=== PATIENT | male | born 1955 | race Caucasian/White ===

== ENCOUNTER 2023-02-09 09:54 | Emergency (ER) | payer MEDICARE, OTHER, SELFPAY ==
--- NOTE | ~2023-02-09 | US_ITS ---
EXAMINATION: US SCROTUM CLINICAL INFORMATION: Right testicular pain. COMPARISON: None available. TECHNIQUE: A sonogram of the scrotum was performed assessing dumont-scale appearance and color Doppler flow. Spectral Doppler analysis of the arterial and venous flow were performed in the testes bilaterally. FINDINGS: RIGHT: Right testicle measures 3.6 x 3.0 x 3.8 cm, volume 21.5 mL. No focal testicular parenchymal lesions are visualized. Spectral Doppler analysis of the arterial and venous flow is normal in the right testis. Right epididymis is enlarged and demonstrates increased vascularity suggesting epididymitis. No right varicocele is seen. Complex right-sided large hydrocele. Right appendix testes. LEFT: Left testicle measures 3.9 x 2.0 x 2.4 cm, volume 9.8 mL. No focal testicular parenchymal lesions are visualized. Spectral Doppler analysis of the arterial and venous flow is normal in the left testis. Scrotal shu measuring 3 mm. Left epididymal head is normal in size. No left varicocele is seen. Left epididymal Doppler flow is normal. Moderate left-sided hydrocele. Left appendix testes. Bilateral scrotal wall thickening. US/US scrotum doppler IMPRESSION: 1. Bilateral testicular vascular flow identified. 2. Right epididymis is enlarged and demonstrates increased vascularity suggesting epididymitis. 3. Complex right-sided large hydrocele. 4. Moderate left-sided hydrocele. 5. Bilateral scrotal wall thickening. 6. Left-sided scrotal shu measuring 3 mm.
[2023-02-09 09:57] VITALS: BP 155/82; PULSE 71; RESP 19; TEMP 36.1; O2SAT 97; BMI 28.6
--- OUTSIDE RECORDS SUMMARY | 2023-02-09 11:50 | XMS_ITS | Continuity of Care Document ---
Author Name Unknown Organization [facility] Address [address] [place] [address], [address] [place] [address]- Care Team Providers Care Pharmaceutical Worker Name Role Phone Nusrat RODRIGUEZ, Alvarez Hendrix Primary Care Physician Encounter [facility] [place] Date(s): 09/27/21 - 12/23/21 [facility] [address] [place] [address] Drive, [address] [place], [place] [address] Attending Physician: Armin Moe MD Referring Physician: Jann Verduzco Allergies, Adverse Reactions, Alerts No Known Allergies Medications Atenolol Tablet 75 mg, By Mouth, Daily, Maintenance, 02/10/15 12:57:00 Start Date: 02/10/15 Status: Ordered atorvastatin 80 mg oral tablet = 80 mg, By Mouth, Daily at bedtime, # 60 tablet, 0 Refills, Maintenance, 02/12/15 11:40:04, Tablet, 80 mg By Mouth Daily at bedtime,x60 days Start Date: 02/12/15 Stop Date: 04/13/15 Status: Ordered biotin 5000 mcg oral tablet, disintegrating 0 Refills, Maintenance, 02/20/15 15:37:55 Start Date: 02/20/15 Status: Ordered Coenzyme Q10 = 200 mg, By Mouth, Daily, 0 Refills, Maintenance, 02/20/15 15:37:15 Start Date: 02/20/15 Status: Ordered Gabapentin = 600 mg, By Mouth, 3 times a day, 0 Refills, Maintenance, 02/20/15 15:36:16 Start Date: 02/20/15 Status: Ordered Melatonin 10mgs, Daily at bedtime, 0 Refills, Maintenance, 03/28/16 9:27:40 Start Date: 03/28/16 Status: Ordered Multivitamin Daily, 0 Refills, Maintenance, 03/28/16 9:24:25 Start Date: 03/28/16 Status: Ordered Patient's Own Meds ts fish oil w krill 1500 2 tabs, By Mouth, Daily, Maintenance, 03/28/16 9:25:24 Start Date: 03/28/16 Status: Ordered Percocet-10/325 1 tablet, By Mouth, Every 6 hours, 0 Refills, Maintenance, 05/10/16 13:36:15 Start Date: 05/10/16 Status: Ordered Social History Social History Type Response Smoking Status Never smoker entered on: 02/20/15 Sex
--- OUTSIDE RECORDS SUMMARY | 2023-02-09 11:50 | XMS_ITS | Continuity of Care Document ---
Author Name Unknown Organization [facility] Address [address] [place] [address] [address]ize, [address] [place] [address]- Care Team Providers Care Crisis Therapist Name Role Phone Nusrat RODRIGUEZ, Alvarez Hendrix Primary Care Physician Encounter [facility] [place] Date(s): 11/23/21 - 12/23/21 [facility] [address] [place] [address] Drive, [address] [place], [place] [address] Attending Physician: Kody Kenyon Admitting Physician: Kody Kenyon Referring Physician: AdmKody barrera Allergies, Adverse Reactions, Alerts No Known Allergies [...] 05/10/16 13:36:15 Start Date: 05/10/16 Status: Ordered Vital Signs Most recent to oldest [Reference Range]: 1 Height 180.3 cm (02/20/15 3:11 PM) Weight 90.0 kg (02/20/15 3:11 PM) Pulse Rate [55-90 bpm] 61 bpm (02/20/15 3:11 PM) Body Mass Index [18.50-24.99] 27.69 *H* (02/20/15 3:11 PM) Blood Pressure [90-138/55-84 mm Hg] 118/ 72mm Hg (02/20/15 3:11 PM) Respiratory Rate [16-30 br/min] 16 br/mi n (02/20/15 3:11 PM) Blood pressure sites Arm, right (02/20/15 3:11 PM) Weight Obtained Via Patient/family state d (02/20/15 3:11 PM) Social History Social History Type Response Smoking Status Never smoker entered on: 02/20/15 Sex
--- OUTSIDE RECORDS SUMMARY | 2023-02-09 11:50 | XMS_ITS | Continuity of Care Document ---
Author Name Unknown Organization [facility] Address [address] [place] [id number]- Care Team Providers Care Head Greenskeeper Name Role Phone Jann Verduzco Primary Care Physician Encounter [facility] [place] Date(s): 02/18/22 - 03/20/[address] [address]- Attending Physician: Kody Kenyon Admitting Physician: Kody Kenyon Referring Physician: Admtr ArIndia Allergies, Adverse Reactions, Alerts No Known Allergies [...] Status Never smoker entered on: 02/20/15 Sex Patient Care team information Personnel Name: Jann Verduzco Address: Address: [address] [place] [id number]
--- OUTSIDE RECORDS SUMMARY | 2023-02-09 11:50 | XMS_ITS | Continuity of Care Document ---
Author Name Unknown Organization [facility] Address [address] [place] [address] [address], [address] [place] [address]- Care Team Providers Care Mixing Machine Attendant Name Role Phone Nusrat RODRIGUEZ, Alvarez Hendrix Primary Care Physician [place] [facility] [place] 09/27/21 - 10/27/21 [facility] [address] [place] [address] Drive, [address] [place], [place] [address] Allergies, Adverse Reactions, Alerts No Known Allergies [...]
[2023-02-09 12:17] VITALS: BP 159/86; PULSE 60; RESP 14; O2SAT 95
--- NOTE | 2023-02-09 12:50 | ED.MALEGU ---
HPI - Male Genitourinary General Chief complaint: Urogenital-Male Stated complaint: swollen testicle Time Seen by Provider: 02/09/23 11:27 Source: patient Mode of arrival: ambulatory Limitations: no limitations History of Present Illness HPI Narrative: 67 y o male presents for evaluation of R scrotal pain x1 week. States he was vacationing in [place] with his and he went swimming, following exiting the pool he noticed immediately pain to his right scrotum and testicle. He expressed a concern for a possible sting or bite by an insect, but cannot recall seeing a bug. He reports that within hours of the pain onset, his right scrotum became swollen and has been swollen since. He has tried Iburpofen and Tylenol with no relief. He states that walking around with increased pressure and gravity to his groin increases his pain, but states that using supportive underwear or manually supporting the scrotum alleviates his pain. He is not currently sexually active. He denies dysuria, urinary urgency, frequency, or hematuria. Denies penile discharge, fevers, chills, abdominal pain, chest pain and shortness of breath. No history of hernias or cryptochordism. Related Data Sexually active: No Previous Rx's Medication Instructions Recorded levofloxacin 500 mg tablet 500 mg PO DAILY 10 days #10 tabs 02/09/23 Allergies Allergy/AdvReac Type Severity Reaction Status Date / Time No Known Allergies Allergy Verified 02/09/23 09:57 Review of Systems Review of Systems: Constitutional : No Weight loss, No Fever, No Chills, No Fatigue, No Malaise ENT/Mouth : No sore throat, No Rhinorrhea Eyes: No Eye Pain, No Swelling, No Redness Cardiovascular : No Chest Pain, No SOB, No Dyspnea on Exertion, No Orthopnea, No Edema, No Palpitations Respiratory : No Cough, No Sputum, No Wheezing Gastrointestinal : No Nausea, No Vomiting, No Diarrhea, No Constipation, No abdominal Pain, No Hematochezia, No Melena Genitourinary : No Dysuria, No Urinary Frequency, No Hematuria, +scrotal pain, no penile discharge Musculoskeletal : No joint pain, No Myalgias, No Joint Swelling Skin : No Skin Lesions, No rash Neuro : No Weakness, No Numbness, No Dizziness, No Headache Psych : No Anxiety/Panic, No Depression Heme/Lymph: No Bruising, No Bleeding,No Lymphadenopathy Endocrine : No Polyuria, No Polydipsia All other systems reviewed and are negative [facility] Past Medical History Attestation statement: The following information was validated with the patient. Source: old records reviewed and nursing notes reviewed Social History Social History Smoked in Last 30 Days: No Use of substances other than those prescribed or required for medical reasons: No Advance Directives: Yes Advance Directives Information Provided: No Advance Directives on File: No Physical Exam Vital Signs: Vital Signs: Last Vital Signs Temp 97 F 02/09/23 09:57 Pulse 65 02/09/23 14:03 Resp 14 02/09/23 14:03 BP 170/81 H 02/09/23 14:03 Pulse Ox 95 02/09/23 14:03 O2 Del Method Room Air 02/09/23 14:03 BMI result Body Mass Index 28.6 vss Appearance: Alert.? Oriented X3.? No acute distress.? Head: Normocephalic, atraumatic, no step-offs or deformities Eyes: Pupils equal, round and reactive to light.? CVS: Normal heart rate and rhythm.? Pulses normal.? Respiratory: No respiratory distress.? Breath sounds normal.? Abdomen: Soft and nontender.? Skin: Skin warm and dry.? Normal skin color.? Normal skin turgor.? Extremities: No lower extremity edema.? No calf ttp. 5/5 strength to bilateral upper and lower extremities Back: No midline tenderness, no C-spine tenderness, full range of motion, no CVA tenderness bilaterally Neuro: Oriented X 3.? No motor deficit.? No sensory deficit. CN 2-12 intact Sensative: nurse Ayleen as dredging inspector Errythema to right scrotal sac no obvious lesions. R testicle enlarge when compared to L testicle ? Hydrocele. + tenderness to right epididymis . Normal left testicle. No signs of gangrene Course Reevaluation(s) Reevaluation #1: Patient's ultrasound showing bilateral testicular vascular flow identified, no signs of torsion, right epididymis is enlarged and demonstrates increased vascularity suggesting epididymitis. Complex right-sided large hydrocele. Moderate left-sided hydrocele. Bilateral scrotal wall thickening. I do not suspect scrotal cellulitis. Unlikely gangrene. Urine with positive bacteria as well as leukocyte esterases will treat with Levaquin. Labs pending Time: 13:38 Reevaluation #2: CBC with no leukocytosis in normocytic anemia is noted likely patient's baseline. I did have my attending evaluate this patient who reports right-sided swelling likely secondary to hydrocele, no hard masses noted, will discharge him with Levaquin, urology follow-up. Educated patient on diagnosis and treatment plan, answered all question, patient verbalizes understanding. At this time patient will be discharged home, advised to return with new or worsening symptoms. Educated on worrisome signs and symptoms and when to return. At this time I feel comfortable discharge home. Time: 14:20 Reevaluation #3: Chemistry unremarkable slightly elevated BUN likely secondary to poor p.o. intake/dehydration encourage p.o. fluids. Medical Decision Making Medical Decision Making [facility] Narrative: 1337 67 year old male presents w/ r scrotal pain and swelling X 1 week. PE w/ Sensative: nurse Ayleen as dredging inspector Errythema to right scrotal sac no obvious lesions. R testicle enlarge when compared to L testicle. + tenderness to right epididymis . Normal left testicle. No signs of gangrene Likely UTI vs cystisi vs epididymitis versus orchitis. Unlikely torsion, acute abdomen, electrolyte abnormalities. No evidence of trauma. No signs of Hank gangrene Plan at this time labs, imaging, urine. Differential Diagnosis Differential Diagnoses: The differential diagnosis associated with the presentation includes Likely UTI vs cystisi vs epididymitis versus orchitis. Unlikely torsion, acute abdomen, electrolyte abnormalities. No evidence of trauma. Admission/Observation Consideration of admission/observation: Escalation of care including admission/observation considered Unlikely Consult Healthcare Provider Management of the patient was discussed with: Spray Painter (My attending Dr. Landis) Lab Data [facility] Lab Attestation statement: I reviewed the patient's lab results. 02/09/23 14:09 02/09/23 14:09 Labs: Lab Results 02/09/23 02/09/23 Range/Units 12:55 14:09 WBC 7.9 (4.8-10.8) X10*3/uL RBC 4.03 L (4.60-5.80) X10*6/uL Hgb 12.8 L (14.0-18.0) g/dl Hct 37.8 L (42.0-52.0) % MCV 93.8 (80.0-98.0) fL MCH 31.8 (27.0-33.0) pg MCHC 33.9 (31.0-36.0) g/dl RDW 12.2 (11.0-16.0) % Plt Count 196 (160-400) X10*3/uL MPV 10.2 (9.4-12.4) fL Immature Gran % (Auto) 0.3 (0.0-0.4) % Neut % (Auto) 65.2 (45-73) % Lymph % (Auto) 16.4 L (20-40) % [place] % (Auto) 9.8 (2-11) % Eos % (Auto) 7.7 H (0-4) % Baso % (Auto) 0.6 (0-2) % Lymph # (Auto) 1.3 (1.2-4.9) X10*3/uL [place] # (Auto) 0.8 (0.1-1.2) X10*3/uL Eos # (Auto) 0.6 H (0.0-0.4) X10*3/uL Baso # (Auto) 0.1 (0.0-0.2) X10*3/uL Abs Immat Gran (auto) 0.02 (0.00-0.03) X10*3/uL Absolute Neuts (auto) 5.2 (2.0-8.3) x10*3/uL Absolute Nucleated RBC 0.000 (0.0-0.012) X10*3/uL Nucleated RBC % (auto) 0.0 (0.0-0.2) /100WBC Sodium 142 (135-145) mmol/L Potassium 4.3 (3.3-5.1) mmol/L Chloride 111 H (96-108) mmol/L Carbon Dioxide 26 (22-29) mmol/L Anion Gap 9 L (12-20) BUN 17 H (9-16) mg/dL Creatinine 0.88 (0.5-1.4) mg/dL Estim Creat Clear Calc 92.3 Estimated GFR > 60 Random Glucose 81 (60-115) mg/dL Calcium 9.3 (8.4-10.2) mg/dL Magnesium 2.2 (1.6-2.6) mg/dL Total Bilirubin 0.4 (0.0-1.0) mg/dL AST 29 (5-37) U/L ALT 37 (0-40) U/L Alkaline Phosphatase 106 (39-117) U/L Total Protein 6.7 (6.5-8.0) g/dL Albumin 3.7 (3.5-5.0) g/dL Lipase 19 (8-78) U/L Urine Color Yellow Urine Appearance Cloudy Urine pH 6.5 (5.0-9.0) Ur Specific [place] 1.025 (1.005-1.025) Urine Protein Trace (Neg-Trace) mg/dL Urine Glucose (UA) Negative (Negative) mg/dL Urine Ketones Negative (Negative) mg/dL Urine Blood Trace H (Negative) Urine Nitrite Negative (Negative) Ur Leukocyte Esterase Large (3+) H (Negative) Urine RBC 0-2 (0-2) /HPF Urine WBC >50 H (0-5) /HPF Ur Squamous Epith Cells 0-2 (0-2) /HPF Urine Bacteria 4+ (None Seen) Hyaline Casts 0-2 (0-2) /LPF Independent Interpretation I performed an independent interpretation of an: Ultrasound ( US/US scrotum doppler IMPRESSION: 1. Bilateral testicular vascular flow identified. 2. Right epididymis is enlarged and demonstrates increased vascularity suggesting epididymitis. 3. Complex right-sided large hydrocele. 4. Moderate left-sided hydrocele. 5. Bilateral scrotal wall thickening. 6.) Radiology Impression Discussion of test interpretation with radiology: I have reviewed the radiologist's reading. Prescription Management I considered prescription management with: Antibiotic Critical Care Time Critical Care Time Critical Care Time: Yes Total Critical Care Time: 35 Attestation: I attest to this time spent taking care of the patient, obtaining history, physical, reviewing labs, imaging, speaking to my attending Discharge Plan Discharge Clinical Impression: Epididymitis, Urinary tract infection, Hydrocele Patient Disposition: Home, Self-Care Instructions: Epididymitis (ED), Urinary Tract Infection in Men (DC) Additional Instructions: Take your medications as prescribed. If you were prescribed antibiotics today, it is important that you take your medication to their entirety, do not skip any doses, do not finish them early. Follow-up with your primary care provider this week. Return to the emergency department with new or worsening symptoms. Such as fevers, chills, chest pain, shortness of breath, nausea, vomiting, dizziness, headache, vision changes, lethargy In case of emergency call 911 I sent Devika to the pharmacy for urinary tract infection it has a black box warning of tendon rupture, if you experience any pain to her tendons please discontinue medication, please do not participate in strenuous activity while taking this. Please take with food. Please follow-up with urology. US/US scrotum doppler IMPRESSION: 1. Bilateral testicular vascular flow identified. 2. Right epididymis is enlarged and demonstrates increased vascularity suggesting epididymitis. 3. Complex right-sided large hydrocele. 4. Moderate left-sided hydrocele. 5. Bilateral scrotal wall thickening. 6. Left-sided scrotal shu measuring 3 mm. Prescriptions: New levofloxacin 500 mg tablet 500 mg PO DAILY 10 Days Qty: 10 0RF Referrals: [facility] [Provider Group] - 2 days Jann Adams PA [Primary Care Provider] - 2 days Stand Alone Forms: Work/School Release
[2023-02-09 13:04] LABS: Appearance Urine Cloudy; Color Urine Yellow; Glucose Urine UA Negative (Negative); Leukocyte Esterase Urine Large (3+) (Negative); Nitrite Urine Negative (Negative); PH 6.5 (5.0-9.0); Specific Gravity - Urine 1.025 (1.005-1.025); UMIC TRIGGER UACC YES; Urine Blood Trace (Negative); Urine Ketones Negative (Negative); Urine Protein Trace mg/dL (Neg-Trace)
[2023-02-09 13:06] LABS: Bacteria Urine 4+ (None Seen); Hyaline Casts Urine 0-2 /LPF (0-2); RBC Urine 0-2 /HPF (0-2); Squamous Epithelial Cell Urine 0-2 /HPF (0-2); UACC Culture Trigger YES; WBC Urine >50 /HPF (0-5)
[2023-02-09 14:03] VITALS: BP 170/81; PULSE 65; RESP 14; O2SAT 95
[2023-02-09 14:13] LABS: MANUAL DIFF FLAG NO
[2023-02-09 14:14] LABS: Basophils Absolute Auto 0.1 X10*3/uL (0.0-0.2); Basophils Percent Auto 0.6 % (0-2); Eosinophils Absolute Auto 0.6 X10*3/uL (0.0-0.4); Eosinophils Percent Auto 7.7 % (0-4); Hematocrit 37.8 % (42.0-52.0); Hemoglobin 12.8 g/dl (14.0-18.0); Imm Gran Abs Auto 0.02 X10*3/uL (0.00-0.03); Imm Gran Pct Auto 0.3 % (0.0-0.4); Lymphocytes Absolute Auto 1.3 X10*3/uL (1.2-4.9); Lymphocytes Percent Auto 16.4 % (20-40); Mean Corpuscular HGB Conc 33.9 g/dl (31.0-36.0); Mean Corpuscular Hemoglobin 31.8 pg (27.0-33.0); Mean Corpuscular Volume 93.8 fL (80.0-98.0); Mean Platelet Volume 10.2 fL (9.4-12.4); Monocytes Absolute Auto 0.8 X10*3/uL (0.1-1.2); Monocytes Percent Auto 9.8 % (2-11); Neutrophils Absolute Auto 5.2 x10*3/uL (2.0-8.3); Neutrophils Percent Auto 65.2 % (45-73); Platelet Count 196 X10*3/uL (160-400); Red Blood Count 4.03 X10*6/uL (4.60-5.80); Red Cell Distribution Width 12.2 % (11.0-16.0); White Blood Count 7.9 X10*3/uL (4.8-10.8)
[2023-02-09 14:29] LABS: Alanine Aminotransferase 37 U/L (0-40); Albumin Level 3.7 g/dL (3.5-5.0); Alkaline Phosphatase 106 U/L (39-117); Anion Gap 9 (12-20); Aspartate Amino Transferase 29 U/L (5-37); Bilirubin Total 0.4 mg/dL (0.0-1.0); Blood Urea Nitrogen 17 mg/dL (9-16); Calcium 9.3 mg/dL (8.4-10.2); Carbon Dioxide 26 mmol/L (22-29); Chloride 111 mmol/L (96-108); Creatinine Clr Calc Pharmacy 92.3; Estimated Glomerular Filt Rate > 60; Glucose Random 81 mg/dL (60-115); Lipase 19 U/L (8-78); Magnesium 2.2 mg/dL (1.6-2.6); Potassium 4.3 mmol/L (3.3-5.1); Sodium 142 mmol/L (135-145); Total Protein 6.7 g/dL (6.5-8.0)
[2023-02-09 15:13] LABS: CT PCR NOT DETECTED (Not Detect.); NG PCR NOT DETECTED (Not Detect.)
== END 2023-02-09 14:32 | disposition home or self-care (01) ==
PROVIDERS: Physician Assistant; Emergency Provider Emergency Medicine; PCP Physician Assistant Medical
DX: N45.1 Epididymitis (principal); N39.0 Urinary tract infection, site not specified; B96.89 Other specified bacterial agents as the cause of diseases classified elsewhere; N43.2 Other hydrocele; N50.82 Scrotal pain; Z20.2 Contact with and (suspected) exposure to infections with a predominantly sexual mode of transmission
CPT/HCPCS: 0353U; 36415; 80053; 81001; 82550; 83690; 83735; 85025; 87086; 87088; 87186; 93975; 99284

== ENCOUNTER 2023-02-15 14:27 | Outpatient (AMB) | payer MEDICARE, OTHER, SELFPAY ==
--- NOTE | 2023-02-15 14:31 | A.OFFVIS_ITS ---
Intake Intake Visit Reasons: ER F/U- epididymitis, bi hydroceles Intake Note: NEW Patient presents today to established treatment for Epididymitis, bi hydroceles : Meds- Levofloxacin Allergies to Antibiotic- No Known Allergies Blood Thinner- Aspirin Personal Attendant Required: No Accompanied by: Self / Same As Patient Allergies No Known Allergies Allergy (Verified 02/15/23 14:37) HPI HPI Comments History of Present Illness Details Thierry is a 67-year-old male who presents today to the office to establish as a new patient for an evaluation of?scrotal swelling. 02/15/2023? He presents today for an evaluation of?epididymitis, and bilateral hydroceles. He was seen in ED on 02/09/2023 for right scrotal pain. States he was vacationing in [place] with his and he went swimming, following exiting the pool he noticed immediately pain to his right scrotum and testicle. He expressed a concern for a possible sting or bite by an insect. He reports that within hours of the pain onset, his right scrotum became swollen and has been swollen since. He has tried Iburpofen and Tylenol with no relief. He denies dysuria, urinary urgency, frequency, or hematuria. Denies penile discharge, fevers. Examination: swelling and mild tenderness of the scrotum. Evaluation today?UA? bladder scan PVR: 417 mL. Plan: Continue Levaquin 21 day course. Ordered repeat scrotum and kidney, bladder US. Prescribed levofloxacin 500 mg daily 14 tabs for 10 days. [facility] Medical History (Updated 02/15/23 @ 15:07 by Ayleen Christina MD) Back pain with history of spinal surgery Surgical History (Updated 02/15/23 @ 14:38 by DELVIS Loco) Hx of heart artery stent Hx of total knee replacement Family History (Updated 02/15/23 @ 14:39 by DELVIS Loco) Father Bladder cancer Mother Urologic disorders Brother Kidney stone Social History (Updated 02/15/23 @ 14:40 by DELVIS Loco) Alcohol intake: current Alcohol intake frequency: a few times a week Patient Tobacco Use Status: Never used Tobacco Review of Systems Const All systems reviewed & are unremarkable except as noted in HPI and below Reports no additional complaints Eyes Reports no additional complaints ENT Reports no additional complaints Card Denies dyspnea Resp Denies cough and Denies dyspnea GI Reports no additional complaints Musc Reports no additional complaints Skin/Breast Denies rash and Denies unusual bruising Neuro Reports no additional complaints Psych Reports no additional complaints Endo Reports no additional complaints Wolf/Lymph Reports no additional complaints Aller/Immun Reports no additional complaints Physical Exam Const General: healthy appearing, no acute distress and well developed Orientation/consciousness: patient oriented x3 HEENT Head: Yes normocephalic and Yes atraumatic Eyes Conjunctivae: conjunctivae normal Neck Neck: Yes normal visual inspection Chest Chest palpation & inspection: normal inspection of the chest Resp Effort & Inspection: normal respiratory effort Cardio Rate: regular rate GI Inspection: Yes normal to inspection Palpation (GI): Soft to palpation Other: swelling and mild tenderness of the scrotum. Penis: normal penis Scrotum: scrotum abnormal Skin General skin exam: no rashes or lesions noted Neuro General: patient oriented x3 Extrem General: No pedal edema Psych Appearance: grossly normal Affect: normal affect Results AMB Urinalysis, Automated UA Leukoctes 0 Sri/uL Last Edit by DELVIS Loco on 02/15/23 14:45 UA Nitrite Negative Last Edit by DELVIS Loco on 02/15/23 14:45 UA Urobilinogen 0.2 mg/dL Last Edit by DELVIS Loco on 02/15/23 14:4 5 UA Protein 0 mg/dL Last Edit by DELVIS Loco on 02/15/23 14:45 UA pH 6.0 Last Edit by DELVIS Loco on 02/15/23 14:45 UA Blood 0 Aston/uL Last Edit by DELVIS Loco on 02/15/23 14:45 UA Specific [place] 1.025 Last Edit by DELVIS Loco on 02/15/23 14: 45 UA Ketone Negative Last Edit by DELVIS Loco on 02/15/23 14:45 UA Bilirubin 0 mg/dL Last Edit by DELVIS Loco on 02/15/23 14:45 UA Glucose 0 mg/dL Last Edit by DELVIS Loco on 02/15/23 14:45 Results Reviewed Results Reviewed: Laboratory Last Values Urine pH (Auto) 6.0 02/15/23 14:43 Specific [place] (Auto) 1.025 02/15/23 14:43 Urine Protein (Auto) 0 mg/dL 02/15/23 14:43 Glucose (UA)(Auto) 0 mg/dL 02/15/23 14:43 Urine Ketones (Auto) Negative 02/15/23 14:43 Urine Blood (Auto) 0 Aston/uL 02/15/23 14:43 Urine Nitrite (Auto) Negative 02/15/23 14:43 Urine Bilirubin (Auto) 0 mg/dL 02/15/23 14:43 Urine Urobilinogen (Auto) 0.2 mg/dL 02/15/23 14:43 Leukocyte Esterase (Auto) 0 Sri/uL 02/15/23 14:43 Assessment & Plan Assessment & Plan (1) Incomplete bladder emptying: Code(s): R33.9 - Retention of urine, unspecified (2) Orchitis: Code(s): N45.2 - Orchitis Plan Continue Levaquin 21 day course. Ordered repeat scrotum and kidney, bladder US. Prescribed levofloxacin 500 mg daily 14 tabs for 10 days. Orders: Orders US retroperitoneal comp 02/22/23 R33.9 - Retention of urine, unspecified, N45.2 - Orchitis US scrotum 02/22/23 N45.2 - Orchitis AMB Urinalysis Automated 02/15/23 Z13.9 - Encounter for screening, unspecified Medications: Refilled levofloxacin 500 mg PO DAILY 14 tabs 0RF 10 days Patient Instructions: The patient had an opportunity to ask questions regarding treatment plan. All questions were answered. Imaging, Laboratory studies and physical exam results were discussed and reviewed in detail. No major barriers to understanding were identified. The patient expressed understanding and agreement with the above treatment plan.? ? ? The patient is aware they should contact our office by phone for worsening of their current condition or the appearance of new symptoms. Compliance is encouraged with any medications and followup testing that is ordered.? ? ? It is a privilege to be allowed the opportunity to participate in the urologic care of your patient. If you have any questions or concerns regarding treatment for the above conditions please do not hesitate to contact me. The office telephone contact is [phone].? ? ? This note is constructed in part using voice recognition software. While every effort has been made to ensure accuracy director of search engine optimization errors may have been included.? ? ? Yours sincerely,? ? ? Ayleen Christina MD? ? Coding Level of Care Code New Pt Level 4 (90105) Diagnoses Incomplete bladder emptying R33.9 Orchitis N45.2
== END 2023-02-15 15:05 | disposition home or self-care (01) ==
PROVIDERS: PCP Physician Assistant Medical; Visit Provider Urology
DX: R33.9 Retention of urine, unspecified (principal); N45.2 Orchitis
CPT/HCPCS: 99204

== ENCOUNTER → 2023-02-15 14:27 | Outpatient (BNVA) | payer MEDICARE, OTHER, SELFPAY | PROVIDERS: PCP Physician Assistant Medical; Visit Provider Urology | DX: N45.2 Orchitis (principal); R33.9 Retention of urine, unspecified | CPT/HCPCS: 81003 ==

== ENCOUNTER 2023-02-22 13:48 | Outpatient (REF) | payer MEDICARE, OTHER, SELFPAY ==
--- NOTE | ~2023-02-22 | US_ITS ---
EXAMINATION: US RETROPERITONEAL COMPLETE (RENAL) CLINICAL INFORMATION: Retention of urine, incomplete emptying of bladder. COMPARISON: None available. TECHNIQUE: Real-time imaging of the kidneys and bladder. FINDINGS: RIGHT KIDNEY: 10.5 x 4.4 x 7.0 cm (SAG x AP x TRV). The kidney is normal in size, contour, and echogenicity. Renal cortical thickness is normal. No renal calculi or hydronephrosis. 0.8 cm benign cyst in the mid kidney. No follow-up imaging is recommended. LEFT KIDNEY: 11.7 x 4.9 x 6.4 cm (SAG x AP x TRV). The kidney is normal in size, contour, and echogenicity. Renal cortical thickness is normal. No hydronephrosis. Multiple benign cysts measuring up to 1.9 cm. No follow-up imaging is recommended. Three nonobstructing calculi in the left mid to lower kidney measuring 2-6 mm in size. BLADDER: Distended urinary bladder measuring 676 mL prevoid and postvoid 570 mL. Bilateral ureteral jets are seen. ADDITIONAL FINDINGS: The prostate is enlarged measuring 48 mL. US/US retroperitoneal comp IMPRESSION: Nonobstructing left renal calculi. Enlarged prostate with distended urinary bladder and large post void residual. No hydronephrosis.
--- NOTE | ~2023-02-22 | US_ITS ---
EXAMINATION: US SCROTUM CLINICAL INFORMATION: Orchitis. COMPARISON: Ultrasound scrotum 02/09/2023. TECHNIQUE: A sonogram of the scrotum was performed assessing dumont-scale appearance and color Doppler flow. Spectral Doppler analysis of the arterial and venous flow were performed in the testes bilaterally. FINDINGS: RIGHT: Right testicle measures 4.22 x 2.83 x 2.39 cm, volume 15.0 mL. No focal testicular parenchymal lesions are visualized. Spectral Doppler analysis of the arterial and venous flow is increased in the right testis. Right epididymal head is enlarged and edematous compared to the left side. No right varicocele is seen. There is moderate complex loculated hydrocele. Right epididymal Doppler flow is increased. LEFT: Left testicle measures 4.38 x 1.76 x 3.88 cm, volume 15.6 mL. There are scrotal pearls. Spectral Doppler analysis of the arterial and venous flow is normal in the left testis. Left epididymal head is normal in size. No left varicocele is seen. There is a mild simple hydrocele. Left epididymal Doppler flow is normal. US/US scrotum IMPRESSION: Persistent hyperemia of the right testicle and epididymis as well as edema of the right epididymis consistent with epididymoorchitis. Complex loculated right hydrocele. No imaging improvement compared to the prior examination.
== END 2023-02-22 13:49 | disposition home or self-care (01) ==
LOC: HO.HMGCX 13:48
PROVIDERS: PCP Physician Assistant Medical; Visit Provider Urology
DX: R33.9 Retention of urine, unspecified (principal); N45.2 Orchitis
CPT/HCPCS: 76770; 76870

== ENCOUNTER 2023-03-24 09:33 | Outpatient (AMB) | payer MEDICARE, OTHER, SELFPAY ==
--- NOTE | 2023-03-24 09:35 | A.OFFVIS_ITS ---
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: No Accompanied by: Self / Same As Patient Allergies No Known Allergies Allergy (Verified 02/15/23 14:37) Medication List - Last Reconciled 03/24/23 by Ayleen Christina MD amoxicillin-pot clavulanate 875-125 mg 1 tab PO BID 10 days ascorbic acid (vitamin C) mg PO aspirin 81 mg PO DAILY atenolol mg PO atorvastatin mg PO carbidopa-levodopa 25-100 mg tabs PO ferrous sulfate 325 mg PO DAILY gabapentin mg PO hydrocodone-acetaminophen 5-325 mg 1 tab PO BID PRN levofloxacin 500 mg PO DAILY 10 days losartan 25 mg PO DAILY omeprazole 20 mg PO BID tamsulosin (Flomax) 0.4 mg PO BID HPI HPI Comments History of Present Illness Details Thierry is a 67-year-old male who presents today to the office for a follow-up. 03/24/2023? He is followed today for US results. He was last seen by me on 02/15/2023 for right orchitis and incomplete bladder emptying. The patient was advised to continue Levaquin 21 day course. He states that the right testicle is reduced in sized and less tender, but not back to normal. I reviewed the retroperitoneum US results from 02/22/2023: No hydronephrosis. Three nonobstructing calculi in the left mid to lower kidney measuring 2-6 mm in size. Distended urinary bladder measuring 676 mL prevoid and postvoid 570 mL. Bilateral ureteral jets are seen. Estimated prostate size 48 mL. I reviewed scrotal US results from 02/22/2023: revealed persistent hyperemia of the right testicle and epididymis as well as edema of the right epididymis consistent with epididymoorchitis. Complex loculated right hydrocele. 03/24/2023:Evaluation today-- Bladder sc an PVR: 409 mL. Exam- Scrotal swelling resolved, mild tenderness of the right testicle 03/24/2023: Plan: Ordered tamsulosin 0.4 mg one tablet for 7 days, and then increase to twice a day if there is no dizziness. Augmentin 875 mg twice a day for 10 days. Follow-up in 3 months, monitor post void residual. [facility] Medical History Back pain with history of spinal surgery Surgical History Hx of heart artery stent Hx of total knee replacement Family History Father Bladder cancer Mother Urologic disorders Brother Kidney stone Social History Alcohol intake: current Alcohol intake frequency: a few times a week Patient Tobacco Use Status: Never used Tobacco Review of Systems Const All systems reviewed & are unremarkable except as noted in HPI and below Reports no additional complaints Eyes Reports no additional complaints ENT Reports no additional complaints Card Denies dyspnea Resp Denies cough and Denies dyspnea GI Reports no additional complaints Musc Reports no additional complaints Skin/Breast Denies rash and Denies unusual bruising Neuro Reports no additional complaints Psych Reports no additional complaints Endo Reports no additional complaints Wolf/Lymph Reports no additional complaints Aller/Immun Reports no additional complaints Physical Exam Const General: healthy appearing, no acute distress and well developed Orientation/consciousness: patient oriented x3 HEENT Head: Yes normocephalic and Yes atraumatic Eyes Conjunctivae: conjunctivae normal Neck Neck: Yes normal visual inspection Chest Chest palpation & inspection: normal inspection of the chest Resp Effort & Inspection: normal respiratory effort Cardio Rate: regular rate GI Inspection: Yes normal to inspection Palpation (GI): Soft to palpation Other: swelling resolved, mild tenderness of the testicle Penis: normal penis Scrotum: scrotum normal Skin General skin exam: no rashes or lesions noted Neuro General: patient oriented x3 Extrem General: No pedal edema Psych Appearance: grossly normal Affect: normal affect Results Reviewed Results Reviewed: Date of Service: 02/22/23 EXAMINATION: US SCROTUM CLINICAL INFORMATION:? Orchitis. COMPARISON:? Ultrasound scrotum 02/09/2023. FINDINGS: RIGHT: Right testicle measures 4.22 x 2.83 x 2.39 cm, volume 15.0 mL. No focal testicular parenchymal lesions are visualized. Spectral Doppler analysis of the arterial and venous flow is increased in the right testis.? Right epididymal head is enlarged and edematous compared to the left side. No right varicocele is seen. There is moderate complex loculated hydrocele. Right epididymal Doppler flow is increased.? LEFT: Left testicle measures 4.38 x 1.76 x 3.88 cm, volume 15.6 mL. There are scrotal pearls. Spectral Doppler analysis of the arterial and venous flow is normal in the left testis.? Left epididymal head is normal in size. No left varicocele is seen. There is a mild simple hydrocele. Left epididymal Doppler flow is normal. IMPRESSION: Persistent hyperemia of the right testicle and epididymis as well as edema of the right epididymis consistent with epididymoorchitis. Complex loculated right hydrocele. No imaging improvement compared to the prior examination. Date of Service: 02/22/23 EXAMINATION:? US RETROPERITONEAL COMPLETE (RENAL) CLINICAL INFORMATION: Retention of urine, incomplete emptying of bladder. COMPARISON:? None available. FINDINGS: RIGHT KIDNEY: 10.5 x 4.4 x 7.0 cm (SAG x AP x TRV). The kidney is normal in size, contour, and echogenicity. Renal cortical thickness is normal. No renal calculi or hydronephrosis. 0.8 cm benign cyst in the mid kidney. No follow-up imaging is recommended.? LEFT KIDNEY: 11.7 x 4.9 x 6.4 cm (SAG x AP x TRV). The kidney is normal in size, contour, and echogenicity. Renal cortical thickness is normal. No hydronephrosis. Multiple benign cysts measuring up to 1.9 cm. No follow-up imaging is recommended. Three nonobstructing calculi in the left mid to lower kidney measuring 2-6 mm in size. BLADDER: Distended urinary bladder measuring 676 mL prevoid and postvoid 570 mL. Bilateral ureteral jets are seen. ADDITIONAL FINDINGS: The prostate is enlarged measuring 48 mL. IMPRESSION:? Nonobstructing left renal calculi. Enlarged prostate with distended urinary bladder and large post void residual. No hydronephrosis. Assessment & Plan Assessment & Plan (1) Incomplete bladder emptying: Code(s): R33.9 - Retention of urine, unspecified (2) Orchitis: Code(s): N45.2 - Orchitis (3) BPH with obstruction/lower urinary tract symptoms: Code(s): N40.1 - Benign prostatic hyperplasia with lower urinary tract symptoms; N13.8 - Other obstructive and reflux uropathy Plan Ordered tamsulosin 0.4 mg one tablet for 7 days, and then increase to twice a day if there is no dizziness. Augmentin 875 mg twice a day for 10 days. Follow-up in 3 months, monitor post void residual. Medications: New amoxicillin-pot clavulanate 875-125 mg 1 tab PO BID 14 tabs 0RF amoxicillin-pot clavulanate 875-125 mg 1 tab PO BID 10 days 20 tabs 0RF tamsulosin (Flomax) Start flomax daily for 7 days than increase to bid if no dizziness 0.4 mg PO BID 60 caps 3RF Patient Instructions: The patient had an opportunity to ask questions regarding treatment plan. All questions were answered. Imaging, Laboratory studies and physical exam results were discussed and reviewed in detail. No major barriers to understanding were identified. The patient expressed understanding and agreement with the above treatment plan. The patient is aware they should contact our office by phone for worsening of their current condition or the appearance of new symptoms. Compliance is encouraged with any medications and followup testing that is ordered. It is a privilege to be allowed the opportunity to participate in the urologic care of your patient. If you have any questions or concerns regarding treatment for the above conditions please do not hesitate to contact me. The office telephone contact is [phone]. This note is constructed in part using voice recognition software. While every effort has been made to ensure accuracy medical transcriptionist errors may have been included. Yours sincerely, Ayleen Christina MD Coding Level of Care Code Est Pt Level 4 (55955) Diagnoses Incomplete bladder emptying R33.9 Orchitis N45.2 BPH with obstruction/lower urinary tract symptoms N40.1; N13.8
== END 2023-03-24 10:14 | disposition home or self-care (01) ==
PROVIDERS: PCP Physician Assistant Medical; Visit Provider Urology
DX: R33.9 Retention of urine, unspecified (principal); N45.2 Orchitis; N40.1 Benign prostatic hyperplasia with lower urinary tract symptoms; N13.8 Other obstructive and reflux uropathy
CPT/HCPCS: 99214

== ENCOUNTER → 2023-03-24 09:33 | Outpatient (BNVA) | payer MEDICARE, OTHER, SELFPAY | PROVIDERS: PCP Physician Assistant Medical; Visit Provider Urology | DX: N40.1 Benign prostatic hyperplasia with lower urinary tract symptoms (principal); N13.8 Other obstructive and reflux uropathy; R33.9 Retention of urine, unspecified; N45.2 Orchitis | CPT/HCPCS: 99212 ==

== ENCOUNTER 2023-06-22 08:34 | Outpatient (AMB) | payer MEDICARE, OTHER, SELFPAY ==
--- NOTE | 2023-06-22 09:02 | A.OFFVIS_ITS ---
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 06/22/23-- Post Void Residual: 393 mL Pt denies dysuria, denies bladder pressure - on review of renal US no hydronephrosis- will cont to monitor pt state scrotal swelling is resolved Review of chart: He was last seen by me on 02/15/2023 for right orchitis and incomplete bladder emptying. The patient was advised to continue Levaquin 21 day course. Retroperitoneum US results from 02/22/2023: No hydronephrosis. Three nonobstructing calculi in the left mid to lower kidney measuring 2-6 mm in size. Distended urinary bladder measuring 676 mL prevoid and postvoid 570 mL. Bilateral ureteral jets are seen. Estimated prostate size 48 mL. Scrotal US results from 02/22/2023: revealed persistent hyperemia of the right testicle and epididymis as well as edema of the right epididymis consistent with epididymoorchitis. Complex loculated right hydrocele. 06/22/23- Orchitis and scrotal swelling r esolved Incomplete Bladder emptying- Chronic. Cont tamsulosin. Plan monitor post void residual. [facility] Medical History Back pain with history of spinal surgery Surgical History Hx of heart artery stent Hx of total knee replacement Family History Father Bladder cancer Mother Urologic disorders Brother Kidney stone Social History Alcohol intake: current Alcohol intake frequency: a few times a week Patient Tobacco Use Status: Never used Tobacco Review of Systems Const All systems reviewed & are unremarkable except as noted in HPI and below Reports no additional complaints Eyes Reports no additional complaints ENT Reports no additional complaints Card Denies dyspnea Resp Denies cough and Denies dyspnea GI Reports no additional complaints Musc Reports no additional complaints Skin/Breast Denies rash and Denies unusual bruising Neuro Reports no additional complaints Psych Reports no additional complaints Endo Reports no additional complaints Wolf/Lymph Reports no additional complaints Aller/Immun Reports no additional complaints Office Procedures Post Void Residual Post Residual Void Post Void Residual (PVR): [id number] Void Residual by ultrasound Results AMB Urinalysis, Automated UA Leukoctes 0 Sri/uL Last Edit by DELVIS Loco on 06/22/23 09:22 UA Nitrite Negative Last Edit by DELVIS Loco on 06/22/23 09:22 UA Urobilinogen 0.2 mg/dL Last Edit by DELVIS Loco on 06/22/23 09:2 2 UA Protein 6.0 mg/dL Last Edit by DELVIS Loco on 06/22/23 09:22 UA pH 0 Last Edit by DELVIS Loco on 06/22/23 09:22 UA Blood 0 Aston/uL Last Edit by DELVIS Loco on 06/22/23 09:22 UA Specific [place] 1.015 Last Edit by DELVIS Loco on 06/22/23 09: 22 UA Ketone Negative Last Edit by DELVIS Loco on 06/22/23 09:22 UA Bilirubin 0 mg/dL Last Edit by DELVIS Loco on 06/22/23 09:22 UA Glucose 0 mg/dL Last Edit by DELVIS Loco on 06/22/23 09:22 Results Reviewed Results Reviewed: Laboratory Last Values Urine pH (Auto) 0 06/22/23 09:20 Specific [place] (Auto) 1.015 06/22/23 09:20 Urine Protein (Auto) 6.0 mg/dL 06/22/23 09:20 Glucose (UA)(Auto) 0 mg/dL 06/22/23 09:20 Urine Ketones (Auto) Negative 06/22/23 09:20 Urine Blood (Auto) 0 Aston/uL 06/22/23 09:20 Urine Nitrite (Auto) Negative 06/22/23 09:20 Urine Bilirubin (Auto) 0 mg/dL 06/22/23 09:20 Urine Urobilinogen (Auto) 0.2 mg/dL 06/22/23 09:20 Leukocyte Esterase (Auto) 0 Sri/uL 06/22/23 09:20 Assessment & Plan Assessment & Plan (1) Incomplete bladder emptying: Code(s): R33.9 - Retention of urine, unspecified (2) Orchitis: Code(s): N45.2 - Orchitis (3) BPH with obstruction/lower urinary tract symptoms: Code(s): N40.1 - Benign prostatic hyperplasia with lower urinary tract symptoms; N13.8 - Other obstructive and reflux uropathy Plan Orchitis and scrotal swelling resolved Incomplete Bladder emptying- Chronic. Cont tamsulosin. Plan monitor post void residual. Orders: Orders AMB Urinalysis Automated 06/22/23 Z13.9 - Encounter for screening, unspecified AMB Post Void Residual by ultrasound 06/22/23 N39.8 - Other specified disorders of urinary system Coding Level of Care Code Est Pt Level 4 (04935) Diagnoses Incomplete bladder emptying R33.9 Orchitis N45.2 BPH with obstruction/lower urinary tract symptoms N40.1; N13.8 CPT Codes Post Residual Void - PVR CPT Code: 61210-Tlkr Void Residual by ultrasound ([id number])
== END 2023-06-22 09:36 | disposition home or self-care (01) ==
PROVIDERS: PCP Physician Assistant Medical; Visit Provider Urology
DX: R33.9 Retention of urine, unspecified (principal); N45.2 Orchitis; N40.1 Benign prostatic hyperplasia with lower urinary tract symptoms; N13.8 Other obstructive and reflux uropathy
CPT/HCPCS: 99214

== ENCOUNTER → 2023-06-22 08:34 | Outpatient (BNVA) | payer MEDICARE, OTHER, SELFPAY | PROVIDERS: PCP Physician Assistant Medical; Visit Provider Urology | DX: N40.1 Benign prostatic hyperplasia with lower urinary tract symptoms (principal); N13.8 Other obstructive and reflux uropathy; R33.9 Retention of urine, unspecified; N45.2 Orchitis | CPT/HCPCS: 51798; 81003; 99212 ==

== ENCOUNTER 2024-01-25 13:51 | Outpatient (REF) | payer MEDICARE, OTHER, SELFPAY ==
--- NOTE | ~2024-01-25 | US_ITS ---
EXAMINATION: US RETROPERITONEAL COMPLETE (RENAL) CLINICAL INFORMATION: Benign prostatic hyperplasia with lower urinary tract symptoms. COMPARISON: Ultrasound kidneys and bladder 02/22/2023. TECHNIQUE: Real-time imaging of the kidneys and bladder. FINDINGS: RIGHT KIDNEY: 11.7 x 6.1 x 6.6 cm (SAG x AP x TRV). The kidney is normal in size, contour, and echogenicity. Renal cortical thickness is normal. No renal calculi or hydronephrosis. At the upper pole, 1.0 cm and 0.9 cm benign, simple cysts are seen. These require no imaging follow-up. LEFT KIDNEY: 11.9 x 5.5 x 6.0 cm (SAG x AP x TRV). The kidney is normal in size, contour, and echogenicity. Renal cortical thickness is normal. At the interpolar aspect, a 4 mm nonobstructing calculus is seen. At the lower pole, a 5 mm nonobstructing calculus is seen. There is no hydronephrosis. There are benign, simple cysts, the largest at the lower pole measuring 2.1 cm. These require no imaging follow-up. BLADDER: Well distended. Bilateral ureteral jets are demonstrated. Prevoid bladder volume is 576 mL. Postvoid bladder volume is 420 mL. OTHER: Prostate dimensions are 2.8 x 3.0 x 3.4 cm, volume 15.2 mL. US/US retroperitoneal comp IMPRESSION: 1. There are nonobstructing left renal calculi. No radiopaque calculus is seen. No hydronephrosis is noted bilaterally. 2. There is a markedly increased post void residual volume. Electronically signed by: Gabe Varela MD 01/30/2024 08:45 PM EDT
== END 2024-01-25 13:52 | disposition home or self-care (01) ==
LOC: HO.HMGCX 13:51
PROVIDERS: PCP Physician Assistant Medical; Visit Provider Urology
DX: N40.1 Benign prostatic hyperplasia with lower urinary tract symptoms (principal); N13.8 Other obstructive and reflux uropathy; R33.9 Retention of urine, unspecified; Z12.5 Encounter for screening for malignant neoplasm of prostate
CPT/HCPCS: 36415; 76770; 84153

== ENCOUNTER 2024-02-12 08:24 | Outpatient (AMB) | payer MEDICARE, OTHER, SELFPAY ==
--- NOTE | 2024-02-12 08:29 | A.OFFVIS_ITS ---
Intake Visit Reasons: 8m/US/PSA Intake Note: Patient presents today for a 8m follow-up/us/psa Meds- Tamsulosin Allergies to Antibiotic- No Known Allergies Blood Thinner- Aspirin Pasting Machine Offbearer Required: No Accompanied by: Self / Same As Patient Allergies No Known Allergies Allergy (Verified 02/12/24 08:31) Medication List - Last Reconciled 02/12/24 by Ayleen Christina MD ascorbic acid (vitamin C) 500 mg PO ONCE aspirin 81 mg PO DAILY atenolol 50 mg PO DAILY atorvastatin 80 mg PO BEDTIME carbidopa-levodopa 25-100 mg tabs PO ferrous sulfate 325 mg PO DAILY gabapentin 600 mg PO BEDTIME hydrocodone-acetaminophen 5-325 mg 1 tab PO BID PRN losartan 25 mg PO DAILY omeprazole 20 mg PO BID tamsulosin (Flomax) 0.4 mg PO BID 90 days HPI Comments Details: 02/12/24--Thierry is a 68-year-old male who presents today to the office for a follow-up. He is followed for BPH and incomplete bladder emptying. I discussed with him PSA results--01/25/2024-0.10 ng/mL. Reviewed renal ultrasound-01/25/2024 stable left kidney too small stones nonobstructive no hydronephrosis. Will continue tamsulosin b.i.d.. Continue to monitor kidneys follow-up in 1 year. Review of chart: 06/22/23-- Thierry is a 67-year-old male who presents today to the office for a follow-up. Post Void Residual: 393 mL Pt denies dysuria, denies bladder pressure - on review of renal US no hydronephrosis- will cont to monitor pt states scrotal swelling is resolved. Orchitis and scrotal swelling resolved. Incomplete Bladder emptying- Chronic. Cont tamsulosin. Plan monitor post void residual. He was last seen by me on 02/15/2023 for right orchitis and incomplete bladder emptying. The patient was advised to continue Levaquin 21 day course. Retroperitoneum US results from 02/22/2023: No hydronephrosis. Three nonobstructing calculi in the left mid to lower kidney measuring 2-6 mm in size. Distended urinary bladder measuring 676 mL prevoid and postvoid 570 mL. Bilateral ureteral jets are seen. Estimated prostate size 48 mL. Scrotal US results from 02/22/2023: revealed persistent hyperemia of the right testicle and epididymis as well as edema of the right epididymis consistent with epididymoorchitis. Complex loculated right hydrocele. [facility] Medical History Back pain with history of spinal surgery Surgical History Hx of heart artery stent Hx of total knee replacement Family History Father Bladder cancer Mother Urologic disorders Brother Kidney stone Social History Alcohol intake: current Alcohol intake frequency: a few times a week Patient Tobacco Use Status: Never used Tobacco Review of Systems Const All systems reviewed & are unremarkable except as noted in HPI and below Reports no additional complaints Eyes Reports no additional complaints ENT Reports no additional complaints Card Reports no additional complaints Resp Reports no additional complaints GI Reports no additional complaints Reports as per HPI Musc Reports no additional complaints Skin/Breast Reports system reviewed and no additional complaints, except as documented Neuro Reports no additional complaints Psych Reports no additional complaints Endo Reports no additional complaints Wolf/Lymph Reports no additional complaints Aller/Immun Reports no additional complaints Results AMB Urinalysis, Automated UA Leukoctes 0 Sri/uL Last Edit by GIOVANA Ojeda on 02/12/24 08:45 UA Nitrite Negative Last Edit by GIOVANA Ojeda on 02/12/24 08:45 UA Urobilinogen 0.2 mg/dL Last Edit by GIOVANA Ojeda on 02/12/24 08:4 5 UA Protein 0 mg/dL Last Edit by GIOVANA Ojeda on 09/16/24 08:45 UA pH 6.0 Last Edit by GIOVANA Ojeda on 02/12/24 08:45 UA Blood 0 Aston/uL Last Edit by GIOVANA Ojeda on 02/12/24 08:45 UA Specific [place] 1.025 Last Edit by GIOVANA Ojeda on 02/12/24 08: 45 UA Ketone Negative Last Edit by GIOVANA Ojeda on 02/12/24 08:45 UA Bilirubin 0 mg/dL Last Edit by GIOVANA Ojeda on 02/12/24 08:45 UA Glucose 0 mg/dL Last Edit by GIOVANA Ojeda on 02/12/24 08:45 Results Reviewed Results Reviewed: Date of Service: 01/25/24 US RETROPERITONEAL COMPLETE (RENAL) CLINICAL INFORMATION: Benign prostatic hyperplasia with lower urinary tract symptoms. COMPARISON: Ultrasound kidneys and bladder 02/22/2023. TECHNIQUE: Real-time imaging of the kidneys and bladder. FINDINGS: RIGHT KIDNEY: 11.7 x 6.1 x 6.6 cm (SAG x AP x TRV). The kidney is normal in size, contour, and echogenicity. Renal cortical thickness is normal. No renal calculi or hydronephrosis. At the upper pole, 1.0 cm and 0.9 cm benign, simple cysts are seen. These require no imaging follow-up. LEFT KIDNEY: 11.9 x 5.5 x 6.0 cm (SAG x AP x TRV). The kidney is normal in size, contour, and echogenicity. Renal cortical thickness is normal. At the interpolar aspect, a 4 mm nonobstructing calculus is seen. At the lower pole, a 5 mm nonobstructing calculus is seen. There is no hydronephrosis. There are benign, simple cysts, the largest at the lower pole measuring 2.1 cm. These require no imaging follow-up. BLADDER: Well distended. Bilateral ureteral jets are demonstrated. Prevoid bladder volume is 576 mL. Postvoid bladder volume is 420 mL. OTHER: Prostate dimensions are 2.8 x 3.0 x 3.4 cm, volume 15.2 mL. IMPRESSION: 1. There are nonobstructing left renal calculi. No radiopaque calculus is seen. No hydronephrosis is noted bilaterally. 2. There is a markedly increased post void residual volume. Date of Service: 02/22/23 EXAMINATION: US SCROTUM CLINICAL INFORMATION:? Orchitis. COMPARISON:? Ultrasound scrotum 02/09/2023. FINDINGS: RIGHT: Right testicle measures 4.22 x 2.83 x 2.39 cm, volume 15.0 mL. No focal testicular parenchymal lesions are visualized. Spectral Doppler analysis of the arterial and venous flow is increased in the right testis.? Right epididymal head is enlarged and edematous compared to the left side. No right varicocele is seen. There is moderate complex loculated hydrocele. Right epididymal Doppler flow is increased.? LEFT: Left testicle measures 4.38 x 1.76 x 3.88 cm, volume 15.6 mL. There are scrotal pearls. Spectral Doppler analysis of the arterial and venous flow is normal in the left testis.? Left epididymal head is normal in size. No left varicocele is seen. There is a mild simple hydrocele. Left epididymal Doppler flow is normal. IMPRESSION: Persistent hyperemia of the right testicle and epididymis as well as edema of the right epididymis consistent with epididymoorchitis. Complex loculated right hydrocele. No imaging improvement compared to the prior examination. Date of Service: 02/22/23 EXAMINATION:? US RETROPERITONEAL COMPLETE (RENAL) CLINICAL INFORMATION: Retention of urine, incomplete emptying of bladder. COMPARISON:? None available. FINDINGS: RIGHT KIDNEY: 10.5 x 4.4 x 7.0 cm (SAG x AP x TRV). The kidney is normal in size, contour, and echogenicity. Renal cortical thickness is normal. No renal calculi or hydronephrosis. 0.8 cm benign cyst in the mid kidney. No follow-up imaging is recommended.? LEFT KIDNEY: 11.7 x 4.9 x 6.4 cm (SAG x AP x TRV). The kidney is normal in size, contour, and echogenicity. Renal cortical thickness is normal. No hydronephrosis. Multiple benign cysts measuring up to 1.9 cm. No follow-up imaging is recommended. Three nonobstructing calculi in the left mid to lower kidney measuring 2-6 mm in size. BLADDER: Distended urinary bladder measuring 676 mL prevoid and postvoid 570 mL. Bilateral ureteral jets are seen. ADDITIONAL FINDINGS: The prostate is enlarged measuring 48 mL. IMPRESSION:? Nonobstructing left renal calculi. Enlarged prostate with distended urinary bladder and large post void residual. No hydronephrosis. Assessment & Plan Assessment & Plan (1) Incomplete bladder emptying: Code(s): R33.9 - Retention of urine, unspecified Category: Medical (2) BPH with obstruction/lower urinary tract symptoms: Code(s): N40.1 - Benign prostatic hyperplasia with lower urinary tract symptoms; N13.8 - Other obstructive and reflux uropathy Category: Medical (3) Kidney stone on left side: Code(s): N20.0 - Calculus of kidney Category: Medical (4) Hx of orchitis: Code(s): Z87.438 - Personal history of other diseases of male genital organs Category: Medical (5) Screening PSA (prostate specific antigen): Code(s): Z12.5 - Encounter for screening for malignant neoplasm of prostate Category: Medical Plan Continue to monitor PVR. Continue tamsulosin b.i.d.. Follow-up in 1 year, renal ultrasound and PSA prior Orders: Orders AMB Urinalysis Automated Today Z13.9 - Encounter for screening, unspecified US renal BI 11 Months N20.0 - Calculus of kidney PSA,Total (Free>4and<10) 11 Months N13.8 - Other obstructive and reflux uropathy, N40.1 - Benign prostatic hyperplasia with lower urinary tract symptoms, Z12.5 - Encounter for screening for malignant neoplasm of prostate Patient Instructions: The patient had an opportunity to ask questions regarding treatment plan. The patient expressed understanding and agreement with the above treatment plan. The patient is aware they should contact our office by phone for worsening of their current condition or the appearance of new symptoms. Compliance is encouraged with any medications and followup testing that is ordered. It is a privilege to be allowed the opportunity to participate in the urologic care of your patient. If you have any questions or concerns regarding treatment for the above conditions please do not hesitate to contact me. The office telephone contact is [phone]. This note is constructed in part using voice recognition software. While every effort has been made to ensure accuracy political geographer errors may have been included. Yours sincerely, Ayleen Christina MD Coding Level of Care Code Est Pt Level 4 (63088) Diagnoses Incomplete bladder emptying R33.9 BPH with obstruction/lower urinary tract symptoms N40.1; N13.8 Kidney stone on left side N20.0 Hx of orchitis Z87.438 Screening PSA (prostate specific antigen) Z12.5
== END 2024-02-12 08:59 | disposition home or self-care (01) ==
PROVIDERS: PCP Physician Assistant Medical; Visit Provider Urology
DX: R33.9 Retention of urine, unspecified (principal); N40.1 Benign prostatic hyperplasia with lower urinary tract symptoms; N13.8 Other obstructive and reflux uropathy; N20.0 Calculus of kidney; Z87.438 Personal history of other diseases of male genital organs; Z12.5 Encounter for screening for malignant neoplasm of prostate; Z13.9 Encounter for screening, unspecified
CPT/HCPCS: 99214

== ENCOUNTER → 2024-02-12 08:24 | Outpatient (BNVA) | payer MEDICARE, OTHER, SELFPAY | PROVIDERS: PCP Physician Assistant Medical; Visit Provider Urology | DX: N40.1 Benign prostatic hyperplasia with lower urinary tract symptoms (principal); R33.8 Other retention of urine; N13.8 Other obstructive and reflux uropathy; N20.0 Calculus of kidney; Z12.5 Encounter for screening for malignant neoplasm of prostate; Z87.438 Personal history of other diseases of male genital organs | CPT/HCPCS: 81003; 99212 ==

== ENCOUNTER 2024-06-26 13:40 | Outpatient (REF) | payer MEDICARE, OTHER, SELFPAY ==
--- NOTE | ~2024-06-26 | XR_ITS ---
CLINICAL HISTORY: M41.56 - Other secondary scoliosis, lumbar region 4 views lumbar spine Comparison: None Findings: No acute fracture. Severe S shaped scoliosis with multilevel degenerative changes. Degenerative osteophytes and narrowing of the intervertebral disc space at multiple levels are noted. There is grade 1 anterolisthesis of L4 on L5. No evidence of instability on the flexion and extension images. IMPRESSION: No acute findings. Scoliosis and multilevel severe degenerative changes. This document has been electronically signed by: Soniya Gilmore MD on 06/27/2024 18:56:00
--- OUTSIDE RECORDS SUMMARY | 2024-06-26 16:46 | XMS_ITS | Encounter Summary ---
Author Organization [facility] Address [address] [place] [address] Care Team Providers Care Stick Feeder Name Role Phone Alvarez Silverio MD Primary Care Provider + [phone] Jann Adams PA-C Primary Care Provider +[phone] Hira Maria MD, PHD Unavailable Unava ilable Radha Rios MD Unavailable [phone] Carolyn Spencer PA-C Unavailable [phone] Encounter Details Date Type Department Care Team Description 03/22/2012 Release of Information Medical Records [address] [place] [address] Abstract, Provider Social History Tobacco Use Types [...] on filedocumented in this encounter Care Teams Stick Feeder Relationship Specialty Start Date End Date Alvarez Silverio MD [address] [place] [address] [phone] PCP - General 03/28/1999 05/18/20 Jann Adams PA-C [address] [place] [address] [phone] PCP - General Internal Medicine 05/19/20 Hira Maria MD, PHD [address] [place] [address] Surgeon Neurosurgery 10/26/21 Radha Rios MD [address] [place] [address] Specialist Cardiology 02/09/22 Carolyn Spencer PA-C [address] [place] [address] Neurosurgery 03/14/22 documented as of this encounter
--- OUTSIDE RECORDS SUMMARY | 2024-06-26 16:46 | XMS_ITS | Encounter Summary ---
Author Organization [facility] Address [address] [place] [address] Care Team Providers Care Edge Polisher Name Role Phone Alvarez Silverio MD Primary Care Provider + [phone] Jann Adams PA-C Primary Care Provider +[phone] Hira Maria MD, PHD Unavailable Unava ilable Radha Rios MD Unavailable [phone] Carolyn Spencer PA-C Unavailable [phone] Encounter Details Date Type Department Care Team Description 02/23/2010 Hospital Medical Records [address] [place] [id number] Delonte Ervin MD Social History Tobacco Use Types Packs/Day [...] on filedocumented in this encounter Care Teams Edge Polisher Relationship Specialty Start Date End Date Alvarez Silverio MD [address] [place] [address] [phone] PCP - General 03/28/1999 05/18/20 Jann Adams PA-C [address] [place] [address] [phone] PCP - General Internal Medicine 05/19/20 Hira Maria MD, PHD [address] [place] [address] Surgeon Neurosurgery 10/26/21 Radha Rios MD [address] [place] [address] Specialist Cardiology 02/09/22 Carolyn Spencer PA-C [address] [place] [address] Neurosurgery 03/14/22 documented as of this encounter
--- OUTSIDE RECORDS SUMMARY | 2024-06-26 16:46 | XMS_ITS | Encounter Summary ---
Author Organization [facility] Address [address] [place] [address] Care Team Providers Care Obstetrics Tech Name Role Phone Alvarez Silverio MD Primary Care Provider + [phone] Jann Adams PA-C Primary Care Provider +[phone] Hira Maria MD, PHD Unavailable Unava ilable Radha Rios MD Unavailable [phone] Carolyn Spencer PA-C Unavailable [phone] Encounter Details Date Type Department Care Team Description 12/16/2016 Seafood Fisherman Report Medical Records [address] [place] [address] Abstract, Provider Social History Tobacco Use Types [...] on filedocumented in this encounter Care Teams Obstetrics Tech Relationship Specialty Start Date End Date Alvarez Silverio MD [address] [place] [address] [phone] PCP - General 03/28/1999 05/18/20 Jann Adams PA-C [address] [place] [address] [id number] PCP - General Internal Medicine 05/19/20 Hira Maria MD, PHD [address] [place] [address] Surgeon Neurosurgery 10/26/21 Radha Rios MD [address] [place] [address] Specialist Cardiology 02/09/22 Carolyn Spencer PA-C [address] [place] [address] Neurosurgery 03/14/22 documented as of this encounter
--- OUTSIDE RECORDS SUMMARY | 2024-06-26 16:46 | XMS_ITS | Encounter Summary ---
Author Organization [facility] Address [address] [place] [address] Care Team Providers Care Shotgun Shell Assembly Machine Adjuster Name Role Phone Alvarez Silverio MD Primary Care Provider + [phone] Jann Adams PA-C Primary Care Provider +[phone] Hira Maria MD, PHD Unavailable Unava ilable Radha Rios MD Unavailable [phone] Carolyn Spencer PA-C Unavailable [phone] Encounter Details Date Type Department Care Team Description 10/16/2018 [facility] Medical Records [address] [place] [address] Abstract, Provider Social History Tobacco Use Types [...] on filedocumented in this encounter Care Teams Shotgun Shell Assembly Machine Adjuster Relationship Specialty Start Date End Date lAvarez Silverio MD [address] [place] [address] [phone] PCP - General 03/28/1999 05/18/20 Jann Adams PA-C [address] [place] [address] [phone] PCP - General Internal Medicine 05/19/20 Hira Maria MD, PHD [address] [place] [address] Surgeon Neurosurgery 10/26/21 Radha Rios MD [address] [place] [address] Specialist Cardiology 02/09/22 Carolyn Spencer PA-C [address] [place] [address] Neurosurgery 03/14/22 documented as of this encounter
--- OUTSIDE RECORDS SUMMARY | 2024-06-26 16:46 | XMS_ITS | Encounter Summary ---
Author Organization [facility] Address [address] [place] [address] Care Team Providers Care Firmware Test Engineer Name Role Phone Alvarez Silverio MD Primary Care Provider + [phone] Jann Adams PA-C Primary Care Provider +[phone] Hira Maria MD, PHD Unavailable Unava ilable Radha Rios MD Unavailable [phone] Carolyn Spencer PA-C Unavailable [phone] Encounter Details Date Type Department Care Team Description 03/31/2015 Assistant Bookkeeper Report Medical Records [address] [place], [place] [phone] Armin Moe MD Social History Tobacco Use Types Packs/Day [...] on filedocumented in this encounter Care Teams Firmware Test Engineer Relationship Specialty Start Date End Date Alvarez Silverio MD [address] [place] [address] [phone] PCP - General 03/28/1999 05/18/20 Jann Adams PA-C [address] [place] [address] [id number] PCP - General Internal Medicine 05/19/20 Hira Maria MD, PHD [address] [place] [address] Surgeon Neurosurgery 10/26/21 Radha Rios MD [address] [place] [address] Specialist Cardiology 02/09/22 Carolyn Spencer PA-C [address] [place] [address] Neurosurgery 03/14/22 documented as of this encounter
--- OUTSIDE RECORDS SUMMARY | 2024-06-26 16:46 | XMS_ITS | Encounter Summary ---
Author Organization [facility] Address [address] [facility] [place] [address] Care Team Providers Care Dental Director Name Role Phone Alvarez Silverio MD Primary Care Provider + [phone] Jann dAams PA-C Primary Care Provider +[phone] Hira Maria MD, PHD Unavailable Unava ilable Radha Rios MD Unavailable [phone] Carolyn Spencer PA-C Unavailable [phone] Reason for Visit * Reason Onset Date Comments refill request 04/24/2017 Encounter Details Date Type Department Care Team Description 04/24/2017 Refill Adult Medicine [address] [id number] Alvarez Silverio MD [address] [place] [address] [phone] refill request Social History Tobacco Use Types [...] NO Patients current insurance carrier is: Payor: [facility]/[employer] FFS / Plan: Surprise RideO $25 Echelon [id number] / ProductType: [employer]ens Cth-lvl-Iqafsim documented in this encounter Plan of Treatment Not on file documented as of this encounter Visit Diagnoses Not on filedocumented in this encounter Care Teams Dental Director Relationship Specialty Start Date End Date Alvarez Silverio MD [address] [place] [address] PCP - General 03/28/1999 05/18/20 Jann Adams PA-C [address] [place] [address] PCP - General Internal Medicine 05/19/20 Hira Maria MD, PHD [address] [place] [address] Surgeon Neurosurgery 10/26/21 Radha Rios MD [address] [place] [address] Specialist Cardiology 02/09/22 Carolyn Spencer PA-C [address] [place] [address] Neurosurgery 03/14/22 documented as of this encounter
--- OUTSIDE RECORDS SUMMARY | 2024-06-26 16:46 | XMS_ITS | Encounter Summary ---
Author Organization [facility] Address [address] [place] [address] Care Team Providers Care Public Service Director Name Role Phone Alvarez Silverio MD Primary Care Provider + [phone] Jann Adams PA-C Primary Care Provider +[phone] Hira Maria MD, PHD Unavailable Unava ilable Radha Rios MD Unavailable [phone] Carolyn Spencer PA-C Unavailable [phone] Encounter Details Date Type Department Care Team Description 04/09/2018 [facility] Medical Records [address] [place] [address] Abstract, Provider Social History Tobacco Use Types [...] on filedocumented in this encounter Care Teams Public Service Director Relationship Specialty Start Date End Date Alvarez Silverio MD [address] [place] [address] [phone] PCP - General 03/28/1999 05/18/20 Jann Adams PA-C [address] [place] [address] [phone] PCP - General Internal Medicine 05/19/20 Hira Maria MD, PHD [address] [place] [address] Surgeon Neurosurgery 10/26/21 Radha Rios MD [address] [place] [address] Specialist Cardiology 02/09/22 Carolyn Spencer PA-C [address] [place] [address] Neurosurgery 03/14/22 documented as of this encounter
--- OUTSIDE RECORDS SUMMARY | 2024-06-26 16:46 | XMS_ITS | Encounter Summary ---
Author Organization [facility] Address [address] [facility] [place] [address] Care Team Providers Care Research Soil Scientist Name Role Phone Alvarez Silverio MD Primary Care Provider [phone] Jann Adams PA-C Primary Care Provider +[phone] Hira Maria MD, PHD Unavailable Unava ilable Radha Rios MD Unavailable [phone] Carolyn Spencer PA-C Unavailable [phone] Encounter Details Date Type Department Care Team Description 03/29/2004 Orders Only Medical [address] [place], [place] [phone] Vega Ballesteros [address] [place], [place] [phone] Social History Tobacco Use Types Packs/Day Years Used Date Smoking Tobacco: Never Assessed Sex Assigned at Date Recorded Not on file Job Start Date Occupation Industry Not on file Not on file Not on file documented as of this encounter Plan of Treatment Not on file documented as of this encounter Visit Diagnoses Not on filedocumented in this encounter Care Teams Research Soil Scientist Relationship Specialty Start Date End Date Alvarez Silverio MD [address] [place] [address] [phone] PCP - General 03/28/1999 05/18/20 Jann Adams PA-C [address] [place] [address] [phone] PCP - General Internal Medicine 05/19/20 Hira Maria MD, PHD [address] [place] [address] Surgeon Neurosurgery 10/26/21 Radha Rios MD [address] [place] [address] Specialist Cardiology 02/09/22 Carolyn Spencer PA-C [address] [place] [address] Neurosurgery 03/14/22 documented as of this encounter
--- OUTSIDE RECORDS SUMMARY | 2024-06-26 16:46 | XMS_ITS | Encounter Summary ---
Author Organization [facility] Address [address] [place] [address] Care Team Providers Care Scagliola Mechanic Name Role Phone Alvarez Silverio MD Primary Care Provider + [phone] Jann Adams PA-C Primary Care Provider +[phone] Hira Maria MD, PHD Unavailable Unava ilable Radha Rios MD Unavailable [phone] Carolyn Spencer PA-C Unavailable [phone] Encounter Details Date Type Department Care Team Description 11/09/2018 [facility] Medical Records [address] [place] [address] Abstract, Provider Social History Tobacco Use Types [...] on filedocumented in this encounter Care Teams Scagliola Mechanic Relationship Specialty Start Date End Date Alvarez Silverio MD [address] [place] [address] [phone] PCP - General 03/28/1999 05/18/20 Jann Adams PA-C [address] [place] [address] [id number] PCP - General Internal Medicine 05/19/20 Hira Maria MD, PHD [address] [place] [address] Surgeon Neurosurgery 10/26/21 Radha Rios MD [address] [place] [address] Specialist Cardiology 02/09/22 Carolyn Spencer PA-C [address] [place] [address] Neurosurgery 03/14/22 documented as of this encounter
--- OUTSIDE RECORDS SUMMARY | 2024-06-26 16:46 | XMS_ITS | Encounter Summary ---
Author Organization [facility] Address [address] [place] [address] Care Team Providers Care Generation Engineering Technologist Name Role Phone Alvarez Silverio MD Primary Care Provider + [phone] Jann Adams PA-C Primary Care Provider +[phone] Hira Maria MD, PHD Unavailable Unava ilable Radha Rios MD Unavailable [phone] Carolyn Spencer PA-C Unavailable [phone] Encounter Details Date Type Department Care Team Description 02/10/2015 Hospital Medical Records [address] [place] [address] Pema Domínguez Social History Tobacco Use Types Packs/Day Years [...] on filedocumented in this encounter Care Teams Generation Engineering Technologist Relationship Specialty Start Date End Date Alvarez Silverio MD [address] [place] [address] [phone] PCP - General 03/28/1999 05/18/20 Jann Adams PA-C [address] [place] [address] [phone] PCP - General Internal Medicine 05/19/20 Hira Maria MD, PHD [address] [place] [address] Surgeon Neurosurgery 10/26/21 Radha Rios MD [address] [place] [address] Specialist Cardiology 02/09/22 Carolyn Spencer PA-C [address] [place] [address] Neurosurgery 03/14/22 documented as of this encounter
--- OUTSIDE RECORDS SUMMARY | 2024-06-26 16:46 | XMS_ITS | Encounter Summary ---
Author Organization [facility] Address [address] [place] [address] Care Team Providers Care Integrated Logistics Support Manager Name Role Phone Alvarez Silverio MD Primary Care Provider + [phone] Jann Adams PA-C Primary Care Provider +[phone] Hira Maria MD, PHD Unavailable Unava ilable Radha Rios MD Unavailable [phone] Carolyn Spencer PA-C Unavailable [phone] Encounter Details Date Type Department Care Team Description 08/03/2017 [facility] Medical Records [address] [place] [address] Abstract, Provider Social History Tobacco Use Types [...] on filedocumented in this encounter Care Teams Integrated Logistics Support Manager Relationship Specialty Start Date End Date Alvarez Silverio MD [address] [place] [address] [phone] PCP - General 03/28/1999 05/18/20 Jann Adams PA-C [address] [place] [address] [phone] PCP - General Internal Medicine 05/19/20 Hira Maria MD, PHD [address] [place] [address] Surgeon Neurosurgery 10/26/21 Radha Rios MD [address] [place] [address] Specialist Cardiology 02/09/22 Carolyn Spencer PA-C [address] [place] [address] Neurosurgery 03/14/22 documented as of this encounter
--- OUTSIDE RECORDS SUMMARY | 2024-06-26 16:46 | XMS_ITS | Encounter Summary ---
Author Organization [facility] Address [address] [place] [address] Care Team Providers Care Sales Agent Financial Report Service Name Role Phone Alvarez Silverio MD Primary Care Provider + [phone] Jann Adams PA-C Primary Care Provider +[phone] Hira Maria MD, PHD Unavailable Unava ilable Radha Rios MD Unavailable [phone] Carolyn Spencer PA-C Unavailable [phone] Encounter Details Date Type Department Care Team Description 09/12/2016 Brand Engineer Report Medical Records [address] [place] [address] Jann Rojas MD Social History Tobacco Use [...] on filedocumented in this encounter Care Teams Sales Agent Financial Report Service Relationship Specialty Start Date End Date Alvarez Silverio MD [address] [place] [address] [phone] PCP - General 03/28/1999 05/18/20 Jann Adams PA-C [address] [place] [address] [phone] PCP - General Internal Medicine 05/19/20 Hira Maria MD, PHD [address] [place] [address] Surgeon Neurosurgery 10/26/21 Radha Rios MD [address] [place] [address] Specialist Cardiology 02/09/22 Carolyn Spencer PA-C [address] [place] [address] Neurosurgery 03/14/22 documented as of this encounter
--- OUTSIDE RECORDS SUMMARY | 2024-06-26 16:46 | XMS_ITS | Encounter Summary ---
Author Organization [facility] Address [address] [facility] [place] [address] Care Team Providers Care Travel Agent Name Role Phone Alvarez Silverio MD Primary Care Provider + [phone] Jann Adams PA-C Primary Care Provider +[phone] Hira Maria MD, PHD Unavailable Unava ilable Radha Rios MD Unavailable [phone] Carolyn Spencer PA-C Unavailable [phone] Reason for Visit * Reason Comments E-prescribe Rx Request Encounter Details Date Type Department Care Team Description 06/18/2017 Refill Adult Medicine [address] [phone] Alvarez Silverio MD [address] [place] [address] [phone] E-prescribe Rx Request Social History Tobacco Use [...] NO Patients current insurance carrier is: Payor: [employer] FFS / Plan: CardozO $25 [id number] / ProductType: [employer] Ybz-qwh-Lubeelo documented in this encounter Plan of Treatment Not on file documented as of this encounter Visit Diagnoses Not on filedocumented in this encounter Care Teams Travel Agent Relationship Specialty Start Date End Date Alvarez Silverio MD [address] [place] [address] PCP - General 03/28/1999 05/18/20 Jann Adams PA-C [address] [place] [address] PCP - General Internal Medicine 05/19/20 Hira Maria MD, PHD [address] [place] [address] Surgeon Neurosurgery 10/26/21 Radha Rios MD [address] [place] [address] Specialist Cardiology 02/09/22 Carolyn Spencer PA-C [address] [place] [address] Neurosurgery 03/14/22 documented as of this encounter
--- OUTSIDE RECORDS SUMMARY | 2024-06-26 16:46 | XMS_ITS | Encounter Summary ---
Author Organization [facility] Address [address] [place] [address] Care Team Providers Care Executive Administrative Asst Name Role Phone Alvarez Silverio MD Primary Care Provider + [phone] Jann Adams PA-C Primary Care Provider +[phone] Hira Maria MD, PHD Unavailable Unava ilable Radha Rios MD Unavailable [phone] Carolyn Spencer PA-C Unavailable [phone] Encounter Details Date Type Department Care Team Description 02/10/2015 Hospital Medical Records [address] [place] [address] Tello Arevalo MD Social History Tobacco Use Types Packs/Day [...] on filedocumented in this encounter Care Teams Executive Administrative Asst Relationship Specialty Start Date End Date Alvarez Silverio MD [address] [place] [address] [phone] PCP - General 03/28/1999 05/18/20 Jann Adams PA-C [address] [place] [address] [phone] PCP - General Internal Medicine 05/19/20 Hira Maria MD, PHD [address] [place] [address] Surgeon Neurosurgery 10/26/21 Radha Rios MD [address] [place] [address] Specialist Cardiology 02/09/22 Carolyn Spencer PA-C [address] [place] [address] Neurosurgery 03/14/22 documented as of this encounter
--- OUTSIDE RECORDS SUMMARY | 2024-06-26 16:47 | XMS_ITS | Clinical Summary ---
Author Organization [address] [place] [address] [place] [phone] Phone Care Team Providers Care Linux Administrator Name Role Phone Jann Adams Primary Care Provider +[phone] Allergies No known active allergies Medications Medication [...] could not get a follow-up appointment with [facility] urology until this which is almost 2 [...] or questions. Coronary artery disease invo lving peoria coronary artery of peoria heart without angina pectoris 06/15/2016 Overview (05/10/2024): - Status post non-ST elevation [place] in January 2015 with cardiac cath at [...] (NITROSTAT) SL tablet 0.4 mg Non-ST elevation [place] (NSTEMI) 02/26/2015 Hx of non-ST elevation myocardial [...] PM EST Hospital Encounter Radiology Department - [address] [phone] Spinal stenosis of lumbar region with neurogenic claudication; Lumbar radiculitis; Aortic dilatation (CMS/HCC); Chronic gastric ulcer without hemorrhage and without perforation; Coronary artery disease involving peoria coronary artery of peoria heart without angina pectoris; Other depression; Essential hypertension, benign; Gastroesophageal reflux disease without esophagitis; Hx of non-ST elevation myocardial infarction (NSTEMI); Iron deficiency anemia due to chronic blood loss; Mixed hyperlipidemia; Parkinsonian tremor (CMS/HCC); Sleep apnea, unspecified type Discharge Disposition: Home or Self Care 05/24/2024 8:30 AM EST Office Visit Adult Medicine [address] [phone] Jann Adams, PA Spinal stenosis of lumbar region with neurogenic claudication (Primary Dx); Lumbar radiculitis; Aortic dilatation (CMS/HCC); Chronic gastric ulcer without hemorrhage and without perforation; Coronary artery disease involving peoria coronary artery of peoria heart without angina pectoris; Other depression; Essential hypertension, benign; Gastroesophageal reflux disease without esophagitis; Hx of non-ST elevation myocardial infarction (NSTEMI); Iron deficiency anemia due to chronic blood loss; Mixed hyperlipidemia; Parkinsonian tremor (CMS/HCC); Sleep apnea, unspecified type 05/10/2024 8:50 AM EST Office Visit [facility] - [address] [place] [address] Radha Allen MD Coronary artery disease involving peoria coronary artery of peoria heart without angina pectoris (Primary Dx); Essential [...] knee arthroscopic surgery 2006 ESOPHAGOGASTRODUODENOSCOPY 10/13/2008 PROCEDURE: LA ESOPHAGOGASTRODUODENOSCOPY TRANSORAL DIAGNOSTIC; COMMENT: mild gastritis, H. [...] 1:15 PM EDT Office Visit Adult Medicine [address] [phone] Carmela Maguire PA [address] [place] [address] 11/25/2024 8:00 AM EDT Office Visit Adult Medicine [address] [phone] Jann Adams PA [address] [place] [address] 03/31/2025 9:00 AM EST Ancillary Procedure [facility] - [facility] [address] [place] [address] Health Maintenance Due Date Last [...] and without perforation Coronary artery disease involving peoria coronary artery of peoria heart without angina pectoris Other depression Essential hypertension, benign Gastroesophageal reflux disease without esophagitis Hx of non-ST elevation myocardial infarction (NSTEMI) Iron deficiency anemia due to chronic blood loss Mixed hyperlipidemia Parkinsonian tremor (CMS/HCC) Sleep apnea, unspecified type ECG 12-LEAD Routine 05/10/2024 8:54 AM EST Coronary artery disease involving peoria coronary artery of peoria heart without angina pectoris FALLS RISK ASSESSMENT [...] multilevel possible nerve root compression. POS - [id number] -------- FINAL REPORT -------- Dictated By: Mana Ortez Dictated Date: 05/31/2024 08:57 ET Assigned Physician: Mana Ortez Reviewed and Electronically Signed By: Mana Ortez Signed Date: 06/01/2024 10:50 ET Workstation ID: [id number] Transcribed By: Self Edit Transcribed Date: 05/31/2024 [...] and multilevel possiblenerve root compression. POS - [id number] -------- FINAL REPORT -------- Dictated By: Mana Ortez Dictated Date: 05/31/2024 08:57 ET Assigned Physician: Mana Ortez Reviewed and Electronically Signed By: Mana Ortez Signed Date: 06/01/2024 10:50 ET Workstation ID: [id number] Transcribed By: Self Edit Transcribed Date: 05/31/2024 11:17 ET Jann LUX IMG MRI PROCEDURE S * ECG 12 lead (05/10/2024 8:54 AM EST) Ventricular Rate ECG 50 BPM GEMUSE Atrial Rate 50 BPM GEMUSE P-R Interval 176 ms GEMUSE QRS Duration 112 ms GEMUSE Q-T Interval 468 ms GEMUSE QTc 426 ms GEMUSE P Wave [place] 33 degrees GEMUSE R [place] 6 degrees GEMUSE T [place] 10 degrees GEMUSE ECG Interpretation Baseline wander Sinus bradycardia Inferior infarct , age undetermined Abnormal ECG When compared with ECG of 04-MAR-2022 09:26, Inferior infarct pattern is seen Confirmed by RADHA ALLEN ([id number]) on 05/10/2024 2:41:30 PM GEMUSE 05/10/2024 8:54 AM EST 05/10/2024 2:41 PM EST Radha Allen MD ECG ORDERABLES [facility] * Falls Risk Assessment (02/20/2024) [facility] Falls Risk Assessment Abstracted Historical Provider [facility] Annual BMP Blood Test (02/15/2024) [facility] Annual BMP Blood Test Abstracted [facility] Provider [facility] * Depression Screening (11/20/2023) [facility] Depression Screening Abstracted [facility] Provider [facility] * (ABNORMAL) Lipid panel (07/31/2023) [facility] LDL/HDL Ratio 3 0 - 4 Triglycerides 140 0 - 150 mg/dL Cholesterol 110 0 - 200 mg/dL HDL 32(A) 40 mg/dL LDL Cholesterol 50 0 - 100 mg/dL Blood Venous blood specimen / Unknown Historical Provider LAB BLOOD ORDERAB LES * Colonoscopy (07/28/2022) [facility] Colonoscopy No interpreta tion,abstr acted Anatomical Region Laterality Modality Other [facility] Provider [facility] * Hepatitis C Screening (04/28/2017) [facility] Hepatitis C Screening Abstracted [facility] Provider [facility] from Last 3 Months or Most Recently Relevant to Health Maintenance Care Teams Linux Administrator Relationship Specialty Start Date End Date Jann Adams PA [address] [facility] [place] [address] PCP - General Internal Medicine 05/19/20
--- OUTSIDE RECORDS SUMMARY | 2024-06-26 16:47 | XMS_ITS | Encounter Summary ---
Author Organization [facility] Address [address] [place] [address] Care Team Providers Care Stripper Printed Circuit Boards Name Role Phone Jann Adams PA-C Primary Care Provider [phone] Hira Maria MD, PHD Unavailable Unava ilable Radha Rios MD Unavailable [phone] Carolyn Spencer PA-C Unavailable [phone] Encounter Details Date Type Department Care Team Description 09/22/2022 Hospital Medical Records [address] [place] [address] Guicho Wright MD [address] [place] [address] [address] [place] [address] Social History Tobacco Use Types Packs/Day Years [...] on filedocumented in this encounter Care Teams Stripper Printed Circuit Boards Relationship Specialty Start Date End Date Jann Adams PA-C [address] [place], [place] [phone] PCP - General Internal Medicine 05/19/20 Hira Maria MD, PHD [address] [place] [address] Surgeon Neurosurgery 10/26/21 Radha Rios MD [address] [place] [address] Specialist Cardiology 02/09/22 Carolyn Spencer PA-C [address] [place] [address] Neurosurgery 03/14/22 documented as of this encounter
--- OUTSIDE RECORDS SUMMARY | 2024-06-26 16:47 | XMS_ITS | Encounter Summary ---
Author Organization [facility] Address [address] [place] [address] Care Team Providers Care Spray Painting Machine Operator Name Role Phone Jann Adams PA-C Primary Care Provider [phone] Hira Maria MD, PHD Unavailable Unava ilable Radha Rios MD Unavailable [phone] Carolyn Spencer PA-C Unavailable [phone] Reason for Visit * Reason Comments E-prescribe Rx Request Encounter Details Date Type Department Care Team Description 03/29/2022 Refill Adult Medicine [address] [phone] Annika Burks PA-C [address] [place] [address] [phone] E-prescribe Rx Request Social History Tobacco Use [...] encounter Miscellaneous Notes * Telephone Encounter - Marylu Stratton - 03/29/2022 8:47 AM EDT Faxed to pharmacy * Telephone Encounter - Mer Ventura M.A. - 03/29/2022 8:37 AM EDT Last office visit 12/14/21 Next office visit 04/15/22 * Telephone Encounter - Fiona Shook - 03/29/2022 8:01 AM EDT Patient would like script to be: E-PRESCRIBED/FAXED TO PHARMACY ?? WHEN WAS THE PATIENT'S LAST APPOINTMENT IN ADULT MEDICINE? 12/14/21 ?? WHEN WAS THE LAST TIME THE PATIENT SAW THEIR PCP? Same as above ?? Does patient have an upcoming appointment? Yes 04/15/22 ?? (THE MEDICATION REQUESTED IS ON THE MED LIST ABOVE) All of the medications requested were on the CURRENT MEDS list ?? Did you check the Pharmacy information above?: YES ?? Patient wants: 90 -day supply ?? Is this a mail order prescription request ? NO ?? If the refill is from a FAXED refill request what is the RX # listed on the fax? N/A ?? Patients current insurance carrier is: [place] / [place] / Product Type: MEDICARE [id number] ? documented in this encounter Plan of Treatment Not on file documented as of this encounter Visit Diagnoses Not on filedocumented in this encounter Care Teams Spray Painting Machine Operator Relationship Specialty Start Date End Date Jann Adams PA-C [address] [place] [address] PCP - General Internal Medicine 05/19/20 Hira Maria MD, PHD [address] [place] [address] Surgeon Neurosurgery 10/26/21 Radha Rios MD [address] [place] [address] Specialist Cardiology 02/09/22 Carolyn Spencer PA-C [address] [place] [address] Neurosurgery 03/14/22 documented as of this encounter
--- OUTSIDE RECORDS SUMMARY | 2024-06-26 16:47 | XMS_ITS | Encounter Summary ---
Author Organization [facility] Address [address] [place] [address] Care Team Providers Care Basting Cleaner Name Role Phone Alvarez Silverio MD Primary Care Provider + [phone] Jann Adams PA-C Primary Care Provider [phone] Hira Maria MD, PHD Unavailable Unava ilable Radha Rios MD Unavailable [phone] Carolyn Spencer PA-C Unavailable [phone] Encounter Details Date Type Department Care Team Description 04/18/2019 [facility] Medical Records [address] [place] [address] Abstract, Provider Social History Tobacco Use Types [...] on filedocumented in this encounter Care Teams Basting Cleaner Relationship Specialty Start Date End Date Alvarez Silverio MD [address] [place] [address] [phone] PCP - General 03/28/1999 05/18/20 Jann Adams PA-C [address] [place] [address] [phone] PCP - General Internal Medicine 05/19/20 Hira Maria MD, PHD [address] [place] [address] Surgeon Neurosurgery 10/26/21 Radha Rios MD [address] [place] [address] Specialist Cardiology 02/09/22 Carolyn Spencer PA-C [address] [place] [address] Neurosurgery 03/14/22 documented as of this encounter
--- OUTSIDE RECORDS SUMMARY | 2024-06-26 16:47 | XMS_ITS | Encounter Summary ---
Author Organization [facility] Address [address] [place] [address] Care Team Providers Care Collar Runner Name Role Phone Jann Adams PA-C Primary Care Provider [phone] Hira Maria MD, PHD Unavailable Unava ilRadha Rao MD Unavailable [phone] Carolyn Spencer PA-C Unavailable [phone] Encounter Details Date Type Department Care Team Description 02/15/2023 Rubber Splicer Report Medical Records [address] [place] [address] Abstract, Provider Social History Tobacco Use Types [...] on filedocumented in this encounter Care Teams Collar Runner Relationship Specialty Start Date End Date Jann Adams PA-C [address] [place], [place] [phone] PCP - General Internal Medicine 05/19/20 Hira Maria MD, PHD [address] [place] [address] Surgeon Neurosurgery 10/26/21 Radha Rios MD [address] [place] [address] Specialist Cardiology 02/09/22 Carolyn Spencer PA-C [address] [place] [address] Neurosurgery 03/14/22 documented as of this encounter
--- OUTSIDE RECORDS SUMMARY | 2024-06-26 16:47 | XMS_ITS | Encounter Summary ---
Author Organization [facility] Address [address] [place] [address] Care Team Providers Care Teller Coordinator Name Role Phone Jann Adams PA-C Primary Care Provider [phone] Hira Maria MD, PHD Unavailable Unava Radha Mejias MD Unavailable [phone] Carolyn Spencer PA-C Unavailable [phone] Encounter Details Date Type Department Care Team Description 12/17/2021 Controlled Substance Plan Medical Records [address] [place] [address] Abstract, Provider Social History Tobacco Use Types [...] suspected to have Coronavirus/COVID-19? No / Unsure 12/14/2021 3:35 PM EDT documented as of this encounter Plan of Treatment Not on file documented as of this encounter Visit Diagnoses Not on filedocumented in this encounter Care Teams Teller Coordinator Relationship Specialty Start Date End Date Jann Adams PA-C [address] [place], [place] [phone] PCP - General Internal Medicine 05/19/20 Hira Maria MD, PHD [address] [place] [address] Surgeon Neurosurgery 10/26/21 Radha Rios MD [address] [place] [address] Specialist Cardiology 02/09/22 Carolyn Spencer PA-C [address] [place] [address] Neurosurgery 03/14/22 documented as of this encounter
--- OUTSIDE RECORDS SUMMARY | 2024-06-26 16:47 | XMS_ITS | Encounter Summary ---
Author Organization [facility] Address [address] [place] [address] Care Team Providers Care Claim Clinician Name Role Phone Jann Adams PA-C Primary Care Provider [phone] Hira Maria MD, PHD Unavailable Unava ilable Radha Rios MD Unavailable [phone] Carolyn Spencer PA-C Unavailable [phone] Encounter Details Date Type Department Care Team Description 07/12/2022 Pt. Non Urgent Medical Question Adult Medicine [address] [address] Jann Adams PA-C [address] [place] [address] [phone] Social History Tobacco Use Types Packs/Day Years [...] on filedocumented in this encounter Care Teams Claim Clinician Relationship Specialty Start Date End Date Jann Adams PA-C [address] [place] [address] PCP - General Internal Medicine 05/19/20 Hira Maria MD, PHD [address] [place] [address] Surgeon Neurosurgery 10/26/21 Radha Rios MD [address] [place] [address] Specialist Cardiology 02/09/22 Carolyn Spencer PA-C [address] [place] [address] Neurosurgery 03/14/22 documented as of this encounter
--- OUTSIDE RECORDS SUMMARY | 2024-06-26 16:47 | XMS_ITS | Encounter Summary ---
Author Organization [facility] Address [address] [place] [address] Care Team Providers Care Animal Scientist Name Role Phone Alvarez Silverio MD Primary Care Provider [phone] Jann Adams PA-C Primary Care Provider [phone] Hira Maria MD, PHD Unavailable Unava ilable Radha Rios MD Unavailable [phone] Carolyn Spencer PA-C Unavailable [phone] Encounter Details Date Type Department Care Team Description 05/10/2016 Sales Store Checker Report Medical Records [address] [place], [place] [phone] Armin Moe MD Social History Tobacco Use [...] on filedocumented in this encounter Care Teams Animal Scientist Relationship Specialty Start Date End Date Alvarez Silverio MD [address] [place] [address] [phone] PCP - General 03/28/1999 05/18/20 Jann Adams PA-C [address] [place] [address] [phone] PCP - General Internal Medicine 05/19/20 Hira Maria MD, PHD [address] [place] [address] Surgeon Neurosurgery 10/26/21 Radha Rios MD [address] [place] [address] Specialist Cardiology 02/09/22 Carolyn Spencer PA-C [address] [place] [address] Neurosurgery 03/14/22 documented as of this encounter
--- OUTSIDE RECORDS SUMMARY | 2024-06-26 16:47 | XMS_ITS | Encounter Summary ---
Author Organization [facility] Address [address] [place] [address] Care Team Providers Care Crossing Watchman Name Role Phone Jann Adams PA-C Primary Care Provider [phone] Hira Maria MD, PHD Unavailable Unava ilable Radha Rios MD Unavailable [phone] Carolyn Spencer PA-C Unavailable [phone] Encounter Details Date Type Department Care Team Description 07/28/2022 Hospital Medical Records [address] [place] [address] Guicho Wright MD [address] [facility] [address] [place] [address] Social History Tobacco Use Types Packs/Day Years [...] on filedocumented in this encounter Care Teams Crossing Watchman Relationship Specialty Start Date End Date Jann Adams PA-C [address] [place], [place] [phone] PCP - General Internal Medicine 05/19/20 Hira Maria MD, PHD [address] [place] [address] Surgeon Neurosurgery 10/26/21 Radha Rios MD [address] [place] [address] Specialist Cardiology 02/09/22 Carolyn Spencer PA-C [address] [place] [address] Neurosurgery 03/14/22 documented as of this encounter
--- OUTSIDE RECORDS SUMMARY | 2024-06-26 16:47 | XMS_ITS | Encounter Summary ---
Author Organization [facility] Address [address] [place] [address] Care Team Providers Care Transplant Nurse Practitioner Name Role Phone Jann Adams PA-C Primary Care Provider [phone] Hira Maria MD, PHD Unavailable Unava ilable Radha Rios MD Unavailable [phone] Carolyn Spencer PA-C Unavailable [phone] Encounter Details Date Type Department Care Team Description 03/04/2022 Hospital Medical Records [address] [place] [address] Hira Maria MD, PHD Social History Tobacco [...] on filedocumented in this encounter Care Teams Transplant Nurse Practitioner Relationship Specialty Start Date End Date Jann Adams PA-C [address] [place], [place] [phone] PCP - General Internal Medicine 05/19/20 Hira Maria MD, PHD [address] [place] [address] Surgeon Neurosurgery 10/26/21 Radha Rios MD [address] [place] [address] Specialist Cardiology 02/09/22 Carolyn Spencer PA-C [address] [place] [address] Neurosurgery 03/14/22 documented as of this encounter
--- OUTSIDE RECORDS SUMMARY | 2024-06-26 16:47 | XMS_ITS | Encounter Summary ---
Author Organization [facility] Address [address] [place] [address] Care Team Providers Care Tufting Creeler Name Role Phone Jann Adams PA-C Primary Care Provider [phone] Hira Maria MD, PHD Unavailable Unava Radha Mejias MD Unavailable [phone] Carolyn Spencer PA-C Unavailable [phone] Encounter Details Date Type Department Care Team Description 11/16/2022 [facility] Medical Records [address] [place] [address] Abstract, Provider Social History Tobacco Use Types [...] suspected to have Coronavirus/COVID-19? No / Unsure 10/27/2022 8:11 AM EDT documented as of this encounter Plan of Treatment Not on file documented as of this encounter Visit Diagnoses Not on filedocumented in this encounter Care Teams Tufting Creeler Relationship Specialty Start Date End Date Jann Adams PA-C [address] [place], [place] [phone] PCP - General Internal Medicine 05/19/20 Hira Maria MD, PHD [address] [place] [address] Surgeon Neurosurgery 10/26/21 Radha Rios MD [address] [place] [address] Specialist Cardiology 02/09/22 Carolyn Spencer PA-C [address] [place] [address] Neurosurgery 03/14/22 documented as of this encounter
--- OUTSIDE RECORDS SUMMARY | 2024-06-26 16:47 | XMS_ITS | Encounter Summary ---
Author Organization [facility] Address [address] [facility] [place] [address] Care Team Providers Care Fur Liner Name Role Phone Jann Adams PA-C Primary Care Provider [phone] Hira Maria MD, PHD Unavailable Unava ilable Radha Rios MD Unavailable [phone] Carolyn Spencer PA-C Unavailable [phone] Encounter Details Date Type Department Care Team Description 03/24/2023 Racing Secretary Report Medical Records [address] [place] [address] Abstract, Provider Social History Tobacco Use Types [...] on filedocumented in this encounter Care Teams Fur Liner Relationship Specialty Start Date End Date Jann Adams PA-C [address] [place] [address] PCP - General Internal Medicine 05/19/20 Hira Maria MD, PHD [address] [place] [address] Surgeon Neurosurgery 10/26/21 Radha Rios MD [address] [place] [address] Specialist Cardiology 02/09/22 Carolyn Spencer PA-C [address] [place] [address] Neurosurgery 03/14/22 documented as of this encounter
--- OUTSIDE RECORDS SUMMARY | 2024-06-26 16:47 | XMS_ITS | Encounter Summary ---
Author Organization [facility] Address [address] [facility] [place] [facility] [place] [address] Care Team Providers Care Displayer Name Role Phone Jann Adams PA-C Primary Care Provider [phone] Hira Maria MD, PHD Unavailable Unava ilable Radha Rios MD Unavailable [phone] Carolyn Spencer PA-C Unavailable Encounter Details Date Type Department Care Team Description 11/05/2021 Release of Information Medical Records [address] [place] [address] Abstract, Provider Social History Tobacco Use Types [...] on filedocumented in this encounter Care Teams Displayer Relationship Specialty Start Date End Date Jann Adams PA-C [address] [place] [address] PCP - General Internal Medicine 05/19/20 Hira Maria MD, PHD [address] [place] [phone] Surgeon Neurosurgery 10/26/21 Radha Rios MD [address] [place] [address] Specialist Cardiology 02/09/22 Carolyn Spencer PA-C [address] [place] [address] Neurosurgery 03/14/22 documented as of this encounter
--- OUTSIDE RECORDS SUMMARY | 2024-06-26 16:47 | XMS_ITS | Encounter Summary ---
Author Organization [facility] Address [address] [place] [address] Care Team Providers Care Counter Top Maker Name Role Phone Jann Adams PA-C Primary Care Provider [phone] Hira Maria MD, PHD Unavailable Unava ilable Radha Rios MD Unavailable [phone] Carolyn Spencer PA-C Unavailable [phone] Encounter Details Date Type Department Care Team Description 09/13/2023 Pt. Non Urgent Medical Question Adult Medicine [address] [phone] Jann Adams PA-C [address] [place] [address] [phone] Social History Tobacco Use Types Packs/Day Years [...] on filedocumented in this encounter Care Teams Counter Top Maker Relationship Specialty Start Date End Date Jann Adams PA-C [address] [place] [address] PCP - General Internal Medicine 05/19/20 Hira Maria MD, PHD [address] [place] [address] Surgeon Neurosurgery 10/26/21 Radha Rios MD [address] [place] [address] Specialist Cardiology 02/09/22 Carolyn Spencer PA-C [address] [place] [address] Neurosurgery 03/14/22 documented as of this encounter
--- OUTSIDE RECORDS SUMMARY | 2024-06-26 16:47 | XMS_ITS | Encounter Summary ---
Author Organization [facility] Address [address] [place] [address] Care Team Providers Care Cinder Crew Worker Name Role Phone Jann Adams PA-C Primary Care Provider [phone] Hira Maria MD, PHD Unavailable Unava ilable Radha Rios MD Unavailable [phone] Carolyn Spencer PA-C Unavailable [phone] Encounter Details Date Type Department Care Team Description 03/01/2022 [facility] Neurosurgery [place] [address] [place] [address] Hira Maria MD, PHD Social [...] on filedocumented in this encounter Care Teams Cinder Crew Worker Relationship Specialty Start Date End Date Jann Adams PA-C [address] [place] [address] PCP - General Internal Medicine 05/19/20 Hira Maria MD, PHD [address] [place] [address] Surgeon Neurosurgery 10/26/21 Radha Rios MD [address] [place] [address] Specialist Cardiology 02/09/22 Carolyn Spencer PA-C [address] [place] [address] Neurosurgery 03/14/22 documented as of this encounter
--- OUTSIDE RECORDS SUMMARY | 2024-06-26 16:47 | XMS_ITS | Encounter Summary ---
Author Organization [facility] Address [address] [place] [address] Care Team Providers Care Baggage Porter Name Role Phone Alvarez Silverio MD Primary Care Provider + [phone] Jann Adams PA-C Primary Care Provider +[phone] Hira Maria MD, PHD Unavailable Unava ilable Radha Rios MD Unavailable [phone] Carolyn Spencer PA-C Unavailable [phone] Reason for Visit * Reason Comments E-prescribe Rx Request Encounter Details Date Type Department Care Team Description 08/12/2016 Refill Adult Medicine [address] [phone] Jann Adams PA-C [address] [place] [address] [phone] E-prescribe Rx Request Social History Tobacco Use [...] NO Patients current insurance carrier is: Payor: [facility]/[employer] FFS / Plan: [employer] $25 Fast Asset [id number] / ProductType: [employer] [id number] documented in this encounter Plan of Treatment Not on file documented as of this encounter Visit Diagnoses Not on filedocumented in this encounter Care Teams Baggage Porter Relationship Specialty Start Date End Date Alvarez Silverio MD [address] [place] [address] PCP - General 03/28/1999 05/18/20 Jann Adams PA-C [address] [place] [address] PCP - General Internal Medicine 05/19/20 Hira Maria MD, PHD [address] [place] [address] Surgeon Neurosurgery 10/26/21 Radha Rios MD [address] [place] [address] Specialist Cardiology 02/09/22 Carolyn Spencer PA-C [address] [place] [address] Neurosurgery 03/14/22 documented as of this encounter
--- OUTSIDE RECORDS SUMMARY | 2024-06-26 16:47 | XMS_ITS | Encounter Summary ---
Author Organization [facility] Address [address] [facility] [place] [address] Care Team Providers Care Child Day Care Teacher Name Role Phone Jann Adams PA-C Primary Care Provider [phone] Hira Maria MD, PHD Unavailable Unava ilable Radha Rios MD Unavailable [phone] Carolyn Spencer PA-C Unavailable [phone] Encounter Details Date Type Department Care Team Description 04/14/2022 SCAN Medical Records [address] [place] [id number] Abstract, Provider Social History Tobacco Use Types [...] suspected to have Coronavirus/COVID-19? No / Unsure 04/15/2022 9:47 AM EST documented as of this encounter Plan of Treatment Not on file documented as of this encounter Procedures Procedure Name Priority Date/Time Associated Diagnosis Comments OUTSIDE LAB Routine 04/14/2022 documented in this encounter Results * OUTSIDE LAB (04/14/2022) Provider Default LAB documented in this encounter Visit Diagnoses Not on filedocumented in this encounter Care Teams Child Day Care Teacher Relationship Specialty Start Date End Date Jann Adams PA-C [address] [place] [address] PCP - General Internal Medicine 05/19/20 Hira Maria MD, PHD [address] [place] [address] Surgeon Neurosurgery 10/26/21 Radha Rios MD [address] [place] [address] [phone] Specialist Cardiology 02/09/22 Carolyn Spencer PA-C [address] [place] [address] Neurosurgery 03/14/22 documented as of this encounter
--- OUTSIDE RECORDS SUMMARY | 2024-06-26 16:47 | XMS_ITS | Encounter Summary ---
Author Organization [facility] Address [address] [place] [address] Care Team Providers Care Snailer Name Role Phone Alvarez Silverio MD Primary Care Provider + [phone] Jann Adams PA-C Primary Care Provider +[phone] Hira Maria MD, PHD Unavailable Unava ilable Radha Rios MD Unavailable [phone] Carolyn Spencer PA-C Unavailable [phone] Encounter Details Date Type Department Care Team Description 10/22/2009 Ethnographer Report Medical Records [address] [place] [address] Delonte Ervin MD Social History Tobacco Use [...] on filedocumented in this encounter Care Teams Snailer Relationship Specialty Start Date End Date Alvarez Silverio MD [address] [place] [address] [phone] PCP - General 03/28/1999 05/18/20 Jann Adams PA-C [address] [place] [address] [id number] PCP - General Internal Medicine 05/19/20 Hira Maria MD, PHD [address] [place] [address] Surgeon Neurosurgery 10/26/21 Radha Rios MD [address] [place], [place] [phone] Specialist Cardiology 02/09/22 Carolyn Spencer PA-C [address] [place] [address] Neurosurgery 03/14/22 documented as of this encounter
--- OUTSIDE RECORDS SUMMARY | 2024-06-26 16:47 | XMS_ITS | Encounter Summary ---
Author Organization [facility] Address [address] [place] [address] Care Team Providers Care Principal Developer Name Role Phone Jann Adams PA-C Primary Care Provider [phone] Hira Maria MD, PHD Unavailable Unava ilable Radha Rios MD Unavailable [phone] Carolyn Spencer PA-C Unavailable [phone] Reason for Visit * Reason Comments E-prescribe Rx Request Encounter Details Date Type Department Care Team Description 09/30/2021 Refill Adult Medicine [address] [phone] Carmela Maguire PA-C [address] [place] [address] [phone] E-prescribe Rx Request Social History Tobacco Use [...] encounter Miscellaneous Notes * Telephone Encounter - Bekah Leon C.M.A. - 09/30/2021 11:06 AM EDT Lab Results Component Value Date CHOL 95 09/01/2021 LDL 30 09/01/2021 HDL 28 09/01/2021 TRIG 185 09/01/2021 SGOT 48 09/01/2021 SGPT 37 09/01/2021 * Telephone Encounter - Fiona Shook - 09/30/2021 8:20 AM EDT Patient would like script to be: E-PRESCRIBED/FAXED TO PHARMACY WHEN WAS THE PATIENT'S LAST APPOINTMENT IN ADULT MEDICINE? 09/22/21 WHEN WAS THE LAST TIME THE PATIENT SAW THEIR PCP? Same as above Does patient have an upcoming appointment? Yes 12/14/21 (THE MEDICATION REQUESTED IS ON THE MED [...] / Plan[place] / Product Type: MEDICARE [id number] documented in this encounter Plan of Treatment Not on file documented as of this encounter Visit Diagnoses Not on filedocumented in this encounter Care Teams Principal Developer Relationship Specialty Start Date End Date Jann Adams PA-C [address] [place] [address] PCP - General Internal Medicine 05/19/20 Hira Maria MD, PHD [address] [place] [address] Surgeon Neurosurgery 10/26/21 Radha Rios MD [address] [place] [address] Specialist Cardiology 02/09/22 Carolyn Spencer PA-C [address] [place] [address] Neurosurgery 03/14/22 documented as of this encounter
--- OUTSIDE RECORDS SUMMARY | 2024-06-26 16:47 | XMS_ITS | Encounter Summary ---
Author Organization [facility] Address [address] [place] [address] Care Team Providers Care Wall Insulation Sprayer Name Role Phone Jann Adams PA-C Primary Care Provider [phone] Hira Maria MD, PHD Unavailable Unava ilable Radha Rios MD Unavailable [phone] Carolyn Spencer PA-C Unavailable [phone] Reason for Visit * Reason Onset Date Comments Prior Authorization 05/15/2023 CT scan ches t Encounter Details Date Type Department Care Team Description 05/15/2023 Telephone Adult Medicine [address] [phone] Jann Adams PA-C [address] [place] [address] [phone] Prior Authorization (CT scan chest) Social History Tobacco Use Types Packs/Day Years [...] encounter Miscellaneous Notes * Telephone Encounter - Sury Rich - 05/15/2023 2:21 PM EST Medicare no auth required Order faxed to CCC dept at [facility]. They will contact patient and schedule appt. Notification lettersent documented in this encounter Plan of Treatment Not on file documented as of this encounter Visit Diagnoses Not on filedocumented in this encounter Care Teams Wall Insulation Sprayer Relationship Specialty Start Date End Date Jann Adams PA-C [address] [place] [address] PCP - General Internal Medicine 05/19/20 Hira Maria MD, PHD [address] [place] [address] Surgeon Neurosurgery 10/26/21 Radha Rios MD [address] [place] [address] Specialist Cardiology 02/09/22 Carolyn Spencer PA-C [address] [place] [address] Neurosurgery 03/14/22 documented as of this encounter
--- OUTSIDE RECORDS SUMMARY | 2024-06-26 16:47 | XMS_ITS | Encounter Summary ---
Author Organization [facility] Address [address] [place] [address] Care Team Providers Care Clinical Rehabilitation Specialist Name Role Phone Alvarez Silverio MD Primary Care Provider + [phone] Jann Adams PA-C Primary Care Provider [phone] Hira Maria MD, PHD Unavailable Unava ilable Radha Rios MD Unavailable [phone] Carolyn Spencer PA-C Unavailable [phone] Encounter Details Date Type Department Care Team Description 04/12/2019 Distance Education Director Report Medical Records [address] [place] [address] Radha Rios MD [address] [place] [address] [phone] Social History Tobacco Use Types Packs/Day Years [...] on filedocumented in this encounter Care Teams Clinical Rehabilitation Specialist Relationship Specialty Start Date End Date Alvarez Silverio MD [address] [place] [address] [phone] PCP - General 03/28/1999 05/18/20 Jann Adams PA-C [address] [place] [address] PCP - General Internal Medicine 05/19/20 Hira Maria MD, PHD [address] [place] [address] Surgeon Neurosurgery 10/26/21 Radha Rios MD [address] [place] [address] Specialist Cardiology 02/09/22 Carolyn Spencer PA-C [address] [place] [address] Neurosurgery 03/14/22 documented as of this encounter
--- OUTSIDE RECORDS SUMMARY | 2024-06-26 16:47 | XMS_ITS | Encounter Summary ---
Author Organization [facility] Address [address] [facility] [place] [address] Care Team Providers Care Tube Coater Name Role Phone Alvarez Silverio MD Primary Care Provider + [phone] Jann Adams PA-C Primary Care Provider [phone] Hira Maria MD, PHD Unavailable Unava ilable Radha Rios MD Unavailable [phone] Carolyn Spencer PA-C Unavailable [phone] Reason for Visit * Reason Onset Date Comments refill request 01/14/2019 Encounter Details Date Type Department Care Team Description 01/14/2019 Refill Adult Medicine [address] [phone] Alvarez Silverio MD [address] [place] [address] [phone] refill request Social History Tobacco Use Types [...] Telephone Encounter - Blanka David M.A. - 01/14/2019 3:39 PM EDT Masspat reviewed this day by , RX printed and placed in PPU. * Telephone Encounter - Blanka David M.A. - 01/14/2019 10:00 AM EDT Last refill 12-12-18 Controlled substance contract and last issue date of medication reviewed. Patient is due for medication. Masspat printed and placed in bin for your review. Lab Results Component Value Date URBENZO NEGATIVE 05/03/2018 UROPIATES POSITIVE 05/03/2018 URBARBITUATE NEGATIVE 05/03/2018 URAMPHETAMIN NEGATIVE 05/03/2018 URCOCAINE NEGATIVE 05/03/2018 URMARIJUANA NEGATIVE 05/03/2018 * Telephone Encounter - Geena Schwartz - 01/14/2019 9:17 AM EDT Patient would like script to be: PLACED IN PATIENT SEEING EYE DOG TEACHER TO BE PICKED UP BY WHEN WAS THE PATIENT'S LAST APPOINTMENT IN ADULT MEDICINE? 11/07/2018 WHEN WAS THE LAST TIME THE PATIENT SAW THEIR PCP? 10/27/2017 Does patient have an upcoming appointment? Yes 02/07/2019 (THE MEDICATION REQUESTED IS ON THE MED [...] / Plan[place] / Product Type: MEDICARE [id number] documented in this encounter Plan of Treatment Not on file documented as of this encounter Visit Diagnoses Diagnosis Spinal stenosis of lumbar region with neurogenic claudication Spinal stenosis, lumbar region, with neurogenic claudication Lumbar radiculitis Thoracic or lumbosacral neuritis or radiculitis, unspecified documented in this encounter Care Teams Tube Coater Relationship Specialty Start Date End Date Alvarez Silverio MD [address] [place] [address] PCP - General 03/28/1999 05/18/20 Jann Adams PA-C [address] [place] [address] PCP - General Internal Medicine 05/19/20 Hira Maria MD, PHD [address] [place] [address] Surgeon Neurosurgery 10/26/21 Radha Rios MD [address] [place] [address] Specialist Cardiology 02/09/22 Carolyn Spencer PA-C [address] [place] [address] Neurosurgery 03/14/22 documented as of this encounter
--- OUTSIDE RECORDS SUMMARY | 2024-06-26 16:47 | XMS_ITS | Encounter Summary ---
Author Organization [facility] Address [address] [facility] [place] [address] Care Team Providers Care Rn Military Name Role Phone Alvarez Silverio MD Primary Care Provider + [phone] Jann Adams PA-C Primary Care Provider [phone] Hira Maria MD, PHD Unavailable Unava ilable Radha Rios MD Unavailable [phone] Carolyn Spencer PA-C Unavailable [phone] Encounter Details Date Type Department Care Team Description 10/29/2015 Controlled Substance Contract with Plan Medical Records [address] [place], [place] [id number] Abstract, Provider Social History Tobacco Use Types [...] on filedocumented in this encounter Care Teams Rn Military Relationship Specialty Start Date End Date Alvarez Silverio MD [address] [place] [address] [phone] PCP - General 03/28/1999 05/18/20 Jann Adams PA-C [address] [place] [address] [phone] PCP - General Internal Medicine 05/19/20 Hira Maria MD, PHD [address] [place] [address] Surgeon Neurosurgery 10/26/21 Radha Rios MD [address] [place] [address] Specialist Cardiology 02/09/22 Carolyn Spencer PA-C [address] [place] [address] Neurosurgery 03/14/22 documented as of this encounter
--- OUTSIDE RECORDS SUMMARY | 2024-06-26 16:47 | XMS_ITS | Encounter Summary ---
Author Organization [facility] Address [address] [facility] [place] [address] Care Team Providers Care Child Adolescent Psychiatrist Name Role Phone Jann Adams PA-C Primary Care Provider [phone] Hira Maria MD, PHD Unavailable Unava ilable Radha Rios MD Unavailable [phone] Carolyn Spencer PA-C Unavailable [phone] Reason for Visit * Reason Comments E-prescribe Rx Request Encounter Details Date Type Department Care Team Description 01/11/2023 Refill Gastroenterology - [address] [place] [phone] Izaiah Steven PA-C E-prescribe Rx Request [...] encounter Miscellaneous Notes * Telephone Encounter - Fide Schumacher - 01/16/2023 2:00 PM EDT Left message for patient to return call, please schedule appointment * Telephone Encounter - Sophia Zamora M.A. - 01/11/2023 8:56 AM EDT Pt needs appt with new provider, zoe can you please refill? TY documented in this encounter Plan of Treatment Not on file documented as of this encounter Visit Diagnoses Not on filedocumented in this encounter Care Teams Child Adolescent Psychiatrist Relationship Specialty Start Date End Date Jann Adams PA-C [address] [place] [address] PCP - General Internal Medicine 05/19/20 Hira Maria MD, PHD [address] [place] [address] Surgeon Neurosurgery 10/26/21 Radha Rios MD [address] [place] [address] Specialist Cardiology 02/09/22 Carolyn Spencer PA-C [address] [place] [address] Neurosurgery 03/14/22 documented as of this encounter
--- OUTSIDE RECORDS SUMMARY | 2024-06-26 16:47 | XMS_ITS | Encounter Summary ---
Author Organization [facility] Address [address] [facility] [place] [address] Care Team Providers Care Pneumatic System Conveyor Operator Name Role Phone Jann Adams PA-C Primary Care Provider [phone] Hira Maria MD, PHD Unavailable Unava ilable Radha Rios MD Unavailable [phone] Carolyn Spencer PA-C Unavailable [phone] Reason for Visit * Reason Comments E-prescribe Rx Request Encounter Details Date Type Department Care Team Description 10/05/2022 Refill Gastroenterology - [address] [place] [phone] Izaiah Steven PA-C E-prescribe Rx Request [...] on filedocumented in this encounter Care Teams Pneumatic System Conveyor Operator Relationship Specialty Start Date End Date Jann Adams PA-C [address] [place] [address] PCP - General Internal Medicine 05/19/20 Hira Maria MD, PHD [address] [place] [address] Surgeon Neurosurgery 10/26/21 Radha Rios MD [address] [place] [address] Specialist Cardiology 02/09/22 Carolyn Spencer PA-C [address] [address] Neurosurgery 03/14/22 documented as of this encounter
--- OUTSIDE RECORDS SUMMARY | 2024-06-26 16:47 | XMS_ITS | Encounter Summary ---
Author Organization [facility] Address [address] [place] [address] Care Team Providers Care Sheltered Workshop Executive Director Name Role Phone Jann Adams PA-C Primary Care Provider [phone] Hira Maria MD, PHD Unavailable Unava ilable Radha Rios MD Unavailable [phone] Carolyn Spencer PA-C Unavailable [phone] Encounter Details Date Type Department Care Team Description 03/07/2022 [facility] Medical [facility] Neurosurgery [place] [address] [place] [address] Hira Maria MD, PHD Social [...] on filedocumented in this encounter Care Teams Sheltered Workshop Executive Director Relationship Specialty Start Date End Date Jann Adams PA-C [address] [place] [address] PCP - General Internal Medicine 05/19/20 Hira Maria MD, PHD [address] [place] [address] Surgeon Neurosurgery 10/26/21 Radha Rios MD [address] [place] [address] Specialist Cardiology 02/09/22 Carolyn Spencer PA-C [address] [place] [address] Neurosurgery 03/14/22 documented as of this encounter
--- OUTSIDE RECORDS SUMMARY | 2024-06-26 16:47 | XMS_ITS | Encounter Summary ---
Author Organization [facility] Address [address] [facility] [place] [id number] Care Team Providers Care Mechanical Cad Drafter Name Role Phone Jann Adams PA-C Primary Care Provider [phone] Hira Maria MD, PHD Unavailable Unava ilable Radha Rios MD Unavailable [phone] Carolyn Spencer PA-C Unavailable [phone] Encounter Details Date Type Department Care Team Description 01/15/2021 [place] Controlled Substance Contract Medical Records [address] [place] [address] Abstract, Provider Social History Tobacco Use Types [...] filedocumented in this encounter Care Teams Mechanical Cad Drafter Relationship Specialty Start Date End Date Jann Adams PA-C [address] [place] [phone] PCP - General Internal Medicine 05/19/20 Hira Maria MD, PHD [address] [place] [phone] Surgeon Neurosurgery 10/26/21 Radha Rios MD [address] [place] [phone] Specialist Cardiology 02/09/22 Carolyn Spencer PA-C [address] [place] [address] Neurosurgery 03/14/22 documented as of this encounter
--- OUTSIDE RECORDS SUMMARY | 2024-06-26 16:47 | XMS_ITS | Encounter Summary ---
Author Organization [facility] Address [address] [place] [address] Care Team Providers Care Garment Parts Cutter Hand Name Role Phone Jann Adams PA-C Primary Care Provider [phone] Hira Maria MD, PHD Unavailable Unava ilable Radha Rios MD Unavailable [phone] Carolyn Spencer PA-C Unavailable [phone] Encounter Details Date Type Department Care Team Description 02/08/2021 Telephone Adult Medicine [address] [phone] Jann Adams PA-C [address] [place] [address] [phone] Social History Tobacco Use Types Packs/Day Years [...] have Coronavirus / COVID-19? No / Unsure 02/08/2021 9:56 AM EDT documented as of this encounter Miscellaneous Notes * Telephone Encounter - Jann Adams PA-C - 02/08/2021 11:37 AM EDT Should be atenolo 50mg 1.5 tabs daily, resent RX. Please let pt know Jann Adams PA-C documented in this encounter Plan of Treatment Not on file documented as of this encounter Visit Diagnoses Not on filedocumented in this encounter Care Teams Garment Parts Cutter Hand Relationship Specialty Start Date End Date Jann Adams PA-C [address] [place] [address] PCP - General Internal Medicine 05/19/20 Hira Maria MD, PHD [address] [place] [address] Surgeon Neurosurgery 10/26/21 Radha Rios MD [address] [place] [address] Specialist Cardiology 02/09/22 Carolyn Spencer PA-C [address] [place] [address] Neurosurgery 03/14/22 documented as of this encounter
--- OUTSIDE RECORDS SUMMARY | 2024-06-26 16:47 | XMS_ITS | Encounter Summary ---
Author Organization [facility] Address [address] [place] [address] Care Team Providers Care Regional Telecommunications Specialist Name Role Phone Jann Adams Primary Care Provider [phone] Reason for Referral * Imaging (Routine) - Closed Specialty Diagnoses / Procedures Referred By Chloe sykes Referred To Contact Radiology Diagnoses Spinal stenosis of lumbar region with neurogenic claudication Lumbar radiculitis Aortic dilatation (CMS/HCC) Chronic gastric ulcer without hemorrhage and without perforation Coronary artery disease involving hopland coronary artery of hopland heart without angina pectoris Other depression Essential hypertension, benign Gastroesophageal reflux disease without esophagitis Hx of non-ST elevation myocardial infarction (NSTEMI) Iron deficiency anemia due to chronic blood loss Mixed hyperlipidemia Parkinsonian tremor (CMS/HCC) Sleep apnea, unspecified type Procedures MR Lumbar Spine wo and w Contrast Jann Adams PA [address] [place] [address] [facility] [address] [place] [address] Referral ID Status Reason Start Date Expiration Date Visits Re quested Visits Authorized [id number] Closed 05/24/2024 05/24/2025 1 1 Reason for Visit * Imaging (Routine) - Closed Specialty Diagnoses / Procedures Referred By Chloe skyes Referred To Contact Radiology Diagnoses Spinal stenosis of lumbar region with neurogenic claudication Lumbar radiculitis Aortic dilatation (CMS/HCC) Chronic gastric ulcer without hemorrhage and without perforation Coronary artery disease involving hopland coronary artery of hopland heart without angina pectoris Other depression Essential hypertension, benign Gastroesophageal reflux disease without esophagitis Hx of non-ST elevation myocardial infarction (NSTEMI) Iron deficiency anemia due to chronic blood loss Mixed hyperlipidemia Parkinsonian tremor (CMS/HCC) Sleep apnea, unspecified type Procedures MR Lumbar Spine wo and w Contrast Jann Adams PA [address] [place], [place] [facility] [address] [place], [place] Referral ID Status Reason Start Date Expiration Date Visits Re quested Visits Authorized [id number] Closed 05/24/2024 05/24/2025 1 1 Encounter Details Date Type Department Care Team (Latest Contact Info) Description 05/30/2024 12:01 PM EST - 05/30/2024 11:59 PM EST Hospital Encounter Radiology Department - [address] [phone] Spinal stenosis of lumbar region with neurogenic claudication; Lumbar radiculitis; Aortic dilatation (CMS/HCC); Chronic gastric ulcer without hemorrhage and without perforation; Coronary artery disease involving hopland coronary artery of hopland heart without angina pectoris; Other depression; Essential [...] 1:15 PM EDT Office Visit Adult Medicine [address] [phone] Carmela Maguire PA [address] [place], [place] 11/25/2024 8:00 AM EDT Office Visit [facility] [address] [phone] Jann Adams PA [address] [place], [place] 03/31/2025 9:00 AM EST Ancillary Procedure [facility] [address] [place] [address] documented as of this encounter Procedures Procedure Name Priority Date/Time Associated Diagnosis Comments MR LUMBAR SPINE WO AND W CONTRAST Routine 05/30/2024 12:52 PM EST Spinal stenosis of lumbar region with neurogenic claudication Lumbar radiculitis Aortic dilatation (CMS/HCC) Chronic gastric ulcer without hemorrhage and without perforation Coronary artery disease involving hopland coronary artery of hopland heart without angina pectoris Other depression Essential [...] multilevel possible nerve root compression. POS - [id number] -------- FINAL REPORT -------- Dictated By: Mana Ortez Dictated Date: 05/31/2024 08:57 ET Assigned Physician: Mana Ortez Reviewed and Electronically Signed By: Mana Ortez Signed Date: 06/01/2024 10:50 ET Workstation ID: [id number] Transcribed By: Self Edit Transcribed Date: 05/31/2024 [...] and multilevel possiblenerve root compression. POS - [id number] -------- FINAL REPORT -------- Dictated By: Mana Ortez Dictated Date: 05/31/2024 08:57 ET Assigned Physician: Mana Ortez Reviewed and Electronically Signed By: Mana Ortez Signed Date: 06/01/2024 10:50 ET Workstation ID: [id number] Transcribed By: Self Edit Transcribed Date: 05/31/2024 11:17 ET Jann LUX IMG MRI PROCEDURE S documented in this encounter Visit Diagnoses Diagnosis Spinal stenosis of lumbar region with neurogenic claudication Lumbar radiculitis Aortic dilatation (CMS/HCC) Chronic gastric ulcer without hemorrhage and without perforation Coronary artery disease involving hopland coronary artery of hopland heart without angina pectoris Other depression Essential [...] 05/30/2024 documented in this encounter Care Teams Regional Telecommunications Specialist Relationship Specialty Start Date End Date Jann Adams PA [address] [place] [address] PCP - General Internal Medicine 05/19/20 documented as of this encounter
--- OUTSIDE RECORDS SUMMARY | 2024-06-26 16:47 | XMS_ITS | Encounter Summary ---
Author Organization [facility] Address [address] [facility] [place] [address] Care Team Providers Care Dray Driver Name Role Phone Alvarez Silverio MD Primary Care Provider [phone] Jann Adams PA-C Primary Care Provider Hira Maria MD, PHD Unavailable Unava ilable Radha Rios MD Unavailable [phone] Carolyn Spencer PA-C Unavailable [phone] Encounter Details Date Type Department Care Team Description 07/05/2004 Orders Only Medical [address] [place], [place] [id number] Alvarez Silverio MD [address] [place], [place] [phone] PURE HYPERCHOLESTEROLEMIA (Primary Dx) Social History Tobacco [...] 200-239 High ? >240 TRIGLYCERIDES 287 mg/dL [facility] Comment: Triglycerides Ref. Ranges *Optimal* ?<150 Borderline High 150-199 High ? >200 HDL CHOLESTEROL 36 mg/dL [facility] Comment: HDL Ref. Range *Optimal* ?>40 LDL CALCULATED 138 mg/dL [facility] Comment: LDL Ref.Ranges *Optimal* ?<100 Near Optimal ?100-129 Borderline High 130-159 High ?160-189 Very High ? >190 TC-HDLC RATIO 6.4 mg/dL [facility] Comment: TC/HDL-C Ratio Ref.Range *Optimal* ? <4.5 07/05/2004 8:00 AM EST 07/05/2004 8:02 AM EST Alvarez Silverio MD [facility] documented in this encounter Visit Diagnoses Diagnosis Pure hypercholesterolemia- Primary documented in this encounter Care Teams Dray Driver Relationship Specialty Start Date End Date Alvarez Silverio MD [address] [place], [place] [phone] PCP - General 03/28/1999 05/18/20 Jann Adams PA-C [address] [place] [address] PCP - General Internal Medicine 05/19/20 Hira Maria MD, PHD [address] [place], [place] [phone] Surgeon Neurosurgery 10/26/21 Radha Rios MD [address] [place] [address] Specialist Cardiology 02/09/22 Carolyn Spencer PA-C 175 [facility] [address] [place] [address] Neurosurgery 03/14/22 documented as of this encounter
--- OUTSIDE RECORDS SUMMARY | 2024-06-26 16:47 | XMS_ITS | Encounter Summary ---
Author Organization [facility] Address [address] [facility] [place] [address] Care Team Providers Care Architecture Faculty Member Name Role Phone Jann Adams PA-C Primary Care Provider [phone] Hira Maria MD, PHD Unavailable Unava ilable Radha Rios MD Unavailable [phone] Carolyn Spencer PA-C Unavailable [phone] Encounter Details Date Type Department Care Team Description 01/15/2021 [facility] Medical Records [address] [place] [address] Abstract, Provider Social History Tobacco Use Types [...] on filedocumented in this encounter Care Teams Architecture Faculty Member Relationship Specialty Start Date End Date Jann Adams PA-C [address] [place] [address] PCP - General Internal Medicine 05/19/20 Hira Maria MD, PHD [address] [place] [address] Surgeon Neurosurgery 10/26/21 Radha Rios MD [address] [place] [phone] Specialist Cardiology 02/09/22 Carolyn Spencer PA-C [address] [place] [address] Neurosurgery 03/14/22 documented as of this encounter
--- OUTSIDE RECORDS SUMMARY | 2024-06-26 16:47 | XMS_ITS | Encounter Summary ---
Author Organization [facility] Address [address] [place] [address] Care Team Providers Care Asset Management Coordinator Name Role Phone Jann Adams PA-C Primary Care Provider [phone] Hira Maria MD, PHD Unavailable Unava ilable Radha Rios MD Unavailable [phone] Carolyn Spencer PA-C Unavailable Reason for Visit * Reason Comments E-prescribe Rx Request Encounter Details Date Type Department Care Team Description 05/26/2022 Refill Adult Medicine [address] [phone] Jann Adams PA-C [address] [place] [id number] E-prescribe Rx Request Social History Tobacco Use [...] / Plan: [place]ARE-[place] / Product Type: MEDICARE [id number] documented in this encounter Plan of Treatment Not on file documented as of this encounter Visit Diagnoses Not on filedocumented in this encounter Care Teams Asset Management Coordinator Relationship Specialty Start Date End Date Jann Adams PA-C [address] [place] [address] PCP - General Internal Medicine 05/19/20 Hira Maria MD, PHD [address] [place] [address] Surgeon Neurosurgery 10/26/21 Radha Rios MD [address] [place] [address] Specialist Cardiology 02/09/22 Carolyn Spencer PA-C [address] [place] [address] Neurosurgery 03/14/22 documented as of this encounter
--- OUTSIDE RECORDS SUMMARY | 2024-06-26 16:47 | XMS_ITS | Encounter Summary ---
Author Organization [facility] Address [address] [place] [address] Care Team Providers Care Automobile Repair Service Estimator Name Role Phone Alvarez Silverio MD Primary Care Provider [phone] Jann Adams PA-C Primary Care Provider [phone] Hira Maria MD, PHD Unavailable Unava ilable Radha Rios MD Unavailable [phone] Carolyn Spencer PA-C Unavailable [phone] Encounter Details Date Type Department Care Team Description 12/02/2019 [facility] Medical Records [address] [place], [place] [phone] Abstract, Provider Social History Tobacco Use Types [...] on filedocumented in this encounter Care Teams Automobile Repair Service Estimator Relationship Specialty Start Date End Date Alvarez Silverio MD [address] [place] [address] [phone] PCP - General 03/28/1999 05/18/20 Jann Adams PA-C [address] [place] [address] [phone] PCP - General Internal Medicine 05/19/20 Hira Maria MD, PHD [address] [place] [address] Surgeon Neurosurgery 10/26/21 Radha Rios MD [address] [place] [address] Specialist Cardiology 02/09/22 Carolyn Spencer PA-C [address] [place] [address] Neurosurgery 03/14/22 documented as of this encounter
--- OUTSIDE RECORDS SUMMARY | 2024-06-26 16:47 | XMS_ITS | Encounter Summary ---
Author Organization [facility] Address [address] [place] [address] Care Team Providers Care Forest Fire Warden Name Role Phone Alvarez Silverio MD Primary Care Provider + [phone] Jann Adams PA-C Primary Care Provider [phone] Hira Maria MD, PHD Unavailable Unava ilable Radha Rios MD Unavailable [phone] Carolyn Spencer PA-C Unavailable [phone] Encounter Details Date Type Department Care Team Description 06/20/2016 Controlled Substance Plan Medical Records [address] [place] [address] Abstract, Provider Social History Tobacco Use Types [...] on filedocumented in this encounter Care Teams Forest Fire Warden Relationship Specialty Start Date End Date Alvarez Silverio MD [address] [place] [address] [id number] PCP - General 03/28/1999 05/18/20 Jann Adams PA-C [address] [place] [phone] PCP - General Internal Medicine 05/19/20 Hira Maria MD, PHD [address] [place] [address] Surgeon Neurosurgery 10/26/21 Radha Rios MD [address] [place] [address] Specialist Cardiology 02/09/22 Carolyn Spencer PA-C [address] [place] [address] Neurosurgery 03/14/22 documented as of this encounter
== END 2024-06-26 13:41 | disposition home or self-care (01) ==
LOC: HO.HOSX 13:40
PROVIDERS: PCP Physician Assistant Medical; Referring Provider Physician Assistant Medical; Visit Provider Neurological Surgery
DX: M47.14 Other spondylosis with myelopathy, thoracic region (principal); M41.56 Other secondary scoliosis, lumbar region
CPT/HCPCS: 72110; 99202

== ENCOUNTER 2024-06-26 13:40 | Outpatient (AMB) | payer MEDICARE, OTHER, SELFPAY ==
--- NOTE | 2024-06-26 13:47 | A.SPINEOV_ITS ---
Vital Signs 06/26/24 14:05 Height 5 ft 11 in Weight 215 lb BMI 30.0 Intake Visit Reasons: LBP Intake Note: Mr. Edgar is here today c/o low back pain and numbness on both legs. Endless Track Vehicle Supervisor Required: No Allergies No Known Allergies Allergy (Verified 06/26/24 13:59) Physical Exam Vital Signs: BMI result Body Mass Index 30.0 Assessment & Plan Assessment & Plan (1) Scoliosis of lumbar region due to degenerative disease of spine in adult: Code(s): M41.56 - Other secondary scoliosis, lumbar region Category: Medical Plan: Dear colleague Thank you for referring Thierry Edgar to the office today with a chief complaint of intermittent bilateral leg numbness. HPI: This 68-year-old male had previous lumbar decompression L3-4 L4-[address] Moe and a redo L4-5 decompression by myself. He was doing well with minimal amount of hydrocodone daily. He was able to play golf 18 holes and go to the gym. He comes in complaining of complete numbness from the waist down that frequently and intermittently comes on without warning. Doing a few knee bends will resolve the symptoms. He denies urinary symptoms although he is seen by the urologist for difficulty urinating. He also always ends up with a Vee catheter after surgery. If he does not take his gabapentin he would develop severe burning of his feet. An EMG was negative for polyneuropathy. Besides the numbness he will have back pain radiating down both legs with the right side is more affected than the left side with walking and standing if he does not take his pain medication. He has chiropractic treatment that temporarily alleviates the symptoms. PMH: Hypertension, hypercholesterolemia, 2 cardiac stents, 2 knee replacements, cervical fusion Medications: Atorvastatin, atenolol, hydrocodone, gabapentin, omeprazole, carbidopa, tamsulosin Allergies: NKDA Social history: , nonsmoker Physical Exam: Pleasant male. There is a discrepancy in the reflex pattern where the lower extremities are more brisk than the upper extremities. Motor and sensory exam are intact in the office. Radiological Studies: MRI done at [facility] on 05/30/2024 shows multilevel degenerative disc disease from T12-S1. There is an auto fusion L3-4. More importantly, there is severe spinal cord compression at T10-11 but the axial cuts do not visualize this level and therefore an MRI of the thoracic spine is required. The seems to be myelomalacia in this area as well. In addition there is severe L4-5 spinal stenosis and foraminal stenosis due to arthritic changes and several synovial cysts. In addition there is hyperintensity of the L4-5 facet joints a sign of instability. 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 Most likely, he will need a decompression T10-11 and an L4-5 minimally invasive lumbar fusion and decompression to address the lumbar spinal stenosis. Thank you for allowing me to participate in your patients care. total time spent was 50 minutes in counseling ,coordination of plan, personal review of imaging, surgical decision making and subsequent plan Hira Maria MD, PhD Spine Fellowship Trained Neurosurgeon Director, [facility] (2) Thoracic spondylosis with myelopathy: Code(s): M47.14 - Other spondylosis with myelopathy, thoracic region Category: Medical Plan: a Orders: Orders XR lumbar spine 4V min Today M41.56 - Other secondary scoliosis, lumbar region MR thoracic spine wo con Today M47.14 - Other spondylosis with myelopathy, thoracic region Coding Level of Care Code New Pt Level 4 (18285) Diagnoses Scoliosis of lumbar region due to degenerative disease of spine in adult M41.56 Thoracic spondylosis with myelopathy M47.14
--- OUTSIDE RECORDS SUMMARY | 2024-06-26 15:53 | XMS_ITS | Encounter Summary ---
Author Organization [facility] Address [address] [facility] [place] [address] Care Team Providers Care Sound Effects Manager Name Role Phone Alvarez Silverio MD Primary Care Provider + [phone] Jann Adams PA-C Primary Care Provider [phone] Hira Maria MD, PHD Unavailable Unava ilable Radha Rios MD Unavailable [phone] Carolyn Spencer PA-C Unavailable [phone] Reason for Visit * Reason Comments E-prescribe Rx Request Encounter Details Date Type Department Care Team Description 06/18/2017 Refill Adult Medicine [address] [id number] Alvarez Silverio MD [address] [place] [address] [phone] E-prescribe Rx Request Social History Tobacco Use Types Packs/Day Years Used Date Smoking Tobacco: Never Smokeless Tobacco: Never Alcohol Use Standard Drinks/Week Comments Yes 0 (1 standard drink = 0.6 oz pur e alcohol) 2 per week Sex Assigned at Date Recorded Not on file Job Start Date Occupation Industry Not on file Not on file Not on file documented as of this encounter Miscellaneous Notes * Telephone Encounter - Leslie Pena - 06/19/2017 1:36 PM EST Patient would like script to be: E-PRESCRIBED/FAXED TO PHARMACY WHEN WAS THE PATIENT'S LAST APPOINTMENT IN ADULT MEDICINE? 04/28/17 WHEN WAS THE LAST TIME THE PATIENT SAW THEIR PCP? 06/15/16 Does patient have an upcoming appointment? Yes 07/27/17 (THE MEDICATION REQUESTED IS ON THE MED LIST ABOVE) All of the medications requested were on the CURRENT MEDS list Did you check the Pharmacy information above?: YES Patient wants: 30 -day supply Is this a mail order prescription request ? NO Patients current insurance carrier is: Payor: [facility]/[employer] FFS / Plan: Preventes.frO $25 [place] [id number] / ProductType: [employer] [id number] documented in this encounter Plan of Treatment Not on file documented as of this encounter Visit Diagnoses Not on filedocumented in this encounter Care Teams Sound Effects Manager Relationship Specialty Start Date End Date Alvarez Silverio MD [address] [place] [address] PCP - General 03/28/1999 05/18/20 Jann Adams PA-C [address] [place] [address] PCP - General Internal Medicine 05/19/20 Hira Maria MD, PHD [address] [place] [address] Surgeon Neurosurgery 10/26/21 Radha Rios MD [address] [place] [address] Specialist Cardiology 02/09/22 Carolyn Spencer PA-C [address] [place] [address] Neurosurgery 03/14/22 documented as of this encounter
--- OUTSIDE RECORDS SUMMARY | 2024-06-26 15:53 | XMS_ITS | Encounter Summary ---
Author Organization [facility] Address [address] [place] [address] Care Team Providers Care Aluminum Siding Installer Name Role Phone Alvarez Silverio MD Primary Care Provider + [phone] Jann Adams PA-C Primary Care Provider [phone] Hira Maria MD, PHD Unavailable Unava ilable Radha Rios MD Unavailable [phone] Carolyn Spencer PA-C Unavailable [phone] Encounter Details Date Type Department Care Team Description 08/25/2016 [facility] Medical Records [address] [place] [address] Abstract, Provider Social History Tobacco Use Types Packs/Day Years Used Date Smoking Tobacco: Never Smokeless Tobacco: Never Alcohol Use Standard Drinks/Week Comments Not Asked 0 (1 standard drink = 0.6 oz pur e alcohol) Sex Assigned at Date Recorded Not on file Job Start Date Occupation Industry Not on file Not on file Not on file documented as of this encounter Plan of Treatment Not on file documented as of this encounter Visit Diagnoses Not on filedocumented in this encounter Care Teams Aluminum Siding Installer Relationship Specialty Start Date End Date Alvarez Silverio MD [address] [place] [address] [phone] PCP - General 03/28/1999 05/18/20 Jann Adams PA-C [address] [place] [address] [phone] PCP - General Internal Medicine 05/19/20 Hira Maria MD, PHD [address] [place] [address] Surgeon Neurosurgery 10/26/21 Radha Rios MD [address] [place] [address] Specialist Cardiology 02/09/22 Carolyn Spencer PA-C [address] [place] [address] Neurosurgery 03/14/22 documented as of this encounter
--- OUTSIDE RECORDS SUMMARY | 2024-06-26 15:53 | XMS_ITS | Encounter Summary ---
Author Organization [facility] Address [address] [place] [address] Care Team Providers Care Supervisor Chemical Name Role Phone Alvarez Silverio MD Primary Care Provider + [phone] Jann Adams PA-C Primary Care Provider [phone] Hira Maria MD, PHD Unavailable Unava ilable Radha Rios MD Unavailable [phone] Carolyn Spencer PA-C Unavailable [phone] Encounter Details Date Type Department Care Team Description 03/03/2017 [facility] Medical Records [address] [place] [address] Abstract, Provider Social History Tobacco Use Types [...] on filedocumented in this encounter Care Teams Supervisor Chemical Relationship Specialty Start Date End Date Alvarez Silverio MD [address] [place] [address] [phone] PCP - General 03/28/1999 05/18/20 Jann Adams PA-C [address] [place] [address] [phone] PCP - General Internal Medicine 05/19/20 Hira Maria MD, PHD [address] [place] [address] Surgeon Neurosurgery 10/26/21 Radha Rios MD [address] [place] [address] Specialist Cardiology 02/09/22 Carolyn Spencer PA-C [address] [place] [address] Neurosurgery 03/14/22 documented as of this encounter
--- OUTSIDE RECORDS SUMMARY | 2024-06-26 15:53 | XMS_ITS | Encounter Summary ---
Author Organization [facility] Address [address] [place] [address] Care Team Providers Care Food Inspector Name Role Phone Alvarez Silverio MD Primary Care Provider + [phone] Jann Adams PA-C Primary Care Provider [phone] Hira Maria MD, PHD Unavailable Unava ilable Radha Rios MD Unavailable [phone] Carolyn Spencer PA-C Unavailable [phone] Encounter Details Date Type Department Care Team Description 12/16/2016 Estate Planning Attorney Report Medical Records [address] [place] [address] Abstract, Provider Social History Tobacco Use Types [...] on filedocumented in this encounter Care Teams Food Inspector Relationship Specialty Start Date End Date Alvarez Silverio MD [address] [place] [address] [phone] PCP - General 03/28/1999 05/18/20 Jann Adams PA-C [address] [place] [address] [phone] PCP - General Internal Medicine 05/19/20 Hira Maria MD, PHD [address] [place] [address] Surgeon Neurosurgery 10/26/21 Radha Rios MD [address] [place] [address] Specialist Cardiology 02/09/22 Carolyn Spencer PA-C [address] [place] [address] Neurosurgery 03/14/22 documented as of this encounter
--- OUTSIDE RECORDS SUMMARY | 2024-06-26 15:54 | XMS_ITS | Encounter Summary ---
Author Organization [facility] Address [address] [place] [address] Care Team Providers Care Data Specialist Name Role Phone Alvarez Silverio MD Primary Care Provider + [phone] Jann Adams PA-C Primary Care Provider [phone] Hira Maria MD, PHD Unavailable Unava ilable Radha Rios MD Unavailable [phone] Carolyn Spencer PA-C Unavailable [phone] Reason for Visit * Reason Comments E-prescribe Rx Request Encounter Details Date Type Department Care Team Description 10/27/2017 Refill Adult Medicine [address] [phone] Jann Adams PA-C [address] [place] [address] [phone] E-prescribe Rx Request Social History Tobacco Use [...] encounter Miscellaneous Notes * Telephone Encounter - Eveline Fraser M.A. - 10/27/2017 3:11 PM EDT Lab Results Component Value Date CHOL 92 10/15/2017 LDL 37 10/15/2017 HDL 31 10/15/2017 TRIG 120 10/15/2017 * Telephone Encounter - Lisa Pratt - 10/27/2017 10:06 AM EDT Patient would like script to be: E-PRESCRIBED/FAXED TO PHARMACY WHEN WAS THE PATIENT'S LAST APPOINTMENT IN ADULT MEDICINE? 07/27/17 WHEN WAS THE LAST TIME THE PATIENT SAW THEIR PCP? 06/15/16 Does patient have an upcoming appointment? Yes 10/27/17 (THE MEDICATION REQUESTED IS ON THE MED LIST ABOVE) All of the medications requested were on the CURRENT MEDS list Did you check the Pharmacy information above?: YES Patient wants: 30 -day supply Is this a mail order prescription request ? NO Patients current insurance carrier is: Payor: [facility] [place] / Plan: MotwinO $25 [place] [id number] / ProductType: HMO [id number] documented in this encounter Plan of Treatment Not on file documented as of this encounter Visit Diagnoses Not on filedocumented in this encounter Care Teams Data Specialist Relationship Specialty Start Date End Date Alvarez Silverio MD [address] [place] [id number] PCP - General 03/28/1999 05/18/20 Jann Adams PA-C [address] [place] [address] PCP - General Internal Medicine 05/19/20 Hira Maria MD, PHD [address] [place] [address] Surgeon Neurosurgery 10/26/21 Radha Rios MD [address] [place] [address] Specialist Cardiology 02/09/22 Carolyn Spencer PA-C [address] [place] [address] Neurosurgery 03/14/22 documented as of this encounter
--- OUTSIDE RECORDS SUMMARY | 2024-06-26 15:54 | XMS_ITS | Encounter Summary ---
Author Organization [facility] Address [address] [place] [address] Care Team Providers Care Compliance Advisor Name Role Phone Alvarez Sliverio MD Primary Care Provider + [phone] Jann Adams PA-C Primary Care Provider +[phone] Hira Maria MD, PHD Unavailable Unava ilable Radha Rios MD Unavailable [phone] Carolyn Spencer PA-C Unavailable [phone] Reason for Visit * Reason Comments E-prescribe Rx Request Encounter Details Date Type Department Care Team Description 07/05/2011 Refill Adult Medicine [address] [address] Stefany Srinivasan PA-C E-prescribe Rx Request Social History Tobacco Use Types Packs/Day Years Used Date Smoking Tobacco: Never Alcohol Use Standard Drinks/Week Comments Not Asked 0 (1 standard drink = 0.6 oz pur e alcohol) Sex Assigned at Date Recorded Not on file Job Start Date Occupation Industry Not on file Not on file Not on file documented as of this encounter Miscellaneous Notes * Telephone Encounter - Evelyne Vasquez L.P.N. - 07/06/2011 9:12 AM EST Component Value Date ALB 4.9 07/11/2010 SGOT 24 07/11/2010 SGPT 26 07/11/2010 TBILI 0.8 07/11/2010 DBILI 0.1 10/13/2008 IBILI 0.5 10/13/2008 ALKPHOS 69 07/11/2010 TP 7.1 07/11/2010 Component Value Date CHOL 173 07/11/2010 LDL 110 07/11/2010 HDL 40 07/11/2010 TRIG 118 07/11/2010 SGOT 24 07/11/2010 SGPT 26 07/11/2010 * Telephone Encounter - Keiko Blake - 07/06/2011 9:01 AM EST WHEN WAS THE PATIENT'S LAST APPOINTMENT IN ADULT MEDICINE? 07/23/10 WHEN WAS THE LAST TIME THE PATIENT SAW THEIR PCP? Same as above Does patient have an upcoming appointment? Yes 07/28/11 (THE MEDICATION REQUESTED IS ON THE MED LIST ABOVE) All of the medications requested were on the CURRENT MEDS list Did you check the Pharmacy information above?: YES Is this a mail order prescription request? NO Indicate how soon the patient needs the script: BY THE END OF THE DAY Patient would like script to be: FAXED TO PHARMACY Is the doctor here today?: YES Can the message wait until the doctor returns?: NO Patients current insurance carrier is: Payor: [facility] [[email or web address]] Plan: O $25 HARDY [id number] Product Type: HMO [id number] documented in this encounter Plan of Treatment Not on file documented as of this encounter Visit Diagnoses Not on filedocumented in this encounter Care Teams Compliance Advisor Relationship Specialty Start Date End Date Alvarez Silverio MD [address] [place] [address] PCP - General 03/28/1999 05/18/20 Jann Adams PA-C [address] [place] [address] PCP - General Internal Medicine 05/19/20 Hira Maria MD, PHD [address] [place] [address] Surgeon Neurosurgery 10/26/21 Radha Rios MD [address] [place] [address] Specialist Cardiology 02/09/22 Carolyn Spencer PA-C [address] [place] [address] Neurosurgery 03/14/22 documented as of this encounter
--- OUTSIDE RECORDS SUMMARY | 2024-06-26 15:54 | XMS_ITS | Encounter Summary ---
Author Organization [facility] Address [address] [place] [address] Care Team Providers Care Medical Data Analyst Name Role Phone Alvarez Silverio MD Primary Care Provider + [phone] Jann Adams PA-C Primary Care Provider +[phone] Hira Maria MD, PHD Unavailable Unava ilable Radha Rios MD Unavailable [phone] Carolyn Spencer PA-C Unavailable [phone] Encounter Details Date Type Department Care Team Description 04/13/2012 Residential Real Estate Appraiser Report Medical Records [address] [place] [address] Tello Silva Social History Tobacco Use Types Packs/Day Years [...] on filedocumented in this encounter Care Teams Medical Data Analyst Relationship Specialty Start Date End Date Alvarez Silverio MD [address] [place] [address] [phone] PCP - General 03/28/1999 05/18/20 Jann Adams PA-C [address] [place] [address] [phone] PCP - General Internal Medicine 05/19/20 Hira Maria MD, PHD [address] [place] [address] Surgeon Neurosurgery 10/26/21 Radha Rios MD [address] [place] [address] Specialist Cardiology 02/09/22 Carolyn Spencer PA-C [address] [place] [address] Neurosurgery 03/14/22 documented as of this encounter
--- OUTSIDE RECORDS SUMMARY | 2024-06-26 15:54 | XMS_ITS | Encounter Summary ---
Author Organization [facility] Address [address] [place] [address] Care Team Providers Care Voting Machine Repairer Name Role Phone Alvarez Silverio MD Primary Care Provider + [phone] Jann Adams PA-C Primary Care Provider +[phone] Hira Maria MD, PHD Unavailable Unava ilable Radha Rios MD Unavailable [phone] Carolyn Spencer PA-C Unavailable [phone] Encounter Details Date Type Department Care Team Description 02/12/2015 Hospital Medical Records [address] [place] [address] Social History Tobacco Use Types Packs/Day Years Used Date Smoking Tobacco: Never Smokeless Tobacco: Never Alcohol Use Standard Drinks/Week Comments Yes 0 (1 standard drink = 0.6 oz pur e alcohol) 1 beer per week Sex Assigned at Date Recorded Not on file Job Start Date Occupation Industry Not on file Not on file Not on file documented as of this encounter Plan of Treatment Not on file documented as of this encounter Visit Diagnoses Not on filedocumented in this encounter Care Teams Voting Machine Repairer Relationship Specialty Start Date End Date Alvarez Silverio MD [address] [place] [address] [phone] PCP - General 03/28/1999 05/18/20 Jann Adams PA-C [address] [place] [address] [phone] PCP - General Internal Medicine 05/19/20 Hira Maria MD, PHD [address] [place] [address] Surgeon Neurosurgery 10/26/21 Radha Rios MD [address] [place] [address] Specialist Cardiology 02/09/22 Carolyn Spencer PA-C [address] [place] [address] Neurosurgery 03/14/22 documented as of this encounter
--- OUTSIDE RECORDS SUMMARY | 2024-06-26 15:54 | XMS_ITS | Encounter Summary ---
Author Organization [facility] Address [address] [facility] [place] [facility] [place] [address] Care Team Providers Care Program/Music Director Name Role Phone Alvarez Silverio MD Primary Care Provider [phone] Jann Adams PA-C Primary Care Provider Hira Maria MD, PHD Unavailable Unava ilable Radha Rios MD Unavailable [phone] Carolyn Spencer PA-C Unavailable [phone] Encounter Details Date Type Department Care Team Description 07/05/2004 Orders Only Medical [address] [place], [place] [phone] Alvarez Silverio MD [address] [place], [place] [phone] PURE HYPERCHOLESTEROLEMIA (Primary Dx) Social History Tobacco Use Types Packs/Day Years Used Date Smoking Tobacco: Never Assessed Sex Assigned at Date Recorded Not on file Job Start Date Occupation Industry Not on file Not on file Not on file documented as of this encounter Plan of Treatment Scheduled Orders Name Type Priority Associated Diagnoses Orde r Schedule VENIPUNCTURE Lab Routine Pure Hypercholesterolemia Ordered: 07/05/2004 documented as of this encounter Procedures Procedure Name Priority Date/Time Associated Diagnosis Comments CHG LIPID PANEL Routine 07/05/2004 8:00 AM EST Pure Hypercholesterolemia documented in this encounter Results * LIPID PROFILE (07/05/2004 8:00 AM EST) Cholesterol 231 mg/dL [facility] Comment: Cholesterol Ref.Ranges *Optimal* ?<200 Borderline High 200-239 High ? >240 TRIGLYCERIDES 287 mg/dL [facility] Comment: Triglycerides Ref. Ranges *Optimal* ?<150 Borderline High 150-199 High ? >200 HDL CHOLESTEROL 36 mg/dL [facility] Comment: HDL Ref. Range *Optimal* ?>40 LDL CALCULATED 138 mg/dL [facility] Comment: LDL Ref.Ranges *Optimal* ?<100 Near Optimal ?100-129 Borderline High 130-159 High ?160-189 Very High ? >190 TC-HDLC RATIO 6.4 mg/dL [facility] Comment: TC/HDL-C Ratio Ref.Range *Optimal* ? <4.5 07/05/2004 8:00 AM EST 07/05/2004 8:02 AM EST Alvarez Silverio MD LAB [facility] documented in this encounter Visit Diagnoses Diagnosis Pure hypercholesterolemia- Primary documented in this encounter Care Teams Program/Music Director Relationship Specialty Start Date End Date Alvarez Silverio MD [address] [place], [place] [phone] PCP - General 03/28/1999 05/18/20 Jann Adams PA-C [address] [place] [address] PCP - General Internal Medicine 05/19/20 Hira Maria MD, PHD [address] [place], [place] [phone] Surgeon Neurosurgery 10/26/21 Radha Rois MD [address] [place] [address] Specialist Cardiology 02/09/22 Carolyn Spencer PA-C [address] [facility] [address] [place] [address] Neurosurgery 03/14/22 documented as of this encounter
--- OUTSIDE RECORDS SUMMARY | 2024-06-26 15:54 | XMS_ITS | Encounter Summary ---
Author Organization [facility] Address [address] [facility] [place] [address] Care Team Providers Care Flake Cutter Operator Name Role Phone Alvarez Silverio MD Primary Care Provider + [phone] Jann Adams PA-C Primary Care Provider +[phone] Hira Maria MD, PHD Unavailable Unava ilable Radha Rios MD Unavailable [phone] Carolyn Spencer PA-C Unavailable [phone] Encounter Details Date Type Department Care Team Description 10/29/2015 Controlled Substance Contract with Plan Medical Records [address] [place], [place] [phone] Abstract, Provider Social History Tobacco Use Types [...] on filedocumented in this encounter Care Teams Flake Cutter Operator Relationship Specialty Start Date End Date Alvarez Silverio MD [address] [place] [address] [phone] PCP - General 03/28/1999 05/18/20 Jann Adams PA-C [address] [place] [address] [phone] PCP - General Internal Medicine 05/19/20 Hira Maria MD, PHD [address] [place] [address] Surgeon Neurosurgery 10/26/21 Radha Rios MD [address] [place] [address] Specialist Cardiology 02/09/22 Carolyn Spencer PA-C [address] [place] [address] Neurosurgery 03/14/22 documented as of this encounter
--- OUTSIDE RECORDS SUMMARY | 2024-06-26 15:54 | XMS_ITS | Encounter Summary ---
Author Organization [facility] Address [address] [facility] [address] Care Team Providers Care Gaming Surveillance Observer Name Role Phone Alvarez Silverio MD Primary Care Provider [phone] Jann Adams PA-C Primary Care Provider +[phone] Hira Maria MD, PHD Unavailable Unava ilable Radha Rios MD Unavailable [phone] Carolyn Spencer PA-C Unavailable [phone] Reason for Visit * Reason Onset Date Comments refill request 05/19/2016 Encounter Details Date Type Department Care Team Description 05/19/2016 Refill Adult Medicine [address] [phone] Alvarez Silverio MD [address] [place] [address] [phone] refill request Social History Tobacco Use Types Packs/Day Years [...] Telephone Encounter - Evelyne Vasquez L.P.N. - 05/19/2016 4:29 PM EST Script written and is in patient pick-up. Waiting for Lizbeth Gonzalez MD To review masspat * Telephone Encounter - Irma Hawkins M.A. - 05/19/2016 2:26 PM EST Masspat scanned 03/21/2016 in bin Controlled substance contract and last issue date of medication reviewed. Patient is due for medication. Component Value Date URINEOXYCOD NEGATIVE 05/05/2016 URBENZO NEGATIVE 05/05/2016 URAMPHETAMIN NEGATIVE 05/05/2016 URMARIJUANA NEGATIVE 05/05/2016 UROPIATES POSITIVE 05/05/2016 URBARBITUATE NEGATIVE 05/05/2016 URCOCAINE NEGATIVE 05/05/2016 HYDROCODONE 455 05/05/2016 * Telephone Encounter - Evelyne Vasquez L.P.N. - 05/19/2016 2:[address] medication * Telephone Encounter - Roberta Dean - 05/19/2016 11:35 AM EST Patient would like script to be: PLACED IN PATIENT PAINTING DEPARTMENT SUPERVISOR WHEN WAS THE PATIENT'S LAST APPOINTMENT IN ADULT MEDICINE? 01/13/16 WHEN WAS THE LAST TIME THE PATIENT SAW THEIR PCP? Same as above Does patient have an upcoming appointment? Yes 06/15/15 (THE MEDICATION REQUESTED IS ON THE MED LIST ABOVE) All of the medications requested were on the CURRENT MEDS list Did you check the Pharmacy information above?: NO Patient wants: 30 -day supply Is this a mail order prescription request ? NO Patients current insurance carrier is: Payor: [facility] / Plan: HMO $25 TAPAN [id number] / Product Type: HMO [id number]-Wggetor documented in this encounter Plan of Treatment Not on file documented as of this encounter Visit Diagnoses Diagnosis Lumbar spinal stenosis Spinal stenosis, lumbar region, without neurogenic claudication Lumbar radiculitis Thoracic or lumbosacral neuritis or radiculitis, unspecified documented in this encounter Care Teams Gaming Surveillance Observer Relationship Specialty Start Date End Date Alvarez Silverio MD [address] [place] [address] PCP - General 03/28/1999 05/18/20 Jann Adams PA-C [address] [place] [address] PCP - General Internal Medicine 05/19/20 Hira Maria MD, PHD [address] [place] [address] Surgeon Neurosurgery 10/26/21 Radha Rios MD [address] [place] [address] Specialist Cardiology 02/09/22 Carolyn Spencer PA-C [address] [place] [address] Neurosurgery 03/14/22 documented as of this encounter
--- OUTSIDE RECORDS SUMMARY | 2024-06-26 15:54 | XMS_ITS | Encounter Summary ---
Author Organization [facility] Address [address] [facility] [place] [place] [address] Care Team Providers Care Patternmaker Name Role Phone Alvarez Silverio MD Primary Care Provider + [phone] Jann Adams PA-C Primary Care Provider +[phone] Hira Maria MD, PHD Unavailable Unava ilable Radha Rios MD Unavailable [phone] Carolyn Spencer PA-C Unavailable [phone] Reason for Visit * Reason Onset Date Comments refill request 04/24/2017 Encounter Details Date Type Department Care Team Description 04/24/2017 Refill Adult Medicine [address] [phone] Alvarez Silverio MD [address] [place] [address] [phone] refill request Social History Tobacco Use Types [...] encounter Miscellaneous Notes * Telephone Encounter - Carolyn Muro - 04/24/2017 8:48 AM EST Patient would like script to be: E-PRESCRIBED/FAXED TO PHARMACY WHEN WAS THE PATIENT'S LAST APPOINTMENT IN ADULT MEDICINE? 09/23/16 WHEN WAS THE LAST TIME THE PATIENT SAW THEIR PCP? 06/15/16 Does patient have an upcoming appointment? Yes 04/28/17 (THE MEDICATION REQUESTED IS ON THE MED LIST ABOVE) All of the medications requested were on the CURRENT MEDS list Did you check the Pharmacy information above?: YES Patient wants: 30 -day supply Is this a mail order prescription request ? NO Patients current insurance carrier is: Payor: [facility]/[employer] / Plan: [employer] $25 [employer] [id number] / ProductType: [employer] [id number] documented in this encounter Plan of Treatment Not on file documented as of this encounter Visit Diagnoses Not on filedocumented in this encounter Care Teams Patternmaker Relationship Specialty Start Date End Date Alvarez Silverio MD [address] [place] [address] PCP - General 03/28/1999 05/18/20 Jann Adams PA-C [address] [place] [address] PCP - General Internal Medicine 05/19/20 Hira Maria MD, PHD [address] [place] [address] Surgeon Neurosurgery 10/26/21 Radha Rios MD [address] [place] [address] Specialist Cardiology 02/09/22 Carolyn Spencer PA-C [address] [place] [address] Neurosurgery 03/14/22 documented as of this encounter
--- OUTSIDE RECORDS SUMMARY | 2024-06-26 15:54 | XMS_ITS | Encounter Summary ---
Author Organization [facility] Address [address] [place] [address] Care Team Providers Care Specialist Physician Name Role Phone Alvarez Silverio MD Primary Care Provider + [phone] Jann Adams PA-C Primary Care Provider +[phone] Hira Maria MD, PHD Unavailable Unava ilable Radha Rios MD Unavailable [phone] Carolyn Spencer PA-C Unavailable [phone] Encounter Details Date Type Department Care Team Description 04/29/2016 [place] Supervisor Report Medical Records [address] [place] [address] Marlys Ruelas Social History Tobacco Use Types Packs/Day Years [...] on filedocumented in this encounter Care Teams Specialist Physician Relationship Specialty Start Date End Date Alvarez Silverio MD [address] [place] [address] [phone] PCP - General 03/28/1999 05/18/20 Jann Adams PA-C [address] [place] [address] [phone] PCP - General Internal Medicine 05/19/20 Hira Maria MD, PHD [address] [place] [address] Surgeon Neurosurgery 10/26/21 Radha Rios MD [address] [place] [address] Specialist Cardiology 02/09/22 Carolyn Spencer PA-C [address] [place] [address] Neurosurgery 03/14/22 documented as of this encounter
--- OUTSIDE RECORDS SUMMARY | 2024-06-26 15:54 | XMS_ITS | Encounter Summary ---
Author Organization [facility] Address [address] [place] [address] Care Team Providers Care Toddler Nanny Name Role Phone Alvarez Silverio MD Primary Care Provider + [phone] Jann Adams PA-C Primary Care Provider +[phone] Hira Maria MD, PHD Unavailable Unava ilable Radha Rios MD Unavailable [phone] Carolyn Spencer PA-C Unavailable [phone] Encounter Details Date Type Department Care Team Description 03/22/2012 Release of Information Medical Records [address] [place] [address] Abstract, Provider Social History Tobacco Use Types [...] on filedocumented in this encounter Care Teams Toddler Nanny Relationship Specialty Start Date End Date Alvarez Silverio MD [address] [place] [address] [phone] PCP - General 03/28/1999 05/18/20 Jann Adams PA-C [address] [place] [address] [phone] PCP - General Internal Medicine 05/19/20 Hira Maria MD, PHD [address] [place] [address] Surgeon Neurosurgery 10/26/21 Radha Rios MD [address] [place] [address] Specialist Cardiology 02/09/22 Carolyn Spencer PA-C [address] [place] [address] Neurosurgery 03/14/22 documented as of this encounter
--- OUTSIDE RECORDS SUMMARY | 2024-06-26 15:54 | XMS_ITS | Encounter Summary ---
Author Organization [facility] Address [address] [place] [address] Care Team Providers Care Architectural Engineering Teacher Name Role Phone Alvarez Silverio MD Primary Care Provider + [phone] Jann Adams PA-C Primary Care Provider +[phone] Hira Maria MD, PHD Unavailable Unava ilable Radha Rios MD Unavailable [phone] Carolyn Spencer PA-C Unavailable [phone] Encounter Details Date Type Department Care Team Description 04/18/2019 [facility] Medical Records [address] [place] [address] Abstract, Provider Social History Tobacco Use Types [...] on filedocumented in this encounter Care Teams Architectural Engineering Teacher Relationship Specialty Start Date End Date Alvarez Silverio MD [address] [place] [address] [phone] PCP - General 03/28/1999 05/18/20 Jann Adams PA-C [address] [place] [address] [phone] PCP - General Internal Medicine 05/19/20 Hira Maria MD, PHD [address] [place] [address] Surgeon Neurosurgery 10/26/21 Radha Rios MD [address] [place] [address] Specialist Cardiology 02/09/22 Carolyn Spencer PA-C [address] [place] [address] Neurosurgery 03/14/22 documented as of this encounter
--- OUTSIDE RECORDS SUMMARY | 2024-06-26 15:54 | XMS_ITS | Encounter Summary ---
Author Organization [facility] Address [address] [facility] [place] [address] Care Team Providers Care Stock Selector Name Role Phone Alvarez Silverio MD Primary Care Provider [phone] Jann Adams PA-C Primary Care Provider +[phone] Hira Maria MD, PHD Unavailable Unava ilable Radha Rios MD Unavailable [phone] Carolyn Spencer PA-C Unavailable [phone] Encounter Details Date Type Department Care Team Description 03/29/2004 Orders Only Medical [address] [place], [place] [phone] Vega Ballesteros [address] [place], [place] [phone] Social History Tobacco Use Types Packs/Day Years Used Date Smoking Tobacco: Never Assessed Sex Assigned at Date Recorded Not on file Job Start Date Occupation Industry Not on file Not on file Not on file documented as of this encounter Plan of Treatment Not on file documented as of this encounter Visit Diagnoses Not on filedocumented in this encounter Care Teams Stock Selector Relationship Specialty Start Date End Date Alvarez Silverio MD [address] [place] [address] [phone] PCP - General 03/28/1999 05/18/20 Jann Adams PA-C [address] [place] [address] [phone] PCP - General Internal Medicine 05/19/20 Hira Maria MD, PHD [address] [place] [address] Surgeon Neurosurgery 10/26/21 Radha Rios MD [address] [place] [address] Specialist Cardiology 02/09/22 Carolyn Spencer PA-C [address] [place] [address] Neurosurgery 03/14/22 documented as of this encounter
--- OUTSIDE RECORDS SUMMARY | 2024-06-26 15:54 | XMS_ITS | Encounter Summary ---
Author Organization [facility] Address [address] [place] [address] Care Team Providers Care Aerial Lineman Name Role Phone Alvarez Silverio MD Primary Care Provider + [phone] Jann Adams PA-C Primary Care Provider +[phone] Hira Maria MD, PHD Unavailable Unava ilable Radha Rios MD Unavailable [phone] Carolyn Spencer PA-C Unavailable [phone] Encounter Details Date Type Department Care Team Description 02/10/2015 Hospital Medical Records [address] [place] [address] Torito Grant MD Social History Tobacco Use Types Packs/Day Years [...] on filedocumented in this encounter Care Teams Aerial Lineman Relationship Specialty Start Date End Date Alvarez Silverio MD [address] [place] [address] [phone] PCP - General 03/28/1999 05/18/20 Jann Adams PA-C [address] [place] [address] [phone] PCP - General Internal Medicine 05/19/20 Hira Maria MD, PHD [address] [place] [address] Surgeon Neurosurgery 10/26/21 Radha Rios MD [address] [place] [address] Specialist Cardiology 02/09/22 Carolyn Spencer PA-C [address] [place] [address] Neurosurgery 03/14/22 documented as of this encounter
--- OUTSIDE RECORDS SUMMARY | 2024-06-26 15:54 | XMS_ITS | Encounter Summary ---
Author Organization [facility] Address [address] [place] [address] Care Team Providers Care Unit Operator Name Role Phone Alvarez Silverio MD Primary Care Provider + [phone] Jann Adams PA-C Primary Care Provider +[phone] Hira Maria MD, PHD Unavailable Unava ilable Radha Rios MD Unavailable [phone] Carolyn Spencer PA-C Unavailable [phone] Encounter Details Date Type Department Care Team Description 03/21/2016 [facility] Medical Records [address] [place] [address] Abstract, Provider Social History Tobacco Use Types [...] on filedocumented in this encounter Care Teams Unit Operator Relationship Specialty Start Date End Date Alvarez Silverio MD [address] [place] [address] [phone] PCP - General 03/28/1999 05/18/20 Jann Adams PA-C [address] [place] [address] [phone] PCP - General Internal Medicine 05/19/20 Hira Maria MD, PHD [address] [place] [address] Surgeon Neurosurgery 10/26/21 Radha Rios MD [address] [place] [address] Specialist Cardiology 02/09/22 Carolyn Spencer PA-C [address] [place] [address] Neurosurgery 03/14/22 documented as of this encounter
--- OUTSIDE RECORDS SUMMARY | 2024-06-26 15:54 | XMS_ITS | Encounter Summary ---
Author Organization [facility] Address [address] [place] [address] Care Team Providers Care Striper Spray Gun Name Role Phone Alvarez Silverio MD Primary Care Provider + [phone] Jann Adams PA-C Primary Care Provider +[phone] Hira Maria MD, PHD Unavailable Unava ilable Radha Rios MD Unavailable [phone] Carolyn Spencer PA-C Unavailable [phone] Reason for Visit * Reason Onset Date Comments Provider Call Back 02/24/2015 injection 02/24/2015 Encounter Details Date Type Department Care Team Description 02/24/2015 Telephone Physiatry - [address] [id number] Vega Mckay DO Provider Call Back; injection Social History Tobacco Use Types Packs/Day Years [...] encounter Miscellaneous Notes * Telephone Encounter - Meghna Ford M.A. - 02/24/2015 12:42 PM EDT Patient aware * Telephone Encounter - Vega Mckay - 02/24/2015 12:09 PM EDT I am glad that his lower back is doing better, I am very sorry about the heart attack. Please keep us posted on the progress. * Telephone Encounter - Karma Cooley L.P.N. - 02/24/2015 10:24 AM EDT Spoke to patient states his back is doing better after the injection on 02/06/15,the back pain is Nowhere it was before the injection he does do stretching does help With the leg pain ,he usually takes 1 vicodin a day ,he is back to work States had a IN on 02/09/15 , stent placement on 02/10/[address] Moe on 03/31/[address] Mckay for FYI * Telephone Encounter - Heike Shelton - 02/24/2015 9:37 AM EDT Pt had an injection by on 02/06/15 for left L4. Pt states the injection went ok for him. He is able to walk again. He is currently taking the Hydrocodone as well. Pt states he had a heart a attack 3 days after the injection and wanted to inform about his health. Pt was very vaguere how he is doing at the moment and what he wanted to be done. Please advise thank you documented in this encounter Plan of Treatment Not on file documented as of this encounter Visit Diagnoses Not on filedocumented in this encounter Care Teams Striper Spray Gun Relationship Specialty Start Date End Date Alvarez Silverio MD [address] [place] [address] PCP - General 03/28/1999 05/18/20 Jann Adams PA-C [address] [place] [address] PCP - General Internal Medicine 05/19/20 Hira Maria MD, PHD [address] [place] [address] Surgeon Neurosurgery 10/26/21 Radha Rios MD [address] [place] [address] Specialist Cardiology 02/09/22 Carolyn Spencer PA-C [address] [place] [address] Neurosurgery 03/14/22 documented as of this encounter
--- OUTSIDE RECORDS SUMMARY | 2024-06-26 15:54 | XMS_ITS | Encounter Summary ---
Author Organization [facility] Address [address] [place] [address] Care Team Providers Care Property Assessment Monitor Name Role Phone Alvarez Silverio MD Primary Care Provider + [phone] Jann Adams PA-C Primary Care Provider +[phone] Hira Maria MD, PHD Unavailable Unava ilable Radha Rios MD Unavailable [phone] Carolyn Spencer PA-C Unavailable [phone] Encounter Details Date Type Department Care Team Description 02/16/2018 Release of Information Medical Records [address] [place] [address] Abstract, Provider Social History Tobacco Use Types [...] on filedocumented in this encounter Care Teams Property Assessment Monitor Relationship Specialty Start Date End Date Alvarez Silverio MD [address] [place] [address] [phone] PCP - General 03/28/1999 05/18/20 Jann Adams PA-C [address] [place] [address] [id number] PCP - General Internal Medicine 05/19/20 Hira Maria MD, PHD [address] [place] [address] Surgeon Neurosurgery 10/26/21 Radha Rios MD [address] [place] [address] Specialist Cardiology 02/09/22 Carolyn Spencer PA-C [address] [place] [address] Neurosurgery 03/14/22 documented as of this encounter
--- OUTSIDE RECORDS SUMMARY | 2024-06-26 15:54 | XMS_ITS | Encounter Summary ---
Author Organization [facility] Address [address] [place] [address] Care Team Providers Care Customer Care Representative Name Role Phone Alvarez Silverio MD Primary Care Provider + [phone] Jann Adams PA-C Primary Care Provider +[phone] Hira Maria MD, PHD Unavailable Unava ilable Radha Rios MD Unavailable [phone] Carolyn Spencer PA-C Unavailable [phone] Encounter Details Date Type Department Care Team Description 05/07/2015 MANAGER HOTEL/MassPat Report Medical Records [address] [place], [place] [id number] Abstract, Provider Social History Tobacco Use Types [...] on filedocumented in this encounter Care Teams Customer Care Representative Relationship Specialty Start Date End Date Alvarez Silverio MD [address] [place] [address] [phone] PCP - General 03/28/1999 05/18/20 Jann Adams PA-C [address] [place] [address] [phone] PCP - General Internal Medicine 05/19/20 Hira Maria MD, PHD [address] [place] [address] Surgeon Neurosurgery 10/26/21 Radha Rios MD [address] [place] [address] Specialist Cardiology 02/09/22 Carolyn Spencer PA-C [address] [place] [address] Neurosurgery 03/14/22 documented as of this encounter
--- OUTSIDE RECORDS SUMMARY | 2024-06-26 15:54 | XMS_ITS | Encounter Summary ---
Author Organization [facility] Address [address] [place] [address] Care Team Providers Care Hearing Therapy Director Name Role Phone Alvarez Silverio MD Primary Care Provider + [phone] Jann Adams PA-C Primary Care Provider +[phone] Hira Maria MD, PHD Unavailable Unava ilable Radha Rios MD Unavailable [phone] Carolyn Spencer PA-C Unavailable [phone] Encounter Details Date Type Department Care Team Description 04/18/2016 Firer Low Pressure Report Medical Records [address] [place] [address] Fide Childs PA-C Social History Tobacco Use Types Packs/Day Years [...] on filedocumented in this encounter Care Teams Hearing Therapy Director Relationship Specialty Start Date End Date Alvarez Silverio MD [address] [place] [address] [phone] PCP - General 03/28/1999 05/18/20 Jann Adams PA-C [address] [place] [address] [phone] PCP - General Internal Medicine 05/19/20 Hira Maria MD, PHD [address] [place] [address] Surgeon Neurosurgery 10/26/21 Radha Rios MD [address] [place] [address] Specialist Cardiology 02/09/22 Carolyn Spencer PA-C [address] [place] [address] Neurosurgery 03/14/22 documented as of this encounter
--- OUTSIDE RECORDS SUMMARY | 2024-06-26 15:55 | XMS_ITS | Encounter Summary ---
Author Organization [facility] Address [address] [place] [address] Care Team Providers Care Music Education Adjunct Professor Name Role Phone Alvarez Silverio MD Primary Care Provider + [phone] Jann Adams PA-C Primary Care Provider +[phone] Hira Maria MD, PHD Unavailable Unava ilable Radha Rios MD Unavailable [phone] Carolyn Spencer PA-C Unavailable [phone] Encounter Details Date Type Department Care Team Description 07/18/2013 Hydraulic Press Tender Report Medical Records [address] [place] [address] Alon Delarosa MD Social History Tobacco Use Types Packs/Day [...] on filedocumented in this encounter Care Teams Music Education Adjunct Professor Relationship Specialty Start Date End Date Alvarez Silverio MD [address] [place] [address] [phone] PCP - General 03/28/1999 05/18/20 Jann Adams PA-C [address] [place] [address] [phone] PCP - General Internal Medicine 05/19/20 Hira Maria MD, PHD [address] [place] [address] Surgeon Neurosurgery 10/26/21 Radha Rios MD [address] [place] [address] Specialist Cardiology 02/09/22 Carolyn Spencer PA-C [address] [place] [address] Neurosurgery 03/14/22 documented as of this encounter
--- OUTSIDE RECORDS SUMMARY | 2024-06-26 15:55 | XMS_ITS | Encounter Summary ---
Author Organization [facility] Address [address] [place] [address] Care Team Providers Care Feather Baler Name Role Phone Jann Adams PA-C Primary Care Provider + [phone] Hira Maria MD, PHD Unavailable Unava ilable Radha Rios MD Unavailable [phone] Carolyn Spencer PA-C Unavailable [phone] Encounter Details Date Type Department Care Team Description 03/14/2022 [facility] Neurosurgery [place] [address] [place] [address] Hira Maria MD, PHD Social History Tobacco Use Types Packs/Day Years [...] on filedocumented in this encounter Care Teams Feather Baler Relationship Specialty Start Date End Date Jann Adams PA-C [address] [place] [phone] PCP - General Internal Medicine 05/19/20 Hira Maria MD, PHD [address] [place] [phone] Surgeon Neurosurgery 10/26/21 Radha Rios MD [address] [place] [address] Specialist Cardiology 02/09/22 Carolyn Spencer PA-C [address] [address] Neurosurgery 03/14/22 documented as of this encounter
--- OUTSIDE RECORDS SUMMARY | 2024-06-26 15:55 | XMS_ITS | Encounter Summary ---
Author Organization [facility] Address [address] [place] [address] Care Team Providers Care Demand Generator Manager Name Role Phone Jann Adams PA-C Primary Care Provider [phone] Hira Maria MD, PHD Unavailable Unava ilable Radha Rios MD Unavailable [phone] Carolyn Spencer PA-C Unavailable [phone] Reason for Visit * Reason Comments E-prescribe Rx Request Encounter Details Date Type Department Care Team Description 09/07/2022 Refill Gastroenterology - [address] [place] [phone] Izaiah Steven PA-C E-prescribe Rx Request Social History Tobacco Use Types Packs/Day Years Used Date Smoking Tobacco: Never Smokeless Tobacco: Never Alcohol Use Standard Drinks/Week Comments Yes 0 (1 standard drink = 0.6 oz pur e alcohol) 1 beer per week Sex Assigned at Date Recorded Not on file Job Start Date Occupation Industry Not on file Not on file Not on file COVID-19 Exposure Response Date Recorded In the last 10 days, have yo u been in contact with someone who was confirmed or suspected to have Coronavirus/COVID-19? No / Unsure 09/06/2022 12:46 PM EDT documented as of this encounter Miscellaneous Notes * Telephone Encounter - Kassi Monahan - 09/07/2022 12:38 PM EDT Kris- 08/16/22 documented in this encounter Plan of Treatment Not on file documented as of this encounter Visit Diagnoses Not on filedocumented in this encounter Care Teams Demand Generator Manager Relationship Specialty Start Date End Date Jann Adams PA-C [address] [place] [address] PCP - General Internal Medicine 05/19/20 Hira Maria MD, PHD [address] [place] [address] Surgeon Neurosurgery 10/26/21 Radha Rios MD [address] [place] [address] Specialist Cardiology 02/09/22 Carolyn Spencer PA-C [address] [address] Neurosurgery 03/14/22 documented as of this encounter
--- OUTSIDE RECORDS SUMMARY | 2024-06-26 15:55 | XMS_ITS | Encounter Summary ---
Author Organization [facility] Address [address] [place] [address] Care Team Providers Care Transformer Inspector Name Role Phone Jann Adams PA-C Primary Care Provider [phone] Hira Marai MD, PHD Unavailable Unava ilable Radha Rios MD Unavailable [phone] Carolyn Spencer PA-C Unavailable [phone] Reason for Visit * Reason Comments E-prescribe Rx Request Encounter Details Date Type Department Care Team Description 09/21/2021 Refill Adult Medicine [address] [phone] Carmela Maguire PA-C [address] [place] [address] [phone] E-prescribe Rx Request Social History Tobacco Use [...] suspected to have Coronavirus/COVID-19? No / Unsure 09/22/2021 10:09 AM EDT documented as of this encounter Miscellaneous Notes * Telephone Encounter - Blanka David M.A. - 09/21/2021 2:27 PM EDT Lab Results Component Value Date NA 142 09/01/2021 K 4.5 09/01/2021 CO2 27 09/01/2021 CL 109 09/01/2021 BUN 17 09/01/2021 CREAT 1.09 09/01/2021 GLU 81 09/01/2021 CA 9.3 09/01/2021 GFR > 60 09/01/2021 WILL 09/01/21 NOV 09/22/21 * Telephone Encounter - Alon Morris - 09/21/2021 12:44 PM EDT Patient would like script to be: E-PRESCRIBED/FAXED TO PHARMACY WHEN WAS THE PATIENT'S LAST APPOINTMENT IN ADULT MEDICINE? 09/01/2021 WHEN WAS THE LAST TIME THE PATIENT SAW THEIR PCP? Same as above Does patient have an upcoming appointment? Yes 09/22/2021 (THE MEDICATION REQUESTED IS ON THE MED LIST ABOVE) All of the medications requested were on the CURRENT MEDS list Did you check the Pharmacy information above?: YES Patient wants: 90 -day supply Is this a mail order prescription request ? NO If the refill is from a FAXED refill request what is the RX # listed on the fax? N/A Patients current insurance carrier is: Payor: [employer] / Plan: GUCCI TAI SUP/F/1+/$0 / Product Type: PPO [id number] documented in this encounter Plan of Treatment Not on file documented as of this encounter Visit Diagnoses Not on filedocumented in this encounter Care Teams Transformer Inspector Relationship Specialty Start Date End Date Jann Adams PA-C [address] [place] [address] PCP - General Internal Medicine 05/19/20 Hira Maria MD, PHD [address] [place] [address] Surgeon Neurosurgery 10/26/21 Radha Rios MD [address] [place] [address] Specialist Cardiology 02/09/22 Carolyn Spencer PA-C [address] [place] [address] Neurosurgery 03/14/22 documented as of this encounter
--- OUTSIDE RECORDS SUMMARY | 2024-06-26 15:55 | XMS_ITS | Encounter Summary ---
Author Organization [facility] Address [address] [place] [address] Care Team Providers Care Senior Architectural Designer Name Role Phone Jann Adams PA-C Primary Care Provider [phone] Hira Maria MD, PHD Unavailable Unava ilable Radha Rios MD Unavailable [phone] Carolyn Spencer PA-C Unavailable [phone] Encounter Details Date Type Department Care Team Description 11/19/2020 Telephone Adult Medicine [address] [phone] Jann Adams PA-C [address] [place] [address] [phone] Social History Tobacco Use Types Packs/Day Years [...] Exposure Response Date Recorded In the last month, have you been in contact with someone who was confirmed or suspected to have Coronavirus / COVID-19? Unable to assess 11/18/2020 11:08 AM EDT documented as of this encounter Miscellaneous Notes * Telephone Encounter - Prabha Claros - 11/25/2020 11:15 AM EDT Ming appt on @8:45am * Telephone Encounter - Marylu Rodriguez - 11/19/2020 3:33 PM EDT Telephone Information: Left message for pt to return our call. Please book f/u with care team per Jann. * Telephone Encounter - Jann Adams PA-C - 11/19/2020 2:05 PM EDT Sure that seems reasonable * Telephone Encounter - Marylu Rodriguez - 11/19/2020 1:38 PM EDT Jann can the appt be with the care team? * Telephone Encounter - Jann Adams PA-C - 11/19/2020 11:51 AM EDT Please contact patient and arrange 3-month follow-up with myself. documented in this encounter Plan of Treatment Not on file documented as of this encounter Visit Diagnoses Not on filedocumented in this encounter Care Teams Senior Architectural Designer Relationship Specialty Start Date End Date Jann Adams PA-C [address] [place] [address] PCP - General Internal Medicine 05/19/20 Hira Maria MD, PHD [address] [place] [address] Surgeon Neurosurgery 10/26/21 Radha Rios MD [address] [place] [address] Specialist Cardiology 02/09/22 Carolyn Spencer PA-C [address] [place] [address] Neurosurgery 03/14/22 documented as of this encounter
--- OUTSIDE RECORDS SUMMARY | 2024-06-26 15:55 | XMS_ITS | Encounter Summary ---
Author Organization [facility] Address [address] [facility] [address] Care Team Providers Care Remote Sensing Advisor Name Role Phone Alvarez Silverio MD Primary Care Provider + [phone] Jann Adams PA-C Primary Care Provider [phone] Hira Maria MD, PHD Unavailable Unava ilable Radha Rios MD Unavailable [phone] Carolyn Spencer PA-C Unavailable [phone] Encounter Details Date Type Department Care Team Description 03/11/2020 Fish Salter Report Medical Records [address] [place] [address] Petros Cordero MD Social History Tobacco Use Types Packs/Day [...] or suspected to have Coronavirus / COVID-19? No / Unsure 02/18/2020 8:25 AM EDT documented as of this encounter Plan of Treatment Not on file documented as of this encounter Visit Diagnoses Not on filedocumented in this encounter Care Teams Remote Sensing Advisor Relationship Specialty Start Date End Date Alvarez Silverio MD [address] [place] [address] PCP - General 03/28/1999 05/18/20 Jann Adams PA-C [address] [place] [address] PCP - General Internal Medicine 05/19/20 Hira Maria MD, PHD [address] [place] [address] Surgeon Neurosurgery 10/26/21 Radha Rios MD [address] [place], [place] 7630020 Specialist Cardiology 02/09/22 Carolyn Spencer PA-C [address] [place] [address] Neurosurgery 03/14/22 documented as of this encounter
--- OUTSIDE RECORDS SUMMARY | 2024-06-26 15:55 | XMS_ITS | Encounter Summary ---
Author Organization [facility] Address [address] [place] [address] Care Team Providers Care Statement Services Representative Name Role Phone Jann Adams PA-C Primary Care Provider [phone] Hira Maria MD, PHD Unavailable Unava ilable Radha Rios MD Unavailable [phone] Carolyn Spencer PA-C Unavailable [phone] Encounter Details Date Type Department Care Team Description 07/12/2022 Pt. Non Urgent Medical Question Adult Medicine [address] [address] Jann Adams PA-C [address] [place] [address] [phone] Social History Tobacco Use Types Packs/Day Years [...] suspected to have Coronavirus/COVID-19? No / Unsure 07/04/2022 8:23 AM EST documented as of this encounter Plan of Treatment Not on file documented as of this encounter Visit Diagnoses Not on filedocumented in this encounter Care Teams Statement Services Representative Relationship Specialty Start Date End Date Jann Adams PA-C [address] [place] [address] PCP - General Internal Medicine 05/19/20 Hira Maria MD, PHD [address] [place] [address] Surgeon Neurosurgery 10/26/21 Radha Rios MD [address] [place] [address] Specialist Cardiology 02/09/22 Carolyn Spencer PA-C [address] [place] [address] Neurosurgery 03/14/22 documented as of this encounter
--- OUTSIDE RECORDS SUMMARY | 2024-06-26 15:55 | XMS_ITS | Encounter Summary ---
Author Organization [facility] Address [address] [place] [address] Care Team Providers Care Floor Tech Name Role Phone Alvarez Silverio MD Primary Care Provider + [phone] Jann Adams PA-C Primary Care Provider +[phone] Hira Maria MD, PHD Unavailable Unava ilable Radha Rios MD Unavailable [phone] Carolyn Spencer PA-C Unavailable [phone] Reason for Visit * Reason Comments E-prescribe Rx Request Encounter Details Date Type Department Care Team Description 08/12/2016 Refill Adult Medicine [address] [phone] Jann Adams PA-C [address] [place] [address] [phone] E-prescribe Rx Request Social History Tobacco Use [...] encounter Miscellaneous Notes * Telephone Encounter - Ann Hanley - 08/12/2016 8:49 AM EDT Patient would like script to be: E-PRESCRIBED/FAXED TO PHARMACY WHEN WAS THE PATIENT'S LAST APPOINTMENT IN ADULT MEDICINE? 06/15/16 WHEN WAS THE LAST TIME THE PATIENT SAW THEIR PCP? Same as above Does patient have an upcoming appointment? Yes 09/23/16 (THE MEDICATION REQUESTED IS ON THE MED LIST ABOVE) All of the medications requested were on the CURRENT MEDS list Did you check the Pharmacy information above?: YES Patient wants: 30 -day supply Is this a mail order prescription request ? NO Patients current insurance carrier is: Payor: [facility]/V Wave FFS / Plan: V Wave $25 [employer] [id number] / ProductType: V Wave [id number] documented in this encounter Plan of Treatment Not on file documented as of this encounter Visit Diagnoses Not on filedocumented in this encounter Care Teams Floor Tech Relationship Specialty Start Date End Date Alvarez Silverio MD [address] [place] [address] PCP - General 03/28/1999 05/18/20 Jann Adams PA-C [address] [place] [address] PCP - General Internal Medicine 05/19/20 Hira Maria MD, PHD [address] [place] [address] Surgeon Neurosurgery 10/26/21 Radha Rios MD [address] [place] [address] Specialist Cardiology 02/09/22 Carolyn Spencer PA-C [address] [place] [address] Neurosurgery 03/14/22 documented as of this encounter
--- OUTSIDE RECORDS SUMMARY | 2024-06-26 15:55 | XMS_ITS | Encounter Summary ---
Author Organization [facility] Address [address] [place] [address] Care Team Providers Care Mechanical Manufacturing Technician Name Role Phone Jann Adams PA-C Primary Care Provider +[phone] Hira Maria MD, PHD Unavailable Unava ilable Radha Rios MD Unavailable [phone] Carolyn Spencer PA-C Unavailable [phone] Reason for Visit * Reason Comments E-prescribe Rx Request Encounter Details Date Type Department Care Team Description 05/26/2022 Refill Adult Medicine [address] [phone] Jann Adams PA-C [address] [place] [address] [phone] E-prescribe Rx Request Social History Tobacco Use [...] Telephone Encounter - Blanka David M.A. - 05/28/2022 8:06 AM EST Lab Results Component Value Date NA 142 09/01/2021 K 4.5 09/01/2021 CO2 27 09/01/2021 CL 109 09/01/2021 BUN 17 09/01/2021 CREAT 1.09 09/01/2021 GLU 81 09/01/2021 CA 9.3 09/01/2021 GFR > 60 09/01/2021 WILL 04/15/22- Robby HARRIS 07/04/22 * Telephone Encounter - Beth Salguero - 05/26/2022 8:47 AM EST Patient would like script to be: E-PRESCRIBED/FAXED TO PHARMACY WHEN WAS THE PATIENT'S LAST APPOINTMENT IN ADULT MEDICINE? 04/15/22 WHEN WAS THE LAST TIME THE PATIENT SAW THEIR PCP? 12/14/21 Does patient have an upcoming appointment? Yes 07/04/22 (THE MEDICATION REQUESTED IS ON THE MED [...] N/A Patients current insurance carrier is: [place] / [place] / Product Type: MEDICARE [id number] documented in this encounter Plan of Treatment Not on file documented as of this encounter Visit Diagnoses Not on filedocumented in this encounter Care Teams Mechanical Manufacturing Technician Relationship Specialty Start Date End Date Jann Adams PA-C [address] [place] [address] PCP - General Internal Medicine 05/19/20 Hira Maria MD, PHD [address] [place] [address] Surgeon Neurosurgery 10/26/21 Radha Rios MD [address] [place] [address] Specialist Cardiology 02/09/22 Carolyn Spencer PA-C [address] [place] [address] Neurosurgery 03/14/22 documented as of this encounter
--- OUTSIDE RECORDS SUMMARY | 2024-06-26 15:55 | XMS_ITS | Encounter Summary ---
Author Organization [facility] Address [address] [place] [address] Care Team Providers Care Sleeping Car Service Attendant Name Role Phone Jann Admas PA-C Primary Care Provider [phone] Hira Maria MD, PHD Unavailable Unava ilable Radha Rios MD Unavailable [phone] Carolyn Spencer PA-C Unavailable Encounter Details Date Type Department Care Team Description 08/03/2022 Orders Only Medical Records [address] [place] [address] Guicho Wright MD [address] [place] [address] [place] [id number] Social History Tobacco Use Types Packs/Day Years [...] was confirmed or suspected to have Coronavirus/COVID-19? Unable to assess 07/25/2022 4:00 PM EST documented as of this encounter Progress Notes * Eveline Chan M.A. - 08/03/2022 2:01 PM EST Printed for Mag to review documented in this encounter Plan of Treatment Not on file documented as of this encounter Procedures Procedure Name Priority Date/Time Associated Diagnosis Comments OUTSIDE PATHOLOGY Routine 07/28/2022 documented in this encounter Results * OUTSIDE PATHOLOGY (07/28/2022) Guicho Wright MD OUTSIDE LAB documented in this encounter Visit Diagnoses Not on filedocumented in this encounter Care Teams Sleeping Car Service Attendant Relationship Specialty Start Date End Date Jann Adams PA-C [address] [place] [address] PCP - General Internal Medicine 05/19/20 Hira Maria MD, PHD [address] [place] [address] Surgeon Neurosurgery 10/26/21 Radha Rios MD [address] [place] [id number] Specialist Cardiology 02/09/22 Carolyn Spencer PA-C [address] [address] Neurosurgery 03/14/22 documented as of this encounter
--- OUTSIDE RECORDS SUMMARY | 2024-06-26 15:55 | XMS_ITS | Clinical Summary ---
Author Organization [address] [place] [address] [place] [id number] Phone Care Team Providers Care Sports Manager Name Role Phone Jann Adams Primary Care Provider [phone] Allergies No known active allergies Medications Medication Sig Dispensed Refills Start Date End Date Status ascorbic acid, vitamin C, 500 mg capsule Take 1 Cap by mouth daily. Active carbidopa-levod opa (SINEMET) 25-100 mg per tablet TAKE 1 TABLET BY MOUTH IN THE MORNING, AND 1 TABLET AT NOON 10/13/2022 Active cholecalciferol (VITAMIN D-3) 25 mcg (1,000 unit) tablet Take 1 Tab by mouth daily. Active coenzyme Q-10 100 mg capsule Take?by mouth daily. Active aspirin 81 mg EC tablet Take 81 mg by mouth daily. Active multivit-min/fo lic/vit K/lycop (MEN'S ONE DAILY ORAL) 1 tab qd Active omeprazole (PriLOSEC) [address] capsule TAKE 1 CAPSULE BY MOUTH 2 TIMES DAILY (BEFORE MEALS). 03/27/2024 Active ZINC ORAL Take?by mouth. Active calcium carbonate (CALCIUM ORAL) Take?by mouth. Active biotin 10 mg tablet Take?by mouth daily. Active losartan (COZAAR) 50 mg tablet Take 1 Tablet by mouth daily. - Oral Active tamsulosin (FLOMAX) 0.4 mg 24 hr capsule Take by mouth. START 1 CAPSULE DAILY FOR 7 DAYS THAN INCREASE TO TWICE DAILY IF NO DIZZINESS Active sulfamethoxazol e-trimethoprim (BACTRIM DS,SEPTRA DS) 800-160 mg per tablet Take 1 tablet before dentist and 1 tablet 6 hours after dentist 10 each 04/17/2024 Active atenoloL (TENORMIN) 50 mg tablet TAKE 1 AND 1/2 TABLETS BY MOUTH DAILY 135 tablet 1 05/01/2024 Active nitroglycerin (NITROSTAT) 0.[address] 1 tablet (0.4 mg total) under the tongue every 5 (five) minutes if needed for chest pain. May repeat dose every 5 minutes for up to 3 doses total. If chest pain is not relieved 5 minutes after the second dose, take the third dose and call 9-1-1. 25 tablet 1 05/16/2024 Active gabapentin (NEURONTIN) 600 mg tablet Take 1 tablet (600 mg total) by mouth 3 (three) times a day. TAKE 1 TABLET BY MOUTH THREE TIMES A DAY 270 tablet 3 05/24/2024 Active atorvastatin (LIPITOR) 80 mg tablet TAKE 1 TABLET BY MOUTH EVERY DAY 90 tablet 1 06/19/2024 Active HYDROcodone-reyna taminophen (NORCO) 5-325 mg per tablet Take 1 tablet by mouth every 12 (twelve) hours if needed for severe pain. Take 1 Tablet by mouth every 12 hours as needed for Pain. Max Daily Amount: 2 tablets 56 tablet 06/17/2024 Active atorvastatin (LIPITOR) 80 mg tablet TAKE 1 TABLET BY MOUTH EVERY DAY 12/20/2023 5 Discontinued HYDROcodone-reyna taminophen (NORCO) 5-325 mg per tablet Take 1 tablet by mouth every 12 (twelve) hours if needed for severe pain. Take 1 Tablet by mouth every 12 hours as needed for Pain. Max Daily Amount: 2 tablets 56 tablet 05/16/2024 5 Discontinued(Reo rder) Active Problems Problem Noted Date Diagnosed Date Lung nodule 07/31/2023 Parkinsonian tremor 09/06/2022 Chronic gastric ulcer withou t hemorrhage and without perforation 08/16/2022 Gastritis 08/16/2022 Iron deficiency anemia due to chronic blood loss 08/16/2022 Pancolonic diverticulosis 08/16/2022 Aortic dilatation 02/09/2022 Overview (05/10/2024): -CT of the chest January 31, 2023 at the level of the pulmonary trunk the ascending thoracic aorta measures 3.8 cm. There is also the suggestion of emphysematous changes. Given scattered pulmonary juxtapleural nodules the largest measuring 6 mm it is recommended that he undergo a repeat CT in 3 to 6 months to ensure stability Non smoker Assessment & Plan (05/10/2024 5:22 PM EST): Ultimately, his aorta is at the border of what we would consider dilated for his age and body surface area. However, I am a little less than comfortable with him doing such strenuous heavy lifting. I recommended he scale back his weight lifting limit and recommended he try to focus on lower weights with higher reps. Ideally I would like him to stay under 75 pounds or what ever weight causes him not to strain. Ultimately, there is no hard and fast rule here but he just has to understand the potential for risk. I highlighted that excessive strain in the setting of aneurysms can lead to dangerous consequences like dissection and rupture. I do not believe he is at high risk for any of these things given the very low degree of dilatation of his aorta (which may actually be upper normal for him) and low suspicion for aortopathy given no family history of the sort. He assures me he will keep all of this in mind going forward. Lumbar radiculitis 09/23/2016 Lumbar spinal stenosis 09/23/2016 Overview (04/15/2024): Last Assessment & Plan: Patient is 10 days s/p right L4-5 decompression, patient notes that he is walking better, his leg symptoms are improved postop. Overall he is doing well and happy with his postop results, minimal incisional pain, uses 1 oxycodone in the morning. He denies any fever, sweats chills, wound drainage, poor appetite. His main concern at this time is that he had to go home with a Vee for urinary retention, he could not get a follow-up appointment with [facility] until this which is almost 2 weeks postop. He states with every surgery he has had in the past, he gets urinary retention and requires discharge with a Vee. Mr. Edgar can follow-up with Dr. Maria in 6 weeks if he has any residual symptoms at that time. All postop questions answered. We will try to call [facility] to see if they can move up his appointment to today or tomorrow. He will call with any concerns or questions. Coronary artery disease invo lving quileute coronary artery of quileute heart without angina pectoris 06/15/2016 Overview (05/10/2024): - Status post non-ST elevation WI in January 2015 with cardiac cath at that time showing proximal, critical, calcified, and clot LAD 95% lesion in the proximal RCA with 70% lesion in the mid RCA that was not intervened upon, 65% proximal circumflex stenosis, 40% proximal and mid LAD lesion-status post 2 drug-eluting stents to the proximal RCA - Subsequent exercise nuclear stress test in August 2015 for shortness of breath-exercised for 8 minutes but only to 72% of max predicted heart rate but on beta-blockade with normal myocardial perfusion with symptom limited stress -Most recent echocardiogram August 2023 mild concentric LVH, EF 60 to 65%, with possible hypokinesis of the apical septal wall, trace to mild aortic insufficiency, normal pulmonary artery systolic pressure, mild left atrial enlargement, upper normal to mildly dilated ascending aorta at 3.9 cm Assessment & Plan (05/10/2024 5:22 PM EST): Patient essentially describes CCS class I and possibly even lower degrees of stable angina. As such, I do not think we need to escalate medical therapy. However, I have given him a prescription for sublingual nitro to be taken as needed. I instructed him on the proper use and distinguish between stable symptoms and unstable symptoms. I highlighted that unstable symptoms should prompt immediate emergency medical attention. He verbalized understanding of all this information. In the meantime, continue high-dose statin, aspirin, atenolol. Orders: ECG 12 lead nitroglycerin (NITROSTAT) SL tablet 0.4 mg Non-ST elevation WI (NSTEMI) 02/26/2015 Hx of non-ST elevation myocardial infarction (NS KEITH) 02/15/2015 Overview (04/15/2024): Jan 2015 pci MEMO To RCA Normal echo Renal cyst 05/10/2013 Depression 08/06/2012 GERD (gastroesophageal reflux disease) 2 Actinic keratosis 11/28/2010 Overview (04/15/2024): Actinic keratosis 11/06 left forearm (hypertrophic) Diverticulitis of colon without hemorrhage 06/07 Overview (04/15/2024): Incidental finding at colonoscopy 06/07/2006. Sleep apnea 04/24/2006 Overview (04/15/2024): IMO update Mixed hyperlipidemia 06/03/2005 Overview (04/15/2024): Last Assessment & Plan: He is on maximum statin therapy. No unusual myalgia. Most recent LDL was 38 recommend lifestyle modifications, healthful diet and exercise. Generalized osteoarthrosis, involving multiple s ites 05/28/2005 Overview (04/15/2024): Status post right and left total knee replacements Essential hypertension, benign 04/28/2005 Assessment & Plan (05/10/2024 5:22 PM EST): Reasonably well-controlled on current regimen of atenolol, losartan, continue Encounters Date Type Department Care Team Description 05/30/2024 12:01 PM EST - 05/30/2024 11:59 PM EST Hospital Encounter Radiology Department - [address] [phone] Spinal stenosis of lumbar region with neurogenic claudication; Lumbar radiculitis; Aortic dilatation (CMS/HCC); Chronic gastric ulcer without hemorrhage and without perforation; Coronary artery disease involving quileute coronary artery of quileute heart without angina pectoris; Other depression; Essential hypertension, benign; Gastroesophageal reflux disease without esophagitis; Hx of non-ST elevation myocardial infarction (NSTEMI); Iron deficiency anemia due to chronic blood loss; Mixed hyperlipidemia; Parkinsonian tremor (CMS/HCC); Sleep apnea, unspecified type Discharge Disposition: Home or Self Care 05/24/2024 8:30 AM EST Office Visit Adult Medicine [address] [phone] Jann Adams, PA Spinal stenosis of lumbar region with neurogenic claudication (Primary Dx); Lumbar radiculitis; Aortic dilatation (CMS/HCC); Chronic gastric ulcer without hemorrhage and without perforation; Coronary artery disease involving quileute coronary artery of quileute heart without angina pectoris; Other depression; Essential hypertension, benign; Gastroesophageal reflux disease without esophagitis; Hx of non-ST elevation myocardial infarction (NSTEMI); Iron deficiency anemia due to chronic blood loss; Mixed hyperlipidemia; Parkinsonian tremor (CMS/HCC); Sleep apnea, unspecified type 05/10/2024 8:50 AM EST Office Visit [facility] - [address] [place] [address] Radha Allen MD Coronary artery disease involving quileute coronary artery of quileute heart without angina pectoris (Primary Dx); Essential hypertension, benign; Aortic dilatation (CMS/HCC); Aneurysm of ascending aorta without rupture (CMS/HCC) from Last 3 Months Immunizations Name Administration Dates Next Due DTaP, Unspecified 12/08/2003 Influenza Quadravalent, 0.5m l (Fluzone High-dose) 65yo and older 03/13/2021 Influenza Quadravalent, MDCK , 0.5ml, preservative free (Flucelvax) 6mo and older 02/02/2018 Influenza Quadravalent, MDCK , 0.5ml, with preservative (Flucelvax) 6mo and older 04/28/2017 Influenza trivalent, 0.5mL ( Fluad) 65yo and older 02/20/2024,04/28/2023,04/15/2022,03/22,05/09/2019 Influenza, Unspecified 02/24/2021 Pneumococcal conjugate 13 va lent (Prevnar 13, PCV13) 2mo and older 02/18/2020 Pneumococcal polysaccharide 23 valent (Pneumovax 23) 2yo and older 11/07/2018 Td Tetanus diptheria (Tdvax) 7yo and older 02/20/2024 Td, Unspecified 12/08/2003 Tdap Tetanus diptheria acell ular pertussis (Boostrix; Adacel) 7yo and older 01/31/2014 Zoster Live 08/15/2014 Zoster recombinant (Shingrix ) 19yo and older 06/12/2021,03/13/2021 Surgical History Surgery Date Site/Laterality Comments TOTAL KNEE ARTHROPLASTY PROCEDURE: HISTORICAL TOTAL KNEE REPLACE; COMMENT: left and right OTHER SURGICAL HISTORY PROCEDURE: HISTORY OTHER; COMMENT: cervical spinal fusion dr dawson approx 1999 OTHER SURGICAL HISTORY PROCEDURE: HISTORY OTHER; COMMENT: right knee arthroscopic surgery 2006 ESOPHAGOGASTRODUODENOSCOPY 10/13/2008 PROCEDURE: [place] ESOPHAGOGASTRODUODENOSCOPY TRANSORAL DIAGNOSTIC; COMMENT: mild gastritis, H. pylori negative OTHER SURGICAL HISTORY 01/2015 PROCEDURE: HISTORY OTHER; COMMENT: RCA Drug eluting stent COLONOSCOPY 06/07/2006 PROCEDURE: HISTORICAL COLONOSCOPY; COMMENT: tics OTHER SURGICAL HISTORY 12/14/2016 PROCEDURE: COLON CA SCRN NOT HI RSK IND; COMMENT: tics; repeat in ten yrs BACK SURGERY 2015 PROCEDURE: HISTORICAL BACK SURGERY; COMMENT: dr. mercado lumbar surgery COLONOSCOPY 07/28/2022 PROCEDURE: HISTORICAL COLONOSCOPY; COMMENT: roman normal repeat 10 years OTHER SURGICAL HISTORY 07/28/2022 PROCEDURE: UPPER GI ENDOSCOPY, REMOVE LESION; COMMENT: roman non bleeding ulcer OTHER SURGICAL HISTORY 09/22/2022 PROCEDURE: UPPER GI ENDOSCOPY, REMOVE LESION; COMMENT: roman gastritis Medical History Medical History Date Comments Generalized osteoarthrosis, involving multiple sites 05/28/2005 DX:Generalized osteoarthrosi s, involving multiple sites Mixed hyperlipidemia 06/03/2005 DX:Mixed hy perlipidemia Diverticulosis of colon (wit hout mention of hemorrhage) 06/07/2006 DX:Diverticulosis of colon ( without mention of hemorrhage); COMMENT: Incidental finding at colonoscopy 06/07/2006. Special screening for malign ant neoplasms, colon 06/07/2006 DX:Special screening for mal ignant neoplasms, colon; COMMENT: Negative colonoscopy 06/07/2006, no colon cancer screening needed for 10 years. Unspecified sleep apnea DX:Unspe cified sleep apnea Unspecified sleep apnea 04/24/2006 DX:Unspe cified sleep apnea Essential hypertension, benign 04/28/2005 D X:Essential hypertension, benign GERD (gastroesophageal reflu x disease) 07/28/2011 DX:GERD (gastroesophageal re flux disease) Actinic keratosis, hx of DX:Acti brendan keratosis, hx of Hx of non-ST elevation myoca rdial infarction (NSTEMI) 02/15/2015 DX:Hx of non-ST elevation my ocardial infarction (NSTEMI); COMMENT: Jan 2015 pci MEMO To RCA Normal echo Family History Medical History Relation Name Comments Autoimmune disease Neg Hx Breast cancer Neg Hx Colon cancer Neg Hx Coronary artery disease Neg Hx Diabetes Neg Hx Heart attack Neg Hx Heart failure Neg Hx Hyperlipidemia Neg Hx Hypertension Neg Hx Mental illness Neg Hx Prostate cancer Neg Hx Sleep apnea Neg Hx Thyroid disease Neg Hx Relation Name Status Comments Brother Alive kidney stone Father Alive heart bladder c ancer Mother Alive Sister Alive Social History Tobacco Use Types Packs/Day Years Used Date Smoking Tobacco: Never Smokeless Tobacco: Never Alcohol Use Standard Drinks/Week Comments Yes 0 (1 standard drink = 0.6 oz pur e alcohol) seldom Sex and Gender Information Value Date Recorded Sex Assigned at Not on file Gender Identity Not on file Sexual Orientation Not on file Job Start Date Occupation Industry Not on file Not on file Not on file Obstetrics History Last Filed Vital Signs Vital Sign Reading Time Taken Comments Blood Pressure 113/59 05/24/2024 8:53 AM EST Pulse 60 05/24/2024 8:53 AM EST Temperature 36.8 ??C (98.2 ??F) 05/24/2024 8:53 AM ES T Respiratory Rate - - Oxygen Saturation 95% 05/24/2024 8:53 AM EST Inhaled Oxygen Concentration - - Weight 100 kg (221 lb) 05/24/2024 8:53 AM EST Height 180.3 cm (5' 11 ) 05/24/2024 8:53 AM EST Body Mass Index 30.82 05/24/2024 8:53 AM EST Plan of Treatment Upcoming Encounters Date Type Department Care Team (Late st Contact Info) Description 08/22/2024 1:15 PM EDT Office Visit Adult Medicine [address] [phone] Carmela Maguire PA [address] [place] [address] 11/25/2024 8:00 AM EDT Office Visit Adult Medicine [address] [phone] Jann Adams PA [address] [place] [address] 03/31/2025 9:00 AM EST Ancillary Procedure [facility] [address] [place] [address] Health Maintenance Due Date Last Done Comments Social Influencers of Health Screening 05/05/2022 COVID-19 Vaccine ( season) 2024 05/18/2022, 03/20/2021, 08/22/2020, Additional history exists Depression Screening 11/19/2024 11/20/2023 Medicare Annual Wellness Visit 11/19/2024 11/20/2023 Hypertension/CHF/CAD Annual BMP Blood Test 02/14/2025 02/15/2024, 02/15/2024 Falls Risk Assessment 02/19/2025 02/20/2024 RSV Immunization Patients 60+ Years Old (1 - 1-dose 75+ series) 2028 Cholesterol Screening (Lipid Panel) 07/30/2028 07/31/2023 Colorectal Cancer Screening: Colonoscopy 07/28/2032 07/28/2022 DTaP,Tdap,and Td Vaccines (5 - Td or Tdap) 02/19/2034 02/20/2024, 01/31/2014, 12/08/2003, Additional history exists Hepatitis C Screening Completed 04/28/2017 Pneumococcal Vaccine: 65+ Years Completed 02/18/2020, 11/07/2018 Zoster Vaccines Completed 06/12/2021, 02/26, 08/15/2014 Influenza Vaccine Completed 02/20/2024, , 04/15/2022, Additional history exists HIB Vaccines Aged Out No longer eligi ble based on patient's age to complete this topic HPV Vaccines Aged Out No longer eligi ble based on patient's age to complete this topic Hepatitis A Vaccines Aged Out No long er eligible based on patient's age to complete this topic Hepatitis B Vaccines Aged Out No long er eligible based on patient's age to complete this topic IPV Vaccines Aged Out No longer eligi ble based on patient's age to complete this topic MMR Vaccines Aged Out No longer eligi ble based on patient's age to complete this topic Meningococcal ACWY Vaccine Aged Out N o longer eligible based on patient's age to complete this topic RSV Immunization Patients Under 20 months Aged Out No longer eligible based on patient's age to complete this topic Varicella Vaccines Aged Out No longer eligible based on patient's age to complete this topic Procedures Procedure Name Priority Date/Time Associated Diagnosis Comments MR LUMBAR SPINE WO AND W CONTRAST Routine 05/30/2024 12:52 PM EST Spinal stenosis of lumbar region with neurogenic claudication Lumbar radiculitis Aortic dilatation (CMS/HCC) Chronic gastric ulcer without hemorrhage and without perforation Coronary artery disease involving quileute coronary artery of quileute heart without angina pectoris Other depression Essential hypertension, benign Gastroesophageal reflux disease without esophagitis Hx of non-ST elevation myocardial infarction (NSTEMI) Iron deficiency anemia due to chronic blood loss Mixed hyperlipidemia Parkinsonian tremor (CMS/HCC) Sleep apnea, unspecified type ECG 12-LEAD Routine 05/10/2024 8:54 AM EST Coronary artery disease involving quileute coronary artery of quileute heart without angina pectoris FALLS RISK ASSESSMENT Routine 02/20/2024 ANNUAL BMP BLOOD TEST Routine 02/15/2024 DEPRESSION SCREENING Routine 11/20/2023 LIPID PANEL Routine 07/31/2023 COLONOSCOPY Routine 07/28/2022 HEPATITIS C SCREENING Routine 04/28/2017 from Last 3 Months or Most Recently Relevant to Health Maintenance Results * MR Lumbar Spine wo and w Contrast (05/30/2024 12:52 PM EST) Anatomical Region Laterality Modality L-spine, Spine Magnetic Resonan ce 05/31/2024 8:57 AM EST Impressions 06/01/2024 10:50 AM EST Scoliosis with extensive degenerative changes in the lumbar spine and partially imaged thoracic spine. ??New probable synovial cyst adjacent to the right facet joint at L4-5 which impinges on the exiting nerve root. ??Otherwise, no significant interval change. ??Chronic severe spinal canal narrowing at L2-3, L4-5, and T10- 11 and moderate to severe at T11-12 and L5-S1. ??Multilevel neural foraminal narrowing and multilevel possible nerve root compression. POS - [id number] -------- FINAL REPORT -------- Dictated By: Mana Ortez Dictated Date: 05/31/2024 08:57 ET Assigned Physician: Mana Ortez Reviewed and Electronically Signed By: Mana Ortez Signed Date: 06/01/2024 10:50 ET Workstation ID: [id number] Transcribed By: Self Edit Transcribed Date: 05/31/2024 11:17 ET Narrative 06/01/2024 10:50 AM EST EXAM: Lumbar spine MRI HISTORY: ??Low back pain. ??Numbness in both legs. ??History of prior lumbar surgery, most recent right L4-5 decompression in 2021. COMPARISON: 09/23/2021 CORRELATION: ??Lumbar spine radiography 12/07/2021, CT lumbar spine 11/10/2021 TECHNIQUE: ??Exam performed on a 1.5 Katherine high-field MRI scanner. ??Multiplanar imaging performed without and with contrast. ??20 cc of Dotarem administered intravenously. FINDINGS: Conus medullaris terminates at L1 which is within normal limits. ??No abnormal cord signal or enhancement. Vertebral body heights are maintained. ??Levoscoliosis of the upper lumbar spine and milder dextroscoliosis of the lower spine. ??Vertebral body heights are maintained. ??Diffuse degenerative endplate signal changes with both fatty and edematous features with several levels enhancement which are likely degenerative/reactive. Diffuse loss of disc height with diffuse disc desiccation. Bilateral nonenhancing T1 hypointense and T2 hyperintense signal lesions in the kidneys compatible with cysts. T10-T11: Imaging only performed in the sagittal plane. ??Chronic disc bulging which indents the ventral cord. ??Bilateral facet arthropathy, left greater than right. ??Left neural foramen appears moderate to severely narrowed. ??Milder right neural foraminal narrowing. ??Chronic severe narrowing of the spinal canal. T11-T12: Minimally progressive disc bulging which indents the ventral cord. ??Posterior endplate spurring also present. ??Bilateral facet arthropathy. ??Moderately severe right neural foraminal narrowing and mild left neural foraminal narrowing. ??Moderate to severe narrowing of the spinal canal. T12-L1: Chronic severe loss of disc height. ??No significant interval change in disc bulging. ??Marginal osteophytes again noted, greater on the right. ??Bilateral facet arthropathy. ??Chronic severe right neural foraminal narrowing. ??No significant left neural foraminal narrowing. ??Stable mild narrowing of the spinal canal. L1-L2: Chronic severe loss of disc height more so toward the right without significant change in disc bulging. ??Marginal osteophytes again noted. ??Facet arthropathy and hypertrophy of ligamentum flavum are not significantly changed. ??At least moderate right neural foraminal narrowing again noted with possible compression on the exiting nerve root. ??No significant left neural foraminal narrowing. ??Lateral recesses are narrowed as before, right greater than left. ??Stable mild to moderate narrowing of the spinal canal. L2-L3: Chronic moderately severe loss of disc height without significant change in diffuse disc bulging. ??Marginal osteophytes again noted. ??Chronic bilateral facet arthropathy and hypertrophy of the ligamentum flavum. ??Prominent posterior epidural fat as before. ??Moderate left and mild to moderate neural foraminal narrowing. ??Possible compression on the subarticular left exiting nerve root and right lateral exiting nerve root. ??Severe spinal canal stenosis again noted. ?? L3-L4: Partial bony fusion anteriorly and posteriorly. ??Chronic severe loss of disc height without significant change in disc bulging and marginal osteophytes which are asymmetrically prominent to the left. ??Bilateral facet arthropathy. ??Subcentimeter posterior synovial cyst on the left. ??Left lateral recess is narrowed with possible compression on the left descending nerve root. ??Mild to moderate narrowing of the left neural foramen with possible compression on the exiting nerve root by marginal spurring/disc. ??Mild right neural foraminal narrowing. ??Spinal canal is at least moderately narrowed as before. L4-L5: Chronic severe loss of disc height without significant change in diffuse disc bulging. ??Marginal osteophytes again noted. ??Severe bilateral facet arthropathy with mild perifacetal enhancement as before. ??Left and probable right laminectomy changes. ??No significant change in enhancing soft tissue in the posterior thecal sac extending to the right. ??Enlargement of a cystic appearing structure abutting the anterior right facet joint in the neural foramen measuring 0.8 x 0.4 x 0.3 cm which compresses the right exiting nerve root (axial image 13 and sagittal image 15). ??This likely represents a synovial cyst. ??New 4 mm probable synovial cyst abutting the left inferior facet joint indenting the thecal sac. ??Chronic moderate to severe left neural foraminal narrowing. ??Spinal canal is severely narrowed as before. L5-S1: Chronic severe loss of disc height without significant change in diffuse disc bulging and marginal osteophytes which are slightly more prominent to the left. ??Bilateral facet arthropathy, right greater than left. ??Subcentimeter bilateral posterior juxta-articular cysts. ??Moderate to severe bilateral neural foraminal narrowing with possible compression on the far lateral exiting nerve roots. ??Moderate to severe narrowing of the spinal canal again noted. Procedure Note Mana Ortez MD - 06/01/2024 EXAM: Lumbar spine MRI HISTORY: Low back pain. Numbness in both legs. History of prior lumbarsurgery, most recent right L4-5 decompression in 2021. COMPARISON: 09/23/2021 CORRELATION: Lumbar spine radiography 12/07/2021, CT lumbar spine11/10/2021 TECHNIQUE: Exam performed on a 1.5 Katherine high-field MRI scanner.Multiplanar imaging performed without and with contrast. 20 cc of Dotaremadministered intravenously. FINDINGS: Conus medullaris terminates at L1 which is within normal limits. Noabnormal cord signal or enhancement. Vertebral body heights are maintained. Levoscoliosis of the upper lumbarspine and milder dextroscoliosis of the lower spine. Vertebral bodyheights are maintained. Diffuse degenerative endplate signal changes withboth fatty and edematous features with several levels enhancement whichare likely degenerative/reactive. Diffuse loss of disc height with diffuse disc desiccation. Bilateral nonenhancing T1 hypointense and T2 hyperintense signal lesionsin the kidneys compatible with cysts. T10-T11: Imaging only performed in the sagittal plane. Chronic discbulging which indents the ventral cord. Bilateral facet arthropathy, leftgreater than right. Left neural foramen appears moderate to severelynarrowed. Milder right neural foraminal narrowing. Chronic severenarrowing of the spinal canal. T11-T12: Minimally progressive disc bulging which indents the ventralcord. Posterior endplate spurring also present. Bilateral facetarthropathy. Moderately severe right neural foraminal narrowing and mildleft neural foraminal narrowing. Moderate to severe narrowing of thespinal canal. T12-L1: Chronic severe loss of disc height. No significant intervalchange in disc bulging. Marginal osteophytes again noted, greater on theright. Bilateral facet arthropathy. Chronic severe right neuralforaminal narrowing. No significant left neural foraminal narrowing.Stable mild narrowing of the spinal canal. L1-L2: Chronic severe loss of disc height more so toward the right withoutsignificant change in disc bulging. Marginal osteophytes again noted.Facet arthropathy and hypertrophy of ligamentum flavum are notsignificantly changed. At least moderate right neural foraminal narrowingagain noted with possible compression on the exiting nerve root. Nosignificant left neural foraminal narrowing. Lateral recesses arenarrowed as before, right greater than left. Stable mild to moderatenarrowing of the spinal canal. L2-L3: Chronic moderately severe loss of disc height without significantchange in diffuse disc bulging. Marginal osteophytes again noted.Chronic bilateral facet arthropathy and hypertrophy of the ligamentumflavum. Prominent posterior epidural fat as before. Moderate left andmild to moderate neural foraminal narrowing. Possible compression on thesubarticular left exiting nerve root and right lateral exiting nerve root.Severe spinal canal stenosis again noted. L3-L4: Partial bony fusion anteriorly and posteriorly. Chronic severeloss of disc height without significant change in disc bulging andmarginal osteophytes which are asymmetrically prominent to the left.Bilateral facet arthropathy. Subcentimeter posterior synovial cyst on theleft. Left lateral recess is narrowed with possible compression on theleft descending nerve root. Mild to moderate narrowing of the left neuralforamen with possible compression on the exiting nerve root by marginalspurring/disc. Mild right neural foraminal narrowing. Spinal canal is atleast moderately narrowed as before. L4-L5: Chronic severe loss of disc height without significant change indiffuse disc bulging. Marginal osteophytes again noted. Severe bilateralfacet arthropathy with mild perifacetal enhancement as before. Left andprobable right laminectomy changes. No significant change in enhancingsoft tissue in the posterior thecal sac extending to the right.Enlargement of a cystic appearing structure abutting the anterior rightfacet joint in the neural foramen measuring 0.8 x 0.4 x 0.3 cm whichcompresses the right exiting nerve root (axial image 13 and sagittal image15). This likely represents a synovial cyst. New 4 mm probable synovialcyst abutting the left inferior facet joint indenting the thecal sac.Chronic moderate to severe left neural foraminal narrowing. Spinal canalis severely narrowed as before. L5-S1: Chronic severe loss of disc height without significant change indiffuse disc bulging and marginal osteophytes which are slightly moreprominent to the left. Bilateral facet arthropathy, right greater thanleft. Subcentimeter bilateral posterior juxta-articular cysts. Moderateto severe bilateral neural foraminal narrowing with possible compressionon the far lateral exiting nerve roots. Moderate to severe narrowing ofthe spinal canal again noted. IMPRESSION: Scoliosis with extensive degenerative changes in the lumbar spine andpartially imaged thoracic spine. New probable synovial cyst adjacent tothe right facet joint at L4-5 which impinges on the exiting nerve root.Otherwise, no significant interval change. Chronic severe spinal canalnarrowing at L2-3, L4-5, and T10-11 and moderate to severe at T11-12 andL5-S1. Multilevel neural foraminal narrowing and multilevel possiblenerve root compression. POS - [id number] -------- FINAL REPORT -------- Dictated By: Mana Ortez Dictated Date: 05/31/2024 08:57 ET Assigned Physician: Mana Ortez Reviewed and Electronically Signed By: Mana Ortez Signed Date: 06/01/2024 10:50 ET Workstation ID: [id number] Transcribed By: Self Edit Transcribed Date: 05/31/2024 11:17 ET Jann LUX IMG MRI PROCEDURE S * ECG 12 lead (05/10/2024 8:54 AM EST) Ventricular Rate ECG 50 BPM GEMUSE Atrial Rate 50 BPM GEMUSE P-R Interval 176 ms GEMUSE QRS Duration 112 ms GEMUSE Q-T Interval 468 ms GEMUSE QTc 426 ms GEMUSE P Wave Artie 33 degrees GEMUSE R Artie 6 degrees GEMUSE T Artie 10 degrees GEMUSE ECG Interpretation Baseline wander Sinus bradycardia Inferior infarct , age undetermined Abnormal ECG When compared with ECG of 04-MAR-2022 09:26, Inferior infarct pattern is seen Confirmed by RADHA ALLEN ([id number]) on 05/10/2024 2:41:30 PM GEMUSE 05/10/2024 8:54 AM EST 05/10/2024 2:41 PM EST Radha Allen MD ECG ORDERABLES [facility] [place] Falls Risk Assessment (02/20/2024) [facility] Falls Risk Assessment Abstracted Historical Provider [facility] Annual BMP Blood Test (02/15/2024) [facility] Annual BMP Blood Test Abstracted [facility] Provider [facility] * Depression Screening (11/20/2023) [facility] Depression Screening Abstracted [facility] Provider [facility] * (ABNORMAL) Lipid panel (07/31/2023) [facility] LDL/HDL Ratio 3 0 - 4 Triglycerides 140 0 - 150 mg/dL Cholesterol 110 0 - 200 mg/dL HDL 32(A) 40 mg/dL LDL Cholesterol 50 0 - 100 mg/dL Blood Venous blood specimen / Unknown Historical Provider LAB BLOOD ORDERAB LES * Colonoscopy (07/28/2022) [facility] Colonoscopy No interpreta tion,abstr acted Anatomical Region Laterality Modality Other [facility] Provider [facility] * Hepatitis C Screening (04/28/2017) [facility] Hepatitis C Screening Abstracted [facility] Provider [facility] from Last 3 Months or Most Recently Relevant to Health Maintenance Care Teams Sports Manager Relationship Specialty Start Date End Date Jann Adams PA [address] [place] [address] PCP - General Internal Medicine 05/19/20
--- OUTSIDE RECORDS SUMMARY | 2024-06-26 15:55 | XMS_ITS | Encounter Summary ---
Author Organization [facility] Address [address] [place] [address] Care Team Providers Care Fabric Cutter Name Role Phone Jann Adams PA-C Primary Care Provider [phone] Hira Maria MD, PHD Unavailable Unava ilable Radha Rios MD Unavailable [phone] Carolyn Spencer PA-C Unavailable [phone] Encounter Details Date Type Department Care Team Description 09/13/2023 Pt. Non Urgent Medical Question Adult Medicine [address] [phone] Jann Adams PA-C [address] [place] [address] [phone] Social History Tobacco Use Types Packs/Day Years [...] encounter Miscellaneous Notes * Telephone Encounter - Christel Pozo - 09/13/2023 4:16 PM EDTFrom: Thierry Edgar To: Pham Adams Sent: 09/13/2023 3:59 PM EDT Subject: Echo Cardiogram Rojelio Forte, Do you have the results from my echo cardiogram that was recently done? I don't see anything in My Chart. Thanks Thierry documented in this encounter Plan of Treatment Not on file documented as of this encounter Visit Diagnoses Not on filedocumented in this encounter Care Teams Fabric Cutter Relationship Specialty Start Date End Date Jann Adams PA-C [address] [place] [address] PCP - General Internal Medicine 05/19/20 Hira Maria MD, PHD [address] [place] [address] Surgeon Neurosurgery 10/26/21 Radha Rios MD [address] [place] [address] Specialist Cardiology 02/09/22 Carolyn Spencer PA-C [address] [place] [address] Neurosurgery 03/14/22 documented as of this encounter
--- OUTSIDE RECORDS SUMMARY | 2024-06-26 15:55 | XMS_ITS | Encounter Summary ---
Author Organization [facility] Address [address] [place] [address] Care Team Providers Care Fountain Manager Name Role Phone Jann Adams PA-C Primary Care Provider [phone] Hira Maria MD, PHD Unavailable Unava ilable Radha Rios MD Unavailable [phone] Carolyn Spencer PA-C Unavailable [phone] Encounter Details Date Type Department Care Team Description 02/09/2022 SCAN [facility] Neurosurgery [place] [address] [place] [address] Hiar Maria MD, PHD Social History Tobacco Use [...] Recorded In the last 10 days, have lincoln u been in contact with someone who was confirmed or suspected to have Coronavirus/COVID-19? No / Unsure 02/09/2022 9:38 AM EDT documented as of this encounter Plan of Treatment Not on file documented as of this encounter Visit Diagnoses Not on filedocumented in this encounter Care Teams Fountain Manager Relationship Specialty Start Date End Date Jann Adams PA-C [address] [place] [address] PCP - General Internal Medicine 05/19/20 Hira Maria MD, PHD [address] [place] [address] Surgeon Neurosurgery 10/26/21 Radha Rios MD [address] [place] [address] Specialist Cardiology 02/09/22 Carolyn Spencer PA-C [address] [place] [address] Neurosurgery 03/14/22 documented as of this encounter
--- OUTSIDE RECORDS SUMMARY | 2024-06-26 15:55 | XMS_ITS | Encounter Summary ---
Author Organization [facility] Address [address] [place] [address] Care Team Providers Care Math Teacher Name Role Phone Alvarez Silverio MD Primary Care Provider [phone] Jann Adams PA-C Primary Care Provider [phone] iHra Maria MD, PHD Unavailable Unava ilable Radha Rios MD Unavailable [phone] Carolyn Spencer PA-C Unavailable [phone] Encounter Details Date Type Department Care Team Description 08/16/2016 Pole Peeling Machine Operator Report Medical Records [address] [place] [address] Jann Rojas MD Social History Tobacco Use Types Packs/Day [...] on filedocumented in this encounter Care Teams Math Teacher Relationship Specialty Start Date End Date Alvarez Silverio MD [address] [place] [address] [id number] PCP - General 03/28/1999 05/18/20 Jann Adams PA-C [address] [place] [address] [phone] PCP - General Internal Medicine 05/19/20 Hira Maria MD, PHD [address] [place] [address] Surgeon Neurosurgery 10/26/21 Radha Rios MD [address] [place] [address] Specialist Cardiology 02/09/22 Carolyn Spencer PA-C [address] [place] [address] Neurosurgery 03/14/22 documented as of this encounter
--- OUTSIDE RECORDS SUMMARY | 2024-06-26 15:55 | XMS_ITS | Encounter Summary ---
Author Organization [facility] Address [address] [place] [address] Care Team Providers Care Assistant Laboratory Director Name Role Phone Jann Adams PA-C Primary Care Provider [phone] Hira Maria MD, PHD Unavailable Unava ilable Radha Rios MD Unavailable [phone] Carolyn Spencer PA-C Unavailable [phone] Encounter Details Date Type Department Care Team Description 06/02/2022 Asphalt Paver Operator Report Medical Records [address] [place] [address] Petros Cordero MD Social History Tobacco Use [...] on filedocumented in this encounter Care Teams Assistant Laboratory Director Relationship Specialty Start Date End Date Jann Adams PA-C [address] [place] [phone] PCP - General Internal Medicine 05/19/20 Hira Maria MD, PHD [address] [place] [phone] Surgeon Neurosurgery 10/26/21 Radha Rios MD [address] [place] [address] Specialist Cardiology 02/09/22 Carolyn Spencer PA-C [address] [place] [address] Neurosurgery 03/14/22 documented as of this encounter
--- OUTSIDE RECORDS SUMMARY | 2024-06-26 15:55 | XMS_ITS | Encounter Summary ---
Author Organization [facility] Address [address] [place] [address] Care Team Providers Care Wastewater Superintendent Name Role Phone Jann Adams PA-C Primary Care Provider [phone] Hira Maria MD, PHD Unavailable Unava ilable Radha Rios MD Unavailable [phone] Carolyn Spencer PA-C Unavailable [phone] Reason for Visit * Reason Comments E-prescribe Rx Request Encounter Details Date Type Department Care Team Description 02/01/2021 Refill Adult Medicine [address] [phone] Carmela Maguire PA-C [address] [place] [address] [phone] E-prescribe Rx Request Social History Tobacco Use [...] encounter Miscellaneous Notes * Telephone Encounter - Kadie Castillo M.A. - 02/03/2021 2:30 PM EDT Lab Results Component Value Date NA 141 09/04/2020 K 3.9 09/04/2020 CO2 27 09/04/2020 CL 108 09/04/2020 BUN 18 09/04/2020 CREAT 1.20 09/04/2020 GLU 86 09/04/2020 CA 9.0 09/04/2020 GFR 60 09/04/2020 Pending appt 02/25/21 * Telephone Encounter - Petros Riddle - 02/02/2021 10:25 AM EDT Patient would like script to be: PLACED IN PATIENT YOGA INSTRUCTOR TO BE PICKED UP ?? WHEN WAS THE PATIENT'S LAST APPOINTMENT IN ADULT MEDICINE? [id number] ?? WHEN WAS THE LAST TIME THE PATIENT SAW THEIR PCP? Same as above ?? Does patient have an upcoming appointment? Yes [id number] ?? (THE MEDICATION REQUESTED IS ON THE MED LIST ABOVE) All of the medications requested were on the CURRENT MEDS list ?? Did you check the Pharmacy information above?: NO ?? Patient wants: 30 -day supply ?? Is this a mail order prescription request ? NO ?? If the refill is from a FAXED refill request what is the RX # listed on the fax? N/A ?? Patients current insurance carrier is: [place] / [place] / Product Type: MEDICARE [id number] ?? documented in this encounter Plan of Treatment Not on file documented as of this encounter Visit Diagnoses Not on filedocumented in this encounter Care Teams Wastewater Superintendent Relationship Specialty Start Date End Date Jann Adams PA-C [address] [place] [address] PCP - General Internal Medicine 05/19/20 Hira Maria MD, PHD [address] [place] [address] Surgeon Neurosurgery 10/26/21 Radha Rios MD [address] [place] [address] Specialist Cardiology 02/09/22 Carolyn Spencer PA-C [address] [place] [address] Neurosurgery 03/14/22 documented as of this encounter
--- OUTSIDE RECORDS SUMMARY | 2024-06-26 15:55 | XMS_ITS | Encounter Summary ---
Author Organization [facility] Address [address] [facility] [place] [address] Care Team Providers Care Blind Lacer Name Role Phone Jann Adams PA-C Primary Care Provider [phone] Hira Maria MD, PHD Unavailable Unava ilable Radha Rios MD Unavailable [phone] Carolyn Spencer PA-C Unavailable [phone] Encounter Details Date Type Department Care Team Description 01/15/2021 [facility] Medical Records [address] [place] [address] Abstract, Provider Social History Tobacco Use Types [...] on filedocumented in this encounter Care Teams Blind Lacer Relationship Specialty Start Date End Date Jann Adams PA-C [address] [place] [address] PCP - General Internal Medicine 05/19/20 Hira Maria MD, PHD [address] [place] [address] Surgeon Neurosurgery 10/26/21 Radha Rios MD [address] [place] [phone] Specialist Cardiology 02/09/22 Carolyn Spencer PA-C [address] [place] [address] Neurosurgery 03/14/22 documented as of this encounter
--- OUTSIDE RECORDS SUMMARY | 2024-06-26 15:55 | XMS_ITS | Encounter Summary ---
Author Organization [facility] Address [address] [facility] [place] [place] [address] Care Team Providers Care Cripple Worker Name Role Phone Jann Adams PA-C Primary Care Provider [phone] Hira Maria MD, PHD Unavailable Unava ilable Radha Rios MD Unavailable [phone] Carolyn Spencer PA-C Unavailable [phone] Encounter Details Date Type Department Care Team Description 05/18/2023 [facility] Medical Records [address] [place] [address] Abstract, Provider Social History Tobacco Use Types [...] on filedocumented in this encounter Care Teams Cripple Worker Relationship Specialty Start Date End Date Jann Adams PA-C [address] [place] [address] PCP - General Internal Medicine 05/19/20 Hira Maria MD, PHD [address] [place] [phone] Surgeon Neurosurgery 10/26/21 Radha Rios MD [address] [place] [address] Specialist Cardiology 02/09/22 Carolyn Spencer PA-C [address] [place] [address] Neurosurgery 03/14/22 documented as of this encounter
--- OUTSIDE RECORDS SUMMARY | 2024-06-26 15:55 | XMS_ITS | Encounter Summary ---
Author Organization [facility] Address [address] [place] [address] Care Team Providers Care Screwhead Polisher Name Role Phone Alvarez Silverio MD Primary Care Provider [phone] Jann Adams PA-C Primary Care Provider [phone] Hira Maria MD, PHD Unavailable Unava ilable Radha Rios MD Unavailable [phone] Carolyn Spencer PA-C Unavailable [phone] Encounter Details Date Type Department Care Team Description 12/19/2019 [facility] Medical Records [address] [place] [address] Abstract, Provider Social History Tobacco Use Types [...] on filedocumented in this encounter Care Teams Screwhead Polisher Relationship Specialty Start Date End Date Alvarez Silverio MD [address] [place] [address] [phone] PCP - General 03/28/1999 05/18/20 Jann Adams PA-C [address] [place] [address] [phone] PCP - General Internal Medicine 05/19/20 Hira Maria MD, PHD [address] [place] [address] Surgeon Neurosurgery 10/26/21 Radha Rios MD [address] [place] [address] Specialist Cardiology 02/09/22 Carolyn Spencer PA-C [address] [place] [address] Neurosurgery 03/14/22 documented as of this encounter
--- OUTSIDE RECORDS SUMMARY | 2024-06-26 15:55 | XMS_ITS | Encounter Summary ---
Author Organization [facility] Address [address] [place] [address] Care Team Providers Care Novelty Twister Operator Name Role Phone Jann Adams PA-C Primary Care Provider [phone] Hira Maria MD, PHD Unavailable Unava ilable Radha Rios MD Unavailable [phone] Carolyn Spencer PA-C Unavailable [phone] Encounter Details Date Type Department Care Team Description 02/13/2024 Pt. Non Urgent Medical Question Adult Medicine [address] [address] Jann Adams PA-C [address] [place] [address] Social History Tobacco Use Types Packs/Day Years [...] on filedocumented in this encounter Care Teams Novelty Twister Operator Relationship Specialty Start Date End Date Jann Adams PA-C [address] [place] [address] PCP - General Internal Medicine 05/19/20 Hira Maria MD, PHD [address] [place] [address] Surgeon Neurosurgery 10/26/21 Radha Rios MD [address] [place] [address] Specialist Cardiology 02/09/22 Carolyn Spencer PA-C [address] [place] [address] Neurosurgery 03/14/22 documented as of this encounter
--- OUTSIDE RECORDS SUMMARY | 2024-06-26 15:55 | XMS_ITS | Encounter Summary ---
Author Organization [facility] Address [address] [facility] [place] [address] Care Team Providers Care Unemployment Insurance Director Name Role Phone Jann Adams PA-C Primary Care Provider [phone] Hira Maria MD, PHD Unavailable Unava ilable Radha Rios MD Unavailable Carolyn Spencer PA-C Unavailable [phone] Encounter Details Date Type Department Care Team Description 12/19/2023 [facility] Medical Records [address] [place] [address] Abstract, Provider Social History Tobacco Use Types [...] on filedocumented in this encounter Care Teams Unemployment Insurance Director Relationship Specialty Start Date End Date Jann Adams PA-C [address] [place] [phone] PCP - General Internal Medicine 05/19/20 Hira Maria MD, PHD [address] [place] [phone] Surgeon Neurosurgery 10/26/21 Radha Rios MD [address] [place] [address] Specialist Cardiology 02/09/22 Carolyn Spencer PA-C [address] [place] [address] Neurosurgery 03/14/22 documented as of this encounter
--- OUTSIDE RECORDS SUMMARY | 2024-06-26 15:55 | XMS_ITS | Encounter Summary ---
Author Organization [facility] Address [address] [place] [address] Care Team Providers Care Aquaculture Director Name Role Phone Jann Adams PA-C Primary Care Provider [phone] Hira Maria MD, PHD Unavailable Unava ilRadha Rao MD Unavailable [phone] Carolyn Spencer PA-C Unavailable [phone] Encounter Details Date Type Department Care Team Description 02/15/2023 Utility Specialist Report Medical Records [address] [place] [address] Abstract, Provider Social History Tobacco Use Types [...] suspected to have Coronavirus/COVID-19? No / Unsure 02/13/2023 10:23 AM EDT documented as of this encounter Plan of Treatment Not on file documented as of this encounter Visit Diagnoses Not on filedocumented in this encounter Care Teams Aquaculture Director Relationship Specialty Start Date End Date Jann Adams PA-C [address] [place], [place] [phone] PCP - General Internal Medicine 05/19/20 Hira Maria MD, PHD [address] [place] [address] Surgeon Neurosurgery 10/26/21 Radha Rios MD [address] [place] [address] Specialist Cardiology 02/09/22 Carolyn Spencer PA-C [address] [place] [address] Neurosurgery 03/14/22 documented as of this encounter
--- OUTSIDE RECORDS SUMMARY | 2024-06-26 15:55 | XMS_ITS | Encounter Summary ---
Author Organization [facility] Address [address] [facility] [place] [address] Care Team Providers Care Medical Donation Professional Name Role Phone Jann Adasm PA-C Primary Care Provider [phone] Hira Maria MD, PHD Unavailable Unava ilable Radha Rios MD Unavailable [phone] Carolyn Spencer PA-C Unavailable [phone] Reason for Visit * Reason Comments E-prescribe Rx Request Encounter Details Date Type Department Care Team Description 03/27/2024 Refill [facility] [place] [address] [address] Conner Rincon PA-C [address] [phone] E-prescribe Rx Request Social History Tobacco Use [...] encounter Miscellaneous Notes * Telephone Encounter - Na [place] - 03/27/2024 10:45 AM EDT Omeprazole 20mg Last refill 01/11/23 #180 with 4 refills WILL 09/27/2022 with Cam No pending appt Please advise documented in this encounter Plan of Treatment Not on file documented as of this encounter Visit Diagnoses Not on filedocumented in this encounter Care Teams Medical Donation Professional Relationship Specialty Start Date End Date Jann Adams PA-C [address] [place] [address] PCP - General Internal Medicine 05/19/20 Hira Maria MD, PHD [address] [place] [address] Surgeon Neurosurgery 10/26/21 Radha Rios MD [address] [place] [address] Specialist Cardiology 02/09/22 Carolyn Spencer PA-C [address] [address] Neurosurgery 03/14/22 documented as of this encounter
--- OUTSIDE RECORDS SUMMARY | 2024-06-26 15:55 | XMS_ITS | Encounter Summary ---
Author Organization [facility] Address [address] [place] [address] Care Team Providers Care Junior Software Developer Name Role Phone Jann Adams PA-C Primary Care Provider [phone] Hira Maria MD, PHD Unavailable Unava ilable Radha Rios MD Unavailable [phone] Carolyn Spencer PA-C Unavailable [phone] Encounter Details Date Type Department Care Team Description 09/22/2022 Hospital Medical Records [address] [place] [address] Guicho Wright MD [address] [place] [address] [address] [place] [address] Social History Tobacco Use Types Packs/Day Years [...] suspected to have Coronavirus/COVID-19? No / Unsure 09/12/2022 8:18 AM EDT documented as of this encounter Plan of Treatment Not on file documented as of this encounter Visit Diagnoses Not on filedocumented in this encounter Care Teams Junior Software Developer Relationship Specialty Start Date End Date Jann Adams PA-C [address] [place], [place] [phone] PCP - General Internal Medicine 05/19/20 Hira Maria MD, PHD [address] [place] [address] Surgeon Neurosurgery 10/26/21 Radha Rios MD [address] [place] [address] Specialist Cardiology 02/09/22 Carolyn Spencer PA-C [address] [place] [address] Neurosurgery 03/14/22 documented as of this encounter
--- OUTSIDE RECORDS SUMMARY | 2024-06-26 15:55 | XMS_ITS | Encounter Summary ---
Author Organization [facility] Address [address] [facility] [place] [address] Care Team Providers Care Property Master Name Role Phone Jann Adams PA-C Primary Care Provider [phone] Hira Maria MD, PHD Unavailable Unava ilable Radha Rios MD Unavailable [phone] Carolyn Spencer PA-C Unavailable [phone] Encounter Details Date Type Department Care Team Description 01/31/2023 [facility] Medical Records [address] [place] [address] Abstract, Provider Social History Tobacco Use Types [...] suspected to have Coronavirus/COVID-19? No / Unsure 01/06/2023 12:19 PM EDT documented as of this encounter Plan of Treatment Not on file documented as of this encounter Procedures Procedure Name Priority Date/Time Associated Diagnosis Comments OUTSIDE CT Routine 01/31/2023 documented in this encounter Results * OUTSIDE CT (01/31/2023) Provider Default RADIOLOGY documented in this encounter Visit Diagnoses Not on filedocumented in this encounter Care Teams Property Master Relationship Specialty Start Date End Date Jann Adams PA-C [address] [place] [address] PCP - General Internal Medicine 05/19/20 Hira Maria MD, PHD [address] [place] [address] Surgeon Neurosurgery 10/26/21 Radha Rios MD [address] [place], [place] [phone] Specialist Cardiology 02/09/22 Carolyn Spencer PA-C [address] [place] [address] Neurosurgery 03/14/22 documented as of this encounter
--- OUTSIDE RECORDS SUMMARY | 2024-06-26 15:55 | XMS_ITS | Encounter Summary ---
Author Organization [facility] Address [address] [place] [address] Care Team Providers Care Pier Hand Helper Name Role Phone Jann Adams PA-C Primary Care Provider [phone] Hira Maria MD, PHD Unavailable Unava ilable Radha Rios MD Unavailable [phone] Carolyn Spencer PA-C Unavailable [phone] Encounter Details Date Type Department Care Team Description 03/07/2022 [facility] Medical [facility] Neurosurgery [place] [address] [place] [address] Hira Maria MD, PHD Social [...] on filedocumented in this encounter Care Teams Pier Hand Helper Relationship Specialty Start Date End Date Jann Adams PA-C [address] [place] [address] PCP - General Internal Medicine 05/19/20 Hira Maria MD, PHD [address] [place] [address] Surgeon Neurosurgery 10/26/21 Radha Rios MD [address] [place] [address] Specialist Cardiology 02/09/22 Carolyn Spencer PA-C [address] [place] [address] Neurosurgery 03/14/22 documented as of this encounter
--- OUTSIDE RECORDS SUMMARY | 2024-06-26 15:55 | XMS_ITS | Encounter Summary ---
Author Organization [facility] Address [address] [facility] [place] [address] Care Team Providers Care Heel Former Name Role Phone Jann Adams PA-C Primary Care Provider [phone] Hira Maria MD, PHD Unavailable Unava ilable Radha Rios MD Unavailable [phone] Carolyn Spencer PA-C Unavailable [phone] Reason for Visit * Reason Comments E-prescribe Rx Request Encounter Details Date Type Department Care Team Description 10/05/2022 Refill Gastroenterology - [address] [place] [address] Izaiah Steven PA-C E-prescribe Rx Request [...] suspected to have Coronavirus/COVID-19? Unable to assess 09/27/2022 7:03 AM EDT documented as of this encounter Miscellaneous Notes * Telephone Encounter - Eveline Chan M.A. - 10/05/2022 8:47 AM EDT WILL 09/27/22, no GI f/up documented in this encounter Plan of Treatment Not on file documented as of this encounter Visit Diagnoses Not on filedocumented in this encounter Care Teams Heel Former Relationship Specialty Start Date End Date Jann Adams PA-C [address] [place] [address] PCP - General Internal Medicine 05/19/20 Hira Maria MD, PHD [address] [place] [address] Surgeon Neurosurgery 10/26/21 Radha Rios MD [address] [place] [address] Specialist Cardiology 02/09/22 Carolyn Spencre PA-C [address] [address] Neurosurgery 03/14/22 documented as of this encounter
--- OUTSIDE RECORDS SUMMARY | 2024-06-26 15:55 | XMS_ITS | Encounter Summary ---
Author Organization [facility] Address [address] [place] [address] Care Team Providers Care Back Shoe Operator Name Role Phone Alvarez Silverio MD Primary Care Provider [phone] Jann Adams PA-C Primary Care Provider [phone] Hira Maria MD, PHD Unavailable Unava ilable Radha Rios MD Unavailable [phone] Carolyn Spencer PA-C Unavailable [phone] Reason for Visit * Reason Onset Date Comments Abnormal Ekg-cardiology Overread 12/02/2019 [facility] EKG Overread Encounter Details Date Type Department Care Team Description 12/02/2019 Telephone Radiology - [place] [address] [place], [place] [phone] Jann Adams PA-C [address] [place], [place] [phone] Abnormal Ekg-cardiology Overread ([facility] EKG Overread) Social History Tobacco Use Types Packs/Day Years [...] encounter Miscellaneous Notes * Telephone Encounter - Jann Adams PA-C - 12/02/2019 3:37 PM EDT Ok noted * Telephone Encounter - Kadie Brittani - 12/02/2019 3:28 PM EDT ??Tiffanie??overread an EKG that was sent over with the date of 11/26/19. He crossed off the 3rd line and added the following notation: borderline criteria for inferior infarct. This EKG is being sent back to the HIM dept to be scanned as??the Final Read. Thank you, Deanna documented in this encounter Plan of Treatment Not on file documented as of this encounter Visit Diagnoses Not on filedocumented in this encounter Care Teams Back Shoe Operator Relationship Specialty Start Date End Date Alvarez Silverio MD [address] [place] [address] PCP - General 03/28/1999 05/18/20 Jann Adams PA-C [address] [place] [address] PCP - General Internal Medicine 05/19/20 Hira Maria MD, PHD [address] [place] [address] Surgeon Neurosurgery 10/26/21 Radha Rios MD [address] [place] [address] Specialist Cardiology 02/09/22 Carolyn Spencer PA-C [address] [place] [address] Neurosurgery 03/14/22 documented as of this encounter
--- OUTSIDE RECORDS SUMMARY | 2024-06-26 15:55 | XMS_ITS | Encounter Summary ---
Author Organization [facility] Address [address] [place] [address] Care Team Providers Care Ethylbenzene Converter Operator Name Role Phone Jann Adams PA-C Primary Care Provider [phone] Hira Maria MD, PHD Unavailable Unava ilable Radha Rios MD Unavailable [phone] Carolyn Spencer PA-C Unavailable [phone] Encounter Details Date Type Department Care Team Description 03/07/2022 [facility] Medical [facility] Neurosurgery [place] [address] [place] [address] Hira Maria MD, PHD Social [...] on filedocumented in this encounter Care Teams Ethylbenzene Converter Operator Relationship Specialty Start Date End Date Jann Adams PA-C [address] [place] [address] PCP - General Internal Medicine 05/19/20 Hira Maria MD, PHD [address] [place] [address] Surgeon Neurosurgery 10/26/21 Radha Rios MD [address] [place] [address] Specialist Cardiology 02/09/22 Carolyn Spencer PA-C [address] [place] [address] Neurosurgery 03/14/22 documented as of this encounter
--- OUTSIDE RECORDS SUMMARY | 2024-06-26 15:55 | XMS_ITS | Encounter Summary ---
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 Other depression Essential hypertension, benign Gastroesophageal reflux disease without esophagitis Hx of non-ST elevation myocardial infarction (NSTEMI) Iron deficiency anemia due to chronic blood loss Mixed hyperlipidemia Parkinsonian tremor (CMS/HCC) Sleep apnea, unspecified type Procedures MR Lumbar Spine wo and w Contrast Jann Adams PA [address] [place] [address] [facility] [address] [place] [address] Referral ID Status Reason Start Date Expiration Date Visits Re quested Visits Authorized [id number] Closed 05/24/2024 05/24/2025 1 1 Reason for Visit * Imaging (Routine) - Closed Specialty Diagnoses / Procedures Referred By Chloe sykes Referred To Contact Radiology Diagnoses Spinal stenosis of lumbar region with neurogenic claudication Lumbar radiculitis Aortic dilatation (CMS/HCC) Chronic gastric ulcer without hemorrhage and without perforation Coronary artery 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 Other depression Essential hypertension, benign Gastroesophageal reflux disease without esophagitis Hx of non-ST elevation myocardial infarction (NSTEMI) Iron deficiency anemia due to chronic blood loss Mixed hyperlipidemia Parkinsonian tremor (CMS/HCC) Sleep apnea, unspecified type Procedures MR Lumbar Spine wo and w Contrast Jann Adams PA [address] [place] [facility] [address] [place], [place] Referral ID Status Reason Start Date Expiration Date Visits Re quested Visits Authorized [id number] Closed 05/24/2024 05/24/2025 1 1 Encounter Details Date Type Department Care Team (Latest Contact Info) Description 05/30/2024 12:01 PM EST - 05/30/2024 11:59 PM EST Hospital Encounter Radiology Department - [address] [phone] Spinal stenosis of lumbar region with neurogenic claudication; Lumbar radiculitis; Aortic dilatation (CMS/HCC); Chronic gastric ulcer without hemorrhage and without perforation; 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 aspirin 81 mg EC tablet Take 81 mg by mouth daily. atenoloL (TENORMIN) 50 mg tablet TAKE 1 AND 1/2 TABLETS BY MOUTH DAILY 135 tablet 1 05/01/2024 biotin 10 mg tablet Take?by mouth daily. calcium carbonate (CALCIUM ORAL) Take?by mouth. carbidopa-levodopa (SINEMET) 25-100 mg per tablet TAKE 1 TABLET BY MOUTH IN THE MORNING, AND 1 TABLET AT NOON 10/13/2022 cholecalciferol (VITAMIN D-3) 25 mcg (1,000 unit) tablet Take 1 Tab by mouth daily. coenzyme Q-10 100 mg capsule Take?by mouth daily. gabapentin (NEURONTIN) 600 mg tablet Take 1 tablet (600 mg total) by mouth 3 (three) times a day. TAKE 1 TABLET BY MOUTH THREE TIMES A DAY 270 tablet 3 05/24/2024 losartan (COZAAR) 50 mg tablet Take 1 Tablet by mouth daily. - Oral multivit-min/folic/vit K/lycop (MEN'S ONE DAILY ORAL) 1 tab qd nitroglycerin (NITROSTAT) 0.[address] 1 tablet (0.4 mg total) under the tongue every 5 (five) minutes if needed for chest pain. May repeat dose every 5 minutes for up to 3 doses total. If chest pain is not relieved 5 minutes after the second dose, take the third dose and call 9-1-1. 25 tablet 1 05/16/2024 omeprazole (PriLOSEC) [address] capsule TAKE 1 CAPSULE BY MOUTH 2 TIMES DAILY (BEFORE MEALS). 03/27/2024 sulfamethoxazole-trime thoprim (BACTRIM DS,SEPTRA DS) 800-160 mg per tablet Take 1 tablet before dentist and 1 tablet 6 hours after dentist 10 each 04/17/2024 tamsulosin (FLOMAX) 0.4 mg 24 hr capsule Take by mouth. START 1 CAPSULE DAILY FOR 7 DAYS THAN INCREASE TO TWICE DAILY IF NO DIZZINESS ZINC ORAL Take?by mouth. atorvastatin (LIPITOR) 80 mg tablet TAKE 1 TABLET BY MOUTH EVERY DAY 12/20/2023 06/19/2024 HYDROcodone-acetaminop hen (NORCO) 5-325 mg per tablet Take 1 tablet by mouth every 12 (twelve) hours if needed for severe pain. Take 1 Tablet by mouth every 12 hours as needed for Pain. Max Daily Amount: 2 tablets 56 tablet 05/16/2024 06/17/2024 documented as of this encounter Discharge Disposition Disposition Code Departure Means Destination Home or Self Care documented in this encounter Plan of Treatment Upcoming Encounters Date Type Department Care Team (Late st Contact Info) Description 08/22/2024 1:15 PM EDT Office Visit Adult Medicine [address] [phone] Carmela Maguire PA [address] [place], [place] 11/25/2024 8:00 AM EDT Office Visit [facility] Medicine [address] [phone] Jann Adams PA [address] [place], [place] 03/31/2025 9:00 AM EST Ancillary Procedure [facility] [address] [place] [address] documented as of this encounter Procedures Procedure Name Priority Date/Time Associated Diagnosis Comments MR LUMBAR SPINE WO AND W CONTRAST Routine 05/30/2024 12:52 PM EST Spinal stenosis of lumbar region with neurogenic claudication Lumbar radiculitis Aortic dilatation (CMS/HCC) Chronic gastric ulcer without hemorrhage and without perforation 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 POS - [id number] -------- FINAL REPORT -------- Dictated By: Mana Ortez Dictated Date: 05/31/2024 08:57 ET Assigned Physician: Mana Ortez Reviewed and Electronically Signed By: Mana Ortez Signed Date: 06/01/2024 10:50 ET Workstation ID: [id number] Transcribed By: Self Edit Transcribed Date: 05/31/2024 [...] and multilevel possiblenerve root compression. 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 Other depression Essential hypertension, benign Gastroesophageal reflux disease without esophagitis Esophageal reflux Hx of non-ST elevation myocardial infarction (NSTEMI) Iron deficiency anemia due to chronic blood loss Iron deficiency anemia secondary to blood loss (chronic) Mixed hyperlipidemia Parkinsonian tremor (CMS/HCC) Paralysis agitans Sleep apnea, unspecified type documented in this encounter Administered Medications Inactive Administered Medications - up to 3 most recent administrations Medication Order MAR Action Action Date Dose Rate Site gadoterate meglumine (CLARISCAN, DOTAREM) injection 20 mL 20 mL, intravenous, Once in imaging, Starting on Cecilia 05/30/24 at 1252, For 1 dose Given 05/30/2024 12:53 PM EST 20 mL documented in this encounter Orders Medications Ordered That Saul ht Not Have Been Administered Count Last Ordered Date First Ordered Date gadoterate meglumine (VERO CAN, DOTAREM) injection 20 mL 1 05/30/2024 documented in this encounter Care Teams Technologist Infectious Disease Relationship Specialty Start Date End Date Jann Adams PA [address] [place] [address] PCP - General Internal Medicine 05/19/20 documented as of this encounter
--- OUTSIDE RECORDS SUMMARY | 2024-06-26 15:55 | XMS_ITS | Encounter Summary ---
Author Organization [facility] Address [address] [place] [address] Care Team Providers Care Pyrotechnic Assembler Name Role Phone Jann Adams PA-C Primary Care Provider [phone] Hira Maria MD, PHD Unavailable Unava ilable Radha Rios MD Unavailable [phone] Carolyn Spencer PA-C Unavailable [phone] Reason for Visit * Reason Comments E-prescribe Rx Request Encounter Details Date Type Department Care Team Description 10/23/2020 Refill Adult Medicine [address] [id number] Carmela Maguire PA-C [address] [place] [phone] E-prescribe Rx Request Social History Tobacco Use [...] encounter Miscellaneous Notes * Telephone Encounter - Martita Monahan C.M.A - 10/27/2020 4:10 PM EDT Lab Results Component Value Date NA 141 09/04/2020 K 3.9 09/04/2020 CO2 27 09/04/2020 CL 108 09/04/2020 BUN 18 09/04/2020 CREAT 1.20 09/04/2020 GLU 86 09/04/2020 CA 9.0 09/04/2020 GFR 60 09/04/2020 Lab Results Component Value Date CHOL 92 09/04/2020 LDL 41 09/04/2020 HDL 26 09/04/2020 TRIG 125 09/04/2020 SGOT 45 09/04/2020 SGPT 33 09/04/2020 * Telephone Encounter - Patria Jade - 10/27/2020 11:18 AM EDT Patient would like script to be: E-PRESCRIBED/FAXED TO PHARMACY WHEN WAS THE PATIENT'S LAST APPOINTMENT IN ADULT MEDICINE? 07/16/2020 WHEN WAS THE LAST TIME THE PATIENT SAW THEIR PCP? 05/19/2020 Does patient have an upcoming appointment? Yes 11/19/2020 (THE MEDICATION REQUESTED IS ON THE MED [...] / Plan: [place] / Product Type: MEDICARE [id number] documented in this encounter Plan of Treatment Not on file documented as of this encounter Visit Diagnoses Not on filedocumented in this encounter Care Teams Pyrotechnic Assembler Relationship Specialty Start Date End Date Jann Adams PA-C [address] [place] [address] PCP - General Internal Medicine 05/19/20 Hira Maria MD, PHD [address] [place] [address] Surgeon Neurosurgery 10/26/21 Radha Rios MD [address] [place] [address] Specialist Cardiology 02/09/22 Carolyn Spencer PA-C [address] [place] [address] Neurosurgery 03/14/22 documented as of this encounter
--- OUTSIDE RECORDS SUMMARY | 2024-06-26 15:55 | XMS_ITS | Encounter Summary ---
Author Organization [facility] Address [address] [facility] [place] [address] Care Team Providers Care Merchandise Adjustment Clerk Name Role Phone Jann Adams PA-C Primary Care Provider [phone] Hira Maria MD, PHD Unavailable Unava ilable Radha Rios MD Unavailable [phone] Carolyn Spencer PA-C Unavailable [phone] Encounter Details Date Type Department Care Team Description 01/15/2021 [facility] Medical Records [address] [place] [address] Abstract, Provider Social History Tobacco Use Types [...] on filedocumented in this encounter Care Teams Merchandise Adjustment Clerk Relationship Specialty Start Date End Date Jann Adams PA-C [address] [place] [address] PCP - General Internal Medicine 05/19/20 Hira Maria MD, PHD [address] [place] [address] Surgeon Neurosurgery 10/26/21 Radha Rios MD [address] [place] [id number] Specialist Cardiology 02/09/22 Carolyn Spencer PA-C [address] [place] [address] Neurosurgery 03/14/22 documented as of this encounter
--- OUTSIDE RECORDS SUMMARY | 2024-06-26 15:55 | XMS_ITS | Encounter Summary ---
Author Organization [facility] Address [address] [place] [address] Care Team Providers Care Scroll Machine Operator Name Role Phone Jann Adams PA-C Primary Care Provider [phone] Hira Maria MD, PHD Unavailable Unava ilable Radha Rios MD Unavailable Carolyn Spencer PA-C Unavailable [phone] Reason for Visit * Reason Onset Date Comments Medication 07/26/2022 Encounter Details Date Type Department Care Team Description 07/26/2022 Refill Gastroenterology - [place] [address] [facility] [address] [place] [id number] Guicho Wright MD [address] [facility] [address] [place] [address] Medication Social History Tobacco Use Types Packs/Day Years [...] PM EST documented as of this encounter Plan of Treatment Not on file documented as of this encounter Visit Diagnoses Not on filedocumented in this encounter Care Teams Scroll Machine Operator Relationship Specialty Start Date End Date Jann Adams PA-C [address] [place] [address] PCP - General Internal Medicine 05/19/20 Hira Maria MD, PHD [address] [place] [address] Surgeon Neurosurgery 10/26/21 Radha Rios MD [address] [place] [address] Specialist Cardiology 02/09/22 Carolyn Spencer PA-C [address] [place] [address] Neurosurgery 03/14/22 documented as of this encounter
--- OUTSIDE RECORDS SUMMARY | 2024-06-26 15:55 | XMS_ITS | Encounter Summary ---
Author Organization [facility] Address [address] [facility] [place] [address] Care Team Providers Care Hospitality Job Titles Name Role Phone Alvarez Silverio MD Primary Care Provider [phone] Jann Adams PA-C Primary Care Provider [phone] Hira Maria MD, PHD Unavailable Unava ilable Radha Rios MD Unavailable [phone] Carolyn Spencer PA-C Unavailable [phone] Encounter Details Date Type Department Care Team Description 10/14/2019 Pt. Non Urgent Medical Question Adult Medicine [address] [address] Alvarez Silverio MD [address] [place] [address] [phone] Social History Tobacco Use Types Packs/Day Years [...] on filedocumented in this encounter Care Teams Hospitality Job Titles Relationship Specialty Start Date End Date Alvarez Silverio MD [address] [place] [address] PCP - General 03/28/1999 12/21/20 Jann Adams PA-C [address] [place] [address] PCP - General Internal Medicine 05/19/20 Hira Maria MD, PHD [address] [place] [address] Surgeon Neurosurgery 10/26/21 Radha Rios MD [address] [place], [place] [phone] Specialist Cardiology 02/09/22 Carolyn Spencer PA-C [address] [place] [address] Neurosurgery 03/14/22 documented as of this encounter
== END 2024-06-26 15:19 | disposition home or self-care (01) ==
PROVIDERS: PCP Physician Assistant Medical; Referring Provider Physician Assistant Medical; Visit Provider Neurological Surgery
DX: M41.56 Other secondary scoliosis, lumbar region (principal); M47.14 Other spondylosis with myelopathy, thoracic region
CPT/HCPCS: 99204

== ENCOUNTER → 2024-06-26 14:40 | Outpatient (BNV) | payer MEDICARE, OTHER, SELFPAY | PROVIDERS: PCP Physician Assistant Medical; Referring Provider Physician Assistant Medical; Visit Provider Nuclear Medicine | DX: M51.369 Other intervertebral disc degeneration, lumbar region without mention of lumbar back pain or lower extremity pain (principal); M41.56 Other secondary scoliosis, lumbar region | CPT/HCPCS: 72110 ==

== ENCOUNTER → 2024-06-27 14:51 | Outpatient (BNV) | payer MEDICARE, OTHER, SELFPAY | PROVIDERS: PCP Physician Assistant Medical; Visit Provider Radiology Diagnostic Radiology | DX: M47.814 Spondylosis without myelopathy or radiculopathy, thoracic region (principal); M48.04 Spinal stenosis, thoracic region | CPT/HCPCS: 72146 ==

== ENCOUNTER 2024-06-27 14:53 | Outpatient (REF) | payer MEDICARE, OTHER, SELFPAY ==
--- NOTE | ~2024-06-27 | MR_ITS ---
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 Numbness both lower extremities. COMPARISON: None available. TECHNIQUE: MRI of the thoracic spine was obtained using routine sequences without contrast. Exam performed on a 1.5 Katherine Siemens unit. FINDINGS: ALIGNMENT: -Mild levoconvex scoliosis. -Mildly exaggerated thoracic kyphosis. -No significant subluxations identified. VERTEBRAL BODIES AND BONE MARROW: -Hemangioma in the left aspect of T6. -Mild edematous type endplate changes T4-5, T10-11 and T11-T12. -Fatty type endplate changes T4-5, and T9-10. -No abnormal infiltrating bone marrow signal. There are scattered Schmorl's nodes within the endplates. -Mild wedging of T6 ventrally, chronic. -Anterior surgical fusion of C6-7. DISCS: -Moderate diffuse loss of disc height and signal spanning T3-T9, with more significant loss T4-5, T9-10 through T12-L1. PARASPINAL SOFT TISSUES: -No paravertebral or paraspinous soft tissue abnormality. -There are no pleural effusions. -Aorta is nonaneurysmal. -1.7 cm cyst in the medial left kidney. SPINAL CANAL AND CORD: -No masses or expansion. -Focally increased central and left lateral column cord signal at the T10-T11, and T11-T12 interspaces as detailed below with associated mild cord impingement. -Mild dorsal epidural lipomatosis throughout the thoracic levels. SPINAL LEVELS: C7-T1: Central disc protrusion, broad-based, indenting on the ventral thecal sac but not contacting the cord. No significant central canal narrowing. Mild left greater than right foraminal narrowing. T1-T2: Subtle shallow concentric disc bulge without significant mass effect. Degenerative facet changes bilaterally. No central canal narrowing. Moderate left and mild right neural foraminal narrowing. T2-T3: There are bilateral lateral protrusions of disc material extending into both foraminal zones with associated annular fissures. These indent upon the ventral thecal sac but do not contact the cord. Mild flattening of the right ventral cord, despite preserved CSF space ventrally. No significant central canal stenosis. Mild to moderate degenerative facet changes, resulting in moderate left and mild right neural foraminal narrowing. T3-T4: Shallow disc bulging, indenting on the ventral thecal sac but not contacting the cord. There is minimal central canal narrowing. Mild degenerative facet changes bilaterally, with moderate left and mild right neural foraminal narrowing. T4-T5: Severe disc degeneration at this level. There is a shallow diffuse bulging disc with a superimposed left lateral protrusion. This indents upon the ventral thecal sac but does not definitively contact the cord. Mild facet degeneration. Mild central canal narrowing. Mild bilateral neural foraminal narrowing. T5-T6: There is a right paracentral small disc protrusion, indenting on the ventral thecal sac but not contacting the cord. Normal facets. No significant central canal narrowing. Neural foramina are patent. T6-T7: Shallow disc bulge diffusely with a superimposed right paracentral and lateral protrusion of disc material with annular fissuring. This indents upon the ventral thecal sac, minimally flattens the right ventral aspect of the cord. There is preserved CSF space posterior and lateral to the cord. Mild degenerative facet changes present. Findings result in mild central canal narrowing, minimal right lateral recess narrowing, and mild bilateral neural foraminal narrowing. T7-T8: Minimal shallow bulging disc with superimposed left lateral tiny disc protrusion. No significant mass effect upon the thecal sac. Mild facet degeneration bilaterally. Minimal neural foraminal narrowing bilaterally. T8-T9: No focal disc herniation. Meoq-bc-dpivlhdm hypertrophic facet changes with mild posterior ligamentous thickening/infolding. No central canal stenosis. Moderate to severe right and moderate left neural foraminal narrowing. T9-T10: There is a concentric disc osteophytic ridge complex, extending into the left greater than right foraminal zones, and extending left laterally to the vertebral body. There are mild hypertrophic degenerative facet changes with mild posterior ligamentous thickening/infolding. There is mild to moderate central canal narrowing, with minimal flattening of the ventral cord. No cord impingement. There is a suggestion of minimal increased signal within the central cord (series 21, image 45). There is moderate to severe left and moderate right neural foraminal narrowing. T10-T11: There is a prominent diffuse disc bulge, mildly asymmetrically prominent right laterally into the right foramen. Moderate hypertrophic degenerative facet changes with significant left greater than right posterior ligamentous thickening/infolding. Findings result in mild cord impingement and severe central canal stenosis, with increased signal within the central and left aspect of the cord. There is mild cord thinning left laterally. There is severe left and moderate to severe right neural foraminal narrowing. T11-T12: There is an irregular diffuse bulging disc, extending into the right greater than left foraminal zones. There are moderate hypertrophic degenerative facet changes right greater than left, with associated moderate posterior ligamentous thickening/infolding. There is moderate central canal stenosis with contact of the anterior and posterior lateral aspects of the cord with mild cord impingement. There is increased signal within the central and left posterior cord focally (series 21, image 55). There is severe right greater than left neural foraminal stenosis. T12-L1: The conus terminates at the mid L1 level. There is a concentric disc osteophytic bulge extending asymmetrically right lateral and foraminal. There are moderate hypertrophic degenerative facet changes right greater than left, with moderate posterior ligamentous thickening/infolding. Findings result in moderate central canal narrowing, moderate right subarticular recess narrowing, severe right and mild left neural foraminal narrowing. MR/MR thoracic spine wo con IMPRESSION: 1. Relatively advanced spondylosis as described, most significant at T10-11 and T11-12, where there is mild cord impingement and focally increased cord signal at both levels suggesting foci of myelomalacia. 2. Multilevel neural foraminal narrowing, most significant on the left at T9-10, on the left at T10-11, right greater than left at T11-T12, and right at T12-L1. 3. Mild levoconvex scoliosis. Exaggerated kyphosis. 4. Mild chronic ventral wedging of T6. 5. Mild edematous type endplate changes present T4-5, T10-11, and T12-L1. 6. See the body the report for details. Electronically signed by: Miguel Soto MD 06/27/2024 04:54 PM [facility]
== END 2024-06-27 14:54 | disposition home or self-care (01) ==
LOC: HO.MRI 14:53
PROVIDERS: PCP Physician Assistant Medical; Visit Provider Neurological Surgery
DX: M47.14 Other spondylosis with myelopathy, thoracic region (principal)
CPT/HCPCS: 72146

== ENCOUNTER 2024-06-28 13:47 | Outpatient (AMB) | payer MEDICARE, OTHER, SELFPAY ==
--- OUTSIDE RECORDS SUMMARY | 2024-06-28 13:50 | XMS_ITS | Encounter Summary ---
Author Organization [facility] Address [address] [place] [address] Care Team Providers Care Putty Remover Name Role Phone Alvarez Silverio MD Primary Care Provider + [phone] Jann Adams PA-C Primary Care Provider [phone] Hira Maria MD, PHD Unavailable Unava ilable Radha Rios MD Unavailable [phone] Carolyn Spencer PA-C Unavailable [phone] Encounter Details Date Type Department Care Team Description 04/09/2018 [facility] Medical Records [address] [place] [address] Abstract, Provider Social History Tobacco Use Types [...] on filedocumented in this encounter Care Teams Putty Remover Relationship Specialty Start Date End Date Alvarez Silverio MD [address] [place] [address] [phone] PCP - General 03/28/1999 05/18/20 Jann Adams PA-C [address] [place] [address] [phone] PCP - General Internal Medicine 05/19/20 Hira Maria MD, PHD [address] [place] [address] Surgeon Neurosurgery 10/26/21 Radha Rios MD [address] [place] [address] Specialist Cardiology 02/09/22 Carolyn Spencer PA-C [address] [place] [address] Neurosurgery 03/14/22 documented as of this encounter
--- OUTSIDE RECORDS SUMMARY | 2024-06-28 13:50 | XMS_ITS | Encounter Summary ---
Author Organization [facility] Address [address] [place] [address] Care Team Providers Care Translator/Interpreter Name Role Phone Alvarez Silverio MD Primary Care Provider + [phone] Jann Adams PA-C Primary Care Provider [phone] Hira Maria MD, PHD Unavailable Unava ilable Radha Rios MD Unavailable [phone] Carolyn Spencer PA-C Unavailable [phone] Encounter Details Date Type Department Care Team Description 08/03/2017 [facility] Medical Records [address] [place] [address] Abstract, Provider Social History Tobacco Use Types [...] on filedocumented in this encounter Care Teams Translator/Interpreter Relationship Specialty Start Date End Date Alvarez Silverio MD [address] [place] [address] [phone] PCP - General 03/28/1999 05/18/20 Jann Adams PA-C [address] [place] [address] [phone] PCP - General Internal Medicine 05/19/20 Hira Maria MD, PHD [address] [place] [address] Surgeon Neurosurgery 10/26/21 Radha Rios MD [address] [place] [address] Specialist Cardiology 02/09/22 Carolyn Spencer PA-C [address] [place] [address] Neurosurgery 03/14/22 documented as of this encounter
--- OUTSIDE RECORDS SUMMARY | 2024-06-28 13:50 | XMS_ITS | Encounter Summary ---
Author Organization [facility] Address [address] [place] [address] Care Team Providers Care Track Patrol Name Role Phone Alvarez Silverio MD Primary Care Provider + [phone] Jann Adams PA-C Primary Care Provider [phone] Hira Maria MD, PHD Unavailable Unava ilable Radha Rios MD Unavailable [phone] Carolyn Spencer PA-C Unavailable [phone] Encounter Details Date Type Department Care Team Description 02/12/2015 [facility] Medical Records [address] [place] [id number] Social History Tobacco Use Types Packs/Day Years [...] on filedocumented in this encounter Care Teams Track Patrol Relationship Specialty Start Date End Date Alvarez Silverio MD [address] [place] [address] [id number] PCP - General 03/28/1999 05/18/20 Jann Adams PA-C [address] [place] [address] [id number] PCP - General Internal Medicine 05/19/20 Hira Maria MD, PHD [address] [place] [address] Surgeon Neurosurgery 10/26/21 Radha Rios MD [address] [place] [address] Specialist Cardiology 02/09/22 Carolyn Spencer PA-C [address] [place] [address] Neurosurgery 03/14/22 documented as of this encounter
--- OUTSIDE RECORDS SUMMARY | 2024-06-28 13:50 | XMS_ITS | Encounter Summary ---
Author Organization [facility] Address [address] [place] [address] Care Team Providers Care Jack Spinner Name Role Phone Alvarez Silverio MD Primary Care Provider + [phone] Jann Adams PA-C Primary Care Provider +[phone] Hira Maria MD, PHD Unavailable Unava ilable Radha Rios MD Unavailable [phone] Carolyn Spencer PA-C Unavailable [phone] Reason for Visit * Reason Comments E-prescribe Rx Request Encounter Details Date Type Department Care Team Description 10/27/2017 Refill Adult Medicine [address] [phone] Jann Adams PA-C [address] [place] [address] [phone] E-prescribe Rx Request Social History Tobacco Use [...] Patients current insurance carrier is: Payor: [facility] FFS / Plan: [employer]O $25 [place] [id number] / ProductType: HMO [id number] documented in this encounter Plan of Treatment Not on file documented as of this encounter Visit Diagnoses Not on filedocumented in this encounter Care Teams Jack Spinner Relationship Specialty Start Date End Date Alvarez Silverio MD [address] [place] [address]29 PCP - General 03/28/1999 05/18/20 Jann Adams PA-C [address] [place] [address] PCP - General Internal Medicine 05/19/20 Hira Maria MD, PHD [address] [place] [address] Surgeon Neurosurgery 10/26/21 Radha Rios MD [address] [place] [address] Specialist Cardiology 02/09/22 Carolyn Spencer PA-C [address] [place] [address] Neurosurgery 03/14/22 documented as of this encounter
--- OUTSIDE RECORDS SUMMARY | 2024-06-28 13:50 | XMS_ITS | Encounter Summary ---
Author Organization [facility] Address [address] [place] [address] Care Team Providers Care Metaphysics Teacher Name Role Phone Alvarez Silverio MD Primary Care Provider + [phone] Jann Adams PA-C Primary Care Provider +[phone] Hira Maria MD, PHD Unavailable Unava ilable Radha Rios MD Unavailable [phone] Carolyn Spencer PA-C Unavailable [phone] Encounter Details Date Type Department Care Team Description 03/03/2017 [facility] Medical Records [address] [place] [address] Abstract, Provider Social History Tobacco Use Types [...] on filedocumented in this encounter Care Teams Metaphysics Teacher Relationship Specialty Start Date End Date Alvarez Silverio MD [address] [place] [address] [phone] PCP - General 03/28/1999 05/18/20 Jann Adams PA-C [address] [place] [address] [phone] PCP - General Internal Medicine 05/19/20 Hira Maria MD, PHD [address] [place] [address] Surgeon Neurosurgery 10/26/21 Radha Rios MD [address] [place] [address] Specialist Cardiology 02/09/22 Carolyn Spencer PA-C [address] [place] [address] Neurosurgery 03/14/22 documented as of this encounter
--- OUTSIDE RECORDS SUMMARY | 2024-06-28 13:50 | XMS_ITS | Encounter Summary ---
Author Organization [facility] Address [address] [place] [address] Care Team Providers Care General Cleaner Name Role Phone Alvarez Silverio MD Primary Care Provider + [phone] Jann Adams PA-C Primary Care Provider +[phone] Hira Maria MD, PHD Unavailable Unava ilable Radha Rios MD Unavailable [phone] Carolyn Spencer PA-C Unavailable [phone] Encounter Details Date Type Department Care Team Description 03/31/2015 Telescope Repairer Report Medical Records [address] [place], [place] [phone] Armin Moe MD Social History Tobacco Use [...] on filedocumented in this encounter Care Teams General Cleaner Relationship Specialty Start Date End Date Alvarez Silverio MD [address] [place] [address] [phone] PCP - General 03/28/1999 05/18/20 Jann Adams PA-C [address] [place] [address] [phone] PCP - General Internal Medicine 05/19/20 Hira Maria MD, PHD [address] [place] [address] Surgeon Neurosurgery 10/26/21 Radha Rios MD [address] [place] [address] Specialist Cardiology 02/09/22 Carolyn Spencer PA-C [address] [place] [address] Neurosurgery 03/14/22 documented as of this encounter
--- OUTSIDE RECORDS SUMMARY | 2024-06-28 13:50 | XMS_ITS | Encounter Summary ---
Author Organization [facility] Address [address] [place] [address] Care Team Providers Care Computer Graphic Artist Name Role Phone Alvarez Silverio MD Primary Care Provider + [phone] Jann Adams PA-C Primary Care Provider +[phone] Hira Maria MD, PHD Unavailable Unava ilable Radha Rios MD Unavailable [phone] Carolyn Spencer PA-C Unavailable [phone] Encounter Details Date Type Department Care Team Description 10/12/2018 Orders Only Adult Medicine [address] [phone] Juaquin Gooden NP Social History Tobacco Use Types Packs/Day Years [...] on filedocumented in this encounter Care Teams Computer Graphic Artist Relationship Specialty Start Date End Date Alvarez Silverio MD [address] [place] [address] [phone] PCP - General 03/28/1999 05/18/20 Jann Adams PA-C [address] [place] [address] [phone] PCP - General Internal Medicine 05/19/20 Hira Maria MD, PHD [address] [place] [address] Surgeon Neurosurgery 10/26/21 Radha Rios MD [address] [place] [address] Specialist Cardiology 02/09/22 Carolyn Spencer PA-C [address] [place] [address] Neurosurgery 03/14/22 documented as of this encounter
--- OUTSIDE RECORDS SUMMARY | 2024-06-28 13:50 | XMS_ITS | Encounter Summary ---
Author Organization [facility] Address [address] [facility] [place] [address] Care Team Providers Care Peoplesoft Fscm Developer Name Role Phone Alvraez Silverio MD Primary Care Provider + [phone] Jann Adams PA-C Primary Care Provider +[phone] Hira Maria MD, PHD Unavailable Unava ilable Radha Rios MD Unavailable [phone] Carolyn Spencer PA-C Unavailable [phone] Reason for Visit * Reason Comments E-prescribe Rx Request Encounter Details Date Type Department Care Team Description 06/18/2017 Refill Adult Medicine [address] [phone] Alvarez Silverio MD [address] [place] [address] [id number] E-prescribe Rx Request Social History Tobacco Use [...] NO Patients current insurance carrier is: Payor: [facility] FFS / Plan: [employer]O $25 [id number] / ProductType: [employer]wenty Ykh-qqq-Bqmmrgp documented in this encounter Plan of Treatment Not on file documented as of this encounter Visit Diagnoses Not on filedocumented in this encounter Care Teams Peoplesoft Fscm Developer Relationship Specialty Start Date End Date Alvarez Silverio MD [address] [place] [address] PCP - General 03/28/1999 05/18/20 Jann Adams PA-C [address] [place] [address] PCP - General Internal Medicine 05/19/20 Hira Maria MD, PHD [address] [place] [address] Surgeon Neurosurgery 10/26/21 Radha Rios MD [address] [place] [address] Specialist Cardiology 02/09/22 Carolyn Spencer PA-C [address] [place] [address] Neurosurgery 03/14/22 documented as of this encounter
--- OUTSIDE RECORDS SUMMARY | 2024-06-28 13:50 | XMS_ITS | Encounter Summary ---
Author Organization [facility] Address [address] [place] [address] Care Team Providers Care Pillowcase Cutter Name Role Phone Alvarez Silverio MD Primary Care Provider + [phone] Jann Adams PA-C Primary Care Provider +[phone] Hira Maria MD, PHD Unavailable Unava ilable Radha Rios MD Unavailable [phone] Carolyn Spencer PA-C Unavailable [phone] Encounter Details Date Type Department Care Team Description 09/12/2016 Car Repossessor Report Medical Records [address] [place] [address] Jann Rojas MD Social History Tobacco Use [...] on filedocumented in this encounter Care Teams Pillowcase Cutter Relationship Specialty Start Date End Date Alvarez Silverio MD [address] [place] [address] [phone] PCP - General 03/28/1999 05/18/20 Jann Adams PA-C [address] [place] [address] [phone] PCP - General Internal Medicine 05/19/20 Hira Maria MD, PHD [address] [place] [address] Surgeon Neurosurgery 10/26/21 Radha Rios MD 4 [place] [address] Specialist Cardiology 02/09/22 Carolyn Spencer PA-C [address] [place] [address] Neurosurgery 03/14/22 documented as of this encounter
--- OUTSIDE RECORDS SUMMARY | 2024-06-28 13:50 | XMS_ITS | Encounter Summary ---
Author Organization [facility] Address [address] [place] [address] Care Team Providers Care Music Minister Name Role Phone Alvarez Silverio MD Primary Care Provider + [phone] Jann Adams PA-C Primary Care Provider +[phone] Hira Maria MD, PHD Unavailable Unava ilable Radha Rios MD Unavailable [phone] Carolyn Spencer PA-C Unavailable [phone] Reason for Visit * Reason Onset Date Comments Provider Call Back 02/24/2015 injection 02/24/2015 Encounter Details Date Type Department Care Team Description 02/24/2015 Telephone Physiatry - [address] [phone] Vega Mckay DO Provider Call Back; injection [...] is back to work States had a PA on 02/09/15 , stent placement on 02/10/15 [...] filedocumented in this encounter Care Teams Music Minister Relationship Specialty Start Date End Date Alvarez Silverio MD [address] [place] [address] PCP - General 03/28/1999 05/18/20 Jann Adams PA-C [address] [place] [address] PCP - General Internal Medicine 05/19/20 Hira Maria MD, PHD [address] [place] [address] Surgeon Neurosurgery 10/26/21 Radha Rios MD [address] [place] [address] Specialist Cardiology 02/09/22 Carolyn Spencer PA-C [address] [place] [address] Neurosurgery 03/14/22 documented as of this encounter
--- OUTSIDE RECORDS SUMMARY | 2024-06-28 13:51 | XMS_ITS | Encounter Summary ---
Author Organization [facility] Address [address] [place] [address] Care Team Providers Care Banking Assistant Name Role Phone Jann Adams PA-C Primary Care Provider +[phone] Hira Maria MD, PHD Unavailable Unava ilable Radha Rios MD Unavailable [phone] Carolyn Spencer PA-C Unavailable [phone] Reason for Visit * Reason Comments E-prescribe Rx Request Encounter Details Date Type Department Care Team Description 06/30/2020 Refill Adult Medicine [address] [phone] Alvarez Silverio MD [address] [place] [address] [phone] E-prescribe Rx Request Social History Tobacco Use [...] have Coronavirus / COVID-19? No / Unsure 06/01/2020 1:17 PM EST documented as of this encounter Miscellaneous Notes * Telephone Encounter - Martita Monahan - 06/30/2020 1:00 PM EST Lab Results Component Value Date CHOL 93 09/11/2019 LDL 24 09/11/2019 HDL 26 09/11/2019 TRIG 218 09/11/2019 SGOT 41 11/26/2019 SGPT 43 11/26/2019 * Telephone Encounter - Sasha Cheryl - 06/30/2020 12:42 PM EST Patient would like script to be: E-PRESCRIBED/FAXED TO PHARMACY WHEN WAS THE PATIENT'S LAST APPOINTMENT IN ADULT MEDICINE? 05/19/2020 WHEN WAS THE LAST TIME THE PATIENT SAW THEIR PCP? Same as above Does patient have an upcoming appointment? Yes 07/16/2020 (THE MEDICATION REQUESTED IS ON THE MED [...] / Plan[place] / Product Type: MEDICARE [id number] documented in this encounter Plan of Treatment Not on file documented as of this encounter Visit Diagnoses Not on filedocumented in this encounter Care Teams Banking Assistant Relationship Specialty Start Date End Date Jann Adams PA-C [address] [place] [address] PCP - General Internal Medicine 05/19/20 Hira Maria MD, PHD [address] [place] [address] Surgeon Neurosurgery 10/26/21 Radha Rios MD [address] [place] [address] Specialist Cardiology 02/09/22 Carolyn Spencer PA-C [address] [place] [address] Neurosurgery 03/14/22 documented as of this encounter
--- OUTSIDE RECORDS SUMMARY | 2024-06-28 13:51 | XMS_ITS | Encounter Summary ---
Author Organization [facility] Address [address] [facility] [place] [address] Care Team Providers Care Quote Clerk Name Role Phone Jann Adams PA-C Primary Care Provider [phone] Hira Maria MD, PHD Unavailable Unava ilable Radha Rios MD Unavailable [phone] Carolyn Spencer PA-C Unavailable [phone] Reason for Visit * Reason Onset Date Comments Medication 07/26/2022 Encounter Details Date Type Department Care Team Description 07/26/2022 Refill Gastroenterology - [place] [address] [facility] [address] [place] [phone] Guicho Wright MD [address] [place] [address] Medication Social History Tobacco Use Types Packs/Day [...] on filedocumented in this encounter Care Teams Quote Clerk Relationship Specialty Start Date End Date Jann Adams PA-C [address] [place] [address] PCP - General Internal Medicine 05/19/20 Hira Maria MD, PHD [address] [place] [address] Surgeon Neurosurgery 10/26/21 Radha Rios MD [address] [place] [address] Specialist Cardiology 02/09/22 Carolyn Spencer PA-C [address] [place] [address] Neurosurgery 03/14/22 documented as of this encounter
--- OUTSIDE RECORDS SUMMARY | 2024-06-28 13:51 | XMS_ITS | Encounter Summary ---
Author Organization [facility] Address [address] [place] [address] Care Team Providers Care Mold Hoister Name Role Phone Alvarez Silverio MD Primary Care Provider + [phone] Jann Adams PA-C Primary Care Provider +[phone] Hira Maria MD, PHD Unavailable Unava ilable Radha Rios MD Unavailable [phone] Carolyn Spencer PA-C Unavailable [phone] Encounter Details Date Type Department Care Team Description 04/11/2016 Licensed Clinical Social Worker Report Medical Records [address] [place] [address] Social History Tobacco Use Types Packs/Day Years [...] on filedocumented in this encounter Care Teams Mold Hoister Relationship Specialty Start Date End Date Alvarez Silverio MD [address] [place] [address] [phone] PCP - General 03/28/1999 05/18/20 Jann Adams PA-C [address] [place] [address] [phone] PCP - General Internal Medicine 05/19/20 Hira Maria MD, PHD [address] [place] [address] Surgeon Neurosurgery 10/26/21 Radha Rios MD [address] [place] [address] Specialist Cardiology 02/09/22 Carolyn Spencer PA-C [address] [place] [address] Neurosurgery 03/14/22 documented as of this encounter
--- OUTSIDE RECORDS SUMMARY | 2024-06-28 13:51 | XMS_ITS | Encounter Summary ---
Author Organization [facility] Address [address] [facility] [place] [address] Care Team Providers Care Gaming Manager Name Role Phone Jann Adams PA-C Primary Care Provider [phone] Hira Maria MD, PHD Unavailable Unava ilable Radha Rios MD Unavailable Carolyn Spencer PA-C Unavailable [phone] Reason for Visit * Reason Comments E-prescribe Rx Request Encounter Details Date Type Department Care Team Description 09/07/2022 Refill Gastroenterology - [address] [place] [phone] Izaiah Steven PA-C E-prescribe Rx Request [...] on filedocumented in this encounter Care Teams Gaming Manager Relationship Specialty Start Date End Date Jann Adams PA-C [address] [place] [address] PCP - General Internal Medicine 05/19/20 Hira Maria MD, PHD [address] [place] [address] Surgeon Neurosurgery 10/26/21 Radha Rios MD [address] [place] [address] Specialist Cardiology 02/09/22 Carolyn Spencer PA-C [address] [address] Neurosurgery 03/14/22 documented as of this encounter
--- OUTSIDE RECORDS SUMMARY | 2024-06-28 13:51 | XMS_ITS | Encounter Summary ---
Author Organization [facility] Address [address] [place] [address] Care Team Providers Care Rehabilitation Physician Name Role Phone Jann Adams PA-C Primary Care Provider +[phone] Hira Maria MD, PHD Unavailable Unava ilable Radha Rios MD Unavailable [phone] Carolyn Spencer PA-C Unavailable [phone] Encounter Details Date Type Department Care Team Description 03/07/2022 [facility] Neurosurgery [place] [address] [place] [address] Hira Maria MD, PHD Social [...] on filedocumented in this encounter Care Teams Rehabilitation Physician Relationship Specialty Start Date End Date Jann Adams PA-C [address] [place] [address] PCP - General Internal Medicine 05/19/20 Hira Maria MD, PHD [address] [place] [address] Surgeon Neurosurgery 10/26/21 Radha Rios MD [address] [place] [address] Specialist Cardiology 02/09/22 Carolyn Spencer PA-C [address] [place] [address] Neurosurgery 03/14/22 documented as of this encounter
--- OUTSIDE RECORDS SUMMARY | 2024-06-28 13:51 | XMS_ITS | Encounter Summary ---
Author Organization [facility] Address [address] [place] [address] Care Team Providers Care Terrazzo Laborer Name Role Phone Alvarez Silverio MD Primary Care Provider + [phone] Jann Adams PA-C Primary Care Provider +[phone] Hira Maria MD, PHD Unavailable Unava ilable Radha Rios MD Unavailable [phone] Carolyn Spencer PA-C Unavailable [phone] Encounter Details Date Type Department Care Team Description 03/22/2012 Release of Information Medical Records [address] [place] [address] Abstract, Provider Social History Tobacco Use Types [...] on filedocumented in this encounter Care Teams Terrazzo Laborer Relationship Specialty Start Date End Date Alvarez Silverio MD [address] [place] [address] [id number] PCP - General 03/28/1999 05/18/20 Jann Adams PA-C [address] [place] [address] [phone] PCP - General Internal Medicine 05/19/20 Hira Maria MD, PHD [address] [place] [address] Surgeon Neurosurgery 10/26/21 Radha Rios MD [address] [place] [address] Specialist Cardiology 02/09/22 Carolyn Spencer PA-C [address] [place] [address] Neurosurgery 03/14/22 documented as of this encounter
--- OUTSIDE RECORDS SUMMARY | 2024-06-28 13:51 | XMS_ITS | Encounter Summary ---
Author Organization [facility] Address [address] [place] [address] Care Team Providers Care Corn Grinder Name Role Phone Alvarez Silverio MD Primary Care Provider + [phone] Jann Adams PA-C Primary Care Provider +[phone] Hira Maria MD, PHD Unavailable Unava ilable Radha Rios MD Unavailable [phone] Carolyn Spencer PA-C Unavailable [phone] Encounter Details Date Type Department Care Team Description 08/16/2016 Cooky Machine Operator Report Medical Records [address] [place] [address] Jann Rojas MD Social History Tobacco Use [...] on filedocumented in this encounter Care Teams Corn Grinder Relationship Specialty Start Date End Date Alvarez Silverio MD [address] [place] [address] [phone] PCP - General 03/28/1999 05/18/20 Jann Adams PA-C [address] [place] [address] [id number] PCP - General Internal Medicine 05/19/20 Hira Maria MD, PHD [address] [place] [address] Surgeon Neurosurgery 10/26/21 Radha Rios MD [address] [place] [address] Specialist Cardiology 02/09/22 Carolyn Spencer PA-C [address] [place] [address] Neurosurgery 03/14/22 documented as of this encounter
--- OUTSIDE RECORDS SUMMARY | 2024-06-28 13:51 | XMS_ITS | Encounter Summary ---
Author Organization [facility] Address [address] [facility] [place] [address] Care Team Providers Care Dog Handler Or Trainer Name Role Phone Alvarez Silverio MD Primary Care Provider + [phone] Jann Adams PA-C Primary Care Provider +[phone] Hira Maria MD, PHD Unavailable Unava ilable Radha Rios MD Unavailable [phone] Carolyn Spencer PA-C Unavailable [phone] Reason for Visit * Reason Onset Date Comments refill request 01/14/2019 Encounter Details Date Type Department Care Team Description 01/14/2019 Refill Adult Medicine [address] [phone] Alvarez Silverio MD [address] [place] [address] [phone] refill request Social History Tobacco Use Types [...] like script to be: PLACED IN PATIENT SLATE SPLITTING SUPERVISOR TO BE PICKED UP BY WHEN WAS [...] / Plan: [place] / Product Type: MEDICARE [id number] documented in this encounter Plan of Treatment Not on file documented as of this encounter Visit Diagnoses Diagnosis Spinal stenosis of lumbar region with neurogenic claudication Spinal stenosis, lumbar region, with neurogenic claudication Lumbar radiculitis Thoracic or lumbosacral neuritis or radiculitis, unspecified documented in this encounter Care Teams Dog Handler Or Trainer Relationship Specialty Start Date End Date Alvarez Silverio MD [address] [place] [address] PCP - General 03/28/1999 05/18/20 Jann Adams PA-C [address] [place] [address] PCP - General Internal Medicine 05/19/20 Hira Maria MD, PHD [address] [place] [address] Surgeon Neurosurgery 10/26/21 Radha Rios MD [address] [place] [address] Specialist Cardiology 02/09/22 Carolyn Spencer PA-C [address] [place] [address] Neurosurgery 03/14/22 documented as of this encounter
--- OUTSIDE RECORDS SUMMARY | 2024-06-28 13:51 | XMS_ITS | Encounter Summary ---
Author Organization [facility] Address [address] [place] [address] Care Team Providers Care Musical Engineer Name Role Phone Jann Adams PA-C Primary Care Provider +[phone] Hira Maria MD, PHD Unavailable Unava ilable Radha Rios MD Unavailable [phone] Carolyn Spencer PA-C Unavailable [phone] Reason for Visit * Reason Comments E-prescribe Rx Request Encounter Details Date Type Department Care Team Description 09/21/2021 Refill Adult Medicine [address] [phone] Caremla Maguire PA-C [address] [place] [address] [phone] E-prescribe Rx Request Social History Tobacco Use [...] N/A Patients current insurance carrier is: Payor: [employer] / Plan: GUCCI TAI SUP/F/1+/$0 / Product Type: PPO Ory-xoi-Viiokqz documented in this encounter Plan of Treatment Not on file documented as of this encounter Visit Diagnoses Not on filedocumented in this encounter Care Teams Musical Engineer Relationship Specialty Start Date End Date Jann Adams PA-C [address] [place] [address] PCP - General Internal Medicine 05/19/20 Hira Maria MD, PHD [address] [place] [address] Surgeon Neurosurgery 10/26/21 Radha Rios MD [address] [place] [address] Specialist Cardiology 02/09/22 Carolyn Spencer PA-C [address] [place] [address] Neurosurgery 03/14/22 documented as of this encounter
--- OUTSIDE RECORDS SUMMARY | 2024-06-28 13:51 | XMS_ITS | Encounter Summary ---
Author Organization [facility] Address [address] [place] [address] Care Team Providers Care Oil Expeller Operator Name Role Phone Alvarez Silverio MD Primary Care Provider + [phone] Jann Adams PA-C Primary Care Provider +[phone] Hira Maria MD, PHD Unavailable Unava ilable Radha Rios MD Unavailable [phone] Carolyn Spencer PA-C Unavailable [phone] Encounter Details Date Type Department Care Team Description 11/09/2018 Business Doc Medical Records [address] [place] [address] Abstract, Provider Social History Tobacco Use Types [...] on filedocumented in this encounter Care Teams Oil Expeller Operator Relationship Specialty Start Date End Date Alvarez Silverio MD [address] [place] [address] [phone] PCP - General 03/28/1999 05/18/20 Jann Adams PA-C [address] [place] [address] [phone] PCP - General Internal Medicine 05/19/20 Hira Maria MD, PHD [address] [place] [address] Surgeon Neurosurgery 10/26/21 Radha Rios MD [address] [place] [address] Specialist Cardiology 02/09/22 Carolyn Spencer PA-C [address] [place] [address] Neurosurgery 03/14/22 documented as of this encounter
--- OUTSIDE RECORDS SUMMARY | 2024-06-28 13:51 | XMS_ITS | Encounter Summary ---
Author Organization [facility] Address [address] [facility] [place] [address] Care Team Providers Care Short Order Fry Cook Name Role Phone Jann Adams PA-C Primary Care Provider [phone] Hira Maria MD, PHD Unavailable Unava ilable Radha Rios MD Unavailable [phone] Carolyn Spencer PA-C Unavailable [phone] Reason for Visit * Reason Comments E-prescribe Rx Request Encounter Details Date Type Department Care Team Description 01/11/2023 Refill Gastroenterology - [address] [place] [phone] Izaiah Steven PA-C E-prescribe Rx Request [...] on filedocumented in this encounter Care Teams Short Order Fry Cook Relationship Specialty Start Date End Date Jann Adams PA-C [address] [place] [address] PCP - General Internal Medicine 05/19/20 Hira Maria MD, PHD [address] [place] [address] Surgeon Neurosurgery 10/26/21 Radha Rios MD 4 [place] [address] Specialist Cardiology 02/09/22 Carolyn Spencer PA-C [address] [place] [address] Neurosurgery 03/14/22 documented as of this encounter
--- OUTSIDE RECORDS SUMMARY | 2024-06-28 13:51 | XMS_ITS | Encounter Summary ---
Author Organization [facility] Address [address] [place] [address] Care Team Providers Care Core Oven Tender Name Role Phone Alvarez Silverio MD Primary Care Provider + [phone] Jann Adams PA-C Primary Care Provider [phone] Hira Maria MD, PHD Unavailable Unava ilable Radha Rios MD Unavailable [phone] Carolyn Spencer PA-C Unavailable [phone] Encounter Details Date Type Department Care Team Description 07/10/2013 Release of Information Medical Records [address] [place] [address] Abstract, Provider Social History Tobacco Use Types [...] on filedocumented in this encounter Care Teams Core Oven Tender Relationship Specialty Start Date End Date Alvarez Silverio MD [address] [place] [address] [id number] PCP - General 03/28/1999 05/18/20 Jann Adams PA-C [address] [place] [address] [id number] PCP - General Internal Medicine 05/19/20 Hira Maria MD, PHD [address] [place] [address] Surgeon Neurosurgery 10/26/21 Radha Rios MD 4 [place] [address] Specialist Cardiology 02/09/22 Carolyn Spencer PA-C [address] [place] [address] Neurosurgery 03/14/22 documented as of this encounter
--- OUTSIDE RECORDS SUMMARY | 2024-06-28 13:51 | XMS_ITS | Encounter Summary ---
Author Organization [facility] Address [address] [place] [address] Care Team Providers Care Animal Trainer Name Role Phone Jann Adams PA-C Primary Care Provider [phone] Hira Maria MD, PHD Unavailable Unava Radha Mejias MD Unavailable [phone] Carolyn Spencer PA-C Unavailable [phone] Encounter Details Date Type Department Care Team Description 11/16/2022 [facility] Medical Records [address] [place] [address] Abstract, Provider Social History Tobacco Use Types [...] filedocumented in this encounter Care Teams Animal Trainer Relationship Specialty Start Date End Date Jann Adams PA-C 4 [place], [place] [phone] PCP - General Internal Medicine 05/19/20 Hira Maria MD, PHD [address] [place] [address] Surgeon Neurosurgery 10/26/21 Radha Rios MD 4 [place] [address] Specialist Cardiology 02/09/22 Carolyn Spencer PA-C [address] [place] [address] Neurosurgery 03/14/22 documented as of this encounter
--- OUTSIDE RECORDS SUMMARY | 2024-06-28 13:51 | XMS_ITS | Encounter Summary ---
Author Organization [facility] Address [address] [place] [address] Care Team Providers Care Sintering Plant Supervisor Name Role Phone Jann Adams PA-C Primary Care Provider [phone] Hira Maria MD, PHD Unavailable Unava ilable Radha Rios MD Unavailable [phone] Carolyn Spencer PA-C Unavailable [phone] Encounter Details Date Type Department Care Team Description 02/20/2023 Orders Only Medical Records [address] [place] [address] Abstract, Provider Social History Tobacco Use Types [...] Name Priority Date/Time Associated Diagnosis Comments OUTSIDE ULTRASOUND Routine 02/09/2023 documented in this encounter Results * OUTSIDE ULTRASOUND (02/09/2023) Provider Abstract RADIOLOGY documented in this encounter Visit Diagnoses Not on filedocumented in this encounter Care Teams Sintering Plant Supervisor Relationship Specialty Start Date End Date Jann Adams PA-C [address] [place] [address] PCP - General Internal Medicine 05/19/20 Hira Maria MD, PHD [address] [place] [address] Surgeon Neurosurgery 10/26/21 Radha Rios MD 4 [place] [address] Specialist Cardiology 02/09/22 Carolyn Spencer PA-C [address] [address] Neurosurgery 03/14/22 documented as of this encounter
--- OUTSIDE RECORDS SUMMARY | 2024-06-28 13:51 | XMS_ITS | Encounter Summary ---
Author Organization [facility] Address [address] [facility] [place] [address] Care Team Providers Care Substance Abuse Nurse Name Role Phone Alvarez Silverio MD Primary Care Provider [phone] Jann Adams PA-C Primary Care Provider [phone] Hira Maria MD, PHD Unavailable Unava ilable Radha Rios MD Unavailable [phone] Carolyn Spencer PA-C Unavailable [phone] Encounter Details Date Type Department Care Team Description 10/14/2019 Pt. Non Urgent Medical Question Adult Medicine [address] [address] Alvarez Silverio MD [address] [place] [address] [phone] Social History Tobacco Use Types Packs/Day Years [...] on filedocumented in this encounter Care Teams Substance Abuse Nurse Relationship Specialty Start Date End Date Alvarez Silverio MD [address] [place] [address] PCP - General 03/28/1999 12/21/20 Jann Adams PA-C [address] [place] [address] PCP - General Internal Medicine 05/19/20 Hira Maria MD, PHD 4 [place] [address] Surgeon Neurosurgery 10/26/21 Radha Rios MD 4 [place], [place] [phone] Specialist Cardiology 02/09/22 Carolyn Spencer PA-C [address] [place] [address] Neurosurgery 03/14/22 documented as of this encounter
--- OUTSIDE RECORDS SUMMARY | 2024-06-28 13:51 | XMS_ITS | Clinical Summary ---
Author Organization [address] [place] [address] [place] [phone] Phone Care Team Providers Care Senior Administrative Associate Name Role Phone Jann Adams Primary Care Provider [phone] Allergies No known active allergies Medications Medication [...] could not get a follow-up appointment with [facility] urology until this which is [...] or questions. Coronary artery disease invo lving [place] coronary artery of [place] heart without angina pectoris 06/15/2016 Overview (05/10/2024): - Status post non-ST elevation [place] in January 2015 with cardiac cath at [...] (NITROSTAT) SL tablet 0.4 mg Non-ST elevation [place] (NSTEMI) 02/26/2015 Hx of non-ST elevation myocardial [...] PM EST Hospital Encounter Radiology Department - [address] [phone] Spinal stenosis of lumbar region with neurogenic claudication; Lumbar radiculitis; Aortic dilatation (CMS/HCC); Chronic gastric ulcer without hemorrhage and without perforation; Coronary artery disease involving [place] coronary artery of [place] heart without angina pectoris; Other depression; Essential hypertension, benign; Gastroesophageal reflux disease without esophagitis; Hx of non-ST elevation myocardial infarction (NSTEMI); Iron deficiency anemia due to chronic blood loss; Mixed hyperlipidemia; Parkinsonian tremor (CMS/HCC); Sleep apnea, unspecified type Discharge Disposition: Home or Self Care 05/24/2024 8:30 AM EST Office Visit Adult Medicine [address] [phone] Jann Adams, PA Spinal stenosis of lumbar region with neurogenic claudication (Primary Dx); Lumbar radiculitis; Aortic dilatation (CMS/HCC); Chronic gastric ulcer without hemorrhage and without perforation; Coronary artery disease involving [place] coronary artery of [place] heart without angina pectoris; Other depression; Essential hypertension, benign; Gastroesophageal reflux disease without esophagitis; Hx of non-ST elevation myocardial infarction (NSTEMI); Iron deficiency anemia due to chronic blood loss; Mixed hyperlipidemia; Parkinsonian tremor (CMS/HCC); Sleep apnea, unspecified type 05/10/2024 8:50 AM EST Office Visit [facility] - [address] [place] [address] Radha Allen MD Coronary artery disease involving [place] coronary artery of [place] heart without angina pectoris (Primary Dx); Essential [...] knee arthroscopic surgery 2006 ESOPHAGOGASTRODUODENOSCOPY 10/13/2008 PROCEDURE: [place] ESOPHAGOGASTRODUODENOSCOPY TRANSORAL DIAGNOSTIC; COMMENT: mild gastritis, H. [...] 1:15 PM EDT Office Visit Adult Medicine [address] [phone] Carmela Maguire PA [address] [place] [address] 11/25/2024 8:00 AM EDT Office Visit Adult Medicine [address] [phone] Jann Adams PA [address] [place] [address] 03/31/2025 9:00 AM EST Ancillary Procedure [facility] - [facility] [address] [place] [address] Health Maintenance Due Date Last [...] and without perforation Coronary artery disease involving [place] coronary artery of [place] heart without angina pectoris Other depression Essential hypertension, benign Gastroesophageal reflux disease without esophagitis Hx of non-ST elevation myocardial infarction (NSTEMI) Iron deficiency anemia due to chronic blood loss Mixed hyperlipidemia Parkinsonian tremor (CMS/HCC) Sleep apnea, unspecified type ECG 12-LEAD Routine 05/10/2024 8:54 AM EST Coronary artery disease involving [place] coronary artery of [place] heart without angina pectoris FALLS RISK ASSESSMENT [...] multilevel possible nerve root compression. POS - [id number] -------- FINAL REPORT -------- Dictated By: Mana Ortez Dictated Date: 05/31/2024 08:57 ET Assigned Physician: Mana Ortez Reviewed and Electronically Signed By: Mana Ortez Signed Date: 06/01/2024 10:50 ET Workstation ID: [id number] Transcribed By: Self Edit Transcribed Date: 05/31/2024 [...] and multilevel possiblenerve root compression. POS - [id number] -------- FINAL REPORT -------- Dictated By: Mana Ortez Dictated Date: 05/31/2024 08:57 ET Assigned Physician: Mana Ortez Reviewed and Electronically Signed By: Mana Ortez Signed Date: 06/01/2024 10:50 ET Workstation ID: [id number] Transcribed By: Self Edit Transcribed Date: 05/31/2024 11:17 ET Jann LUX IMG MRI PROCEDURE S * ECG 12 lead (05/10/2024 8:54 AM EST) Ventricular Rate ECG 50 BPM GEMUSE Atrial Rate 50 BPM GEMUSE P-R Interval 176 ms GEMUSE QRS Duration 112 ms GEMUSE Q-T Interval 468 ms GEMUSE QTc 426 ms GEMUSE P Wave [place] 33 degrees GEMUSE R [place] 6 degrees GEMUSE T [place] 10 degrees GEMUSE ECG Interpretation Baseline wander Sinus bradycardia Inferior infarct , age undetermined Abnormal ECG When compared with ECG of 04-MAR-2022 09:26, Inferior infarct pattern is seen Confirmed by RADHA ALLEN ([id number]) on 05/10/2024 2:41:30 PM GEMUSE 05/10/2024 8:54 AM EST 05/10/2024 2:41 PM EST Radha Allen MD ECG ORDERABLES [facility] Falls Risk Assessment (02/20/2024) [facility] Falls Risk Assessment Abstracted Historical Provider [facility] Annual BMP Blood Test (02/15/2024) [facility] Annual BMP Blood Test Abstracted [facility] Provider [facility] * Depression Screening (11/20/2023) [facility] Depression Screening Abstracted [facility] Provider [facility] * (ABNORMAL) Lipid panel (07/31/2023) [facility] LDL/HDL Ratio 3 0 - 4 Triglycerides 140 0 - 150 mg/dL Cholesterol 110 0 - 200 mg/dL HDL 32(A) 40 mg/dL LDL Cholesterol 50 0 - 100 mg/dL Blood Venous blood specimen / Unknown Historical Provider LAB BLOOD ORDERAB LES * Colonoscopy (07/28/2022) [facility] Colonoscopy No interpreta tion,abstr acted Anatomical Region Laterality Modality Other [facility] Provider [facility] * Hepatitis C Screening (04/28/2017) [facility] Hepatitis C Screening Abstracted [facility] Provider [facility] from Last 3 Months or Most Recently Relevant to Health Maintenance Care Teams Senior Administrative Associate Relationship Specialty Start Date End Date Jann Adams PA [address] [facility] [place] [address] PCP - General Internal Medicine 05/19/20
--- OUTSIDE RECORDS SUMMARY | 2024-06-28 13:51 | XMS_ITS | Encounter Summary ---
Author Organization [facility] Address [address] [place] [address] Care Team Providers Care Mfts Name Role Phone Jann Adams PA-C Primary Care Provider [phone] Hira Maria MD, PHD Unavailable Unava ilable Radha Rios MD Unavailable [phone] Carolyn Spencer PA-C Unavailable [phone] Encounter Details Date Type Department Care Team Description 03/04/2022 Hospital Medical Records [address] [place] [address] Hira Maria MD, PHD Social History Tobacco [...] on filedocumented in this encounter Care Teams Mfts Relationship Specialty Start Date End Date Jann Adams PA-C [address] [place], [place] [phone] PCP - General Internal Medicine 05/19/20 Hira Maria MD, PHD 4 [place] [address] Surgeon Neurosurgery 10/26/21 Radha Rios MD [address] [place] [address] Specialist Cardiology 02/09/22 Carolyn Spencer PA-C [address] [place] [address] Neurosurgery 03/14/22 documented as of this encounter
--- OUTSIDE RECORDS SUMMARY | 2024-06-28 13:51 | XMS_ITS | Encounter Summary ---
Author Organization [facility] Address [address] [place] [address] Care Team Providers Care Forensic Toxicologist Name Role Phone Alvarez Silverio MD Primary Care Provider [phone] Jann Adams PA-C Primary Care Provider [phone] Hira Maria MD, PHD Unavailable Unava ilable Radha Rios MD Unavailable [phone] Carolyn Spencer PA-C Unavailable [phone] Reason for Visit * Reason Comments E-prescribe Rx Request Encounter Details Date Type Department Care Team Description 08/12/2016 Refill Adult Medicine [address] [phone] Jann Adams PA-C [address] [place] [address] [phone] E-prescribe Rx Request Social History Tobacco Use [...] current insurance carrier is: Payor: [facility]/[employer] FFS / Plan: [employer] $25 StyleQ [id number] / ProductType: [employer] [id number] documented in this encounter Plan of Treatment Not on file documented as of this encounter Visit Diagnoses Not on filedocumented in this encounter Care Teams Forensic Toxicologist Relationship Specialty Start Date End Date Alvarez Silverio MD [address] [place] [address] PCP - General 03/28/1999 05/18/20 Jann Adams PA-C [address] [place] [address] PCP - General Internal Medicine 05/19/20 Hira Maria MD, PHD 4 [place] [address] Surgeon Neurosurgery 10/26/21 Radha Rios MD [address] [place] [address] Specialist Cardiology 02/09/22 Carolyn Spencer PA-C [address] [place] [address] Neurosurgery 03/14/22 documented as of this encounter
--- OUTSIDE RECORDS SUMMARY | 2024-06-28 13:51 | XMS_ITS | Encounter Summary ---
Author Organization [facility] Address [address] [facility] [place] [address] Care Team Providers Care Music Cataloguer Name Role Phone Jann Adams PA-C Primary Care Provider [phone] Hira Maria MD, PHD Unavailable Unava ilable Radha Rios MD Unavailable Carolyn Spencer PA-C Unavailable [phone] Encounter Details Date Type Department Care Team Description 12/19/2023 [facility] Medical Records [address] [place] [address] Abstract, Provider Social History Tobacco Use Types [...] filedocumented in this encounter Care Teams Music Cataloguer Relationship Specialty Start Date End Date Jann Adams PA-C [address] [place] [phone] PCP - General Internal Medicine 05/19/20 Hira Maria MD, PHD [address] [place] [phone] Surgeon Neurosurgery 10/26/21 Radha Rios MD 4 [place] [address] Specialist Cardiology 02/09/22 Carolyn Spencer PA-C [address] [place] [address] Neurosurgery 03/14/22 documented as of this encounter
--- OUTSIDE RECORDS SUMMARY | 2024-06-28 13:51 | XMS_ITS | Encounter Summary ---
Author Organization [facility] Address [address] [place] [address] Care Team Providers Care Tool And Production Planner Name Role Phone Jann Adams PA-C Primary Care Provider [phone] Hiar Maria MD, PHD Unavailable Unava ilable Radha Rios MD Unavailable [phone] Carolyn Spencer PA-C Unavailable [phone] Encounter Details Date Type Department Care Team Description 11/19/2020 Telephone Adult Medicine [address] [phone] Jann Adams PA-C [address] [place] [address] [phone] Social History Tobacco Use Types Packs/Day Years [...] on filedocumented in this encounter Care Teams Tool And Production Planner Relationship Specialty Start Date End Date Jann Adams PA-C [address] [place] [address] PCP - General Internal Medicine 05/19/20 Hira Maria MD, PHD [address] [place] [address] Surgeon Neurosurgery 10/26/21 Radha Rios MD [address] [place] [address] Specialist Cardiology 02/09/22 Carolyn Spencer PA-C [address] [place] [address] Neurosurgery 03/14/22 documented as of this encounter
--- OUTSIDE RECORDS SUMMARY | 2024-06-28 13:51 | XMS_ITS | Encounter Summary ---
Author Organization [facility] Address [address] [place] [address] Care Team Providers Care Retail Sales Consultant Name Role Phone Jann Adams PA-C Primary Care Provider [phone] Hira Maria MD, PHD Unavailable Unava ilable Radha Rios MD Unavailable [phone] Carolyn Spencer PA-C Unavailable [phone] Reason for Visit * Reason Comments E-prescribe Rx Request Encounter Details Date Type Department Care Team Description 02/01/2021 Refill Adult Medicine [address] [phone] Carmela Maguire PA-C [address] [place] [address] [phone] E-prescribe Rx Request Social History Tobacco Use [...] like script to be: PLACED IN PATIENT PUBLIC RELATIONS OFFICER TO BE PICKED UP ?? WHEN WAS THE PATIENT'S LAST APPOINTMENT IN ADULT MEDICINE? [id number] ?? WHEN WAS THE LAST TIME THE PATIENT SAW THEIR PCP? Same as above ?? Does patient have an upcoming appointment? Yes [id number] ?? (THE MEDICATION REQUESTED IS ON THE [...] / Plan: [place] / Product Type: MEDICARE [id number] ?? documented in this encounter Plan of Treatment Not on file documented as of this encounter Visit Diagnoses Not on filedocumented in this encounter Care Teams Retail Sales Consultant Relationship Specialty Start Date End Date Jann Adams PA-C [address] [place] [address] PCP - General Internal Medicine 05/19/20 Hira Maria MD, PHD [address] [place] [address] Surgeon Neurosurgery 10/26/21 Radha Rios MD 4 [place] [address] Specialist Cardiology 02/09/22 Carolyn Spencer PA-C [address] [place] [address] Neurosurgery 03/14/22 documented as of this encounter
--- OUTSIDE RECORDS SUMMARY | 2024-06-28 13:51 | XMS_ITS | Encounter Summary ---
Author Organization [facility] Address [address] [place] [address] Care Team Providers Care Receptionist Scheduler Name Role Phone Alvaerz Silverio MD Primary Care Provider + [phone] Jann Adams PA-C Primary Care Provider [phone] Hira Maria MD, PHD Unavailable Unava ilable Radha Rios MD Unavailable [phone] Carolyn Spencer PA-C Unavailable [phone] Encounter Details Date Type Department Care Team Description 03/11/2020 Lobby Porter Report Medical Records [address] [place] [address] Petros Cordero MD Social History Tobacco Use [...] on filedocumented in this encounter Care Teams Receptionist Scheduler Relationship Specialty Start Date End Date Alvarez Silverio MD [address] [place] [address] PCP - General 03/28/1999 05/18/20 Jann Adams PA-C [address] [place] [address] PCP - General Internal Medicine 05/19/20 Hira Maria MD, PHD [address] [place] [address] Surgeon Neurosurgery 10/26/21 Radha Rios MD [address] [place], [place] [phone] Specialist Cardiology 02/09/22 Carolyn Spencer PA-C [address] [place] [address] Neurosurgery 03/14/22 documented as of this encounter
--- OUTSIDE RECORDS SUMMARY | 2024-06-28 13:51 | XMS_ITS | Encounter Summary ---
Author Organization [facility] Address [address] [place] [address] Care Team Providers Care Plant Safety Leader Name Role Phone Jann Adams PA-C Primary Care Provider [phone] Hira Maria MD, PHD Unavailable Unava ilable Radha Rios MD Unavailable [phone] Carolyn Spencer PA-C Unavailable [phone] Encounter Details Date Type Department Care Team Description 07/28/2022 Hospital Medical Records [address] [place] [address] Guicho Wright MD [address] [facility] [address] [place] [address] Social History Tobacco Use Types Packs/Day Years [...] on filedocumented in this encounter Care Teams Plant Safety Leader Relationship Specialty Start Date End Date Jann Adams PA-C [address] [place], [place] [phone] PCP - General Internal Medicine 05/19/20 Hira Maria MD, PHD [address] [place] [address] Surgeon Neurosurgery 10/26/21 Radha Rios MD [address] [place] [address] Specialist Cardiology 02/09/22 Carolyn Spencer PA-C [address] [place] [address] Neurosurgery 03/14/22 documented as of this encounter
--- OUTSIDE RECORDS SUMMARY | 2024-06-28 13:51 | XMS_ITS | Encounter Summary ---
Author Organization [facility] Address [address] [place] [address] Care Team Providers Care Head Of Advertising Name Role Phone Jann Adams PA-C Primary Care Provider [phone] Hira Maria MD, PHD Unavailable Unava ilable Radha Rios MD Unavailable [phone] Carolyn Spencer PA-C Unavailable [phone] Reason for Visit * Reason Onset Date Comments Prior Authorization 05/15/2023 CT scan ches t Encounter Details Date Type Department Care Team Description 05/15/2023 Telephone Adult Medicine [address] [phone] Jann Adams PA-C [address] [place] [address] [phone] Prior Authorization (CT scan chest) Social History [...] required Order faxed to CCC dept at [facility]. They will contact patient and schedule appt. Notification lettersent documented in this encounter Plan of Treatment Not on file documented as of this encounter Visit Diagnoses Not on filedocumented in this encounter Care Teams Head Of Advertising Relationship Specialty Start Date End Date Jann Adams PA-C [address] [place] [address] PCP - General Internal Medicine 05/19/20 Hira Maria MD, PHD 4 [place] [address] Surgeon Neurosurgery 10/26/21 Radha Rios MD [address] [place] [address] Specialist Cardiology 02/09/22 Carolyn Spencer PA-C [address] [place] [address] Neurosurgery 03/14/22 documented as of this encounter
--- OUTSIDE RECORDS SUMMARY | 2024-06-28 13:51 | XMS_ITS | Encounter Summary ---
Author Organization [facility] Address [address] [place] [address] Care Team Providers Care [employer] Special Ed Teacher Name Role Phone Alvarez Silverio MD Primary Care Provider + [phone] Jann Adams PA-C Primary Care Provider [phone] Hira Maria MD, PHD Unavailable Unava ilable Radha Rios MD Unavailable [phone] Carolyn Spencer PA-C Unavailable [phone] Encounter Details Date Type Department Care Team Description 04/18/2016 Criminal Records Technician Report Medical Records [address] [place] [address] Fide Childs PA-C Social History Tobacco Use [...] on filedocumented in this encounter Care Teams [employer] Special Ed Teacher Relationship Specialty Start Date End Date Alvarez Silverio MD [address] [place] [address] [phone] PCP - General 03/28/1999 05/18/20 Jann Adams PA-C [address] [place] [address] [phone] PCP - General Internal Medicine 05/19/20 Hira Maria MD, PHD [address] [place] [address] Surgeon Neurosurgery 10/26/21 Radha Rios MD [address] [place] [address] Specialist Cardiology 02/09/22 Carolyn Spencer PA-C [address] [place] [address] Neurosurgery 03/14/22 documented as of this encounter
--- OUTSIDE RECORDS SUMMARY | 2024-06-28 13:51 | XMS_ITS | Encounter Summary ---
Author Organization [facility] Address [address] [place] [address] Care Team Providers Care Fur Farmer Name Role Phone Jann Adams Primary Care Provider [phone] Reason for Referral * Imaging (Routine) - Closed Specialty Diagnoses / Procedures Referred By Chloe sykes Referred To Contact Radiology Diagnoses Spinal stenosis of lumbar region with neurogenic claudication Lumbar radiculitis Aortic dilatation (CMS/HCC) Chronic gastric ulcer without hemorrhage and without perforation Coronary artery disease involving inupiat coronary artery of inupiat heart without angina pectoris Other depression Essential hypertension, benign Gastroesophageal reflux disease without esophagitis Hx of non-ST elevation myocardial infarction (NSTEMI) Iron deficiency anemia due to chronic blood loss Mixed hyperlipidemia Parkinsonian tremor (CMS/HCC) Sleep apnea, unspecified type Procedures MR Lumbar Spine wo and w Contrast Jann Adams PA [address] [place] [address] [facility] [address] [place] [phone] Referral ID Status Reason Start Date Expiration Date Visits Re quested Visits Authorized [id number] Closed 05/24/2024 05/24/2025 1 1 Reason for Visit * Imaging (Routine) - Closed Specialty Diagnoses / Procedures Referred By Chloe sykes Referred To Contact Radiology Diagnoses Spinal stenosis of lumbar region with neurogenic claudication Lumbar radiculitis Aortic dilatation (CMS/HCC) Chronic gastric ulcer without hemorrhage and without perforation Coronary artery disease involving inupiat coronary artery of inupiat heart without angina pectoris Other depression Essential hypertension, benign Gastroesophageal reflux disease without esophagitis Hx of non-ST elevation myocardial infarction (NSTEMI) Iron deficiency anemia due to chronic blood loss Mixed hyperlipidemia Parkinsonian tremor (CMS/HCC) Sleep apnea, unspecified type Procedures MR Lumbar Spine wo and w Contrast Jann Adams PA [address] [place], [place] [facility] [address] [place], [place] Referral ID Status Reason Start Date Expiration Date Visits Re quested Visits Authorized [id number] Closed 05/24/2024 05/24/2025 1 1 Encounter Details Date Type Department Care Team (Latest Contact Info) Description 05/30/2024 12:01 PM EST - 05/30/2024 11:59 PM EST Hospital Encounter Radiology Department - [address] [phone] Spinal stenosis of lumbar region with neurogenic claudication; Lumbar radiculitis; Aortic dilatation (CMS/HCC); Chronic gastric ulcer without hemorrhage and without perforation; Coronary artery disease involving inupiat coronary artery of inupiat heart without angina pectoris; Other depression; Essential [...] 1:15 PM EDT Office Visit Adult Medicine [address] [phone] Carmela Maguire PA [address] [place], [place] 11/25/2024 8:00 AM EDT Office Visit [facility] Medicine [address] [phone] Jann Adams PA [address] [place], [place] 03/31/2025 9:00 AM EST Ancillary Procedure [facility] [address] [place] [address] documented as of this encounter Procedures Procedure Name Priority Date/Time Associated Diagnosis Comments MR LUMBAR SPINE WO AND W CONTRAST Routine 05/30/2024 12:52 PM EST Spinal stenosis of lumbar region with neurogenic claudication Lumbar radiculitis Aortic dilatation (CMS/HCC) Chronic gastric ulcer without hemorrhage and without perforation Coronary artery disease involving inupiat coronary artery of inupiat heart without angina pectoris Other depression Essential [...] multilevel possible nerve root compression. POS - [id number] -------- FINAL REPORT -------- Dictated By: Mana Ortez Dictated Date: 05/31/2024 08:57 ET Assigned Physician: Mana Ortez Reviewed and Electronically Signed By: Mana Ortez Signed Date: 06/01/2024 10:50 ET Workstation ID: [id number] Transcribed By: Self Edit Transcribed Date: 05/31/2024 [...] and multilevel possiblenerve root compression. POS - [id number] -------- FINAL REPORT -------- Dictated By: Mana Ortez Dictated Date: 05/31/2024 08:57 ET Assigned Physician: Mana Ortez Reviewed and Electronically Signed By: Mana Ortez Signed Date: 06/01/2024 10:50 ET Workstation ID: [id number] Transcribed By: Self Edit Transcribed Date: 05/31/2024 11:17 ET Jann LUX IMG MRI PROCEDURE S documented in this encounter Visit Diagnoses Diagnosis Spinal stenosis of lumbar region with neurogenic claudication Lumbar radiculitis Aortic dilatation (CMS/HCC) Chronic gastric ulcer without hemorrhage and without perforation Coronary artery disease involving inupiat coronary artery of inupiat heart without angina pectoris Other depression Essential [...] 05/30/2024 documented in this encounter Care Teams Fur Farmer Relationship Specialty Start Date End Date Jann Adams PA [address] [place] [id number] PCP - General Internal Medicine 05/19/20 documented as of this encounter
--- OUTSIDE RECORDS SUMMARY | 2024-06-28 13:51 | XMS_ITS | Encounter Summary ---
Author Organization [facility] Address [address] [facility] [address] Care Team Providers Care Orthopedic Technician Name Role Phone Jann Adams PA-C Primary Care Provider [phone] Hira Maria MD, PHD Unavailable Unava ilable Radha Rios MD Unavailable [phone] Carolyn Spencer PA-C Unavailable [phone] Encounter Details Date Type Department Care Team Description 03/24/2023 Counter Hand Report Medical Records [address] [place] [address] Abstract, Provider Social History Tobacco Use Types [...] on filedocumented in this encounter Care Teams Orthopedic Technician Relationship Specialty Start Date End Date Jann Adams PA-C [address] [place] [address] PCP - General Internal Medicine 05/19/20 Hira Maria MD, PHD [address] [place] [address] Surgeon Neurosurgery 10/26/21 Radha Rios MD [address] [place] [address] Specialist Cardiology 02/09/22 Carolyn Spencer PA-C [address] [place] [address] Neurosurgery 03/14/22 documented as of this encounter
--- OUTSIDE RECORDS SUMMARY | 2024-06-28 13:51 | XMS_ITS | Encounter Summary ---
Author Organization [facility] Address [address] [facility] [place] [address] Care Team Providers Care Manager Ed Name Role Phone Jann Adams PA-C Primary Care Provider [phone] Hira Maria MD, PHD Unavailable Unava ilable Radha Rios MD Unavailable [phone] Carolyn Spencer PA-C Unavailable [phone] Encounter Details Date Type Department Care Team Description 01/15/2021 [facility] Medical Records [address] [place] [address] Abstract, Provider Social History Tobacco Use Types [...] on filedocumented in this encounter Care Teams Manager Ed Relationship Specialty Start Date End Date Jann Adams PA-C [address] [place] [address] PCP - General Internal Medicine 05/19/20 Hira Maria MD, PHD [address] [place] [address] Surgeon Neurosurgery 10/26/21 Radha Rios MD [address] [place] [phone] Specialist Cardiology 02/09/22 Carolyn Spencer PA-C [address] [place] [address] Neurosurgery 03/14/22 documented as of this encounter
--- OUTSIDE RECORDS SUMMARY | 2024-06-28 13:51 | XMS_ITS | Encounter Summary ---
Author Organization [facility] Address [address] [facility] [place] [address] Care Team Providers Care Surg Nurse Name Role Phone Jann Adams PA-C Primary Care Provider [phone] Hira Maria MD, PHD Unavailable Unava ilable Radha Rios MD Unavailable [phone] Carolyn Spencer PA-C Unavailable [phone] Encounter Details Date Type Department Care Team Description 01/15/2021 [facility] Medical Records [address] [place] [address] Abstract, Provider Social History Tobacco Use Types [...] on filedocumented in this encounter Care Teams Surg Nurse Relationship Specialty Start Date End Date Jann Adams PA-C [address] [place] [address] PCP - General Internal Medicine 05/19/20 Hira Maria MD, PHD [address] [place] [address] Surgeon Neurosurgery 10/26/21 Radha Rios MD [address] [place] [id number] Specialist Cardiology 02/09/22 Carolyn Spencer PA-C [address] [place] [address] Neurosurgery 03/14/22 documented as of this encounter
--- OUTSIDE RECORDS SUMMARY | 2024-06-28 13:51 | XMS_ITS | Encounter Summary ---
Author Organization [facility] Address [address] [facility] [place] [address] Care Team Providers Care Wood Heel Cementer Name Role Phone Jann Adams PA-C Primary Care Provider [phone] Hira Maria MD, PHD Unavailable Unava ilable Radha Rios MD Unavailable [phone] Carolyn Spencer PA-C Unavailable Reason for Visit * Reason Comments E-prescribe Rx Request Encounter Details Date Type Department Care Team Description 10/05/2022 Refill Gastroenterology - [address] [place] [phone] Izaiah Steven PA-C E-prescribe Rx Request [...] on filedocumented in this encounter Care Teams Wood Heel Cementer Relationship Specialty Start Date End Date Jann Adams PA-C [address] [place] [address] PCP - General Internal Medicine 05/19/20 Hira Maria MD, PHD [address] [place] [address] Surgeon Neurosurgery 10/26/21 Radha Rios MD [address] [place] [address] Specialist Cardiology 02/09/22 Carolyn Spencer PA-C [address] [address] Neurosurgery 03/14/22 documented as of this encounter
--- OUTSIDE RECORDS SUMMARY | 2024-06-28 13:51 | XMS_ITS | Encounter Summary ---
Author Organization [facility] Address [address] [place] [address] Care Team Providers Care Nursing Care Partner Name Role Phone Jann Adams PA-C Primary Care Provider [phone] Hira Maria MD, PHD Unavailable Unava ilable Radha Rios MD Unavailable [phone] Carolyn Spencer PA-C Unavailable [phone] Encounter Details Date Type Department Care Team Description 04/14/2022 [facility] Medical Records [address] [place] [address] Abstract, Provider Social History Tobacco Use Types [...] on filedocumented in this encounter Care Teams Nursing Care Partner Relationship Specialty Start Date End Date Jann Adams PA-C [address] [place] [address] PCP - General Internal Medicine 05/19/20 Hira Maria MD, PHD [address] [place] [address] Surgeon Neurosurgery 10/26/21 Radha Rios MD [address] [place] [address] [phone] Specialist Cardiology 02/09/22 Carolyn Spencer PA-C [address] [place] [address] Neurosurgery 03/14/22 documented as of this encounter
--- OUTSIDE RECORDS SUMMARY | 2024-06-28 13:51 | XMS_ITS | Encounter Summary ---
Author Organization [facility] Address [address] [place] [address] Care Team Providers Care Novelty Maker Name Role Phone Alvarez Silverio MD Primary Care Provider + [phone] Jann Adams PA-C Primary Care Provider [phone] Hira Maria MD, PHD Unavailable Unava ilable Radha Rios MD Unavailable [phone] Carolyn Spencer PA-C Unavailable [phone] Encounter Details Date Type Department Care Team Description 04/29/2016 Roofing Superintendent Report Medical Records [address] [place] [address] Marlys Ruelas Social History Tobacco Use Types [...] filedocumented in this encounter Care Teams Novelty Maker Relationship Specialty Start Date End Date Alvarez Silverio MD [address] [place] [address] [phone] PCP - General 03/28/1999 05/18/20 Jann Adams PA-C [address] [place] [address] [phone] PCP - General Internal Medicine 05/19/20 Hira Maria MD, PHD [address] [place] [address] Surgeon Neurosurgery 10/26/21 Radha Rios MD [address] [place] [address] Specialist Cardiology 02/09/22 Carolyn Spencer PA-C [address] [place] [address] Neurosurgery 03/14/22 documented as of this encounter
--- OUTSIDE RECORDS SUMMARY | 2024-06-28 13:51 | XMS_ITS | Encounter Summary ---
Author Organization [facility] Address [address] [place] [address] Care Team Providers Care Assistant Cross Country Coach Name Role Phone Alvarez Silverio MD Primary Care Provider + [phone] Jann Adams PA-C Primary Care Provider [phone] Hira Maria MD, PHD Unavailable Unava ilable Radha Rios MD Unavailable [phone] Carolyn Spencer PA-C Unavailable [phone] Encounter Details Date Type Department Care Team Description 04/05/2016 Public Relations Associate Report Medical Records [address] [place], [place] [id number] Armin Moe MD Social History Tobacco Use [...] filedocumented in this encounter Care Teams Assistant Cross Country Coach Relationship Specialty Start Date End Date Alvarez Silverio MD [address] [place] [address] [phone] PCP - General 03/28/1999 05/18/20 Jann Adams PA-C [address] [place] [address] [phone] PCP - General Internal Medicine 05/19/20 Hira Maria MD, PHD [address] [place] [address] Surgeon Neurosurgery 10/26/21 Radha Rios MD [address] [place] [address] Specialist Cardiology 02/09/22 Carolyn Spencer PA-C [address] [place] [address] Neurosurgery 03/14/22 documented as of this encounter
--- OUTSIDE RECORDS SUMMARY | 2024-06-28 13:51 | XMS_ITS | Encounter Summary ---
Author Organization [facility] Address [address] [facility] [place] [address] Care Team Providers Care Clinical Quality Assurance Specialist Name Role Phone Jann Adams PA-C Primary Care Provider [phone] Hira Maria MD, PHD Unavailable Unava ilable Radha Rios MD Unavailable [phone] Carolyn Spencer PA-C Unavailable Encounter Details Date Type Department Care Team Description 05/18/2023 [facility] Medical Records [address] [place] [address] Abstract, Provider Social History Tobacco Use Types [...] filedocumented in this encounter Care Teams Clinical Quality Assurance Specialist Relationship Specialty Start Date End Date Jann Adams PA-C [address] [place] [phone] PCP - General Internal Medicine 05/19/20 Hira Maria MD, PHD [address] [place] [phone] Surgeon Neurosurgery 10/26/21 Radha Rios MD 4 [place] [address] Specialist Cardiology 02/09/22 Carolyn Spencer PA-C [address] [place] [address] Neurosurgery 03/14/22 documented as of this encounter
--- OUTSIDE RECORDS SUMMARY | 2024-06-28 13:51 | XMS_ITS | Encounter Summary ---
Author Organization [facility] Address [address] [place] [address] Care Team Providers Care Commercial Food Instructor Name Role Phone Jann Adams PA-C Primary Care Provider [phone] Hira Maria MD, PHD Unavailable Unava ilable Radha Rios MD Unavailable [phone] Carolyn Spencer PA-C Unavailable [phone] Encounter Details Date Type Department Care Team Description 05/27/2020 Pt. Non Urgent Medic al Question Dermatology [address] [place] [address] Capo Cortez PA-C Social History Tobacco Use Types Packs/Day [...] have Coronavirus / COVID-19? No / Unsure 05/19/2020 8:28 AM EST documented as of this encounter Miscellaneous Notes * Telephone Encounter - Tosha Robison C.M.A. - 05/28/2020 8:47 AM ESTFrom: Thierry Edgar To: Capo Cortez PA-C Sent: 05/27/2020 6:36 PM EST Subject: dark spot on right inner thigh I noticed a dark spot on my right inner thigh that was not there before and worried that it might be cancerous. I would like to make an appointment to come in to see Dr. Cortez as soon as possible. Please call me on my cell at [phone] to set up an appointment documented in this encounter Plan of Treatment Not on file documented as of this encounter Visit Diagnoses Not on filedocumented in this encounter Care Teams Commercial Food Instructor Relationship Specialty Start Date End Date Jann Adams PA-C [address] [place] [address] PCP - General Internal Medicine 05/19/20 Hira Maria MD, PHD [address] [place] [address] Surgeon Neurosurgery 10/26/21 Radha Rios MD [address] [place] [address] Specialist Cardiology 02/09/22 Carolyn Spencer PA-C [address] [place] [address] Neurosurgery 03/14/22 documented as of this encounter
--- OUTSIDE RECORDS SUMMARY | 2024-06-28 13:51 | XMS_ITS | Clinical Summary ---
Author Organization [facility] Address [address] [facility] [place] [address] Care Team Providers Care Tower Air Traffic Control Specialist Name Role Phone Jann Adams PA-C Primary Care Provider [phone] Hira Maria MD, PHD Unavailable Unava Radha Mejias MD Unavailable [phone] Carolyn Spencer PA-C Unavailable [phone] Allergies No known active allergies Medications Medication Sig Dispensed Refills Start Date End Date Status ONE DAILY MENS OR TABS 1 tab qd 0 Active aspirin 81 MG tablet Take 81 mg by mouth daily. 0 Active Coenzyme Q10 (CO Q 10) 100 MG Cap Take by mouth daily. 0 Active Biotin 10 MG Tab Take by mouth daily. 0 Active Ascorbic Acid (VITAMIN C) 500 MG Cap Take 1 Cap by mouth daily. 0 Active Cholecalciferol (VITAMIN D) 25 MCG (1000 UT) Tab Take 1 Tab by mouth daily. 0 Active Zinc 100 MG Tab Take by mouth. 0 Activ e Calcium 200 MG Tab Take by mouth. 0 Ac tive CPAP Historical (HISTORICAL CPAP) Inhale into the lungs. 0 Active carbidopa-levodopa (SINEMET) 25-100 MG per tablet TAKE 1 TABLET BY MOUTH IN THE MORNING, AND 1 TABLET AT NOON 0 10/13/2022 Active tamsulosin (FLOMAX) 0.4 MG 24 hr capsule START 1 CAPSULE DAILY FOR 7 DAYS THAN INCREASE TO TWICE DAILY IF NO DIZZINESS 0 04/21/2023 Active gabapentin (NEURONTIN) 600 MG tablet TAKE 1 TABLET BY MOUTH THREE TIMES A DAY 270 Tablet 1 10/19/2023 Active atenolol (TENORMIN) 50 MG tablet TAKE 1 AND 1/2 TABLETS DAILY BY MOUTH 135 Tablet 1 11/07/2023 Active losartan (COZAAR) 50 MG tablet Take 1 Tablet by mouth daily. 90 Tablet 3 11/20/2023 Active atorvastatin (LIPITOR) 80 MG tablet TAKE 1 TABLET BY MOUTH EVERY DAY 90 Tablet 1 12/20/2023 Active hydrocodone-acetami nophen (NORCO) 5-325 MG per tabletIndications:S trevor stenosis of lumbar region with neurogenic claudication,Lumbar radiculitis Take 1 Tablet by mouth every 12 hours as needed for Pain. 56 Tablet 0 03/14/2024 Active omeprazole (PRILOSEC) 20 MG capsule TAKE 1 CAPSULE BY MOUTH 2 TIMES DAILY (BEFORE MEALS). 180 Capsule 4 03/27/2024 Active Active Problems Problem Noted Date Lung nodule 07/31/2023 Hx of peptic ulcer 01/06/2023 Parkinsonian tremor 09/06/2022 Iron deficiency anemia due to chronic bl ood loss 08/16/2022 Chronic gastric ulcer without hemorrhage and without perforation 08/16/2022 Gastritis 08/16/2022 Pancolonic diverticulosis 08/16/2022 Aortic dilatation 02/09/2022 Last Assessment & Plan: The patient recently underwent a CT that was ordered by Dr. Rios to measure his ascending aneurysm. It returned at 3.8 cm. Also he underwent an echocardiogram earlier in the year in July where it was measured at 3.9 cm the transverse was mildly dilated at 3.4. Of note I reviewed that he had incidental nodules noted and it was recommended that he undergo a repeat CT in 3 to 6 months to ensure stability. He shares with me that he has never been a smoker. I reviewed the findings with him in detail. We will forward the request for CT to be followed for these nodules by his primary care provider. Lumbar spinal stenosis 09/23/2016 Last Assessment & Plan: Patient is 8 [...] could not get a follow-up appointment with [facility] urology until this which is [...] will call with any concerns or questions. Lumbar radiculitis 09/23/2016 Coronary artery disease invo lving [place] coronary artery of [place] heart without angina pectoris 06/15/2016 Overview: Drug-eluting stent to right coronary artery normal echocardiogram 2014 Last Assessment & Plan: The patient is experiencing no anginal symptoms at his heaviest level of activity golfing at least 4 days a week even walking on inclines and when going to the gym. He was recently in [place] and he was walking about 5 miles per day. He had no anginal symptoms. There was a point at which 1 day when he believes he was actually on day 2 of the UTI that he discovered he had where he noted his Fitbit showed an elevated heart rate and with that he felt breathless. He states the highest it went was 108. When he sat and rested he felt better and after a couple of hours his heart rate improved and he has never had recurrent symptoms. We discussed that I cannot be certain that this was not an anginal event. I suggested we update his stress test. He does not wish to do so. I have told him that I assume this is cardiac until proven otherwise. He will continue to monitor he states that if he has 1 more episode he will contact me and we can arrange for stress testing. It is quite possible that he had some sinus tachycardia in the setting of UTI dehydration and walking in warm weather. Nonetheless since then he has walked on the golf course exercised regularly and had absolutely no anginal symptoms. We reviewed that he has anatomy that could have progressed and be causing angina. Non-ST elevation [place] (NSTEMI) 02/26/2015 Hx of non-ST elevation myocardial infarc tion (NSTEMI) 02/15/2015 Overview: Jan 2015 pci MEMO To RCA Normal echo Renal cyst 05/10/2013 Depression 08/06/2012 GERD (gastroesophageal reflux disease) 0 07/28/2011 Actinic keratosis 11/28/2010 Overview: Actinic keratosis 11/06 left forearm (hypertrophic) Diverticulosis of colon (without mention of hemorrhage) 06/07/2006 Overview: Incidental finding at colonoscopy 06/07/2006. Special screening for malignant neoplasm s, colon 06/07/2006 Overview: Negative colonoscopy 06/07/2006, no colon cancer screening needed for 10 years. Unspecified sleep apnea 04/24/2006 Overview: IMO update Mixed hyperlipidemia 06/03/2005 Last Assessment & Plan: He is on maximum statin therapy. No unusual myalgia. Most recent LDL was 38 recommend lifestyle modifications, healthful diet and exercise. ARTHRITIS 05/28/2005 Overview: Status post right and left total knee replacements Essential hypertension, benign 5 Immunizations Name Administration Dates Next Due COVID-19 (Pfizer) 03/20/2021,08/22/2020,08/02/19 21 COVID-19 (Pfizer) Pt Reported 03/19/2021 Covid-19 Bivalent (Pfizer) 05/18/2022 Influenza Flu (PT Reported) 02/24/2021 Influenza Vaccine-preservati ve Free-quadrivalent 4 Years 02/02/2018 Influenza Vaccine-quadrivale nt 4 Years Plus 04/28/2017 Influenza vaccine high dose age 65 and over 02/20/2024,04/28/2023,04/15/2022,03/22,05/09/2019 Pneumoccoccal(Adult) Polysac charide PPSV23 11/07/2018 Pneumococcal Conjugate PCV-13 02/18/2020 Shingrix (Recombinant zoster vaccine) 06/12/2021 ,03/13/2021 TD (STATE SUPPLIED FOR ADULT S AND CHILDREN) 02/20/2024 TETANUS/DIPTHERIA (ADULT) 12/08/2003 Tdap 01/31/2014 Zostavax 08/15/2014 Family History Medical History Relation Name Comments Autoimmune Negative Hx CA Breast Negative Hx CA Colon Negative Hx CA Prostate Negative Hx CAD Negative Hx CHF Negative Hx Cholesterol Level Negative Hx Diabetes Negative Hx Hypertension Negative Hx AZ Negative Hx Mental Disorder Negative Hx Sleep Apnea Negative Hx Thyroid Disorder Negative Hx Relation Name Status Comments Brother Alive [...] file Not on file Not on file Last Filed Vital Signs Vital Sign Reading Time Taken Comments Blood Pressure 128/74 02/20/2024 3:30 PM EDT Pulse 56 02/20/2024 3:30 PM EDT Temperature 36.7 ??C (98 ??F) 02/20/2024 3:30 PM EDT Respiratory Rate 16 02/20/2024 3:30 PM EDT Oxygen Saturation 98% 02/13/2023 10:34 AM EDT Inhaled Oxygen Concentration - - Weight 95.3 kg (210 lb 3.2 oz) 02/20/2024 3:30 P M EDT Height 180.3 cm (5' 11 ) 02/20/2024 3:30 PM EDT Body Mass Index 29.32 02/20/2024 3:30 PM EDT Plan of Treatment Health Maintenance Due Date Last Done Comments Covid-19 Vaccine (2022-06 4 season) 2024 05/18/2022, 05/18/2022, 03/20/2021, Additional history exists BMI CHECK/ADVISE 05/29/2024 02/20/2024, , 07/31/2023, Additional history exists DEPRESSION SCREEN 11/19/2024 11/20/2023, , 02/08/2021 FALL RISK ASSESSMENT 02/19/2025 02/20/2024, 02/20/2024, 09/06/2022, Additional history exists CHOLESTEROL SCREENING 07/30/2028 07/31/2023 , 07/04/2022, 09/01/2021, Additional history exists COLON CANCER SCREENING 07/28/2032 , 12/14/2016, 06/07/2006 DTAP/TDAP/TD (3 - Td or Tdap) 02/19/2034 02/20/2024, 01/31/2014 HEPATITIS C SCREENING Completed 04/28/2017 PNEUMOCOCCAL VACCINE Completed 02/18/2020, 11/08/19 SHINGLES VACCINE Discontinued 06/12/2021, , 08/15/2014 INFLUENZA Completed 02/20/2024, 05/2022, 04/15/2022, Additional history exists Care Teams Tower Air Traffic Control Specialist Relationship Specialty Start Date End Date Jann Adams PA-C [address] [place] [address] PCP - General Internal Medicine 05/19/20 Hira Maria MD, PHD [address] [place] [address] Surgeon Neurosurgery 10/26/21 Radha Rios MD [address] [place] [address] Specialist Cardiology 02/09/22 Carolyn Spencer PA-C [address] [place] [address] Neurosurgery 03/14/22
--- OUTSIDE RECORDS SUMMARY | 2024-06-28 13:51 | XMS_ITS | Encounter Summary ---
Author Organization [facility] Address [address] [place] [address] Care Team Providers Care Tug Master Name Role Phone Jann Adams PA-C Primary Care Provider [phone] Hira Maria MD, PHD Unavailable Unava ilable Radha Rios MD Unavailable [phone] Carolyn Spencer PA-C Unavailable [phone] Encounter Details Date Type Department Care Team Description 02/09/2022 SCAN [facility] Neurosurgery [place] [address] [place] [address] Hira Maria MD, PHD Social [...] on filedocumented in this encounter Care Teams Tug Master Relationship Specialty Start Date End Date Jann Adams PA-C [address] [place] [address] PCP - General Internal Medicine 05/19/20 Hira Maria MD, PHD [address] [place] [address] Surgeon Neurosurgery 10/26/21 Radha Rios MD [address] [place] [address] Specialist Cardiology 02/09/22 Carolyn Spencer PA-C [address] [place] [address] Neurosurgery 03/14/22 documented as of this encounter
--- OUTSIDE RECORDS SUMMARY | 2024-06-28 13:51 | XMS_ITS | Encounter Summary ---
Author Organization [facility] Address [address] [place] [address] Care Team Providers Care Oxygen Plant Operator Name Role Phone Alvarez Silverio MD Primary Care Provider [phone] Jann Adams PA-C Primary Care Provider [phone] Hira Maria MD, PHD Unavailable Unava ilable Radha Rios MD Unavailable [phone] Carolyn Spencer PA-C Unavailable [phone] Reason for Visit * Reason Onset Date Comments Abnormal Ekg-cardiology Overread 12/02/2019 PVCA EKG Overread Encounter Details Date Type Department Care Team Description 12/02/2019 Telephone Radiology - [place] [address] [place], [place] [phone] Jann Adams PA-C [address] [place], [place] [phone] Abnormal Ekg-cardiology Overread (PVCA EKG Overread) Social [...] on filedocumented in this encounter Care Teams Oxygen Plant Operator Relationship Specialty Start Date End Date Alvarez Silverio MD [address] [place] [address] PCP - General 03/28/1999 05/18/20 Jann Adams PA-C [address] [place] [address] PCP - General Internal Medicine 05/19/20 Hira Maria MD, PHD [address] [place] [address] Surgeon Neurosurgery 10/26/21 Radha Rios MD [address] [place] [address] Specialist Cardiology 02/09/22 Carolyn Spencer PA-C [address] [place] [address] Neurosurgery 03/14/22 documented as of this encounter
--- OUTSIDE RECORDS SUMMARY | 2024-06-28 13:51 | XMS_ITS | Encounter Summary ---
Author Organization [facility] Address [address] [facility] [place] [facility] [place] [address] Care Team Providers Care Ultrasound Manager Name Role Phone Jann Adams PA-C Primary Care Provider [phone] Hira Maria MD, PHD Unavailable Unava ilable Radha Rios MD Unavailable [phone] Carolyn Spencer PA-C Unavailable [phone] Encounter Details Date Type Department Care Team Description 11/05/2021 Release of Information Medical Records [address] [place] [address] Abstract, Provider Social History Tobacco Use Types [...] on filedocumented in this encounter Care Teams Ultrasound Manager Relationship Specialty Start Date End Date Jann Adams PA-C [address] [place] [address] PCP - General Internal Medicine 05/19/20 Hira Maria MD, PHD [address] [place] [phone] Surgeon Neurosurgery 10/26/21 Radha Rios MD [address] [place] [address] Specialist Cardiology 02/09/22 Carolyn Spencer PA-C [address] [place] [address] Neurosurgery 03/14/22 documented as of this encounter
--- OUTSIDE RECORDS SUMMARY | 2024-06-28 13:51 | XMS_ITS | Encounter Summary ---
Author Organization [facility] Address [address] [place] [address] Care Team Providers Care Brick Maker Name Role Phone Jann Adams PA-C Primary Care Provider [phone] Hira Maria MD, PHD Unavailable Unava ilable Radha Rios MD Unavailable [phone] Carolyn Spencer PA-C Unavailable [phone] Encounter Details Date Type Department Care Team Description 02/13/2024 Pt. Non Urgent Medical Question Adult Medicine [address] [address] Jann Adams PA-C [address] [place] [address] Social History Tobacco Use Types Packs/Day Years [...] on filedocumented in this encounter Care Teams Brick Maker Relationship Specialty Start Date End Date Jann Adams PA-C [address] [place] [address] PCP - General Internal Medicine 05/19/20 Hira Maria MD, PHD [address] [place] [address] Surgeon Neurosurgery 10/26/21 Radha Rios MD [address] [place] [address] Specialist Cardiology 02/09/22 Carolyn Spencer PA-C [address] [place] [address] Neurosurgery 03/14/22 documented as of this encounter
--- OUTSIDE RECORDS SUMMARY | 2024-06-28 13:51 | XMS_ITS | Encounter Summary ---
Author Organization [facility] Address [address] [place] [address] Care Team Providers Care Surveillance Inspector Name Role Phone Jann Adams PA-C Primary Care Provider [phone] Hira Maria MD, PHD Unavailable Unava ilable Radha Rios MD Unavailable [phone] Carolyn Spencer PA-C Unavailable [phone] Encounter Details Date Type Department Care Team Description 02/08/2021 Telephone Adult Medicine [address] [phone] Jann Adams PA-C [address] [place] [phone] Social History Tobacco Use Types Packs/Day Years [...] on filedocumented in this encounter Care Teams Surveillance Inspector Relationship Specialty Start Date End Date Jann Adams PA-C [address] [place] [address] PCP - General Internal Medicine 05/19/20 Hira Maria MD, PHD [address] [place] [address] Surgeon Neurosurgery 10/26/21 Radha Rios MD [address] [place] [address] Specialist Cardiology 02/09/22 Carolyn Spencer PA-C [address] [place] [address] Neurosurgery 03/14/22 documented as of this encounter
--- OUTSIDE RECORDS SUMMARY | 2024-06-28 13:51 | XMS_ITS | Encounter Summary ---
Author Organization [facility] Address [address] [place] [address] Care Team Providers Care Bulk Fluids Handler Name Role Phone Jann Adams PA-C Primary Care Provider [phone] Hira Maria MD, PHD Unavailable Unava Radha Mejias MD Unavailable [phone] Carolyn Spencer PA-C Unavailable [phone] Encounter Details Date Type Department Care Team Description 12/17/2021 Controlled Substance Plan Medical Records [address] [place] [address] Abstract, Provider Social History Tobacco Use Types [...] on filedocumented in this encounter Care Teams Bulk Fluids Handler Relationship Specialty Start Date End Date Jann Adams PA-C [address] [place], [place] [phone] PCP - General Internal Medicine 05/19/20 Hira Maria MD, PHD [address] [place] [address] Surgeon Neurosurgery 10/26/21 Radha Rios MD [address] [place] [address] Specialist Cardiology 02/09/22 Carolyn Spencer PA-C [address] [place] [address] Neurosurgery 03/14/22 documented as of this encounter
--- OUTSIDE RECORDS SUMMARY | 2024-06-28 13:51 | XMS_ITS | Encounter Summary ---
Author Organization [facility] Address [address] [place] [address] Care Team Providers Care Driver Name Role Phone Jann Adams PA-C Primary Care Provider [phone] Hria Maria MD, PHD Unavailable Unava ilable Radha Rios MD Unavailable [phone] Carolyn Spencer PA-C Unavailable [phone] Reason for Visit * Reason Comments E-prescribe Rx Request Encounter Details Date Type Department Care Team Description 03/29/2022 Refill Adult Medicine [address] [phone] Annika Burks PA-C [address] [place] [phone] E-prescribe Rx Request Social History Tobacco Use [...] / Plan: [place] / Product Type: MEDICARE [id number] ? documented in this encounter Plan of Treatment Not on file documented as of this encounter Visit Diagnoses Not on filedocumented in this encounter Care Teams Driver Relationship Specialty Start Date End Date Jann Adams PA-C [address] [place] [address] PCP - General Internal Medicine 05/19/20 Hira Maria MD, PHD [address] [place] [address] Surgeon Neurosurgery 10/26/21 Radha Rios MD [address] [place] [address] Specialist Cardiology 02/09/22 Carolyn Spencer PA-C [address] [place] [address] Neurosurgery 03/14/22 documented as of this encounter
--- NOTE | 2024-06-28 14:43 | A.SPINEOV_ITS ---
Intake Visit Reasons: MRI f/u Intake Note: Mr. Edgar is here today to F/u on the results to his MRI. Neonatal Intensive Care Nurse Required: No Allergies No Known Allergies Allergy (Verified 06/28/24 14:44) Assessment & Plan Assessment & Plan (1) Thoracic spondylosis with myelopathy: Code(s): M47.14 - Other spondylosis with myelopathy, thoracic region Category: Medical Plan Dear colleague, On 06/28/2024, I saw Thierry Edgar for follow-up after obtaining an MRI of the thoracic spine. The MRI of the thoracic spine showed spinal cord compression at T 10 11 and T11-12 with myelomalacia. We had an extensive discussion. I recommended to address the thoracic compression 1st to see how this impacts the bilateral leg numbness. In the 2nd stage an L4-5 fusion and L2-3 decompression can be considered for the back pain and neurogenic claudication symptoms. However, the thoracic spinal cord compression is more an urgent matter then the rest. They fully understood my explanation. He is tentatively scheduled for 07/10/2024. We will obtain the cardiology records as [facility]. He has no active cardiac issues. I spent 20 minutes in his consult reviewing imaging and discussing plan of care. Hira Maria MD, PhD Spine Fellowship Trained Neurosurgeon Director, [facility] Coding Level of Care Code Est Pt Level 3 (24593) Diagnoses Thoracic spondylosis with myelopathy M47.14
== END 2024-06-28 15:25 | disposition home or self-care (01) ==
PROVIDERS: PCP Physician Assistant Medical; Visit Provider Neurological Surgery
DX: M47.14 Other spondylosis with myelopathy, thoracic region (principal)
CPT/HCPCS: 99213

== ENCOUNTER → 2024-06-28 13:47 | Outpatient (BNVA) | payer MEDICARE, OTHER, SELFPAY | PROVIDERS: PCP Physician Assistant Medical; Visit Provider Neurological Surgery | DX: M47.14 Other spondylosis with myelopathy, thoracic region (principal) | CPT/HCPCS: 99212 ==

== ENCOUNTER 2024-07-10 07:03 | Day surgery (SDC) | payer MEDICARE, OTHER, SELFPAY ==
--- NOTE | 2024-07-09 10:53 | P.CONAN_ITS ---
Documented by User: Kimi Hwang NP 07/09/24 13:44 HPI - Anesthesia Eval Consult details Narrative: 68yo M for T10-T11,T11-12 Thoracic Decompression No recent illness No CP/SOB with crossfit 2 x weekly. Stable angina with pushing 150lb sled but resolves with rest and has no recurred with less weight (cardiology aware) Follows [facility] for: CAD s/p CO and stent 2014 Aortic dilatation 3.9cm Stable at 04/2024 office visit MOISÉS: doesn't use CPAP GERD: controlled with PPI (had bleeding ulcer 2023, resolved) Chronic opioids Post op urinary retention, on flomax PMFSH Active Problems Active Problems: All Active Problems Thoracic spondylosis with myelopathy (Acute) Scoliosis of lumbar region due to degenerative disease of spine in adult (Acute) Screening PSA (prostate specific antigen) (Acute) Hx of orchitis (Acute) Kidney stone on left side (Acute) BPH with obstruction/lower urinary tract symptoms (Acute) Incomplete bladder emptying (Acute) Orchitis (Acute) Past Medical History Medical History (Updated 07/09/24 @ 12:26 by Christel Suarez RN) Back pain Bleeding gastric ulcer Numbness On anticoagulant therapy HTN (hypertension) Osteoarthrosis Mixed hyperlipidemia Sleep apnea Diverticulitis of colon without hemorrhage Actinic keratosis GERD (gastroesophageal reflux disease) Depression Renal cyst Myocardial infarction CAD (coronary artery disease) Lumbar spinal stenosis Lumbar radiculitis Aortic dilatation Pancolonic diverticulosis Anemia Chronic gastric ulcer without hemorrhage and without perforation Parkinsonian tremor Lung nodule Back pain with history of spinal surgery Family History Family History Father Bladder cancer Mother Urologic disorders Brother Kidney stone Family history of problems with anesthesia: No Surgical History Surgical History History of back surgery Hx of laminectomy Hx of fusion of cervical spine History of bilateral knee replacement Hx of arthroscopy of right knee History of esophagogastroduodenoscopy (EGD) H/O colonoscopy Hx of heart artery stent History of Problems with Anesthesia: Yes (Postop Urinary retention) Social History Social History Are you a primary director of critical care to a significant other at home: No Do you presently have visiting nurse or other home services: No Alcohol intake: current Alcohol intake frequency: holidays/special occasions only Patient Tobacco Use Status: Never used Tobacco Use of substances other than those prescribed or required for medical reasons: No Have you been hit, kicked, punched, or otherwise hurt by someone within the past year? If so, by whom?: No Are you DNR?: No Advance Directives: No Advance Directives Information Provided: Yes Advance Directives on File: No Recently lost weight without trying: No Eating poorly because of decreased appetite: No Nutrition Risks: No Nutritional Risk Poor oral hygiene: No Meds Allergies Allergy/AdvReac Type Severity Reaction Status Date / Time No Known Allergies Allergy Verified 07/10/24 07:33 Home Medications ?Medication ?Instructions ?Recorded ?Confirmed ?Last Taken ?Type aspirin 81 mg tablet,delayed 81 mg PO DAILY 02/15/23 07/10/24 07/10/24 History release carbidopa 25 mg-levodopa 100 mg 1 tab PO BID 02/15/23 07/10/24 07/10/24 History tablet hydrocodone 5 mg-acetaminophen 325 0.5 tab PO BID PRN Pain 02/15/23 07/10/24 Unknown History mg tablet losartan 25 mg tablet 50 mg PO BEDTIME 02/15/23 07/10/24 07/09/24 History omeprazole 20 mg capsule,delayed 20 mg PO BID 02/15/23 07/10/24 07/10/24 History release atenolol 50 mg tablet 75 mg PO DAILY 06/22/23 07/10/24 07/10/24 History atorvastatin 80 mg tablet 80 mg PO BEDTIME 06/22/23 07/10/24 Unknown History gabapentin 600 mg tablet 600 mg PO TID PRN Pain 06/22/23 07/10/24 07/09/24 History nitroglycerin 0.4 mg sublingual 0.4 mg sublingual DAILY PRN Chest 07/09/24 07/10/24 Unknown History tablet Pain Exam Narrative Narrative: EKG 04/2024 Baseline wander SB @ 50 Inferior infarct (old) ECHO 08/2023 1. Mild, conc LVH with nml cavity size and overall nml sys function. Suggestion of hypokinesis of apical septal wall. EF 60-65% Nml RV size and sys function2. 3. No hemodynamically signif valve disease. 4. Nml PASP 5. Mild LAE 6. Upper nml to mildly dilated asc aorta @ 3.9 Airway Mallampati Class: II TM Dist: >3cm Neck ROM: Full (hx Cspine with plate fusion 1999) Loose/Missing/Broken Teeth: Yes (missing molars) Heart: RRR Lungs: CTAB Assessment and Plan Assessment Anesthesia Assessment: Anesthesia Plan Discussed and PAT Visit Final Anesthetic Review Family History of Problems with Anesthesia: No History of Problems with Anesthesia: Yes (Postop Urinary retention) Documented by User: Nicole Lechuga MD 07/10/24 09:28 [facility] Past Medical History Medical History (Updated 07/09/24 @ 12:26 by Christel Suarez RN) Back pain Bleeding gastric ulcer Numbness On anticoagulant therapy HTN (hypertension) Osteoarthrosis Mixed hyperlipidemia Sleep apnea Diverticulitis of colon without hemorrhage Actinic keratosis GERD (gastroesophageal reflux disease) Depression Renal cyst Myocardial infarction CAD (coronary artery disease) Lumbar spinal stenosis Lumbar radiculitis Aortic dilatation Pancolonic diverticulosis Anemia Chronic gastric ulcer without hemorrhage and without perforation Parkinsonian tremor Lung nodule Back pain with history of spinal surgery Family History Family History Father Bladder cancer Mother Urologic disorders Brother Kidney stone Surgical History Surgical History History of back surgery Hx of laminectomy Hx of fusion of cervical spine History of bilateral knee replacement Hx of arthroscopy of right knee History of esophagogastroduodenoscopy (EGD) H/O colonoscopy Hx of heart artery stent Social History Social History Are you a primary director of critical care to a significant other at home: No Do you presently have visiting nurse or other home services: No Alcohol intake: current Alcohol intake frequency: holidays/special occasions only Patient Tobacco Use Status: Never used Tobacco Use of substances other than those prescribed or required for medical reasons: No Have you been hit, kicked, punched, or otherwise hurt by someone within the past year? If so, by whom?: No Are you DNR?: No Advance Directives: No Advance Directives Information Provided: Yes Advance Directives on File: No Recently lost weight without trying: No Eating poorly because of decreased appetite: No Nutrition Risks: No Nutritional Risk Poor oral hygiene: No Meds Allergies Allergy/AdvReac Type Severity Reaction Status Date / Time No Known Allergies Allergy Verified 07/10/24 07:33 Home Medications ?Medication ?Instructions ?Recorded ?Confirmed ?Last Taken ?Type aspirin 81 mg tablet,delayed 81 mg PO DAILY 02/15/23 07/10/24 07/10/24 History release carbidopa 25 mg-levodopa 100 mg 1 tab PO BID 02/15/23 07/10/24 07/10/24 History tablet hydrocodone 5 mg-acetaminophen 325 0.5 tab PO BID PRN Pain 02/15/23 07/10/24 Unknown History mg tablet losartan 25 mg tablet 50 mg PO BEDTIME 02/15/23 07/10/24 07/09/24 History omeprazole 20 mg capsule,delayed 20 mg PO BID 02/15/23 07/10/24 07/10/24 History release atenolol 50 mg tablet 75 mg PO DAILY 06/22/23 07/10/24 07/10/24 History atorvastatin 80 mg tablet 80 mg PO BEDTIME 06/22/23 07/10/24 Unknown History gabapentin 600 mg tablet 600 mg PO TID PRN Pain 06/22/23 07/10/24 07/09/24 History nitroglycerin 0.4 mg sublingual 0.4 mg sublingual DAILY PRN Chest 07/09/24 07/10/24 Unknown History tablet Pain Exam Airway Mallampati Class: II (missing a couple) Assessment and Plan Assessment Anesthesia Assessment: Chart Reviewed Final Anesthetic Review NPO: Yes ASA Class: III Final Preanesthetic Review: No Changes in Pt Med Stat, Meds/Allgs Chart Reviewed and Consent Obtained/Reviewed Patient Risk: Intermediate Procedure Risk: Intermediate Anesthetic Plan Anesthetic Plan: GA Disposition: Standard PACU
[2024-07-09 12:42] VITALS: BP 157/76; PULSE 56; RESP 18; O2SAT 95; BMI 29.4
[2024-07-09 15:29] LABS: Hematocrit 43.9 % (42.0-52.0); Hemoglobin 14.3 g/dl (14.0-18.0); Mean Corpuscular HGB Conc 32.6 g/dl (31.0-36.0); Mean Corpuscular Hemoglobin 31.2 pg (27.0-33.0); Mean Corpuscular Volume 95.6 fL (80.0-98.0); Mean Platelet Volume 12.2 fL (9.4-12.4); Platelet Count 159 X10*3/uL (160-400); Red Blood Count 4.59 X10*6/uL (4.60-5.80); Red Cell Distribution Width 12.9 % (11.0-16.0); White Blood Count 6.5 X10*3/uL (4.8-10.8)
[2024-07-09 15:50] LABS: Anion Gap 10 (12-20); Blood Urea Nitrogen 15 mg/dL (9-16); Calcium 9.3 mg/dL (8.4-10.2); Carbon Dioxide 28 mmol/L (22-29); Chloride 109 mmol/L (96-108); Creatinine Clr Calc Pharmacy 98.9; Estimated Glomerular Filt Rate > 60; Glucose Random 88 mg/dL (60-115); Potassium 4.3 mmol/L (3.3-5.1); Sodium 143 mmol/L (135-145)
[2024-07-10] VITALS (9 sets, daily range): BP systolic 128–151; BP diastolic 73–84; PULSE 56–84; RESP 15–18; TEMP 36.4–36.6; O2SAT 93–95; BMI 29.2
--- NOTE | ~2024-07-10 | FL_ITS ---
EXAMINATION: FL GUIDANCE ONLY HISTORY: t10-12 decompression COMPARISON: None available. TECHNIQUE: Fluoroscopy time: 9 seconds. Cumulative Dose: 8.8619 mGy. DAP: 3.8548 mGym2 Images: 2. FINDINGS: Images demonstrate probes at the T10 and T11 levels. FL/FL guidance in OR IMPRESSION: Fluoroscopy during procedure. Please see procedure report for additional information. Electronically signed by: Tello Phillips MD 07/10/2024 11:34 AM NANNETTE
--- OUTSIDE RECORDS SUMMARY | 2024-07-10 07:06 | XMS_ITS | Clinical Summary ---
Author Organization [address] [place] [address] [place] [id number] Phone Care Team Providers Care Crystalizer Operator Name Role Phone Jann Adams Primary Care Provider [phone] Allergies No known active allergies Medications ascorbic acid, vitamin C, 500 mg capsule Take 1 Cap by mouth daily. Active carbidopa-levo dopa (SINEMET) 25-100 mg per tablet TAKE 1 TABLET BY MOUTH IN THE MORNING, AND 1 TABLET AT NOON 10/14/19 23 Active cholecalcifero l (VITAMIN D-3) 25 mcg (1,000 unit) tablet Take 1 Tab by mouth daily. Active coenzyme Q-10 100 mg capsule Take?by mouth daily. Active aspirin 81 mg EC tablet Take 81 mg by mouth daily. Active multivit-min/f olic/vit K/lycop (MEN'S ONE DAILY ORAL) 1 tab qd Active omeprazole (PriLOSEC) [address] capsule TAKE 1 CAPSULE BY MOUTH 2 TIMES DAILY (BEFORE MEALS). 03/27/20 24 Active ZINC ORAL Take?by mouth. Active calcium carbonate (CALCIUM ORAL) Take?by mouth. Active biotin 10 mg tablet Take?by mouth daily. Active losartan (COZAAR) 50 mg tablet Take 1 Tablet by mouth daily. - Oral Active tamsulosin (FLOMAX) 0.4 mg 24 hr capsule Take by mouth. START 1 CAPSULE DAILY FOR 7 DAYS THAN INCREASE TO TWICE DAILY IF NO DIZZINESS Active sulfamethoxazo le-trimethopri m (BACTRIM DS,SEPTRA DS) 800-160 mg per tablet Take 1 tablet before dentist and 1 tablet 6 hours after dentist 10 each 04/17/20 24 Active atenoloL (TENORMIN) 50 mg tablet TAKE 1 AND 1/2 TABLETS BY MOUTH DAILY 135 tablet 1 05/01/20 24 Active nitroglycerin (NITROSTAT) 0.[address] 1 tablet (0.4 mg total) under the tongue every 5 (five) minutes if needed for chest pain. May repeat dose every 5 minutes for up to 3 doses total. If chest pain is not relieved 5 minutes after the second dose, take the third dose and call 9-1-1. 25 tablet 1 05/16/20 24 Active gabapentin (NEURONTIN) 600 mg tablet Take 1 tablet (600 mg total) by mouth 3 (three) times a day. TAKE 1 TABLET BY MOUTH THREE TIMES A DAY 270 tablet 3 05/24/20 24 Active atorvastatin (LIPITOR) 80 mg tablet TAKE 1 TABLET BY MOUTH EVERY DAY 90 tablet 1 06/19/19 25 Active HYDROcodone-ac etaminophen (NORCO) 5-325 mg per tablet Take 1 tablet by mouth every 12 (twelve) hours if needed for severe pain. Take 1 Tablet by mouth every 12 hours as needed for Pain. Max Daily Amount: 2 tablets 56 tablet 06/17/19 25 Active atorvastatin (LIPITOR) 80 mg tablet TAKE 1 TABLET BY MOUTH EVERY DAY 12/20/19 24 025 Discontinued HYDROcodone-ac etaminophen (NORCO) 5-325 mg per tablet Take 1 tablet by mouth every 12 (twelve) hours if needed for severe pain. Take 1 Tablet by mouth every 12 hours as needed for Pain. Max Daily Amount: 2 tablets 56 tablet 05/16/20 24 025 Discontinued(Re order) Active Problems Problem Noted Date Diagnosed Date [...] could not get a follow-up appointment with [facility] urology until this which is almost 2 [...] Overview (05/10/2024): - Status post non-ST elevation FL in January 2015 with cardiac cath at [...] (NITROSTAT) SL tablet 0.4 mg Non-ST elevation FL (NSTEMI) 02/26/2015 Hx of non-ST elevation myocardial [...] PM EST Hospital Encounter Radiology Department - [address] [phone] Spinal stenosis of lumbar region with neurogenic [...] 8:30 AM EST Office Visit Adult Medicine [address] [phone] Jann Adams, [place] Spinal stenosis of lumbar [...] type 05/10/2024 8:50 AM EST Office Visit [facility] - [address] [facility] [address] [place] [address] Radha Allen MD Coronary artery [...] knee arthroscopic surgery 2006 ESOPHAGOGASTRODUODENOSCOPY 10/13/2008 PROCEDURE: [place] ESOPHAGOGASTRODUODENOSCOPY TRANSORAL DIAGNOSTIC; COMMENT: mild gastritis, H. [...] Recorded Sex Assigned at Not on file Legal Sex Male 1:08 PM EST Gender Identity Not on file Sexual Orientation Not on file Obstetrics History Last Filed [...] 1:15 PM EDT Office Visit Adult Medicine [address] [phone] Carmela Maguire PA [address] [place], [place] 11/25/2024 8:00 AM EDT Office Visit Adult Medicine [address] [phone] Jann Adams, PA [address] [place], [place] 03/31/2025 9:00 AM EST Ancillary Procedure [facility] - [address] [place] [address] [place] [address] Health Maintenance Due Date Last Done Comments Social Influencers of Health Screening 05/05/2022 COVID-19 Vaccine ( - 2023- season) 2024 05/18/2022, 03/20/2021, 08/22/2020, Additional history [...] Hepatitis C Screening Completed 04/28/2017 Pneumococcal Vaccine: 50+ Years Completed 02/18/2020, 11/07/2018 Zoster Vaccines Completed [...] patient's age to complete this topic Meningococcal B Vacine Aged Out No lo nger eligible based on patient's age to complete [...] multilevel possible nerve root compression. POS - [id number] -------- FINAL REPORT -------- Dictated By: Mana Ortez Dictated Date: 05/31/2024 08:57 ET Assigned Physician: Mana Ortez Reviewed and Electronically Signed By: Mana Ortez Signed Date: 06/01/2024 10:50 ET Workstation ID: [id number] Transcribed By: Self Edit Transcribed Date: 05/31/2024 [...] and multilevel possiblenerve root compression. POS - [id number] -------- FINAL REPORT -------- Dictated By: Mana Ortez Dictated Date: 05/31/2024 08:57 ET Assigned Physician: Mana Ortez Reviewed and Electronically Signed By: Mana Ortez Signed Date: 06/01/2024 10:50 ET Workstation ID: [id number] Transcribed By: Self Edit Transcribed Date: 05/31/2024 11:17 ET us Jann LUX IMG MRI PROCEDURES Final Result * ECG 12 lead (05/10/2024 8:54 AM EST) Ventricular Rate ECG 50 BPM GEMUSE Atrial Rate 50 BPM GEMUSE P-R Interval 176 ms GEMUSE QRS Duration 112 ms GEMUSE Q-T Interval 468 ms GEMUSE QTc 426 ms GEMUSE P Wave Elysian 33 degrees GEMUSE R Elysian 6 degrees GEMUSE T Elysian 10 degrees GEMUSE ECG Interpretation Baseline wander Sinus bradycardia Inferior infarct , age undetermined Abnormal ECG When compared with ECG of 04-MAR-2022 09:26, Inferior infarct pattern is seen Confirmed by RADHA ALLEN ([id number]) on 05/10/2024 2:41:30 PM GEMUSE 05/10/2024 8:54 AM EST 05/10/2024 2:41 PM EST Result [facility] Radha Allen MD ECG ORDERABLES Final Result GEMUSE * Falls Risk Assessment (02/20/2024) [facility] Falls Risk Assessment Abstracted Result [facility] Provider HEALTH MAINTENANCE Final Result * Annual BMP Blood Test (02/15/2024) [facility] Annual BMP Blood Test Abstracted Result [facility] HEALTH MAINTENANCE Final Result * Depression Screening (11/20/2023) [facility] Depression Screening Abstracted Result [facility] Provider HEALTH MAINTENANCE Final Result * (ABNORMAL) Lipid panel (07/31/2023) [facility] LDL/HDL Ratio 3 0 - 4 Triglycerides 140 0 - 150 mg/dL Cholesterol 110 0 - 200 mg/dL HDL 32(A) >=40 mg/dL LDL Cholesterol 50 0 - 100 mg/dL Blood Venous blood specimen / Unknown Result [facility] Provider LAB BLOOD ORDERABLES Elle l Result * Colonoscopy (07/28/2022) [facility] Colonoscopy No interpreta tion,abstr acted Anatomical Region Laterality Modality Other Result [facility] Provider HEALTH MAINTENANCE Final Result * Hepatitis C Screening (04/28/2017) Hepatitis C Screening Abstracted us Historical Provider HEALTH MAINTENANCE Final Result from Last 3 Months or Most Recently Relevant to Health Maintenance Insurance [facility]ICARE [facility] Care Teams Crystalizer Operator Relationship Specialty Start Date End Date Jann Adams PA [address] [place] [id number] PCP - General Internal Medicine 05/19/20
[2024-07-10] MEDS: Gabapentin 300 MG CAPSULE PO (07:52)
[2024-07-10] MEDS: methocarbamoL 750 MG TABLET PO (07:52)
[2024-07-10] MEDS: Lactated Ringers 1,000 ML 100 ML IVCONT (08:10)
--- NOTE | 2024-07-10 09:15 | MHC.SHP ---
Pre-Procedural Eval Section A - 24 Hr Update-Section A only Date of Service: 07/10/24 Section B - Complete if H&P > 30 days Chief Complaint: Spinal stenosis, lumbar region without neurogenic Allergies: Allergies Allergy/AdvReac Type Severity Reaction Status Date / Time No Known Allergies Allergy Verified 07/10/24 07:33 Review of Systems Sugical H&P ROS: Negative: Constitution, Cardiovascular, Respiratory, Neurological, Psychiatric, Hem-Onc, Allergic/Immunologic, Gastrointestinal, Genitourinary, Musculoskeletal, Integumentary, Endocrine and Eyes/Ears/Nose/Throat Exam Surgical H&P Exam: Not Evaluated: HEENT, Not Evaluated: Heart, Not Evaluated: Lungs, Not Evaluated: Extremities, Not Evaluated: Abdomen, Not Evaluated: Skin and Not Evaluated: Neurological Exam Comment: THE PATIENT IS AWAKE, ALERT, NO ACUTE DISTRESS. PROPOSED SURGICAL INCISION SITE IS CLEAN, DRY, WITH SIGNS OF RECENT SURGERY OR TRAUMA. Plan Diagnosis/Plan: Unchanged I have reviewed the history and physical and performed a pertinent physical examination on my patient. No changes have occurred unless specified. Plan remains the same, T10-T11, T11-T12 thoracic decompression. Time Spent With Patient Time: Total time managing care of this patient today __15__ minutes.
--- NOTE | 2024-07-10 09:36 | PC.NURSE ---
Patient in preop. Took aspirin 81mg PO this morning. Hany Austin made aware. Per him, okay to proceed. Patient made aware that he is at increased risk for bleeding, per Hany. Patient understands.
[2024-07-10] MEDS: ceFAZolin Sodium/Dextrose,Iso 2 GM/50 ML PIGGYBACK IV (10:00)
--- NOTE | 2024-07-10 11:20 | P.OP_ITS ---
Operative Note Operative Note Date of Service: 07/10/24 Narrative: P Preoperative Diagnosis: T10-11, T11-12 spinal cord compression due to spinal stenosis/lateral recess stenosis Operation: T10-11, T11-12 bilateral Laminotomy, Partial facetectomy and foraminotomy with use of microscope Consent Informed Consent was obtained for this operation. I have explained the nature, purpose and benefits of the operation. I have discussed the risks and benefit of the operation including possible complications or adverse events with patient/family. Alternative(s) were discussed with the patient with their relative benefits and risks as well as the consequences of not accepting the operation were included in obtaining consent. Surgeon: SALINAS MALLOY MD, PHD Procedure Assisted By: Hany Austin PA-C Pac Description of Procedure This 68-year-old male is suffering from intermittent bilateral complete leg numbness and urinary dysfunction. MRI shows T10-11, T11-12 spinal stenosis with spinal cord compression. Patient was offered a decompression of these levels. The procedure and complications were explained. The patient was consented. The patient was brought to the operating room and endotracheally intubated. The patient was turned in prone position on the Gentry frame. Prep and drape was done followed by timeout. Two lumbar a needles were inserted for counting. The correct level was identified with x-ray. A left paramedian incision was made followed by release of the paravertebral muscle on the left side to expose the T 10, 11 and 12 laminae and facet joints. An intraoperative x-ray was obtained to confirm the correct levels again. The microscope was brought in. I took over the procedure. The high-speed drill was used to do a left T10-11 and T11-T12 laminotomy until flavum ligament was reached. The flavum ligament was opened sharply after which with a 2. Kerrison the flavum ligament was resected and the laminotomy was expanded near flush to the pedicles and to include a partial facetectomy. This was done for the T10-11 and T11-12 levels. The spinous processes were undercut after which the contralateral side was decompressed at the T10-11 and T11-12 levels. This led to a good decompression of the underlying spinal cord. Extensive hemostasis was done, including the use of Surgiflo as the patient did not discontinue his aspirin. The microscope was removed.The physician project administrative assistant close the incision in 2 layers. Steri-Strips were used to approximate incision. An OpSite with Tegaderm was used to cover the incision. All sponge needle counts were correct. Patient was extubated and transported in stable is to recovery room. Anesthesia: General Estimated Blood Loss (ml): 20 mL Complications: None Duration of Surgery: 75 Minutes Postoperative Plan: Discharge to home y
--- NOTE | 2024-07-10 11:29 | P.DS_ITS ---
DS: Providers Provider Date of Service: 07/10/24 Date of discharge: 07/10/24 Primary care physician: JOSE J White DS: Summary Time Attestation Discharge Coordination Time (in mins): 14 Quality: Safe Use of Opioids Does Pt have an Active Cancer Diagnosis on the Problem List?: No Quality: Stroke Does the patient have a stroke diagnosis?: No Physical Exam Vital Signs: Vital Signs: Last Vital Signs Temp 97.9 F 07/10/24 07:46 Pulse 56 07/10/24 07:46 Resp 16 07/10/24 07:46 BP 146/73 H 07/10/24 07:46 Pulse Ox 95 07/10/24 07:46 O2 Del Method Room Air 07/10/24 07:46 BMI result Body Mass Index 29.2 DS: Data Data Completed and Pending Labs on day of discharge: Laboratory Results - last 24 hr 07/09/24 13:47 WBC 6.5 RBC 4.59 L Hgb 14.3 Hct 43.9 MCV 95.6 MCH 31.2 MCHC 32.6 RDW 12.9 Plt Count 159 L MPV 12.2 Absolute Nucleated RBC 0.000 Nucleated RBC % (auto) 0.0 Sodium 143 Potassium 4.3 Chloride 109 H Carbon Dioxide 28 Anion Gap 10 L BUN 15 Creatinine 0.82 Estim Creat Clear Calc 98.9 Estimated GFR > 60 Random Glucose 88 Calcium 9.3 Discharge Plan Discharge Patient Disposition: Home, Self-Care Referrals: Jann Adams PA [Primary Care Provider] - 1 Week Discharge Medications: New oxycodone 5 mg tablet 5 mg PO Q6H PRN (Reason: pain) Qty: 30 0RF Rx Instructions: Partial Fill upon patient request. Continued tamsulosin [Flomax] 0.4 mg capsule 0.4 mg PO BID 90 Days Qty: 180 2RF nitroglycerin 0.4 mg tablet, sublingual 0.4 mg sublingual DAILY PRN (Reason: Chest Pain) hydrocodone-acetaminophen 5-325 mg tablet 0.5 tab PO BID PRN (Reason: Pain) losartan 25 mg tablet 50 mg PO BEDTIME carbidopa-levodopa 25-100 mg tablet 1 tab PO BID omeprazole 20 mg capsule,delayed release(DR/EC) 20 mg PO BID atenolol 50 mg tablet 75 mg PO DAILY atorvastatin 80 mg tablet 80 mg PO BEDTIME gabapentin 600 mg tablet 600 mg PO TID PRN (Reason: Pain) Held aspirin 81 mg tablet,delayed release (DR/EC) 81 mg PO DAILY Hold Instructions: Resume on 07/14/24. Discharge Orders: Discharge Order (Routine); Ordered 07/10/24 Ordered By: Hany Austin Diet: Advance to usual diet Activity on Discharge: As tolerated Activity Restrictions/Additional Instructions: After your spinal surgery we ask you to observe the following restrictions/guidelines: Activity: It is normal to feel some discomfort as you increase your activity, but that will improve with time. We ask you avoid heavy lifting or acitivities that cause pain. As a general rule, 8lbs is a safe limit for lifting right after surgery. Walk as much as you feel comfortable but not to exhaustion. You will feel extra tired the first few days after surgery. Stay well hydrated. It is OK to walk up and down stairs You may return to driving when you are off narcotics (such as vicodin, oxycodone, dilaudid, etc), and you are back to normal functional capacity. If you have any concerns please check with office before driving. Return to work is specific to each patient and each surgery, so please speak with your doctor/PA at first follow up. Please bring paperwork such as FMLA at that time if you need it filled out. Medications: You were sent in a short course of oxycodone to help with pain after surgery. You are also prescribed hydrocodone which has filled last month. If you still have some of this medication left over, do not take it alongside the oxycodone. We recommend you take 1,000mg Tylenol every 8 hours for the first few weeks after surgery, if you do not have any liver issues and can tolerate this medication. Do not exceed 4,000mg daily. We will give you a short supply of narcotics after surgery (usually one weeks worth). If you need more please call the office but do not use more than prescribed. You will need to give our office 48 hours notice if you need narcotics refilled and we do not fill narcotics on weekends or evenings. If you are on a narcotic, it is a good idea to take a stool softener such as colace or senna to avoid constipation If you take blood thinner such as aspirin, Plavix, Coumadin, Effient, Eliquis etc for conditions such as Afib, DVT, Pulmonary embolus, coronary disease, stents etc please speak with your surgeon about specific details as to when you can resume these medications. You can resume NSAIDs on post op day 1 (eg: Motrin, Naproxen, etc). Follow up: Please call the office, , after surgery to arrange a 3 week follow up for wound check. Wound Care: You may remove your dressing on the first day after surgery. ?You may ?leave open to air. Please do not remove the steri strips underneath. they will fall off on their own in one week. IT IS NORMAL FOR THE WOUND TO OOZE OR BE BLOODY FOR A FEW DAYS AFTER SURGERY. ?IF THIS HAPPENS JUST PLACE NEW DRESSING OVER IT TO AVOID STAINING CLOTHES. You may shower on post op day # 1 We ask that you do not let the water soak the wound. If it does get wet, just towel dry lightly. Please do not scrub your incision or place any type of chemical/ointment on the wound. No tub baths, pools or jacuzzis for one month. If you have any leaking or redness from your wound, or fevers, please call the office. Print Language: Bulgarian
== END 2024-07-10 14:11 | disposition home or self-care (01) ==
PROVIDERS: Nurse Practitioner; PCP Physician Assistant Medical; Visit Provider Neurological Surgery
PROC: (CPT 63046; principal; 2024-07-10 09:20)
DX: M48.04 Spinal stenosis, thoracic region (principal); M47.14 Other spondylosis with myelopathy, thoracic region; R20.0 Anesthesia of skin; N39.9 Disorder of urinary system, unspecified
CPT/HCPCS: 63046; 63048; 36415; 80048; 85027; J0131; J0690; J1100; J1596; J2003; J2250; J2405; J2704; J3010

== ENCOUNTER → 2024-07-10 07:03 | Outpatient (BNV) | payer MEDICARE, OTHER, SELFPAY | PROVIDERS: PCP Physician Assistant Medical; Visit Provider Neurological Surgery | DX: M48.04 Spinal stenosis, thoracic region (principal) | CPT/HCPCS: 63046; 63048; 99499 ==

== ENCOUNTER 2024-07-31 13:16 | Outpatient (AMB) | payer MEDICARE, OTHER, SELFPAY ==
--- NOTE | 2024-07-31 13:18 | HO.SPINEOV ---
Intake Visit Reasons: 1st post op Intake Note: Mr. Edgar is here today for his 1st post op. 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 He udnerwent 10-11, T11-12 bilateral Laminotomy, Partial facetectomy and foraminotomy on 07/10/24. To recap he was initially evaluated in clinic for complete numbness from the waist down that occurred sporadically throughout the day. The patient reports that this numbness has completely resolved since surgery. He overall feels much better than he did preoperatively, and is very satisfied with the surgery. In regards to his urinary retention, he states that he was able to void 3 hours after returning home from surgery and did not need to use the straight catheter that he was provided with. He asked several questions regarding the postoperative healing course, and specifically asked when he will be able to return to golf. I recommended against golfing at this time, and instead encouraged him to engage in cardiovascular exercise and minimal weight-bearing less than 15 lb for the time being. No new neurological deficits. The patient ambulates well and rises from seated position without difficulty. His posterior incision site is closed, well healing, with minimal edema. At the end of this visit Thierry reported that he discussed having an L4-[address] Maria in the near future. He would like to discuss this with him at his next postoperative visit. Therefore I will have him follow up with Dr. Maria for his 2nd postoperative visit in 6 weeks. He was advised that he can further discuss return to golf with Dr. Maria. Hany Maria MD,PhD [facility] Coding Level of Care Code Global (88226) Diagnoses S/P spinal surgery Z98.890
--- OUTSIDE RECORDS SUMMARY | 2024-07-31 15:51 | XMS_ITS | Encounter Summary ---
Author Organization [facility] Address [address] [place] [address] Care Team Providers Care Assessor Name Role Phone Jann Adams Primary Care Provider [phone] Reason for Visit * Reason Onset Date Comments Medical Records 07/09/2024 Encounter Details Date Type Department Care Team (Late st Contact Info) Description 07/09/2024 Telephone [facility] [address] [place] [address] Jann Adams PA [address] [place] [address] Medical Records Social History Tobacco Use Types Packs/Day Years Used Date Smoking Tobacco: Never Smokeless Tobacco: Never Alcohol Use Standard Drinks/Week Comments Yes 0 (1 standard drink = 0.6 oz pur e alcohol) seldom Sex and Gender Information Value Date Recorded Sex Assigned at Not on file Legal Sex Male 1:08 PM EST Gender Identity Not on file Sexual Orientation Not on file documented as of this encounter Progress Notes * Clari Rodriguez - 07/29/2024 3:34 PM EST Faxed 05/10/2024 Office Note and EKG to Starla Ferrum Stay Att: Kajal at [phone] on 07/09/2024 documented in this encounter Plan of Treatment Upcoming Encounters Date Type Department Care Team (Late st Contact Info) Description 08/22/2024 1:15 PM EDT Office Visit Adult Medicine [address] [phone] Carmela Maguire PA [address] [place], [place] 11/25/2024 8:00 AM EDT Office Visit Adult Medicine [address] [phone] Jann Adams PA [address] [place] [address] 03/31/2025 9:00 AM EST Ancillary Procedure [facility] - [facility] [address] [place] [address] [place] [phone] documented as of this encounter Visit Diagnoses Not on filedocumented in this encounter Care Teams Assessor Relationship Specialty Start Date End Date Jann Adams PA [address] [place] [address] PCP - General Internal Medicine 05/19/20 documented as of this encounter
--- OUTSIDE RECORDS SUMMARY | 2024-07-31 15:51 | XMS_ITS | Clinical Summary ---
Author Organization [address] [place] [address] [place] [phone] Phone Care Team Providers Care Food And Beverage Intern Name Role Phone Jann Adams Primary Care Provider [phone] Allergies No known active allergies Medications ascorbic acid, vitamin C, 500 mg capsule Take 1 Cap by mouth daily. Active carbidopa-levod opa (SINEMET) 25-100 mg per tablet TAKE 1 TABLET BY MOUTH IN THE MORNING, AND 1 TABLET AT NOON 3 Active cholecalciferol (VITAMIN D-3) 25 mcg (1,000 [...] BY MOUTH 2 TIMES DAILY (BEFORE MEALS). 4 Active ZINC ORAL Take?by mouth. Active calcium [...] tablet 6 hours after dentist 10 each 4 Active atenoloL (TENORMIN) 50 mg tablet TAKE 1 AND 1/2 TABLETS BY MOUTH DAILY 135 tablet 1 4 Active nitroglycerin (NITROSTAT) 0.[address] 1 tablet (0.4 mg total) under the tongue every 5 (five) minutes if needed for chest pain. May repeat dose every 5 minutes for up to 3 doses total. If chest pain is not relieved 5 minutes after the second dose, take the third dose and call 9-1-1. 25 tablet 1 4 Active gabapentin (NEURONTIN) 600 mg tablet Take 1 tablet (600 mg total) by mouth 3 (three) times a day. TAKE 1 TABLET BY MOUTH THREE TIMES A DAY 270 tablet 3 4 Active atorvastatin (LIPITOR) 80 mg tablet TAKE 1 TABLET BY MOUTH EVERY DAY 90 tablet 1 5 Active HYDROcodone-reyna taminophen (NORCO) 5-325 mg per tablet Take 1 tablet by mouth every 12 (twelve) hours if needed for severe pain. Take 1 Tablet by mouth every 12 hours as needed for Pain. Max Daily Amount: 2 tablets 56 tablet 5 Active HYDROcodone-reyna taminophen (NORCO) 5-325 mg per tablet Take 1 tablet by mouth every 12 (twelve) hours if needed for severe pain. Take 1 Tablet by mouth every 12 hours as needed for Pain. Max Daily Amount: 2 tablets 56 tablet 5 07/18/19 25 Discontinu ed(Reorder ) Active Problems Problem Noted Date Diagnosed Date [...] could not get a follow-up appointment with [facility] urology until this which is almost [...] or questions. Coronary artery disease invo lving tunica-biloxi coronary artery of tunica-biloxi heart without angina pectoris 06/15/2016 Overview (05/10/2024): - Status post non-ST elevation VA in January 2015 with cardiac cath at [...] (NITROSTAT) SL tablet 0.4 mg Non-ST elevation VA (NSTEMI) 02/26/2015 Hx of non-ST elevation myocardial [...] Encounters Date Type Department Care Team Description 07/09/2024 Telephone [facility] [address] [facility] [address] [place] [address] Jann Adams, PA Medical Records 05/30/2024 12:01 PM EST - 05/30/2024 11:59 PM EST Hospital Encounter Radiology Department - [address] [phone] Spinal stenosis of lumbar region with neurogenic claudication; Lumbar radiculitis; Aortic dilatation (CMS/HCC); Chronic gastric ulcer without hemorrhage and without perforation; Coronary artery disease involving tunica-biloxi coronary artery of tunica-biloxi heart without angina pectoris; Other depression; Essential hypertension, benign; Gastroesophageal reflux disease without esophagitis; Hx of non-ST elevation myocardial infarction (NSTEMI); Iron deficiency anemia due to chronic blood loss; Mixed hyperlipidemia; Parkinsonian tremor (CMS/HCC); Sleep apnea, unspecified type Discharge Disposition: Home or Self Care 05/24/2024 8:30 AM EST Office Visit Adult Medicine [facility] - [address] [phone] Jann Adams PA Spinal stenosis of lumbar region with neurogenic claudication (Primary Dx); Lumbar radiculitis; Aortic dilatation (CMS/HCC); Chronic gastric ulcer without hemorrhage and without perforation; Coronary artery disease involving tunica-biloxi coronary artery of tunica-biloxi heart without angina pectoris; Other depression; Essential hypertension, benign; Gastroesophageal reflux disease without esophagitis; Hx of non-ST elevation myocardial infarction (NSTEMI); Iron deficiency anemia due to chronic blood loss; Mixed hyperlipidemia; Parkinsonian tremor (CMS/HCC); Sleep apnea, unspecified type 05/10/2024 8:50 AM EST Office Visit [facility] - [address] [place] [address] Radha Allen MD Coronary artery disease involving tunica-biloxi coronary artery of tunica-biloxi heart without angina pectoris (Primary Dx); Essential [...] knee arthroscopic surgery 2006 ESOPHAGOGASTRODUODENOSCOPY 10/13/2008 PROCEDURE: [place] ESOPHAGOGASTRODUODENOSCOPY TRANSORAL DIAGNOSTIC; COMMENT: mild gastritis, H. pylori negative OTHER SURGICAL HISTORY 01/2015 PROCEDURE: HISTORY OTHER; COMMENT: RCA Drug eluting stent COLONOSCOPY 06/07/2006 PROCEDURE: HISTORICAL COLONOSCOPY; COMMENT: tics OTHER SURGICAL HISTORY 12/14/2016 PROCEDURE: COLON CA SCRN NOT HI RSK IND; COMMENT: ticana; repeat in ten yrs BACK SURGERY 2015 [...] 1:15 PM EDT Office Visit Adult Medicine [address] [phone] Carmela Maguire PA [address] [place], [place] 11/25/2024 8:00 AM EDT Office Visit Adult Medicine [address] [phone] Jann Adams PA [address] [place] [address] 03/31/2025 9:00 AM EST Ancillary Procedure [facility] - [address] [place] [address] Health Maintenance Due Date Last Done Comments Social Influencers of Health Screening 05/05/2022 COVID-19 Vaccine ( - season) 2024 05/18/2022, 03/20/2021, 08/22/2020, Additional history [...] and without perforation Coronary artery disease involving tunica-biloxi coronary artery of tunica-biloxi heart without angina pectoris Other depression Essential hypertension, benign Gastroesophageal reflux disease without esophagitis Hx of non-ST elevation myocardial infarction (NSTEMI) Iron deficiency anemia due to chronic blood loss Mixed hyperlipidemia Parkinsonian tremor (CMS/HCC) Sleep apnea, unspecified type ECG 12-LEAD Routine 05/10/2024 8:54 AM EST Coronary artery disease involving tunica-biloxi coronary artery of tunica-biloxi heart without angina pectoris FALLS RISK ASSESSMENT [...] multilevel possible nerve root compression. POS - [id number] -------- FINAL REPORT -------- Dictated By: Mana Ortez Dictated Date: 05/31/2024 08:57 ET Assigned Physician: Mana Ortez Reviewed and Electronically Signed By: Mana Ortez Signed Date: 06/01/2024 10:50 ET Workstation ID: [id number] Transcribed By: Self Edit Transcribed Date: 05/31/2024 [...] and multilevel possiblenerve root compression. POS - [id number] -------- FINAL REPORT -------- Dictated By: Mana Ortez Dictated Date: 05/31/2024 08:57 ET Assigned Physician: Mana Ortez Reviewed and Electronically Signed By: Mana Ortez Signed Date: 06/01/2024 10:50 ET Workstation ID: [id number] Transcribed By: Self Edit Transcribed Date: 05/31/2024 11:17 ET us Jann LUX [facility] MRI PROCEDURES Final Result * ECG 12 lead (05/10/2024 8:54 AM EST) [facility] Ventricular Rate ECG 50 BPM GEMUSE Atrial Rate 50 BPM GEMUSE P-R Interval 176 ms GEMUSE QRS Duration 112 ms GEMUSE Q-T Interval 468 ms GEMUSE QTc 426 ms GEMUSE P Wave Jefferson 33 degrees GEMUSE R Jefferson 6 degrees GEMUSE T Jefferson 10 degrees GEMUSE ECG Interpretation Baseline wander Sinus bradycardia Inferior infarct , age undetermined Abnormal ECG When compared with ECG of 04-MAR-2022 09:26, Inferior infarct pattern is seen Confirmed by RADHA ALLEN ([id number]) on 05/10/2024 2:41:30 PM GEMUSE 05/10/2024 8:54 AM EST 05/10/2024 2:41 PM EST Result [facility] Radha Allen MD ECG ORDERABLES Final Result GEMUSE * Falls Risk Assessment (02/20/2024) [facility] Falls Risk Assessment Abstracted Result [facility] Provider HEALTH MAINTENANCE Final Result * Annual BMP Blood Test (02/15/2024) [facility] Annual BMP Blood Test Abstracted Result [facility] Provider HEALTH MAINTENANCE Final Result * Depression Screening (11/20/2023) [facility] Depression Screening Abstracted Result [facility] Provider HEALTH MAINTENANCE Final Result * (ABNORMAL) Lipid panel (07/31/2023) [facility] LDL/HDL Ratio 3 0 - 4 Triglycerides 140 0 - 150 mg/dL Cholesterol 110 0 - 200 mg/dL HDL 32(A) >=40 mg/dL LDL Cholesterol 50 0 - 100 mg/dL Blood Venous blood specimen / Unknown Result [facility] Provider LAB BLOOD ORDERABLES Elle l Result * Colonoscopy (07/28/2022) [facility] Colonoscopy No interpreta tion,abstr acted Anatomical Region Laterality Modality Other us Historical Provider HEALTH MAINTENANCE Final Result * Hepatitis C Screening (04/28/2017) Hepatitis C Screening Abstracted Historical Provider HEALTH MAINTENANCE Final Result from Last 3 Months or Most Recently Relevant to Health Maintenance Insurance MEDICARE [facility] Care Teams Food And Beverage Intern Relationship Specialty Start Date End Date Jann Adams PA [address] [place] [id number] PCP - General Internal Medicine 05/19/20
== END 2024-07-31 13:41 | disposition home or self-care (01) ==
PROVIDERS: PCP Physician Assistant Medical; Visit Provider Physician Assistant
DX: Z98.890 Other specified postprocedural states (principal)
CPT/HCPCS: 99024

== ENCOUNTER → 2024-07-31 13:16 | Outpatient (BNVA) | payer MEDICARE, OTHER, SELFPAY | PROVIDERS: PCP Physician Assistant Medical; Visit Provider Physician Assistant | DX: Z47.89 Encounter for other orthopedic aftercare (principal); Z98.890 Other specified postprocedural states | CPT/HCPCS: 99212 ==

== ENCOUNTER 2024-09-11 10:15 | Outpatient (AMB) | payer MEDICARE, OTHER, SELFPAY ==
--- NOTE | 2024-09-11 10:23 | HO.SPINEOV ---
Intake Visit Reasons: 2nd post op Intake Note: Mr. Edgar is here today for his 2nd post op. 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 He underwent a multilevel thoracic decompression to address thoracic myelopathy with numbness from the waist down. The neurological symptoms have resolved, including his pre-existent urinary problems. He does have back pain that respond well to minimal pain management and burning feet, especially at night that respond well to gabapentin. He is able to ambulate 10 miles without significant pain. Therefore, I do not see an indication to offer him additional surgeries. I advised him to return if neurogenic claudication symptoms develop or a constant progressive back pain. He is allowed to return to full activities, including golf. Thank you for allowing me take care of your patient. Hira Maria MD, PhD Spine Fellowship Trained Neurosurgeon Director, [facility] Coding Level of Care Code Global (98738) Diagnoses S/P spinal surgery Z98.890
--- OUTSIDE RECORDS SUMMARY | 2024-09-11 11:53 | XMS_ITS | Clinical Summary ---
Author Organization [address] [place] [address] [place] [phone] Phone Care Team Providers Care Hand Patcher Name Role Phone Jann Adams Primary Care Provider [phone] Allergies No known active allergies Medications ascorbic [...] call 9-1-1. 25 tablet 1 4 Active atorvastatin (LIPITOR) 80 mg tablet TAKE 1 TABLET BY MOUTH EVERY DAY 90 tablet 1 5 Active HYDROcodone-reyna taminophen (NORCO) 5-325 mg per tablet Take 1 tablet by mouth every 12 (twelve) hours if needed for severe pain. Take 1 Tablet by mouth every 12 hours as needed for Pain. Max Daily Amount: 2 tablets 56 tablet 5 Active gabapentin (NEURONTIN) 600 mg tablet Take 1 tablet (600 mg total) by mouth 3 (three) times a day. 270 tablet 3 5 Active gabapentin (NEURONTIN) 600 mg tablet Take 1 tablet (600 mg total) by mouth 3 (three) times a day. TAKE 1 TABLET BY MOUTH THREE TIMES A DAY 270 tablet 3 4 08/23/19 25 Discontinu ed(Reorder ) HYDROcodone-reyna taminophen (NORCO) 5-325 mg per tablet Take 1 tablet by mouth every 12 (twelve) hours if needed for severe pain. Take 1 Tablet by mouth every 12 hours as needed for Pain. Max Daily Amount: 2 tablets 56 tablet 5 08/15/19 25 Discontinu ed(Reorder ) Active Problems Problem Noted Date Diagnosed Date Lung nodule 07/31/2023 Parkinsonian tremor (CMS/HCC V24, CMS/HCC V28) 0 09/06/2022 Chronic gastric ulcer withou t hemorrhage and without perforation 08/16/2022 Gastritis 08/16/2022 Iron deficiency anemia due to chronic blood loss 08/16/2022 Pancolonic diverticulosis 08/16/2022 Aortic dilatation (CMS/HCC V24) 02/09/2022 Overview (05/10/2024): -CT of the chest [...] could not get a follow-up appointment with [facility] urology until this which [...] or questions. Coronary artery disease invo lving [place] coronary artery of [place] heart without angina pectoris 06/15/2016 Overview (05/10/2024): - Status post non-ST elevation ME in January 2015 with cardiac cath at [...] (NITROSTAT) SL tablet 0.4 mg Non-ST elevation ME (NSTEMI) (CMS/HCC V24, CMS/H CC V28) 02/26/2015 Hx of non-ST elevation myocardial infarction [...] Encounters Date Type Department Care Team Description 08/22/2024 1:15 PM EDT Office Visit Adult Medicine [address] [phone] Carmela Maguire PA Essential hypertension, benign (Primary Dx); Mixed hyperlipidemia; Coronary artery disease involving [place] coronary artery of [place] heart without angina pectoris; Aortic dilatation (CMS/HCC V24); Gastroesophageal reflux disease without esophagitis; Lumbar radiculitis; Spinal stenosis of lumbar region with neurogenic claudication; Encounter for long-term (current) use of high-risk medication; Parkinsonian tremor (CMS/HCC V24, CMS/HCC V28); Iron deficiency anemia due to chronic blood loss 07/09/2024 Telephone [facility] - [facility] [address] [facility] [address] [place] [address] Jann Adams PA Medical Records from Last 3 Months Immunizations Name Administration [...] tics; repeat in ten yrs BACK SURGERY 2016 PROCEDURE: HISTORICAL BACK SURGERY; COMMENT: dr. mercado lumbar surgery COLONOSCOPY 07/28/2022 PROCEDURE: HISTORICAL COLONOSCOPY; COMMENT: owens normal repeat 10 years OTHER SURGICAL HISTORY 07/28/2022 PROCEDURE: UPPER GI ENDOSCOPY, REMOVE LESION; COMMENT: owens non bleeding ulcer OTHER SURGICAL HISTORY 09/22/2022 [...] Date Smoking Tobacco: Never Smokeless Tobacco: Never Tobacco Cessation:Counseling Given: Not Answered Alcohol Use Standard Drinks/Week Comments Yes 0 (1 standard drink = 0.6 oz pur e alcohol) seldom Housing Instability Answer Date Recorde d Are you worried that in the next 2 months you may not have stable housing? No 08/16/2024 Food Access & Nutrition Answer Date Rec orded Do you have access to a vari ety of food including fruits and vegetables? Yes 08/16/2024 Access to Healthcare Answer Date Record ed Within the last 3 months, ho w many times did you visit the emergency department for your medical care? 0 08/16/2024 Health Literacy Answer Date Recorded How often do you need to hav e someone help you when you read instructions, pamphlets, or other written material from your doctor or pharmacy? Never 08/16/2024 Caregiver: How often do you need to have someone help you when you read instructions, pamphlets, or other written material from your doctor or pharmacy? Not on file 08/16/2024 Financial Risk Answer Date Recorded How hard is it for you to pa y for the very basics like food, housing, medical care, and air conditioning / heating? Not very hard 08/16/2024 Transportation Answer Date Recorded Has the lack of transportati on kept you from meetings, work, or from getting things needed for daily living? No Has the lack of transportati on kept you from medical appointments or from getting medications? No 08/16/2024 Social Isolation Answer Date Recorded How often do you feel lonely or isolated from th ose around you? Never 08/16/2024 Food Risk Answer Date Recorded Within the past 12 months we worried whether our food would run out before we got money to buy more. Never true 08/16/2024 Within the past 12 months th e food we bought just didn't last and we didn't have money to get more. Never true 08/16/2024 Dependent Care Answer Date Recorded Do you need help finding or paying for care for your loved ones. For example, early childhood education worker or elderly care for an older adult? No 08/16/2024 Education Answer Date Recorded Do you think completing more education or training, like finishing a GED, going to college, or learning a trade, would be helpful for you? No 08/16/2024 Employment and Income Answer Date Recor ded During the last four weeks, have you been actively looking for work? No 08/16/2024 Living Situation Answer Date Recorded What is your living situation? 0 08/16/2024 Sex and Gender Information Value Date Recorded Sex Assigned at Not on file Legal Sex Male 1:08 PM EST Gender Identity Not on file Sexual Orientation Not on file Obstetrics History Last Filed Vital Signs Vital Sign Reading Time Taken Comments Blood Pressure 130/80 08/22/2024 1:04 PM EDT Pulse 54 08/22/2024 1:04 PM EDT Temperature 36.2 ??C (97.1 ??F) 08/22/2024 1:04 PM ED T Respiratory Rate 15 08/22/2024 1:04 PM EDT Oxygen Saturation 95% 05/24/2024 8:53 AM EST Inhaled Oxygen Concentration - - Weight 97.5 kg (215 lb) 08/22/2024 1:04 PM EDT Height 180.3 cm (5' 11 ) 08/22/2024 1:04 PM EDT Body Mass Index 29.99 08/22/2024 1:04 PM EDT Plan of Treatment Upcoming Encounters Date Type Department Care Team (Late st Contact Info) Description 11/25/2024 8:00 AM EDT Office Visit Adult Medicine [facility] [address] [place] [address] Jann Adams PA [address] [place] [address] 03/31/2025 9:00 AM EST Ancillary Procedure [facility] - [facility] [address] [place] [address] Health Maintenance Due Date Last Done Comments COVID-19 Vaccine ( season) 2024 05/18/2022, 03/20/2021, 08/22/2020, Additional history exists Medicare Annual Wellness Visit 11/19/2024 11/20/2023 Falls Risk Assessment 02/19/2025 02/20/2024 Depression Screening 08/16/2025 08/16/2024, 11/20/19 Social Influencers of Health Screening 08/16/2025 08/16/2024 Hypertension/CHF/CAD Annual BMP Blood Test 08/22/2025 08/22/2024, 02/15/2024, 02/15/2024 RSV Immunization Adult Patients (1 - 1-dose 75+ series) 2028 Cholesterol Screening (Lipid Panel) 08/22/2029 08/22/2024, 07/31/2023 Colorectal Cancer Screening: Colonoscopy 07/28/2032 07/28/2022 [...] age to complete this topic Meningococcal B Vaccine Aged Out No l onger eligible based on patient's age to complete this topic RSV Immunization Patients Under 20 months Aged Out No longer eligible based on patient's age to complete this topic Varicella Vaccines Aged Out No longer eligible based on patient's age to complete this topic Procedures Procedure Name Priority Date/Time Associated Diagnosis Comments OPIATES CONFIRMATION, URINE Routine 08/22/2024 1:46 PM EDT Encounter for long-term (current) use of high-risk medication DRUG ABUSE SCREEN EXPANDED WITH REFLEX CONFIRMATION, URINE Routine 08/22/2024 1:46 PM EDT Encounter for long-term (current) use of high-risk medication COMPLETE BLOOD COUNT Routine 08/22/2024 1:46 PM EDT Iron deficiency anemia due to chronic blood loss IRON AND TIBC Routine 08/22/2024 1:46 PM EDT Iron deficiency anemia due to chronic blood loss COMPREHENSIVE METABOLIC PANEL Routine 08/22/2024 1:46 PM EDT Mixed hyperlipidemia LIPID PANEL WITH REFLEX TO DIRECT LDL Routine 08/22/2024 1:46 PM EDT Mixed hyperlipidemia FALLS RISK ASSESSMENT Routine 02/20/2024 DEPRESSION SCREENING Routine 11/20/2023 COLONOSCOPY Routine 07/28/2022 HEPATITIS C SCREENING Routine 04/28/2017 from Last 3 Months or Most Recently Relevant to Health Maintenance Results * (ABNORMAL) Drug abuse screen expanded with reflex confirmation, urine (08/22/2024 1:46 PM EDT) Amphetamine Screen, Ur Negative Negative LAB CHEMISTRY METHOD 5 6:44 PM EDT [facility] Comment:Certain OTC medicati ons containing ephedrine, phenylephrine, pseudoephedrine and phenylpropanolamine can cause false positive results. Barbiturate Screen, Ur Negative Negative LAB CHEMISTRY METHOD 5 6:44 PM EDT [facility] Benzodiazepine Screen, Ur Negative Negative LAB CHEMISTRY METHOD 5 6:44 PM [facility] Cocaine Screen, Ur Negative Negative LAB CHEMISTRY METHOD 5 6:44 PM EDT [facility] Opiate Screen, Ur Positive(A ) Negative LAB CHEMISTRY METHOD 5 6:44 PM [facility] Cannabinoid (THC) Screen, Ur Negative Negative LAB CHEMISTRY METHOD 5 6:44 PM [facility] Comment:Specimens from patie nts taking pantoprazole sodium (Protonix) have been shown to produce false positive results. Fentanyl, Ur Negative Negative LAB CHEMISTRY METHOD 5 6:44 PM EDT [facility] Oxycodone Screen, Ur Negative Negative LAB CHEMISTRY METHOD 6:44 PM EDT [facility] Urine Urine specimen obtained by clean catch procedure / Unknown Non-blood Collection / Unknown 08/22/2024 1:46 PM EDT 08/22/2024 1:46 PM EDT Narrative [facility] - 08/22/2024 6:44 PM EDT Assay cutoffs: Amphetamines ? 1000 ng/mL Barbiturates ?200 ng/mL Benzodiazepines ?? 200 ng/mL Cocaine ? 300 ng/mL Fentanyl ?1 ng/mL Opiates ? 300 ng/mL Oxycodone ? 100 ng/mL THC ?50 ng/mL Semi-quantitative assay for screening purposes only. Unconfirmed screening result should not be used for non-medical purposes. *POSITIVE RESULTS ARE AUTOMATICALLY SENT FOR ALTERNATE METHOD CONFIRMATION* us Carmela Andrez LUX LAB URINE ORDERABLES Final Resul t [facility] [address] [place] [address], * Opiates confirmation, urine (08/22/2024 1:46 PM EDT) Morphine Confirm, Urine Negative ng/mL 08/26/2024 10:15 PM EDT [facility] Codeine Confirm, Urine Negative ng/mL 08/26/2024 10:15 PM EDT [facility] Hydrocodone Confirm, Urine 225 ng/mL 08/26/2024 10:15 PM EDT [facility] Hydromorphone Confirm, Urine 107 ng/mL 08/26/2024 10:15 PM EDT [facility] Oxycodone Confirm, Urine Negative ng/mL 08/26/2024 10:15 PM EDT [facility] Oxymorphone Confirm, Urine Negative ng/mL 08/26/2024 10:[address] [facility] Creatinine 82 20 - 250 mg/dL 08/26/2024 10:15 PM EDT [facility] Adulterants Negative 08/26/2024 10:[address] [facility] Comment: ? Confirmation (LC/MS/MS) Decision Limits ?Morphine ?25 ng/mL ?Codeine ? 25 ng/mL ?Hydrocodone ? 25 ng/mL ?Hydromorphone ? 25 ng/mL ?Oxycodone ? 25 ng/mL ?Oxymorphone ? 25 ng/mL ?Adulterant Decision Limit: ? General Oxidants ? 200 ug/mL ?The adulterant assay tests for General Oxidants, ??including Chromates and Nitrites. ??Adulterants are ??substances either ingested or added directly to a ??urine specimen to prevent the detection of drug use. If applicable, any drug confirmation testing reported here was developed and the performance characteristics determined by [facility]. This confirmation testing has not been cleared or approved by the FDA. The laboratory is regulated under CLIA as qualified to perform high-complexity testing. This test is used for patient testing purposes. It should not be regarded as investigational or for research. Test performed at [facility], [address] [place] [place], [place] ? [phone] Kenna Larios MD, PhD - Barrel Assembler Urine Urine specimen obtained by clean catch procedure / Unknown Non-blood Collection / Unknown 08/22/2024 1:46 PM EDT 08/22/2024 6:44 PM EDT us Carmela Maguire PA LAB URINE ORDERABLES Final Resul t [facility] [address] [place] [address] * (ABNORMAL) Lipid panel with reflex to direct LDL (08/22/2024 1:46 PM EDT) Cholesterol 98 0 - 200 mg/dL LAB CHEMISTRY METHOD 08/22/2024 5:34 PM EDT [facility] Triglycerides 298(H) 0 - 150 mg/dL LAB CHEMISTRY METHOD 08/22/2024 5:34 PM EDT [facility] HDL 29(L) >=40 mg/dL LAB CHEMISTRY METHOD 08/22/2024 5:34 PM EDT [facility] LDL Calculated 9 0 - 100 mg/dL LAB CHEMISTRY METHOD 08/22/2024 5:34 PM EDT [facility] VLDL Cholesterol Lito 59.6 mg/dL LAB CHEMISTRY METHOD 08/22/2024 5:34 PM EDT [facility] Non HDL Chol. (LDL+VLDL) 69 <145 mg/dL LAB CHEMISTRY METHOD 08/22/2024 5:34 PM EDT [facility] Chol/HDL Ratio 3.4 0.0 - 4.4 LAB CHEMISTRY METHOD 08/22/2024 5:34 PM EDT [facility] Blood Venous blood specimen / Unknown Venipuncture / Unknown 08/22/2024 1:46 PM EDT 08/22/2024 1:46 PM EDT us Carmela Maguire PA LAB BLOOD ORDERABLES Final Resul t Performing Organization Address [facility]/ZIP Co de Phone Number [facility] [address] [place] [address], * Iron and TIBC (08/22/2024 1:46 PM EDT) Pathologist [facility] Iron 85 50 - 160 mcg/dL LAB CHEMISTRY METHOD 08/22/2024 5:34 PM EDT [facility] TIBC 340 250 - 450 mcg/dL LAB CHEMISTRY METHOD 08/22/2024 5:34 PM EDT [facility] Iron Saturation 25 20 - 50 % LAB CHEMISTRY METHOD 08/22/2024 5:34 PM EDT [facility] Blood Venous blood specimen / Unknown Venipuncture / Unknown 08/22/2024 1:46 PM EDT 08/22/2024 1:46 PM EDT us Carmela Andrez PA LAB BLOOD ORDERABLES Final Resul t Performing Organization Address [facility]/ZIP Co de Phone Number [facility] [address] [place] [address], * (ABNORMAL) Complete blood count (08/22/2024 1:46 PM EDT) [facility] WBC 8.1 4.8 - 10.8 K/mcL LAB HEMETOLOGY METHOD 08/22/2024 4:38 PM EDT [facility] RBC 4.30(L) 4.50 - 5.50 M/mcL LAB HEMETOLOGY METHOD 08/22/2024 4:38 PM EDT [facility] Hemoglobin 13.6 13.5 - 17.5 g/dL LAB HEMETOLOGY METHOD 08/22/2024 4:38 PM EDT [facility] Hematocrit 41.4(L) 42.0 - 54.0 % LAB HEMETOLOGY METHOD 08/22/2024 4:38 PM EDT [facility] MCV 95.8 79.0 - 98.0 FL LAB HEMETOLOGY METHOD 08/22/2024 4:38 PM EDT [facility] MCH 31.5 27.0 - 32.0 pcg LAB HEMETOLOGY METHOD 08/22/2024 4:38 PM EDT [facility] MCHC 32.9 32.0 - 37.0 g/dL LAB HEMETOLOGY METHOD 08/22/2024 4:38 PM EDT [facility] RDW 12.8 11.0 - 15.0 % LAB HEMETOLOGY METHOD 08/22/2024 4:38 PM EDT [facility] Platelets 196 130 - 400 K/mcL LAB HEMETOLOGY METHOD 08/22/2024 4:38 PM EDT [facility] MPV 12.0(H) 7.0 - 11.0 FL LAB HEMETOLOGY METHOD 08/22/2024 4:38 PM EDT [facility] NRBC 0.0 <1.0 % LAB HEMETOLOGY METHOD 08/22/2024 4:38 PM EDT [facility] NRBC Absolute 0.00 <0.10 K/mcL LAB HEMETOLOGY METHOD 08/22/2024 4:38 PM EDT [facility] Blood Venous blood specimen / Unknown Venipuncture / Unknown 08/22/2024 1:46 PM EDT 08/22/2024 1:46 PM EDT us Carmela Andrez LUX LAB BLOOD ORDERABLES Final Resul t [facility] [address] [place] [address], [place] [phone] * Comprehensive metabolic panel (08/22/2024 1:46 PM EDT) Sodium 139 133 - 145 mmol/L LAB CHEMISTRY METHOD 08/22/2024 5:34 PM [facility] Potassium 4.1 3.5 - 5.5 mmol/L LAB CHEMISTRY METHOD 08/22/2024 5:34 PM [facility] Chloride 106 96 - 110 mmol/L LAB CHEMISTRY METHOD 08/22/2024 5:34 PM [facility] CO2 29 21 - 32 mmol/L LAB CHEMISTRY METHOD 08/22/2024 5:34 PM [facility] Anion Gap 4 3 - 11 LAB CHEMISTRY METHOD 08/22/2024 5:34 PM [facility] Glucose 94 70 - 100 mg/dL LAB CHEMISTRY METHOD 08/22/2024 5:34 PM [facility] BUN 12 5 - 25 mg/dL LAB CHEMISTRY METHOD 08/22/2024 5:34 PM [facility] Creatinine 0.89 0.70 - 1.30 mg/dL LAB CHEMISTRY METHOD 08/22/2024 5:34 PM [facility] eGFR 92 >=60 mL/min/1. 73m2 LAB CHEMISTRY METHOD 08/22/2024 5:34 PM [facility] Comment:Calculation based on the??Chronic Kidney Disease Epidemiology Collaboration (CKD-EPI) equation refit??without adjustment for race. BUN/Creatinine Ratio 13.5 LAB CHEMISTRY METHOD 08/22/2024 5:34 PM [facility] Calcium 9.2 8.5 - 10.5 mg/dL LAB CHEMISTRY METHOD 08/22/2024 5:34 PM [facility] AST (SGOT) 23 10 - 42 unit/L LAB CHEMISTRY METHOD 08/22/2024 5:34 PM [facility] ALT (SGPT) 19 10 - 60 unit/L LAB CHEMISTRY METHOD 08/22/2024 5:34 PM [facility] Alkaline Phosphatase 75 42 - 121 unit/L LAB CHEMISTRY METHOD 08/22/2024 5:34 PM EDT [facility] Total Protein 6.6 6.0 - 8.0 g/dL LAB CHEMISTRY METHOD 08/22/2024 5:34 PM EDT [facility] Albumin 3.8 3.2 - 5.0 g/dL LAB CHEMISTRY METHOD 08/22/2024 5:34 PM EDT [facility] Total Bilirubin 0.6 0.0 - 1.4 mg/dL LAB CHEMISTRY METHOD 08/22/2024 5:34 PM EDT [facility] Blood Venous blood specimen / Unknown Venipuncture / Unknown 08/22/2024 1:46 PM EDT 08/22/2024 1:46 PM EDT us Carmela Andrez LUX LAB BLOOD ORDERABLES Final Resul t [facility] [address] [place] [address], * Falls Risk Assessment (02/20/2024) [facility] Falls Risk Assessment Abstracted Historical Provider HEALTH MAINTENANCE Final Result * Depression Screening (11/20/2023) Pathologist [facility] Depression Screening Abstracted Historical Provider HEALTH MAINTENANCE Final Result * Colonoscopy (07/28/2022) [facility] Colonoscopy No interpreta tion,abstr acted Anatomical Region Laterality Modality Other Historical Provider HEALTH MAINTENANCE Final Result * Hepatitis C Screening (04/28/2017) [facility] Hepatitis C Screening Abstracted Historical Provider HEALTH MAINTENANCE Final Result from Last 3 Months or Most Recently Relevant to Health Maintenance Insurance MEDICARE [facility] [address] [place] [address] Care Teams Hand Patcher Relationship Specialty Start Date End Date Jann Adams PA [address] [place] [address] PCP - General Internal Medicine 05/19/20
== END 2024-09-11 11:07 | disposition home or self-care (01) ==
LOC: HO.HNS 10:15
PROVIDERS: PCP Physician Assistant Medical; Visit Provider Neurological Surgery
DX: Z98.890 Other specified postprocedural states (principal)
CPT/HCPCS: 99024

== ENCOUNTER → 2024-09-11 10:15 | Outpatient (BNVA) | payer MEDICARE, OTHER, SELFPAY | PROVIDERS: PCP Physician Assistant Medical; Visit Provider Neurological Surgery | DX: M54.9 Dorsalgia, unspecified (principal); Z09 Encounter for follow-up examination after completed treatment for conditions other than malignant neoplasm; Z98.890 Other specified postprocedural states | CPT/HCPCS: 99212 ==

== ENCOUNTER 2024-11-06 14:28 | Outpatient (AMB) | payer MEDICARE, OTHER, SELFPAY ==
--- NOTE | 2024-11-06 15:18 | A.SPINEOV_ITS ---
Intake Visit Reasons: back pain & lower extremity numbness Intake Note: Mr. Edgar is here today c/o back pain and lower extremity numbness Application Technical Designer Required: No Allergies No Known Allergies Allergy (Verified 09/11/24 10:32) Assessment & Plan Assessment & Plan (1) Thoracic spondylosis with myelopathy: Code(s): M47.14 - Other spondylosis with myelopathy, thoracic region Category: Medical Plan D colleague, On 11/06/2024, I saw for return visit Thierry Edgar. He is status post T10-11 T11-12 decompression for thoracic myelopathy with numbness of his legs in June 2024. 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 He can not play golf without difficulties. The symptoms come up suddenly and are bilaterally. He denies weakness. Bending his back will relieve the symptoms. These episodes last a few minutes. On exam, there is no hyperreflexia. Toes are downgoing. No motor deficits. In summary, he suffering from intermittent complete loss of sensation of the bilateral lower extremities. I would like to order an MRI of the thoracic and lumbar spine to assess the spinal cord and the cauda equina. He will follow-up after the studies are done. I spent 30 minutes in his consult for history physical and answering questions. Hira Maria MD, PhD Spine Fellowship Trained Neurosurgeon Director, [facility] Orders: Orders MR thoracic spine wo/w con Today M47.14 - Other spondylosis with myelopathy, thoracic region MR lumbar spine wo con Today M47.14 - Other spondylosis with myelopathy, thoracic region, M48.062 - Spinal stenosis, lumbar region with neurogenic claudication Coding Level of Care Code Est Pt Level 4 (08029) Diagnoses Thoracic spondylosis with myelopathy M47.14
--- OUTSIDE RECORDS SUMMARY | 2024-11-06 16:38 | XMS_ITS | Encounter Summary ---
Author Organization [facility] Address [address] [place] [address] Care Team Providers Care Matrix Bath Operator Name Role Phone Alvarez Silverio MD Primary Care Provider + [phone] Jann Adams PA-C Primary Care Provider [phone] Hira Maria MD, PHD Unavailable Unava ilable Radha Rios MD Unavailable [phone] Carolyn Spencer PA-C Unavailable [phone] Encounter Details Date Type Department Care Team Description 08/25/2016 [facility] Medical Records [address] [place] [address] Abstract, Provider Social History Tobacco Use Types [...] on filedocumented in this encounter Care Teams Matrix Bath Operator Relationship Specialty Start Date End Date Alvarez Silverio MD [address] [place] [address] [id number] PCP - General 03/28/1999 05/18/20 Jann Adams PA-C [address] [place] [address] [id number] PCP - General Internal Medicine 05/19/20 Hira Maria MD, PHD [address] [place] [id number] Surgeon Neurosurgery 10/26/21 Radha Rios MD [address] [place] [address] Specialist Cardiology 02/09/22 Carolyn Spencer PA-C [address] [place] [address] Neurosurgery 03/14/22 documented as of this encounter
== END 2024-11-06 16:10 | disposition home or self-care (01) ==
LOC: HO.HNS 14:29
PROVIDERS: PCP Physician Assistant Medical; Visit Provider Neurological Surgery
DX: M47.14 Other spondylosis with myelopathy, thoracic region (principal)
CPT/HCPCS: 99214

== ENCOUNTER → 2024-11-06 14:28 | Outpatient (BNVA) | payer MEDICARE, OTHER, SELFPAY | PROVIDERS: PCP Physician Assistant Medical; Visit Provider Neurological Surgery | DX: M47.14 Other spondylosis with myelopathy, thoracic region (principal) | CPT/HCPCS: 99212 ==

== ENCOUNTER 2024-11-20 15:36 | Outpatient (REF) | payer MEDICARE, OTHER, SELFPAY ==
--- NOTE | ~2024-11-20 | MR_ITS ---
EXAMINATION: MR THORACIC SPINE WITHOUT AND WITH CONTRAST CLINICAL INFORMATION: Spondylosis with myelopathy, thoracic region. Status post surgical procedure at T10-11. COMPARISON: MRI of thoracic spine without IV contrast dated June 27, 2024. TECHNIQUE: MRI of the thoracic spine was obtained using routine sequences with and without contrast. Intravenous contrast: Gadolinium based (Gadavist) 10 mL. No reported immediate complications. FINDINGS: Limited examination due to patient's motion artifact. There is hyperintense T2 signal within the lower thoracic spinal cord at T10-11 best seen on the sagittal sequences. The conus medullaris ends at intervertebral disc T12-L1 with questionable artifactual hyperintense T2 signal. Bone marrow inhomogeneity. Paramagnetic field distortion secondary to metallic hardware in the lower cervical spine, C5 C7. There is hyperintense STIR signal within the posterior elements and soft tissues/muscular plane at T10-11. Small intraosseous hemangioma, T6. T10-11 and T11-12: There is a left hemilaminectomy at T10-11 and T11-12 with heterogeneous enhancement pattern at the surgical site. There is no fluid collection. There is no pseudomeningocele. There is no epidural compartment enhancing mass of and or fluid collection. There is a grade 1 retrolisthesis, T9-10, T11-12 and C6-7. There is multilevel marginal osteophyte formation and disc desiccation throughout the axial skeleton. There is Modic type II endplate changes at T4-5 and T8-9. T1-2: No disc herniation. No cord compression. T2-3: Broad-based disc bulging. Facet joint hypertrophy. No cord compression. No cord signal abnormality. T3-4: Broad-based disc osteophyte complex formation. Facet joint hypertrophy. No cord compression. No cord signal abnormality. T4-5: Broad-based disc bulging. Facet joint hypertrophy. No cord compression. No cord signal abnormality. T5-6: Right subarticular disc protrusion. No cord compression. No cord signal abnormality. T6-7: Right subarticular disc protrusion. Ventral indentation to the thecal sac. No cord compression. No gross cord signal abnormality. T7-8: Broad-based disc bulging. No cord compression. No cord signal abnormality. T8-9: Facet joint hypertrophy as well as ligamentum flavum. Broad-based disc bulging. No cord compression. No cord signal abnormality. Bilateral neuroforamina narrowing. T9-10: Broad-based disc bulging. Facet joint and ligamentum flavum hypertrophy. There is indentation to the dorsal and ventral aspect of the thecal sac. No cord compression. No cord signal abnormality. Left neuroforamina stenosis. There is a 17 mm heterogeneous hyperintense T2 low signal T1 nodular lesion centered in the right adrenal gland with the heterogeneous enhancement. Small cyst, right kidney. MR/MR thoracic spine wo/w con IMPRESSION: Status post left hemilaminectomy at T10-11 and T11-12 with associated granulation tissue. No epidural hematoma and or abscess. No pseudomeningocele. 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 Multilevel spondylosis without cord compression. Bilateral neuroforamina narrowing/stenosis at T8-9 and left-sided neuroforamina narrowing/stenosis at T9-10. 17 mm nodular lesion, right adrenal gland. Statistically may represent adenoma. Electronically signed by: Que Marcelo MD 11/21/2024 08:27 AM EDT
--- NOTE | ~2024-11-20 | MR_ITS ---
EXAM: MRI Lumbar Spine without Contrast. TECHNIQUE: Multiplanar multisequence MR imaging was performed through the lumbar spine without contrast. INDICATION: Spinal stenosis lumbar region, neurogenic claudication PRIOR: X-ray June 26, 2024 FINDINGS: 5 non-rib bearing lumbar segments are present on x-ray. Marrow and end-plates: Degenerative endplate signal and changes along with Schmorl's nodes are present at multiple levels throughout the lumbar spine. Alignment: There is 33 degrees levoscoliosis of the thoracolumbar junction. There is 19 degrees dextroscoliosis in the lumbar spine. L4-5 demonstrate grade 1 anterolisthesis. There is subtle retrolisthesis at L5-S1. Soft tissues: Numerous simple renal cysts are present bilaterally. There is edema in the paraspinal soft tissues adjacent to the T10-T11 left facet raising question of facet synovitis. Conus: The termination of conus medullaris is within normal limits at the level of L1. T12-L1: There is severe disc space narrowing with broad-based disc bulge and endplate osteophytes not resulting in spinal stenosis. There is no right foraminal narrowing without left-sided narrowing. L1-L2: There is severe loss of disc height and circumferential broad-based disc bulge with endplate osteophytes. There is ligament flavum thickening and mild facet arthropathy resulting in moderate spinal stenosis with right greater than left lateral recess narrowing. There is mild right foraminal narrowing without left-sided narrowing. L2-L3: There is moderate loss of disc height and superficial broad-based disc bulge with endplate osteophytes and subtle retrolisthesis resulting in severe spinal stenosis. There is also moderate facet hypertrophy and ligament flavum thickening. There is mild to moderate foraminal narrowing. L3-L4: There is severe disc space narrowing with trace fluid signal in the disc space without clear evidence of cortical destruction or marrow edema. There is moderate facet hypertrophy with mild to moderate spinal stenosis. There is mild right and [id number] left foraminal narrowing. L4-L5: There is grade 1 anterolisthesis with severe loss of disc height and superficial broad-based disc bulge. There is severe facet arthropathy with left facet joint effusion and trace fluid in the right facet joint. There is severe spinal stenosis with [id number] foraminal narrowing. L5-S1: There is moderate loss of disc height and circumferential broad-based disc bulge with endplate osteophytes and moderate facet degeneration. There is trace fluid in the facet joints. There is mild spinal stenosis with mild to moderate right and moderate left foraminal narrowing. MR/MR lumbar spine wo con IMPRESSION: Mild to moderate scoliosis. Possible facet synovitis involving T10-11 on the left. Multilevel degenerative disc disease and facet arthropathy with spinal stenosis. L1-L2: There is moderate spinal stenosis with right greater than left lateral recess narrowing. L2-L3: There is severe spinal stenosis. There is mild to moderate foraminal narrowing. L3-L4: There is mild to moderate spinal stenosis. L4-L5: There is severe spinal stenosis with [id number] foraminal narrowing. L5-S1: There is mild spinal stenosis with mild to moderate right and moderate left foraminal narrowing. Electronically signed by: Dayne Palmer MD 11/20/2024 06:01 PM EDT
[2024-11-20] MEDS: gadobutroL 10 ML VIAL IVPUSH (16:47)
--- OUTSIDE RECORDS SUMMARY | 2024-11-20 18:26 | XMS_ITS | Clinical Summary ---
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 7:03 AM [facility] Calcium 9.0 8.5 - 10.5 mg/dL LAB CHEMISTRY METHOD 10/15/2024 7:03 AM [facility] Blood Venous blood specimen / Unknown Venipuncture / Unknown 10/15/2024 5:51 AM EDT 10/15/2024 6:26 AM EDT us Alon Olea MD LAB BLOOD ORDERABLES Final Result [facility] [address] [place] [address], * CT Angio Chest wo and/or w Contrast (10/14/2024 8:45 PM EDT) Anatomical Region Laterality Modality Body Computed Tomogra phy 10/14/2024 9:28 PM EDT Impressions 10/14/2024 9:28 PM EDT 1. No acute pulmonary embolus. 2. Benign right adrenal adenoma. 3. Nonobstructing right renal stone. This document has been electronically signed by: Shelli Miranda MD on 10/14/2024 21:28:43 Narrative 10/14/2024 9:28 PM EDT INDICATION: PE suspected, high prob CT angiography chest with contrast. 3D Postprocessing. Comparison: None Findings: The heart is normal size. RV/LV ratio is normal. Unremarkable thoracic aorta and great vessels. No aneurysm. Enlarged pulmonary artery. This can be seen with pulmonary artery hypertension. The visualized thyroid and mediastinum are unremarkable. Mild scattered atelectasis in the lower lungs. No consolidation or effusion. 3 mm nonobstructing right superior renal stone. 2.1 cm benign right adrenal adenoma. No acute fractures. Procedure Note Shelli Miranda MD - 10/14/2024 INDICATION: PE suspected, high prob CT angiography chest with contrast. 3D Postprocessing. Comparison: None Findings: The heart is normal size. RV/LV ratio is normal. Unremarkable thoracic aorta and great vessels. No aneurysm. Enlarged pulmonary artery. This can be seen with pulmonary artery hypertension. The visualized thyroid and mediastinum are unremarkable. Mild scattered atelectasis in the lower lungs. No consolidation or effusion. 3 mm nonobstructing right superior renal stone. 2.1 cm benign right adrenal adenoma. No acute fractures. IMPRESSION: 1. No acute pulmonary embolus. 2. Benign right adrenal adenoma. 3. Nonobstructing right renal stone. This document has been electronically signed by: Shelli Vanegas MD on 10/14/2024 21:28:43 Adis Brewster MD IMG CT PROCEDURES Final Res ult * APTT (10/14/2024 7:57 PM EDT) [facility] aPTT 31.3 24.1 - 39.3 sec LAB COAGULATION METHOD 10/14/2024 8:21 PM EDT [facility] Blood Venous blood specimen / Unknown Venipuncture / Unknown 10/14/2024 7:57 PM EDT 10/14/2024 8:10 PM EDT Adis Brewster MD LAB BLOOD ORDERABLES Final Result Performing Organization Address [facility]/ZIP Co de Phone Number [facility] [address] [place] [address], [place] [phone] * Prothrombin time with INR (10/14/2024 7:57 PM EDT) [facility] Protime 12.4 10.6 - 13.9 sec LAB COAGULATION METHOD 10/14/2024 8:21 PM EDT [facility] INR 1.0 LAB COAGULATION METHOD 10/14/2024 8:21 PM EDT [facility] Blood Venous blood specimen / Unknown Venipuncture / Unknown 10/14/2024 7:57 PM EDT 10/14/2024 8:10 PM EDT Adis Brewster MD LAB BLOOD ORDERABLES Final Result Performing Organization Address City/[facility]/ZIP Co de Phone Number [facility] [address] [place] [address], [place] [phone] * (ABNORMAL) B-type natriuretic peptide (10/14/2024 1:18 PM EDT) [facility] BNP 165(H) <=100 pcg/mL LAB CHEMISTRY METHOD 10/14/2024 2:42 PM EDT [facility] Blood Venous blood specimen / Unknown Venipuncture / Unknown 10/14/2024 1:18 PM EDT 10/14/2024 2:01 PM EDT us Issa Paulino MD LAB BLOOD ORDERABLES Final Resu lt Performing Organization Address [facility]/ZIP Co de Phone Number [facility] [address] [place] [address], [place] [phone] * Magnesium (10/14/2024 1:18 PM EDT) Magnesium 2.0 1.9 - 2.6 mg/dL LAB CHEMISTRY METHOD 10/14/2024 3:06 PM EDT [facility] Blood Venous blood specimen / Unknown Venipuncture / Unknown 10/14/2024 1:18 PM EDT 10/14/2024 2:01 PM EDT us Issa Paulino MD LAB BLOOD ORDERABLES Final Resu lt Performing Organization Address [facility] Co de Phone Number [facility] [address] [place] [address], [place] [phone] * Lipase (10/14/2024 1:18 PM EDT) Lipase 32 13 - 75 unit/L LAB CHEMISTRY METHOD 10/14/2024 3:15 PM EDT [facility] Blood Venous blood specimen / Unknown Venipuncture / Unknown 10/14/2024 1:18 PM EDT 10/14/2024 2:01 PM EDT us Issa Paulino MD LAB BLOOD ORDERABLES Final Resu lt Performing Organization Address [facility]/ZIP Co de Phone Number [facility] [address] [place] [address], [place] [phone] * (ABNORMAL) Comprehensive metabolic panel (10/14/2024 1:18 PM EDT) Only the most recent of2 resultswithin the time period is included. Sodium 141 133 - 145 mmol/L LAB CHEMISTRY METHOD 10/14/2024 3:29 PM [facility] Potassium 4.0 3.5 - 5.5 mmol/L LAB CHEMISTRY METHOD 10/14/2024 3:29 PM [facility] Chloride 108 96 - 110 mmol/L LAB CHEMISTRY METHOD 10/14/2024 3:29 PM [facility] CO2 24 21 - 32 mmol/L LAB CHEMISTRY METHOD 10/14/2024 3:29 PM [facility] Anion Gap 9 3 - 11 LAB CHEMISTRY METHOD 10/14/2024 3:29 PM [facility] Glucose 99 70 - 100 mg/dL LAB CHEMISTRY METHOD 10/14/2024 3:29 PM [facility] BUN 12 5 - 25 mg/dL LAB CHEMISTRY METHOD 10/14/2024 3:29 PM [facility] Creatinine 0.97 0.70 - 1.30 mg/dL LAB CHEMISTRY METHOD 10/14/2024 3:29 PM [facility] eGFR 83 >=60 mL/min/1. 73m2 LAB CHEMISTRY METHOD 10/14/2024 3:29 PM [facility] Comment:Calculation based on the Chronic Kidney Disease Epidemiology Collaboration (CKD-EPI) equation refit without adjustment for race. BUN/Creatinine Ratio 12.4 LAB CHEMISTRY METHOD 10/14/2024 3:29 PM [facility] Calcium 9.0 8.5 - 10.5 mg/dL LAB CHEMISTRY METHOD 10/14/2024 3:29 PM [facility] AST (SGOT) 45(H) 10 - 42 unit/L LAB CHEMISTRY METHOD 10/14/2024 3:29 PM [facility] ALT (SGPT) 29 10 - 60 unit/L LAB CHEMISTRY METHOD 10/14/2024 3:29 PM EDT [facility] Alkaline Phosphatase 84 42 - 121 unit/L LAB CHEMISTRY METHOD 10/14/2024 3:29 PM EDT [facility] Total Protein 6.2 6.0 - 8.0 g/dL LAB CHEMISTRY METHOD 10/14/2024 3:29 PM EDT [facility] Albumin 3.6 3.2 - 5.0 g/dL LAB CHEMISTRY METHOD 10/14/2024 3:29 PM EDT [facility] Total Bilirubin 0.4 0.0 - 1.4 mg/dL LAB CHEMISTRY METHOD 10/14/2024 3:29 PM EDT [facility] Blood Venous blood specimen / Unknown Venipuncture / Unknown 10/14/2024 1:18 PM EDT 10/14/2024 2:01 PM EDT Issa Paulino MD LAB BLOOD ORDERABLES Final Resu lt [facility] [address] [place] [address], * ECG 12 lead (10/14/2024 1:15 PM EDT) Ventricular Rate ECG 55 BPM GEMUSE Atrial Rate 55 BPM GEMUSE P-R Interval 170 ms GEMUSE QRS Duration 110 ms GEMUSE Q-T Interval 450 ms GEMUSE QTc 430 ms GEMUSE P Wave [place] 26 degrees GEMUSE R [place] -8 degrees GEMUSE T [place] 11 degrees GEMUSE ECG Interpretation Sinus bradycardia Abnormal ECG When compared with ECG of 10-MAY-2024 08:54, No significant change was found Confirmed by Neli GUILLERMO JAMES ([id number]) on 10/15/2024 6:05:38 AM GEMUSE 10/14/2024 1:15 PM EDT 10/15/2024 6:05 AM EDT Alon Olea MD ECG ORDERABLES Final Resul t GEMUSE * (ABNORMAL) Drug abuse screen expanded with reflex confirmation, urine (08/22/2024 1:46 PM EDT) Amphetamine Screen, Ur Negative Negative LAB CHEMISTRY METHOD 5 6:44 PM EDT [facility] Comment:Certain OTC medicati ons containing ephedrine, phenylephrine, pseudoephedrine and phenylpropanolamine can cause false positive results. Barbiturate Screen, Ur Negative Negative LAB CHEMISTRY METHOD 5 6:44 PM EDT [facility] Benzodiazepine Screen, Ur Negative Negative LAB CHEMISTRY METHOD 5 6:44 PM EDT [facility] Cocaine Screen, Ur Negative Negative [facility] O[facility] Screen, Ur Positive(A ) Negative LAB CHEMISTRY METHOD 5 6:44 PM EDT [facility] Cannabinoid (THC) Screen, Ur Negative Negative LAB CHEMISTRY METHOD 5 6:44 PM EDT [facility] Comment:Specimens from patie nts taking pantoprazole sodium (Protonix) have been shown to produce false positive results. Fentanyl, Ur Negative Negative LAB CHEMISTRY METHOD 5 6:44 PM EDT [facility] Oxycodone Screen, Ur Negative Negative LAB CHEMISTRY METHOD 5 6:44 PM T [facility] Urine Urine specimen obtained by clean catch procedure / Unknown Non-blood Collection / Unknown 08/22/2024 1:46 PM EDT 08/22/2024 1:46 PM EDT [facility] - 08/22/2024 6:44 PM EDT Assay cutoffs: Amphetamines 1000 ng/mL Barbiturates 200 ng/mL Benzodiazepines 200 ng/mL Cocaine 300 ng/mL Fentanyl 1 ng/mL Opiates 300 ng/mL Oxycodone 100 ng/mL THC 50 ng/mL Semi-quantitative assay for screening purposes only. Unconfirmed screening result should not be used for non-medical purposes. *POSITIVE RESULTS ARE AUTOMATICALLY SENT FOR ALTERNATE METHOD CONFIRMATION* us Carmela Andrez LUX LAB URINE ORDERABLES Final Resul t [facility] [address] [place] [address], * Opiates confirmation, urine (08/22/2024 1:46 PM [...] ng/mL 08/26/2024 10:15 PM EDT [facility] Creatinine 82 20 - 250 mg/dL 08/26/2024 10:15 PM EDT [facility] Adulterants Negative 08/26/2024 10:15 PM EDT [facility] Comment: Confirmation (LC/MS/MS) Decision Limits Morphine 25 ng/mL Codeine 25 ng/mL Hydrocodone 25 ng/mL Hydromorphone 25 ng/mL Oxycodone 25 ng/mL Oxymorphone 25 ng/mL Adulterant Decision Limit: General Oxidants 200 ug/mL The adulterant assay tests for General Oxidants, including Chromates and Nitrites. Adulterants are substances either ingested or added directly to a urine specimen to prevent the detection of drug use. If applicable, any drug confirmation testing reported here was developed and the performance characteristics determined by [facility]. This confirmation testing has not been cleared or approved by the FDA. The laboratory is regulated under CLIA as qualified to perform high-complexity testing. This test is used for patient testing purposes. It should not be regarded as investigational or for research. Test performed at [facility], [address], [place] [address] Kenna Larios MD, PhD - Press Cleaner Urine Urine specimen obtained by clean catch procedure / Unknown Non-blood Collection / Unknown 08/22/2024 1:46 PM EDT 08/22/2024 6:44 PM EDT us Carmela Andrez LUX LAB URINE ORDERABLES Final Resul t [facility] [address] [place] [address] * (ABNORMAL) Lipid panel with reflex to direct LDL (08/22/2024 1:46 PM EDT) Cholesterol 98 0 - 200 mg/dL LAB CHEMISTRY METHOD 08/22/2024 5:34 PM EDT [facility] Triglycerides 298(H) 0 - 150 mg/dL LAB CHEMISTRY METHOD 08/22/2024 5:34 PM EDT [facility] HDL 29(L) >=40 mg/dL LAB CHEMISTRY METHOD 08/22/2024 5:34 PM EDT [facility] LDL Calculated 9 0 - 100 mg/dL LAB CHEMISTRY METHOD 08/22/2024 5:34 PM EDT [facility] VLDL Cholesterol Lito 59.6 mg/dL LAB CHEMISTRY METHOD 08/22/2024 5:34 PM EDT [facility] Non HDL Chol. (LDL+VLDL) 69 <145 mg/dL LAB CHEMISTRY METHOD 08/22/2024 5:34 PM EDT [facility] Chol/HDL Ratio 3.4 0.0 - 4.4 LAB CHEMISTRY METHOD 08/22/2024 5:34 PM [facility] Blood Venous blood specimen / Unknown Venipuncture / Unknown 08/22/2024 1:46 PM EDT 08/22/2024 1:46 PM EDT us Carmela Andrez PA LAB BLOOD ORDERABLES Final Resul t Performing Organization Address City/[facility]/ZIP Co de Phone Number [facility] [address] [place] [address], [place] [phone] * Iron and TIBC (08/22/2024 1:46 PM EDT) [facility] Iron 85 50 - 160 mcg/dL LAB CHEMISTRY METHOD 08/22/2024 5:34 PM EDT [facility] TIBC 340 250 - 450 mcg/dL LAB CHEMISTRY METHOD 08/22/2024 5:34 PM EDT [facility] Iron Saturation 25 20 - 50 % LAB CHEMISTRY METHOD 08/22/2024 5:34 PM EDT [facility] Blood Venous blood specimen / Unknown Venipuncture / Unknown 08/22/2024 1:46 PM EDT 08/22/2024 1:46 PM EDT us Carmela LUX LAB BLOOD ORDERABLES Final Resul t Performing Organization Address [facility] Co de Phone Number [facility] [address] [place] [address], [place] [phone] * (ABNORMAL) Complete blood count (08/22/2024 1:46 PM EDT) [facility] WBC 8.1 4.8 - 10.8 K/mcL LAB HEMETOLOGY METHOD 08/22/2024 4:38 PM EDT [facility] RBC 4.30(L) 4.50 - 5.50 M/mcL LAB HEMETOLOGY METHOD 08/22/2024 4:38 PM EDT [facility] Hemoglobin 13.6 13.5 - 17.5 g/dL LAB HEMETOLOGY METHOD 08/22/2024 4:38 PM EDT [facility] Hematocrit 41.4(L) 42.0 - 54.0 % LAB HEMETOLOGY METHOD 08/22/2024 4:38 PM EDT [facility] MCV 95.8 79.0 - 98.0 FL LAB HEMETOLOGY METHOD 08/22/2024 4:38 PM EDT [facility] MCH 31.5 27.0 - 32.0 pcg LAB HEMETOLOGY METHOD 08/22/2024 4:38 PM EDT [facility] MCHC 32.9 32.0 - 37.0 g/dL LAB HEMETOLOGY METHOD 08/22/2024 4:38 PM EDT [facility] RDW 12.8 11.0 - 15.0 % LAB HEMETOLOGY METHOD 08/22/2024 4:38 PM EDT [facility] Platelets 196 130 - 400 K/mcL LAB HEMETOLOGY METHOD 08/22/2024 4:38 PM EDT [facility] MPV 12.0(H) 7.0 - 11.0 FL LAB HEMETOLOGY METHOD 08/22/2024 4:38 PM EDT [facility] NRBC 0.0 <1.0 % LAB HEMETOLOGY METHOD 08/22/2024 4:38 PM EDT [facility] NRBC Absolute 0.00 <0.10 K/mcL LAB HEMETOLOGY METHOD 08/22/2024 4:38 PM EDT [facility] Blood Venous blood specimen / Unknown Venipuncture / Unknown 08/22/2024 1:46 PM EDT 08/22/2024 1:46 PM EDT us Carmela Andrez LUX LAB BLOOD ORDERABLES Final Resul t [facility] [address] [place] [address], * Falls Risk Assessment (02/20/2024) [facility] Falls Risk Assessment Abstracted Historical Provider HEALTH MAINTENANCE Final Result * Depression Screening (11/20/2023) Pathologist [facility] Depression Screening Abstracted [facility] Provider HEALTH MAINTENANCE Final Result * Colonoscopy (07/28/2022) Pathologist [facility] Colonoscopy No interpreta tion,abstr acted Anatomical Region Laterality Modality Other [facility] Provider HEALTH MAINTENANCE Final Result * Hepatitis C Screening (04/28/2017) Pathologist [facility] Hepatitis C Screening Abstracted [facility] Provider HEALTH MAINTENANCE Final Result from Last 3 Months or Most Recently Relevant to Health Maintenance Insurance MEDICARE [facility] Advance Directives * Full Code - Confirmed (Latest Code Status on File) Date Activated Date Inactivated Comments 10/15/2024 12:59 AM 10/16/2024 6:11 PM This code s tatus was ascertained in the following way: Code status discussion: discussion with patient To update the patient's code status, place a code status order. Do not modify or discontinue any currently active code status orders. * Full Code - Default Date Activated Date Inactivated Comments 10/14/2024 9:46 PM 10/15/2024 12:59 AM This is ord er is used when code status has not been discussed with the patient, or code status is otherwise unknown/unconfirmed To update the patient's code status, place a code status order. Do not modify or discontinue any currently active code status orders. Healthcare Agents on File Name Relationship Healthcare Agent [facility] Communication Jacklyn Curry Spouse Health Care Agent Care Teams Clearing Distribution Clerk Relationship Specialty Start Date End Date Jann Adams PA [address] [place] [address] PCP - General Internal Medicine 05/19/20
== END 2024-11-20 15:37 | disposition home or self-care (01) ==
LOC: HO.MRI 15:36
PROVIDERS: PCP Physician Assistant Medical; Visit Provider Neurological Surgery
DX: M47.14 Other spondylosis with myelopathy, thoracic region (principal); M48.062 Spinal stenosis, lumbar region with neurogenic claudication
CPT/HCPCS: 72148; 72157; A9585

== ENCOUNTER → 2024-11-20 15:45 | Outpatient (BNV) | payer MEDICARE, OTHER, SELFPAY | PROVIDERS: PCP Physician Assistant Medical; Visit Provider Radiology Diagnostic Radiology | DX: M47.14 Other spondylosis with myelopathy, thoracic region (principal) | CPT/HCPCS: 72157 ==

== ENCOUNTER 2024-11-27 14:20 | Outpatient (AMB) | payer MEDICARE, OTHER, SELFPAY ==
--- NOTE | 2024-11-27 14:40 | HO.SPINEOV ---
Intake Visit Reasons: MRI f/up Intake Note: Mr. Edgar is here today to F/u on the results to his MRI. 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 As you know, he suffering from intermittent complete numbness his bilateral legs. The symptoms occur when he walks on a flat surface for example in a store. Knee bending with flexion of the back will improve and eventually resolve the symptoms. He denies pain or weakness. We repeat an MRI of the thoracic spine which fortunately shows no spinal cord compression. On the other hand, the lumbar spine shows severe lumbar compression at L2-3 and L4-5 on top of a degenerative scoliosis and a L4-5 spondylolisthesis. Clinically, the symptoms could definitely be related to the severe L2-3 spinal stenosis. I do not think that the L4-5 level is involved. I would offer him a bilateral L2-3 decompression through a unilateral approach. This minimizes the risk of destabilization and increase of the lumbar degenerative scoliosis. I think that a minimally invasive correction of the degenerative scoliosis at this point would be to invasive. I described the procedure and he wants to proceed. He is tentatively scheduled for 01/23/2025. He will stop his baby aspirin. Of note, he had an episode in September where he was evaluated for possible heart attack at [facility]. All tests, including stress test and ultrasound were negative. He was found to have hypertension which is currently treated. I spent 40 minutes in his consult reviewing imaging and discussing plan of care. Hira Maria MD, PhD Spine Fellowship Trained Neurosurgeon Director, [facility] Coding Level of Care Code Est Pt Level 5 (65127) Diagnoses Lumbar stenosis with neurogenic claudication M48.062 Scoliosis of lumbar region due to degenerative disease of spine in adult M41.56
== END 2024-11-27 15:38 | disposition home or self-care (01) ==
LOC: HO.HNS 14:20
PROVIDERS: PCP Physician Assistant Medical; Visit Provider Neurological Surgery
DX: M48.062 Spinal stenosis, lumbar region with neurogenic claudication (principal); M41.56 Other secondary scoliosis, lumbar region
CPT/HCPCS: 99215

== ENCOUNTER → 2024-11-27 14:20 | Outpatient (BNVA) | payer MEDICARE, OTHER, SELFPAY | PROVIDERS: PCP Physician Assistant Medical; Visit Provider Neurological Surgery | DX: M48.062 Spinal stenosis, lumbar region with neurogenic claudication (principal); M41.56 Other secondary scoliosis, lumbar region | CPT/HCPCS: 99212 ==

== ENCOUNTER 2025-01-20 14:03 | Outpatient (REF) | payer MEDICARE, OTHER, SELFPAY ==
--- NOTE | ~2025-01-20 | US_ITS ---
EXAMINATION: US KIDNEY BILATERAL HISTORY: N20.0 - Calculus of kidney TECHNIQUE: Real-time grayscale ultrasound imaging of the kidneys was performed and images were reviewed. COMPARISON: Comparison is made with the prior examination dated 01/25/2024. FINDINGS: Right kidney: The right kidney measures 11.6 x 6.0 x 5.5 cm. Renal parenchymal echotexture and thickness are normal. There is a 9 x 8 x 10 mm cyst in the interpolar region. There is no hydronephrosis or renal calculi. Left Kidney: The left kidney measures 11.7 x 5.6 x 5.6 cm. Renal parenchymal echotexture and thickness are normal. Multiple cysts are noted, the largest of which is at the lower pole measuring 2.0 x 2.0 x 1.9 cm. There are multiple nonobstructing calculi measuring up to 3 mm in size. There is no hydronephrosis. US/US renal BI IMPRESSION: Left nephrolithiasis without evidence of hydronephrosis. Electronically signed by: Tello Phillips MD 01/20/2025 03:27 PM EDT
--- OUTSIDE RECORDS SUMMARY | 2025-01-20 15:26 | XMS_ITS | Clinical Summary ---
Author Organization [address] [place] [address] [place] [phone] Phone Care Team Providers Care Postdoctoral Fellow Name Role Phone Jann Adams Primary Care Provider [phone] Allergies No known active allergies Medications carbidopa-levod opa (SINEMET) 25-100 mg per tablet [...] Active ZINC ORAL Take by mouth. Active biotin 10 mg tablet Take by mouth daily. Active tamsulosin (FLOMAX) 0.4 mg 24 hr capsule Take by mouth. START 1 CAPSULE DAILY FOR 7 DAYS THAN INCREASE TO TWICE DAILY IF NO DIZZINESS Active nitroglycerin (NITROSTAT) 0.4 mg SL tablet [...] MOUTH DAILY 135 tablet 1 5 Active losartan (COZAAR) 100 mg tablet Take 1 tablet (100 mg total) by mouth 1 (one) time each day. Take 1 Tablet by mouth daily. - Oral 90 each 3 5 Active gabapentin (NEURONTIN) 600 mg tablet Take 1 tablet (600 mg total) by mouth 3 (three) times a day. 270 tablet 3 5 Active atorvastatin (LIPITOR) 80 mg tablet TAKE [...] Daily Amount: 2 tablets 56 tablet 5 01/17/20 25 Discontinu ed(Reorder ) Active Problems Problem [...] could not get a follow-up appointment with [facility] urology until this which is almost 2 [...] or questions. Coronary artery disease invo lving kobuk coronary artery of kobuk heart without angina pectoris 06/15/2016 Overview (05/10/2024): - Status post non-ST elevation LA in January 2015 with cardiac cath at [...] (NITROSTAT) SL tablet 0.4 mg Non-ST elevation LA (NSTEMI) (CMS/HCC V24, CMS/H CC V28) 02/26/2015 [...] Encounters Date Type Department Care Team Description 12/16/2024 1:30 PM EDT Office Visit [facility] Hematology Oncology [address] [place] [phone] Unique Kolb MD Adenoma of right adrenal gland 11/26/2024 10:30 AM EDT Lab Draw Station - [address] [facility] [address] [place] [address] Coronary artery disease involving kobuk coronary artery of kobuk heart without angina pectoris; Aortic dilatation (CMS/HCC V24); Other depression; Essential hypertension, benign; Gastroesophageal reflux disease without esophagitis; Hx of non-ST elevation myocardial infarction (NSTEMI); Spinal stenosis of lumbar region with neurogenic claudication; Non-ST elevation LA (NSTEMI) (CMS/HCC V24, CMS/HCC V28); Mixed hyperlipidemia; Adenoma of right adrenal gland 11/25/2024 8:00 AM EDT Office Visit [address] [phone] Jann Adams PA Coronary artery disease involving kobuk coronary artery of kobuk heart without angina pectoris (Primary Dx); Aortic dilatation (CMS/HCC V24); Other depression; Essential hypertension, benign; Gastroesophageal reflux disease without esophagitis; Hx of non-ST elevation myocardial infarction (NSTEMI); Spinal stenosis of lumbar region with neurogenic claudication; Non-ST elevation LA (NSTEMI) (CMS/HCC V24, CMS/HCC V28); Mixed hyperlipidemia; Adenoma of right adrenal gland; Iron deficiency anemia due to chronic blood loss 10/25/2024 9:40 AM EDT Office Visit [facility] Cardiology [facility] [address] [facility] [address] [place] [address] Shawn Garcia NP Aortic dilatation (CMS/HCC V24) (Primary Dx); Coronary artery disease involving kobuk coronary artery of kobuk heart without angina pectoris; Essential hypertension, benign; Mixed hyperlipidemia 10/25/2024 Telephone [facility] Cardiology [facility] [address] [facility] [address] [place] [address] Shawn Garcia NP from Last 3 Months Immunizations Name Administration [...] HISTORY OTHER; COMMENT: right knee arthroscopic surgery 2007 ESOPHAGOGASTRODUODENOSCOPY 10/13/2008 PROCEDURE: [place] ESOPHAGOGASTRODUODENOSCOPY TRANSORAL DIAGNOSTIC; COMMENT: mild gastritis, H. [...] care for your loved ones. For example, child nutrition manager or elderly care for an older adult? [...] Sign Reading Time Taken Comments Blood Pressure 118/62 12/16/2024 1:21 PM EDT Pulse 58 12/16/2024 1:21 PM EDT Temperature 36.7 C (98 F) 12/16/2024 1:21 PM EDT Respiratory Rate 14 11/25/2024 7:58 AM EDT Oxygen Saturation 94% 12/16/2024 1:21 PM EDT Inhaled Oxygen Concentration - - Weight 94.8 kg (209 lb) 12/16/2024 1:21 PM EDT Height 180.3 cm (5' 11 ) 12/16/2024 1:21 PM EDT Body Mass Index 29.15 12/16/2024 1:21 PM EDT Plan of Treatment Upcoming Encounters Date Type Department Care Team (Late st Contact Info) Description 02/20/2025 9:00 AM EDT Appointment [facility] CT Scan [address] [place] [phone] 02/25/2025 7:30 AM EDT Office Visit Adult Medicine [facility] [address], [place] [phone] Carmela Maguire PA [address] [place], [place] 03/05/2025 3:15 PM EDT Office Visit [facility] Hematology Oncology [address] [place] [phone] Shane-Unique Asif MD [address] [place] [phone] 03/31/2025 9:00 AM EST Ancillary Procedure [facility] [address] [place] [address] [place] [phone] 05/27/2025 8:15 AM EST Office Visit Adult Medicine [facility] [address] [place] [address] Jann Adams PA [address] [place] [address] Health Maintenance Due Date Last Done Comments COVID-19 Vaccine ( season) 2024 05/18/2022, 03/20/2021, 08/22/2020, Additional history exists Medicare Annual Wellness Visit 11/19/2024 11/20/2023 Influenza Vaccine (#1) 2025 , 04/28/2023, 04/15/2022, Additional history exists Social Influencers of Health Screening 08/16/2025 08/16/2024 Falls Risk Assessment 10/15/2025 10/15/2024, 024 Hypertension/CHF/CAD [...] 11/07/2018 Zoster Vaccines Completed 06/12/2021, 02/26, 08/15/2014 Depression Screening Completed 10/11/2024, 11/20/19 24 HIB Vaccines Aged Out No longer eligi [...] 10:32 AM EDT Coronary artery disease involving kobuk coronary artery of kobuk heart without angina pectoris Aortic dilatation (CMS/HCC V24) Other depression Essential hypertension, benign Gastroesophageal reflux disease without esophagitis Hx of non-ST elevation myocardial infarction (NSTEMI) Spinal stenosis of lumbar region with neurogenic claudication Non-ST elevation LA (NSTEMI) (CMS/HCC V24, CMS/HCC V28) Mixed hyperlipidemia Adenoma of right adrenal gland CORTISOL Routine 11/26/2024 10:32 AM EDT Coronary artery disease involving kobuk coronary artery of kobuk heart without angina pectoris Aortic dilatation (CMS/HCC V24) Other depression Essential hypertension, benign Gastroesophageal reflux disease without esophagitis Hx of non-ST elevation myocardial infarction (NSTEMI) Spinal stenosis of lumbar region with neurogenic claudication Non-ST elevation LA (NSTEMI) (CMS/HCC V24, CMS/HCC V28) Mixed hyperlipidemia Adenoma of right adrenal gland CATECHOLAMINES, FRACTIONATED, PLASMA Routine 11/26/2024 10:32 AM EDT Coronary artery disease involving kobuk coronary artery of kobuk heart without angina pectoris Aortic dilatation (CMS/HCC V24) Other depression Essential hypertension, benign Gastroesophageal reflux disease without esophagitis Hx of non-ST elevation myocardial infarction (NSTEMI) Spinal stenosis of lumbar region with neurogenic claudication Non-ST elevation LA (NSTEMI) (CMS/HCC V24, CMS/HCC V28) Mixed hyperlipidemia Adenoma of right adrenal gland ALDOSTERONE Routine 11/26/2024 10:32 AM EDT Coronary artery disease involving kobuk coronary artery of kobuk heart without angina pectoris Aortic dilatation (CMS/HCC V24) Other depression Essential hypertension, benign Gastroesophageal reflux disease without esophagitis Hx of non-ST elevation myocardial infarction (NSTEMI) Spinal stenosis of lumbar region with neurogenic claudication Non-ST elevation LA (NSTEMI) (CMS/HCC V24, CMS/HCC V28) Mixed hyperlipidemia Adenoma of right adrenal gland METANEPHRINES, PLASMA FREE Routine 11/26 10:32 AM EDT Coronary artery disease involving kobuk coronary artery of kobuk heart without angina pectoris Aortic dilatation (CMS/HCC V24) Other depression Essential hypertension, benign Gastroesophageal reflux disease without esophagitis Hx of non-ST elevation myocardial infarction (NSTEMI) Spinal stenosis of lumbar region with neurogenic claudication Non-ST elevation LA (NSTEMI) (CMS/HCC V24, CMS/HCC V28) Mixed hyperlipidemia Adenoma of right adrenal gland EXTERNAL MRI REPORT 11/20/2024 EXTERNAL MRI REPORT 11/20/2024 BASIC METABOLIC PANEL Routine 10/15/2024 5:51 AM EDT LIPID PANEL WITH REFLEX TO DIRECT LDL Routine 08/22/2024 1:46 PM EDT Mixed hyperlipidemia FALLS RISK ASSESSMENT Routine 02/20/2024 DEPRESSION SCREENING Routine 11/20/2023 COLONOSCOPY Routine 07/28/2022 HEPATITIS C SCREENING Routine 04/28/2017 from Last 3 Months or Most Recently Relevant to Health Maintenance Results * Metanephrines, plasma free (11/26/2024 10:32 AM EDT) Metanephrines Free 27 < OR = 57 pg/mL 12/06/2024 7:40 PM EDT [facility] Comment: This test was developed and its analytical performance characteristics have been determined by [employer]. It has not been cleared or approved by the FDA. This assay has been validated pursuant to the CLIA regulations and is used for clinical purposes. Normetanephrine Free 48 < OR = 148 pg/mL 12/06/2024 7:40 PM EDT [facility] Comment: This test was developed and its analytical performance characteristics have been determined by [employer]. It has not been cleared or approved by the FDA. This assay has been validated pursuant to the CLIA regulations and is used for clinical purposes. Total, Free (MN + NMN) 75 < OR = 205 pg/mL 12/06/2024 7:40 PM EDT [facility] Comment: Elevations > 4-fold upper reference range: strongly suggestive of a pheochromocytoma(1). Elevations >1 - 4-fold upper reference range: significant but not diagnostic, may be due to medications or stress. Suggest running 24 hr urine fractionated metanephrines and serum Chromogranin A for confirmation. Reference: (1) Garo Girard et al, Plasma Chromogranin A or Urine Fractionated Metanephrines Follow-Up Testing Improves the Diagnostic Accuracy of Plasma Fractionated Metanephrines for Pheochromocytoma. The Journal of Clinical Endocrinology and Metabolism 93 (1),91-95, 2008. For additional information, please refer to http://education.[employer]faq/[employer] (This link is being provided for informational/educational purposes only.) This test was developed and its analytical performance characteristics have been determined by [employer]. It has not been cleared or approved by the FDA. This assay has been validated pursuant to the CLIA regulations and is used for clinical purposes. Test Performed at: [facility] [address] [address] Sahra Houston MD, PhD, CLAUDE Blood Venous blood specimen / Unknown Venipuncture / Unknown 11/26/2024 10:32 AM EDT 11/26/2024 11:03 AM EDT Jann LUX LAB BLOOD ORDERABLES Elle l Result [facility] [address] [place] [address] * (ABNORMAL) Catecholamines, fractionated, plasma (11/26/2024 10:32 AM EDT) [facility] Epinephrine 15 pg/mL 12/04/2024 4:39 PM EDT [facility] Comment: Reference Range: SUPINE: <58 UPRIGHT: <82 Norepinephrine 192 pg/mL 12/04/2024 4:39 PM EDT [facility] Comment: Reference Range: SUPINE: 149-564 UPRIGHT: 199-937 Dopamine 999(H) pg/mL 12/04/2024 4:39 PM EDT [facility] Comment: Reference Range: SUPINE: <16 UPRIGHT: <27 Catecholamine Plasma 1206(H) pg/mL 12/04/2024 4:39 PM EDT [facility] Comment: Reference Range: SUPINE: <632 UPRIGHT: <1046 Due to stress, plasma catecholamine levels are generally unreliable in infants and small children. Urinary catecholamine assays are more reliable. This test was developed and its analytical performance characteristics have been determined by [employer]. It has not been cleared or approved by the FDA. This assay has been validated pursuant to the CLIA regulations and is used for clinical purposes. Test Performed at: [facility] [address] [address] Sahra Houston MD, PhD, CLAUDE Blood Venous blood specimen / Unknown Venipuncture / Unknown 11/26/2024 10:32 AM EDT 11/26/2024 11:03 AM EDT Jann LUX LAB BLOOD ORDERABLES Elle l Result [facility] [address] [place] [address] * Aldosterone (11/26/2024 10:32 AM EDT) Pathologist [facility] Aldosterone 6.5 ng/dL 11/28/2024 7:38 PM EDT [facility] Comment: REFERENCE RANGE: Upright <= 39.2 ng/dL Supine <= 23.2 ng/dL Test performed at [facility], [address] , [place] [address] Kenna Larios MD, PhD - [employer] Blood Venous blood specimen / Unknown Venipuncture / Unknown 11/26/2024 10:32 AM EDT 11/26/2024 11:04 AM EDT Jann LUX LAB BLOOD ORDERABLES Elle l Result Performing Organization Address City/[facility]/ZIP Co de Phone Number [facility] [address] [place] [address] * (ABNORMAL) Dehydroepiandrosterone Sulfate (11/26/2024 10:32 AM EDT) [facility] DHEA Sulfate 12.3(L) 25.0 - 131.2 mcg/dL LAB CHEMISTRY METHOD 11/26/2024 1:[address] [facility] Blood Venous blood specimen / Unknown Venipuncture / Unknown 11/26/2024 10:32 AM EDT 11/26/2024 11:[address] [facility] - 11/26/2024 1:47 PM EDT Over the counter supplements containing high doses of biotin may interfere with this assay. If interference is suspected, patients shoud be retested after refraining from biotin supplements for 72 hours. Jann LUX LAB BLOOD ORDERABLES Elle l Result [facility] [address] [place] [address], * Cortisol (11/26/2024 10:32 AM EDT) Cortisol 6.7 mcg/dL LAB CHEMISTRY METHOD 11/26/2024 2:[address] [facility] Blood Venous blood specimen / Unknown Venipuncture / Unknown 11/26/2024 10:32 AM EDT 11/26/2024 11:[address] [facility] - 11/26/2024 2:11 PM EDT CORTISOL REFERENCE RANGE 8 AM SPEC: 5.0-23.0 mcg/dL 4 PM SPEC: 3.0-16.0 mcg/dL 8 PM SPEC: <5.0 mcg/dL Jann LUX LAB BLOOD ORDERABLES Elle palm Result [facility] [address] [place] [address], [place] [phone] * External MRI Report (11/20/2024) Only the most recent of2 resultswithin the time period is included. Anatomical Region Laterality Modality Magnetic Resonan ce us Provider [facility] MRI PROCEDURES Final Result * Basic metabolic panel (10/15/2024 5:51 AM EDT) Sodium 139 133 - 145 mmol/L LAB CHEMISTRY METHOD 10/15/2024 7:03 AM [facility] Potassium 3.9 3.5 - 5.5 mmol/L LAB CHEMISTRY METHOD 10/15/2024 7:03 AM [facility] Chloride 108 96 - 110 mmol/L LAB CHEMISTRY METHOD 10/15/2024 7:03 AM [facility] CO2 24 21 - 32 mmol/L LAB CHEMISTRY METHOD 10/15/2024 7:03 AM [facility] Anion Gap 7 3 - 11 LAB CHEMISTRY METHOD 10/15/2024 7:[address] [facility] Glucose 97 70 - 100 mg/dL LAB CHEMISTRY METHOD 10/15/2024 7:03 AM [facility] BUN 12 5 - 25 mg/dL LAB CHEMISTRY METHOD 10/15/2024 7:03 AM [facility] Creatinine 0.83 0.70 - 1.30 mg/dL LAB CHEMISTRY METHOD 10/15/2024 7:03 AM [facility] eGFR 94 >=60 mL/min/1. 73m2 LAB CHEMISTRY METHOD 10/15/2024 7:03 AM [facility] Comment:Calculation based on the Chronic Kidney Disease Epidemiology Collaboration (CKD-EPI) equation refit without adjustment for race. BUN/Creatinine Ratio 14.5 LAB CHEMISTRY METHOD 10/15/2024 7:03 AM [facility] Calcium 9.0 8.5 - 10.5 mg/dL LAB CHEMISTRY METHOD 10/15/2024 7:03 AM [facility] Blood Venous blood specimen / Unknown Venipuncture / Unknown 10/15/2024 5:51 AM EDT 10/15/2024 6:26 AM EDT us Alon Olea MD LAB BLOOD ORDERABLES Final Result [facility] [address] [place] [address], * (ABNORMAL) Lipid panel with reflex to direct LDL (08/22/2024 1:46 PM EDT) Cholesterol 98 0 - 200 mg/dL LAB CHEMISTRY METHOD 08/22/2024 5:[address] [facility] Triglycerides 298(H) 0 - 150 mg/dL LAB CHEMISTRY METHOD 08/22/2024 5:34 PM [facility] HDL 29(L) >=40 mg/dL LAB CHEMISTRY METHOD 08/22/2024 5:[address] [facility] LDL Calculated 9 0 - 100 mg/dL LAB CHEMISTRY METHOD 08/22/2024 5:[address] [facility] VLDL Cholesterol Lito 59.6 mg/dL LAB CHEMISTRY METHOD 08/22/2024 5:[address] [facility] Non HDL Chol. (LDL+VLDL) 69 <145 mg/dL LAB CHEMISTRY METHOD 08/22/2024 5:[address] [facility] Chol/HDL Ratio 3.4 0.0 - 4.4 LAB CHEMISTRY METHOD 08/22/2024 5:[address] [facility] Blood Venous blood specimen / Unknown Venipuncture / Unknown 08/22/2024 1:46 PM EDT 08/22/2024 1:46 PM EDT Carmela Maguire PA LAB BLOOD ORDERABLES Final Resul t [facility] [address] [place] [address], * Falls Risk Assessment (02/20/2024) [facility] Falls Risk Assessment Abstracted [facility] Provider HEALTH MAINTENANCE Final Result * Depression Screening (11/20/2023) [facility] Depression Screening Abstracted [facility] Provider HEALTH MAINTENANCE Final Result * Colonoscopy (07/28/2022) [facility] Colonoscopy No interpreta tion,abstr acted Anatomical Region Laterality Modality Other [facility] Provider HEALTH MAINTENANCE Final Result * Hepatitis C Screening (04/28/2017) [facility] Hepatitis C Screening Abstracted [facility] Provider HEALTH MAINTENANCE Final Result from Last 3 Months or Most Recently Relevant to Health Maintenance Insurance MEDICARE [facility] Advance Directives * Full Code - Confirmed [...] Agents on File Name Relationship Healthcare Agent Relationshi p Communication Jacklyn Curry Spouse Health Care Agent Care Teams Postdoctoral Fellow Relationship Specialty Start Date End Date Jann Adams PA [address] [place] [address] PCP - General Internal Medicine 05/19/20
--- OUTSIDE RECORDS SUMMARY | 2025-01-20 15:26 | XMS_ITS ---
Author Name [facility] Organization Unknown Care Team Organization Name Specialty Phone Email Start Date End Da te [facility] Jann Adams Primary Care 04/05/2022
== END 2025-01-20 14:04 | disposition home or self-care (01) ==
LOC: HO.US 14:03
PROVIDERS: PCP Physician Assistant Medical; Visit Provider Urology
DX: N20.0 Calculus of kidney (principal)
CPT/HCPCS: 76775

== ENCOUNTER → 2025-01-20 14:05 | Outpatient (BNV) | payer MEDICARE, OTHER, SELFPAY | PROVIDERS: PCP Physician Assistant Medical; Visit Provider Radiology Diagnostic Radiology | DX: N20.0 Calculus of kidney (principal) | CPT/HCPCS: 76775 ==

== ENCOUNTER 2025-01-23 06:49 | Day surgery (SDC) | payer MEDICARE, OTHER, SELFPAY ==
--- OUTSIDE RECORDS SUMMARY | 2024-12-04 07:55 | XMS_ITS | Clinical Summary ---
Author Organization [address] [place] [address] [place] [phone] Phone Care Team Providers [employer] Name Role Phone Jann Adams Primary Care Provider [phone] Allergies No known active allergies Medications ascorbic [...] DAILY (BEFORE MEALS). 4 Active ZINC ORAL Take by mouth. Active [...] EVERY DAY 90 tablet 1 5 Active nitroglycerin (NITROSTAT) 0.[address] 1 tablet (0.4 mg total) under the tongue every 5 (five) minutes if needed for chest pain. May repeat dose every 5 minutes for up to 3 doses total. If chest pain is not relieved 5 minutes after the second dose, take the third dose and call 9-1-1. 25 tablet 1 5 Active atenoloL (TENORMIN) 50 mg tablet TAKE 1 AND 1/2 TABLETS BY MOUTH DAILY 135 tablet 1 5 Active HYDROcodone-reyna taminophen (NORCO) 5-325 mg per tablet Take 1 tablet by mouth every 12 (twelve) hours if needed for severe pain. Max Daily Amount: 2 tablets 56 tablet 5 Active losartan (COZAAR) 100 mg tablet Take 1 tablet (100 mg total) by mouth 1 (one) time each day. Take 1 Tablet by mouth daily. - Oral 90 each 3 5 Active gabapentin (NEURONTIN) 600 mg tablet Take 1 tablet (600 mg total) by mouth 3 (three) times a day. 270 tablet 3 5 Active gabapentin (NEURONTIN) 600 mg tablet Take 1 tablet (600 mg total) by mouth 3 (three) times a day. 270 tablet 3 5 11/26/19 25 Discontinu ed(Reorder ) losartan (COZAAR) 100 mg tablet Take 1 tablet (100 mg total) by mouth 1 (one) time each day. Take 1 Tablet by mouth daily. - Oral 30 each 5 11/26/19 25 Discontinu ed(Reorder ) HYDROcodone-reyna taminophen (NORCO) 5-325 mg per tablet Take 1 tablet by mouth every 12 (twelve) hours if needed for severe pain. Max Daily Amount: 2 tablets 56 tablet 5 11/19/19 25 Discontinu ed(Reorder ) Active Problems Problem [...] could not get a follow-up appointment with [facility] urology until this which [...] or questions. Coronary artery disease invo lving [place] coronary artery of [place] heart without angina pectoris 06/15/2016 Overview (05/10/2024): [...] tablet 0.4 mg Non-ST elevation WI (NSTEMI) (CMS/HCC V24, CMS/H CC V28) 02/26/2015 [...] Encounters Date Type Department Care Team Description 11/25/2024 8:00 AM EDT Office Visit Adult Medicine [address] [phone] Jann Adams, PA Coronary artery disease involving [place] coronary artery of [place] heart without angina pectoris (Primary Dx); Aortic dilatation (CMS/HCC V24); Other depression; Essential hypertension, benign; Gastroesophageal reflux disease without esophagitis; Hx of non-ST elevation myocardial infarction (NSTEMI); Spinal stenosis of lumbar region with neurogenic claudication; Non-ST elevation WI (NSTEMI) (CMS/HCC V24, CMS/HCC V28); Mixed hyperlipidemia; Adenoma of right adrenal gland; Iron deficiency anemia due to chronic blood loss 10/25/2024 9:40 AM EDT Office Visit [facility] [address] [place] [phone] Shawn Garcia NP Aortic dilatation (CMS/HCC V24) (Primary Dx); Coronary artery disease involving [place] coronary artery of [place] heart without angina pectoris; Essential hypertension, benign; Mixed hyperlipidemia 10/25/2024 Telephone [facility] [address] [facility] [address] [place] [address] Shawn Garcia NP 10/17/2024 Telephone [facility] [address] [facility] [address] [place] [address] Radha Rios MD Hospital Follow-up 10/14/2024 6:49 PM EDT - 10/16/2024 4:00 PM EDT Hospital Encounter [facility] [address] [place] [phone] Adis Brewster MD Jones, Christopher, MD Santoyo-Pacheco, Omar D, MD Dyspnea, unspecified type (Primary Dx); Chest pain due to myocardial ischemia, unspecified ischemic chest pain type; Accelerated hypertension; Chest pain, unspecified type; SOB (shortness of breath); Pain in both lower extremities Discharge Disposition: Home or Self Care 10/14/2024 Telephone [facility] [address] [phone] Radha Rios MD Chest Pain; Shortness of Breath from Last 3 Months Immunizations Name Administration [...] knee arthroscopic surgery 2006 ESOPHAGOGASTRODUODENOSCOPY 10/13/2008 PROCEDURE: SC ESOPHAGOGASTRODUODENOSCOPY TRANSORAL DIAGNOSTIC; COMMENT: mild gastritis, H. pylori negative OTHER SURGICAL HISTORY 01/2015 PROCEDURE: HISTORY OTHER; COMMENT: RCA Drug eluting stent COLONOSCOPY 06/07/2006 PROCEDURE: HISTORICAL COLONOSCOPY; COMMENT: jean claude OTHER SURGICAL HISTORY 12/14/2016 PROCEDURE: COLON CA SCRN NOT HI RSK IND; COMMENT: jean claude; repeat in ten yrs BACK SURGERY 2015 [...] Record ed Within the last 3 months, jey shell many times did you visit the emergency [...] care for your loved ones. For example, children's counselor or elderly care for an older adult? [...] Sign Reading Time Taken Comments Blood Pressure 123/68 11/25/2024 7:58 AM EDT Pulse 55 11/25/2024 7:58 AM EDT Temperature 36.6 C (97.9 F) 11/25/2024 7:58 AM EDT Respiratory Rate 14 11/25/2024 7:58 AM EDT Oxygen Saturation 95% 10/25/2024 9:26 AM EDT Inhaled Oxygen Concentration - - Weight 94.3 kg (208 lb) 11/25/2024 7:58 AM EDT Height 180.3 cm (5' 11 ) 11/25/2024 7:58 AM EDT Body Mass Index 29.01 11/25/2024 7:58 AM EDT Plan of Treatment Upcoming Encounters Date Type Department Care Team (Late st Contact Info) Description 02/25/2025 7:30 AM EDT Office Visit Adult Medicine [address] [phone] Carmela Maguire PA [address] [place], [place] 03/31/2025 9:00 AM EST Ancillary Procedure [facility] [address] [place] [address] 05/27/2025 8:15 AM EST Office Visit Adult Medicine [address] [phone] Jann Adams PA [address] [place] [address] Health Maintenance Due Date Last Done Comments COVID-19 Vaccine ( season) 2024 05/18/2022, 03/20/2021, 08/22/2020, Additional history exists Medicare Annual Wellness Visit 11/19/2024 11/20/2023 Influenza Vaccine (#1) 2025 , 04/28/2023, 04/15/2022, Additional history exists Social Influencers of Health Screening 08/16/2025 08/16/2024 [...] 11/07/2018 Zoster Vaccines Completed 06/12/2021, 02/26, 08/15/2014 HIB Vaccines Aged Out No longer eligi [...] Procedure Name Priority Date/Time Associated Diagnosis Comments DEHYDROEPIANDROSTERONE SULFATE Routine 11/26/2024 10:32 AM EDT Coronary artery disease involving [place] coronary artery of [place] heart without angina pectoris Aortic dilatation (CMS/HCC V24) Other depression Essential hypertension, benign Gastroesophageal reflux disease without esophagitis Hx of non-ST elevation myocardial infarction (NSTEMI) Spinal stenosis of lumbar region with neurogenic claudication Non-ST elevation WI (NSTEMI) (CMS/HCC V24, CMS/HCC V28) Mixed hyperlipidemia Adenoma of right adrenal gland CORTISOL Routine 11/26/2024 10:32 AM EDT Coronary artery disease involving [place] coronary artery of [place] heart without angina pectoris Aortic dilatation (CMS/HCC V24) Other depression Essential hypertension, benign Gastroesophageal reflux disease without esophagitis Hx of non-ST elevation myocardial infarction (NSTEMI) Spinal stenosis of lumbar region with neurogenic claudication Non-ST elevation WI (NSTEMI) (CMS/HCC V24, CMS/HCC V28) Mixed hyperlipidemia Adenoma of right adrenal gland ALDOSTERONE Routine 11/26/2024 10:32 AM EDT Coronary artery disease involving [place] coronary artery of [place] heart without angina pectoris Aortic dilatation (CMS/HCC V24) Other depression Essential hypertension, benign Gastroesophageal reflux disease without esophagitis Hx of non-ST elevation myocardial infarction (NSTEMI) Spinal stenosis of lumbar region with neurogenic claudication Non-ST elevation WI (NSTEMI) (CMS/HCC V24, CMS/HCC V28) Mixed hyperlipidemia Adenoma of right adrenal gland EXTERNAL MRI REPORT 11/20/2024 EXTERNAL MRI REPORT 11/20/2024 ECG ANNOTATED 10/17/2024 NM LEXISCAN STRESS TEST W/ MYOCARDIAL PERFUSION Routine 10/16/2024 1:23 PM EDT Dyspnea, unspecified type VAS US DUPLEX LOWER EXT VENOUS BILAT Routine 10/15/2024 1:57 PM EDT Pain in both lower extremities TRANSTHORACIC ECHOCARDIOGRAM (TTE) COMPLETE Routine 10/15/2024 10:42 AM EDT Chest pain, unspecified type TROPONIN I HIGH SENSITIVITY Routine 09/27 9:30 AM EDT CBC WITH AUTO DIFFERENTIAL Routine 10/15 5:51 AM EDT CBC AND DIFFERENTIAL Routine 10/15/2024 5:51 AM EDT BASIC METABOLIC PANEL Routine 10/15/2024 5:[address] ANGIO CHEST WO AND/OR W CONTRAST STAT 10/14/2024 8:45 PM EDT Dyspnea, unspecified type PROTHROMBIN TIME WITH INR STAT 2024 7:57 PM EDT ACTIVATED PARTIAL THROMBOPLASTIN TIME STAT 10/14/2024 7:57 PM EDT TROPONIN I HIGH SENSITIVITY STAT 09/26 3:35 PM EDT CBC WITH AUTO DIFFERENTIAL STAT 10/14 1:18 PM EDT B-TYPE NATRIURETIC PEPTIDE STAT 10/14 1:18 PM EDT MAGNESIUM STAT 10/14/2024 1:18 PM EDT LIPASE STAT 10/14/2024 1:18 PM EDT COMPREHENSIVE METABOLIC PANEL STAT 10/14/2024 1:18 PM EDT CBC AND DIFFERENTIAL STAT 10/14/2024 1:18 PM EDT TROPONIN I HIGH SENSITIVITY STAT 09/26 1:18 PM EDT ECG 12-LEAD STAT 10/14/2024 1:15 PM EDT LIPID PANEL WITH REFLEX TO DIRECT LDL Routine 08/22/2024 1:46 PM EDT Mixed hyperlipidemia FALLS RISK ASSESSMENT Routine 02/20/2024 DEPRESSION SCREENING Routine 11/20/2023 COLONOSCOPY Routine 07/28/2022 HEPATITIS C SCREENING Routine 04/28/2017 from Last 3 Months or Most Recently Relevant to Health Maintenance Results * Aldosterone (11/26/2024 10:32 AM EDT) [facility] Aldosterone 6.5 ng/dL 11/28/2024 7:38 PM EDT [facility] Comment: REFERENCE RANGE: Upright <= 39.2 ng/dL Supine <= 23.2 ng/dL Test performed at [facility], [address], [place] [address] Kenna Larios MD, PhD - [employer] Blood Venous blood specimen / Unknown Venipuncture / Unknown 11/26/2024 10:32 AM EDT 11/26/2024 11:04 AM EDT Jann LUX LAB BLOOD ORDERABLES Elle l Result [facility] [address] [place] [address] * (ABNORMAL) Dehydroepiandrosterone Sulfate (11/26/2024 10:32 AM EDT) DHEA Sulfate 12.3(L) 25.0 - 131.2 mcg/dL LAB CHEMISTRY METHOD 11/26/2024 1:47 PM EDT [facility] Blood Venous blood specimen / Unknown Venipuncture / Unknown 11/26/2024 10:32 AM EDT 11/26/2024 11:04 AM EDT Narrative [facility] - 11/26/2024 1:47 PM EDT Over the counter supplements containing high doses of biotin may interfere with this assay. If interference is suspected, patients shoud be retested after refraining from biotin supplements for 72 hours. Jann LUX LAB BLOOD ORDERABLES Elle l Result Performing Organization Address City/[facility] Co de Phone Number [facility] [address] [place] [address], * Cortisol (11/26/2024 10:32 AM EDT) Cortisol 6.7 mcg/dL LAB CHEMISTRY METHOD 11/26/2024 2:11 PM EDT [facility] Blood Venous blood specimen / Unknown Venipuncture / Unknown 11/26/2024 10:32 AM EDT 11/26/2024 11:04 AM EDT Narrative [facility]) [facility] - 11/26/2024 2:11 PM EDT CORTISOL REFERENCE RANGE 8 AM SPEC: 5.0-23.0 mcg/dL 4 PM SPEC: 3.0-16.0 mcg/dL 8 PM SPEC: <5.0 mcg/dL Jann LUX LAB BLOOD ORDERABLES Elle l Result [facility] [address] [place] [address], [place] [phone] * External MRI Report (11/20/2024) Only the most recent of2 resultswithin the time period is included. Anatomical Region Laterality Modality Magnetic Resonan ce Provider [facility] IMG MRI PROCEDURES Final Result * ECG-Annotated (10/17/2024) Provider Onbase MD ECG ORDERABLES Final Result [...] he has had a stress test at [facility] in the past. Perfusion Comments Without CT attenuation correction, there is a fixed inferior wall defect. After applying CT attenuation correction, the fixed inferior wall defect has resolved. The findings are consistent with diaphragmatic attenuation artifact. There are no other perfusion defects to suggest ischemia. There is no evidence of inducible ischemia. us Violeta LUX CV STRESS PROCEDURES Elle l Result * Vascular US duplex lower extremity [...] Signed Date: 10/15/2024 14:02 ET Workstation ID: [id number] Transcribed By: Self Edit Transcribed Date: 10/15/2024 [...] Signed Date: 10/15/2024 14:02 ET Workstation ID: [id number] Transcribed By: Self Edit Transcribed Date: 10/15/2024 14:02 ET Violeta LUX CV VASCULAR PROCEDURES Fi nal Result * (ABNORMAL) TRANSTHORACIC ECHOCARDIOGRAM (TTE) COMPLETE (10/15/2024 10:42 AM EDT) Left Atrium Minor [place] 6.3 cm CV PACS Left Atrium Major [place] 5.0 cm CV PACS [place] Area Sys [...] Volume 123 mL CV PACS MV Deceleration [place] 2.8 m/s2 CV PACS E Wave Deceleration [...] of3 resultswithin the time period is included. [facility] High Sensitivity Troponin I 9 <=79 ng/L LAB CHEMISTRY METHOD 10/15/2024 10:28 AM EDT [facility] Blood Venous blood specimen / Unknown Venipuncture / Unknown 10/15/2024 9:30 AM EDT 10/15/2024 9:49 AM EDT Narrative [facility] - 10/15/2024 10:28 AM EDT High levels of biotin in samples may falsely decrease hsTroponin values. Use caution when interpreting hsTroponin results in patients taking biotin who exhibit renal impairment (eGFR <60) or in patients taking more than 20 mg/day of biotin. Violeta LUX LAB BLOOD ORDERABLES Elle palm Result [facility] [address] [place] [address], [place] [phone] * (ABNORMAL) CBC auto differential (10/15/2024 5:51 AM EDT) Only the most recent of2 resultswithin the time period is included. [facility] Signature WBC 7.8 4.8 - 10.8 K/mcL LAB HEMETOLOGY METHOD 10/15/2024 6:44 AM [facility] RBC 4.30(L) 4.50 - 5.50 M/mcL LAB HEMETOLOGY METHOD 10/15/2024 6:44 AM [facility] Hemoglobin 13.1(L) 13.5 - 17.5 g/dL LAB HEMETOLOGY METHOD 10/15/2024 6:44 AM [facility] Hematocrit 39.7(L) 42.0 - 54.0 % LAB HEMETOLOGY METHOD 10/15/2024 6:44 AM [facility] MCV 93.0 79.0 - 98.0 FL LAB HEMETOLOGY METHOD 10/15/2024 6:44 AM [facility] MCH 30.7 27.0 - 32.0 pcg LAB HEMETOLOGY METHOD 10/15/2024 6:44 AM [facility] MCHC 33.0 32.0 - 37.0 g/dL LAB HEMETOLOGY METHOD 10/15/2024 6:44 AM [facility] RDW 13.1 11.0 - 15.0 % LAB HEMETOLOGY METHOD 10/15/2024 6:44 AM [facility] Platelets 186 130 - 400 K/mcL LAB HEMETOLOGY METHOD 10/15/2024 6:44 AM [facility] MPV 11.7(H) 7.0 - 11.0 FL LAB HEMETOLOGY METHOD 10/15/2024 6:44 AM [facility] NRBC 0.0 <1.0 % LAB HEMETOLOGY METHOD 10/15/2024 6:44 AM [facility] NRBC Absolute 0.00 <0.10 K/mcL LAB HEMETOLOGY METHOD 10/15/2024 6:44 AM [facility] Neutrophils Relative 60.5 % LAB HEMETOLOGY METHOD 10/15/2024 6:44 AM [facility] Lymphocytes Relative 19.6 % LAB HEMETOLOGY METHOD 10/15/2024 6:44 AM [facility] Monocytes Relative 7.9 % LAB HEMETOLOGY METHOD 10/15/2024 6:44 AM [facility] Eosinophils Relative 10.9 % LAB HEMETOLOGY METHOD 10/15/2024 6:44 AM [facility] Basophils Relative 0.8 % LAB HEMETOLOGY METHOD 10/15/2024 6:44 AM [facility] Immature Granulocytes Relative 0.3 % LAB HEMETOLOGY METHOD 10/15/2024 6:44 AM [facility] Neutrophils Absolute 4.74 1.50 - 7.00 K/mcL LAB HEMETOLOGY METHOD 10/15/2024 6:44 AM [facility] Lymphocytes Absolute 1.53 1.00 - 5.00 K/mcL LAB HEMETOLOGY METHOD 10/15/2024 6:44 AM [facility] Monocytes Absolute 0.62 0.20 - 1.00 K/mcL LAB HEMETOLOGY METHOD 10/15/2024 6:44 AM [facility] Eosinophils Absolute 0.85(H) 0.00 - 0.50 K/mcL LAB HEMETOLOGY METHOD 10/15/2024 6:44 AM [facility] Basophils Absolute 0.06 0.00 - 0.20 K/mcL LAB HEMETOLOGY METHOD 10/15/2024 6:44 AM [facility] Immature Granulocytes Absolute 0.02 0.00 - 0.03 K/mcL LAB HEMETOLOGY METHOD 10/15/2024 6:44 AM [facility] Blood Venous blood specimen / Unknown Venipuncture / Unknown 10/15/2024 5:51 AM EDT 10/15/2024 6:26 AM EDT us Alon Olea MD LAB BLOOD ORDERABLES Final Result [facility] [address] [place] [address], * Basic metabolic panel (10/15/2024 5:51 AM EDT) Sodium 139 133 - 145 mmol/L LAB CHEMISTRY METHOD 10/15/2024 7:03 AM [facility] Potassium 3.9 3.5 - 5.5 mmol/L LAB CHEMISTRY METHOD 10/15/2024 7:03 AM [facility] Chloride 108 96 - 110 mmol/L LAB CHEMISTRY METHOD 10/15/2024 7:03 AM [facility] CO2 24 21 - 32 mmol/L LAB CHEMISTRY METHOD 10/15/2024 7:03 AM [facility] Anion Gap 7 3 - 11 LAB CHEMISTRY METHOD 10/15/2024 7:03 AM [facility] Glucose 97 70 - 100 mg/dL LAB CHEMISTRY METHOD 10/15/2024 7:03 AM [facility] BUN 12 5 - 25 mg/dL LAB CHEMISTRY METHOD 10/15/2024 7:03 AM [facility] Creatinine 0.83 0.70 - 1.30 mg/dL LAB CHEMISTRY METHOD 10/15/2024 7:03 AM [facility] eGFR 94 >=60 mL/min/1. 73m2 LAB CHEMISTRY METHOD 10/15/2024 7:03 AM [facility] Comment:Calculation based on the Chronic Kidney Disease Epidemiology Collaboration (CKD-EPI) equation refit without adjustment for race. BUN/Creatinine Ratio 14.5 LAB CHEMISTRY METHOD 10/15/2024 7:03 AM EDT [facility] Calcium 9.0 8.5 - 10.5 mg/dL LAB CHEMISTRY METHOD 10/15/2024 7:03 AM EDT [facility] Blood Venous blood specimen / Unknown Venipuncture / Unknown 10/15/2024 5:51 AM EDT 10/15/2024 6:26 AM EDT us Alon Olea MD LAB BLOOD ORDERABLES Final Result [facility] [address] [place] [address], [place] [phone] * CT Angio Chest wo and/or w [...] ult * APTT (10/14/2024 7:57 PM EDT) aPTT 31.3 24.1 - 39.3 sec LAB COAGULATION METHOD 10/14/2024 8:21 PM EDT [facility] Blood Venous blood specimen / Unknown Venipuncture / Unknown 10/14/2024 7:57 PM EDT 10/14/2024 8:10 PM EDT Adis Brewster MD LAB BLOOD ORDERABLES Final Result [facility] [address] [place] [address], [place] [phone] * Prothrombin time with INR (10/14/2024 7:57 PM EDT) Protime 12.4 10.6 - 13.9 sec LAB COAGULATION METHOD 10/14/2024 8:21 PM EDT [facility] INR 1.0 LAB COAGULATION METHOD 10/14/2024 8:21 PM EDT [facility] Blood Venous blood specimen / Unknown Venipuncture / Unknown 10/14/2024 7:57 PM EDT 10/14/2024 8:10 PM EDT us Adis Brewster MD LAB BLOOD ORDERABLES Final Result Performing Organization Address [facility]/ZIP Co de Phone Number [facility] [address] [place] [address], * (ABNORMAL) B-type natriuretic peptide (10/14/2024 1:18 PM EDT) BNP 165(H) <=100 pcg/mL LAB CHEMISTRY METHOD 10/14/2024 2:42 PM EDT [facility] Blood Venous blood specimen / Unknown Venipuncture / Unknown 10/14/2024 1:18 PM EDT 10/14/2024 2:01 PM EDT Issa Paulino MD LAB BLOOD ORDERABLES Final Resu lt Performing Organization Address [facility]/ZIP Co de Phone Number [facility] [address] [place] [address], * Magnesium (10/14/2024 1:18 PM EDT) Pathologist [facility] Magnesium 2.0 1.9 - 2.6 mg/dL LAB CHEMISTRY METHOD 10/14/2024 3:06 PM EDT [facility] Blood Venous blood specimen / Unknown Venipuncture / Unknown 10/14/2024 1:18 PM EDT 10/14/2024 2:01 PM EDT Issa Paulino MD LAB BLOOD ORDERABLES Final Resu lt Performing Organization Address City/[facility]/ZIP Co de Phone Number [facility] [address] [place] [address], * Lipase (10/14/2024 1:18 PM EDT) Lipase 32 13 - 75 unit/L LAB CHEMISTRY METHOD 10/14/2024 3:15 PM EDT [facility] Blood Venous blood specimen / Unknown Venipuncture / Unknown 10/14/2024 1:18 PM EDT 10/14/2024 2:01 PM EDT us Issa Paulino MD LAB BLOOD ORDERABLES Final Resu lt [facility] [address] [place] [address], [place] [phone] * (ABNORMAL) Comprehensive metabolic panel (10/14/2024 1:18 PM EDT) Sodium 141 133 - 145 mmol/L LAB CHEMISTRY METHOD 10/14/2024 3:29 PM T [facility] Potassium 4.0 3.5 - 5.5 mmol/L LAB CHEMISTRY METHOD 10/14/2024 3:29 PM [facility] Chloride 108 96 - 110 mmol/L LAB CHEMISTRY METHOD 10/14/2024 3:29 PM [facility] CO2 24 21 - 32 mmol/L LAB CHEMISTRY METHOD 10/14/2024 3:29 PM [facility] Anion Gap 9 3 - 11 LAB CHEMISTRY METHOD 10/14/2024 3:29 PM [facility] Glucose 99 70 - 100 mg/dL LAB CHEMISTRY METHOD 10/14/2024 3:29 PM [facility] BUN 12 5 - 25 mg/dL LAB CHEMISTRY METHOD 10/14/2024 3:29 PM T [facility] Creatinine 0.97 0.70 - 1.30 mg/dL LAB CHEMISTRY METHOD 10/14/2024 3:29 PM [facility] eGFR 83 >=60 mL/min/1. 73m2 LAB CHEMISTRY METHOD 10/14/2024 3:29 PM [facility] Comment:Calculation based on the Chronic Kidney Disease Epidemiology Collaboration (CKD-EPI) equation refit without adjustment for race. BUN/Creatinine Ratio 12.4 LAB CHEMISTRY METHOD 10/14/2024 3:29 PM EDT [facility] Calcium 9.0 8.5 - 10.5 mg/dL LAB CHEMISTRY METHOD 10/14/2024 3:29 PM EDT [facility] AST (SGOT) 45(H) 10 - 42 unit/L LAB CHEMISTRY METHOD 10/14/2024 3:29 PM EDT [facility] ALT (SGPT) 29 10 - 60 unit/L LAB CHEMISTRY METHOD 10/14/2024 3:29 PM EDT [facility] Alkaline Phosphatase 84 42 - 121 unit/L LAB CHEMISTRY METHOD 10/14/2024 3:29 PM EDT [facility] Total Protein 6.2 6.0 - 8.0 g/dL LAB CHEMISTRY METHOD 10/14/2024 3:29 PM EDT [facility] Albumin 3.6 3.2 - 5.0 g/dL LAB CHEMISTRY METHOD 10/14/2024 3:29 PM EDT [facility] Total Bilirubin 0.4 0.0 - 1.4 mg/dL LAB CHEMISTRY METHOD 10/14/2024 3:29 PM EDT [facility] Blood Venous blood specimen / Unknown Venipuncture / Unknown 10/14/2024 1:18 PM EDT 10/14/2024 2:01 PM EDT us Issa Paulino MD LAB BLOOD ORDERABLES Final Resu lt [facility] [address] [place] [address], * ECG 12 lead (10/14/2024 1:15 PM EDT) Ventricular Rate ECG 55 BPM GEMUSE Atrial Rate 55 BPM GEMUSE P-R Interval 170 ms GEMUSE QRS Duration 110 ms GEMUSE Q-T Interval 450 ms GEMUSE QTc 430 ms GEMUSE P Wave [place] 26 degrees GEMUSE R [place] -8 degrees GEMUSE T [place] 11 degrees GEMUSE ECG Interpretation Sinus bradycardia Abnormal ECG When compared with ECG of 10-MAY-2024 08:54, No significant change was found Confirmed by Neli GUILLERMO JAMES ([id number]) on 10/15/2024 6:05:38 AM GEMUSE 10/14/2024 1:15 PM EDT 10/15/2024 6:05 AM EDT us Alon Olea MD ECG ORDERABLES Final Resul t GEMKAYLIE * (ABNORMAL) Lipid panel with reflex to direct LDL (08/22/2024 1:46 PM EDT) Cholesterol 98 0 - 200 mg/dL LAB CHEMISTRY METHOD 08/22/2024 5:34 PM EDT [facility] Triglycerides 298(H) 0 - 150 mg/dL LAB CHEMISTRY METHOD 08/22/2024 5:34 PM EDT [facility] HDL 29(L) >=40 mg/dL LAB CHEMISTRY METHOD 08/22/2024 5:34 PM EDT [facility] LDL Calculated 9 0 - 100 mg/dL LAB CHEMISTRY METHOD 08/22/2024 5:34 PM EDT [facility] VLDL Cholesterol Lito 59.6 mg/dL LAB CHEMISTRY METHOD 08/22/2024 5:34 PM EDT [facility] Non HDL Chol. (LDL+VLDL) 69 <145 mg/dL LAB CHEMISTRY METHOD 08/22/2024 5:34 PM EDT [facility] Chol/HDL Ratio 3.4 0.0 - 4.4 LAB CHEMISTRY METHOD 08/22/2024 5:34 PM EDT [facility] Blood Venous blood specimen / Unknown Venipuncture / Unknown 08/22/2024 1:46 PM EDT 08/22/2024 1:46 PM EDT us Carmela Maguire PA LAB BLOOD ORDERABLES Final Resul t [facility] ([facility]) [facility] [address] [place] [address], * Falls Risk Assessment (02/20/2024) Pathologist [facility] Falls Risk Assessment Abstracted Historical Provider HEALTH MAINTENANCE Final Result * Depression Screening (11/20/2023) Pathologist [facility] Depression Screening Abstracted Historical Provider HEALTH MAINTENANCE Final Result * Colonoscopy (07/28/2022) Pathologist [facility] Colonoscopy No interpreta tion,abstr acted Anatomical Region Laterality Modality Other Historical Provider HEALTH MAINTENANCE Final Result * Hepatitis C Screening (04/28/2017) Pathologist [facility] Hepatitis C Screening Abstracted Historical Provider HEALTH MAINTENANCE Final Result from Last 3 Months or Most Recently Relevant to Health Maintenance Insurance MEDICARE [facility] Advance Directives * Full Code - Confirmed [...] Agents on File Name Relationship Healthcare Agent [facility] Communication Jacklyn Curry Spouse Health Care Agent Care Teams [employer] Relationship Specialty Start Date End Date Jann Adams PA [address] [place] [address] PCP - General Internal Medicine 05/19/20
[2025-01-20 13:23] VITALS: BP 129/63; PULSE 56; RESP 16; O2SAT 94; BMI 29.6
--- NOTE | 2025-01-20 13:45 | HO.ANESPROP2 ---
Documented by User: Kimi Hwang NP 01/20/25 14:35 HPI - Anesthesia Eval Consult details Narrative: 69yo M for L2-3 Decompression, 01/23/25 s/p thoracic laminectomy 06/2024 with GA-ETT 7.5 - no anesthetic issues per patient and intraop record No recent illness No CP/SOB with crossfit 2 x weekly. Golfs multiple days weekly. 09/2024 [facility] admit for exertional CP - negative cardiac w/u except elevated BP - losartan increased and symptoms resolved Follows [facility] for: CAD s/p AZ and stent 2014 Aortic dilatation 3.9cm Stable at 09/2024 office visit (hospital d/c f/u) MOISÉS: doesn't use CPAP GERD: controlled with PPI (had bleeding ulcer 2023, resolved) Chronic opioids Adrenal adenoma: Eval with oncology 11/2024 notes elevated dopamine, catacholemines and low DHEA with plan to hold carbidopa-levadopa for further investigative lab work. Now off ~ 2 weeks and no tremors or balance issues. Office visit note states optimized to proceed with spine surgery Post op urinary retention, on flomax PMFSH Active Problems Active Problems: All Active Problems (Updated 11/06/24 @ 16:08 by Hira Maria MD, PhD) Lumbar stenosis with neurogenic claudication (Acute) S/P spinal surgery (Acute) History of lumbar laminectomy for spinal cord decompression (Acute) Thoracic spondylosis with myelopathy (Acute) Scoliosis of lumbar region due to degenerative disease of spine in adult (Acute) Screening PSA (prostate specific antigen) (Acute) Hx of orchitis (Acute) Kidney stone on left side (Acute) BPH with obstruction/lower urinary tract symptoms (Acute) Incomplete bladder emptying (Acute) Orchitis (Acute) Past Medical History Medical History History of urinary retention Back pain Bleeding gastric ulcer Numbness HTN (hypertension) Osteoarthrosis Mixed hyperlipidemia Sleep apnea Diverticulitis of colon without hemorrhage Actinic keratosis GERD (gastroesophageal reflux disease) Depression Renal cyst Myocardial infarction CAD (coronary artery disease) Lumbar spinal stenosis Lumbar radiculitis Aortic dilatation Pancolonic diverticulosis Anemia Chronic gastric ulcer without hemorrhage and without perforation Parkinsonian tremor Lung nodule Back pain with history of spinal surgery Family History Family History Father Bladder cancer Mother Urologic disorders Brother Kidney stone Family history of problems with anesthesia: No Surgical History Surgical History History of surgical procedure on thoracic spine (07/10/24) History of back surgery Hx of laminectomy Hx of fusion of cervical spine History of bilateral knee replacement Hx of arthroscopy of right knee History of esophagogastroduodenoscopy (EGD) H/O colonoscopy Hx of heart artery stent History of Problems with Anesthesia: Yes (Postop Urinary retention) Social History Social History Are you a primary career services assistant to a significant other at home: No Do you presently have visiting nurse or other home services: No Alcohol intake: current Alcohol intake frequency: holidays/special occasions only Patient Tobacco Use Status: Never used Tobacco Use of substances other than those prescribed or required for medical reasons: No Have you been hit, kicked, punched, or otherwise hurt by someone within the past year? If so, by whom?: No Are you DNR?: No Advance Directives: No Advance Directives Information Provided: Yes Advance Directives on File: No Poor oral hygiene: No Meds Allergies Allergy/AdvReac Type Severity Reaction Status Date / Time No Known Allergies Allergy Verified 01/20/25 13:18 Home Medications ?Medication ?Instructions ?Recorded ?Confirmed ?Last Taken ?Type aspirin 81 mg tablet,delayed 81 mg PO DAILY 02/15/23 01/20/25 01/16/25 History release Held on 07/10/24. Instructions: Resume on 07/14/24. carbidopa 25 mg-levodopa 100 mg 1 tab PO BID 02/15/23 01/20/25 01/22/25 History tablet hydrocodone 5 mg-acetaminophen 325 0.5 tab PO BID PRN Pain 02/15/23 01/20/25 01/23/25 History mg tablet losartan 25 mg tablet 100 mg PO BEDTIME 02/15/23 01/20/25 01/22/25 History omeprazole 20 mg capsule,delayed 20 mg PO BID 02/15/23 01/20/25 01/23/25 History release atenolol 50 mg tablet 75 mg PO DAILY 06/22/23 01/20/25 01/23/25 History atorvastatin 80 mg tablet 80 mg PO BEDTIME 06/22/23 01/20/25 01/22/25 History gabapentin 600 mg tablet 600 mg PO TID PRN Pain 06/22/23 01/20/25 01/23/25 History nitroglycerin 0.4 mg sublingual 0.4 mg sublingual DAILY PRN Chest 07/09/24 01/20/25 Unknown History tablet Pain Exam Height,Weight and Vital Signs: Height 5 ft 11 in Weight 96.162 kg Last Vital Signs Pulse 56 01/20/25 13:23 Resp 16 01/20/25 13:23 BP 129/63 01/20/25 13:23 Pulse Ox 94 01/20/25 13:23 O2 Del Method Room Air 01/20/25 13:23 Pertinent Lab Results Pertinent Lab Results: Labs from [facility] 09/2024 WBC 4.8 - 10.8 K/mcL 7.6 RBC 4.50 - 5.50 M/mcL 4.10?Low? Hemoglobin 13.5 - 17.5 g/dL 12.5?Low? Hematocrit 42.0 - 54.0 % 38.9?Low? MCV 79.0 - 98.0 FL 94.6 MCH 27.0 - 32.0 pcg 30.4 MCHC 32.0 - 37.0 g/dL 32.1 RDW 11.0 - 15.0 % 12.8 Platelets 130 - 400 K/mcL 180 MPV 7.0 - 11.0 FL 11.7?High? NRBC <1.0 % 0.0 NRBC Absolute <0.10 K/mcL 0.00 Neutrophils Relative ??% 57.4 Lymphocytes Relative ??% 20.2 Monocytes Relative ??% 7.0 Eosinophils Relative ??% 14.2 Basophils Relative ??% 0.9 Immature Granulocytes Relative ??% 0.3 Neutrophils Absolute 1.50 - 7.00 K/mcL 4.36 Lymphocytes Absolute 1.00 - 5.00 K/mcL 1.53 Monocytes Absolute 0.20 - 1.00 K/mcL 0.53 Eosinophils Absolute 0.00 - 0.50 K/mcL 1.08?High? Basophils Absolute 0.00 - 0.20 K/mcL 0.07 Immature Granulocytes Absolute 0.00 - 0.03 K/mcL 0.02 Sodium 133 - 145 mmol/L 139 Potassium 3.5 - 5.5 mmol/L 3.9 Chloride 96 - 110 mmol/L 108 CO2 21 - 32 mmol/L 24 Anion Gap 3 - 11 7 Glucose 70 - 100 mg/dL 97 BUN 5 - 25 mg/dL 12 Creatinine 0.70 - 1.30 mg/dL 0.83 Narrative Narrative: EKG 09/2024 SB @ 55 Nuc Stress 09/2024 ? Normal regadenoson nuclear perfusion stress test. ? No perfusion defect to suggest ischemia or infarct. ? Normal left ventricular function post-stress. Stress ejection fraction is 64%. ? Exercise was attempted and patient was able to exercise for more than 5 minutes on standard [place] protocol without chest pain or ischemic EKG change. Patient had significant blunted heart rate due to beta-canelo. Converted to a regadenoson protocol due to inadequate heart rate. ECHO 09/2024 ? Left ventricle cavity size is normal. Left ventricle mild hypertrophy.Possible small apical septal and apcial inferior hypokinetic hingepoint.Left ventricular systolic function is in the normal range with an ejection fraction of 55-60%. Concentric hypertrophy. ? Right ventricle cavity is normal. Right ventricular systolic function is normal. ? Trace aortic insufficiency ? Aortic sclerosis without stenosis ? Mild tricuspid insufficiency with no evidence of pulmonary hypertension ? No significant change when compared to study from 08/15/2022 CT Angio Chest 09/2024 IMPRESSION: 1. No acute pulmonary embolus. 2. Benign right adrenal adenoma. 3. Nonobstructing right renal stone. ? Airway Mallampati Class: II (missing a couple) TM Dist: >3cm Neck ROM: Full (hx Cspine with plate fusion 1999) Loose/Missing/Broken Teeth: Yes (missing molars) Heart: RRR Lungs: CTAB Assessment and Plan Assessment Anesthesia Assessment: Anesthesia Plan Discussed and PAT Visit Final Anesthetic Review Family History of Problems with Anesthesia: No History of Problems with Anesthesia: Yes (Postop Urinary retention) Documented by User: Michelle Licona MD 01/23/25 08:00 [facility] Past Medical History Medical History History of urinary retention Back pain Bleeding gastric ulcer Numbness HTN (hypertension) Osteoarthrosis Mixed hyperlipidemia Sleep apnea Diverticulitis of colon without hemorrhage Actinic keratosis GERD (gastroesophageal reflux disease) Depression Renal cyst Myocardial infarction CAD (coronary artery disease) Lumbar spinal stenosis Lumbar radiculitis Aortic dilatation Pancolonic diverticulosis Anemia Chronic gastric ulcer without hemorrhage and without perforation Parkinsonian tremor Lung nodule Back pain with history of spinal surgery Family History Family History Father Bladder cancer Mother Urologic disorders Brother Kidney stone Surgical History Surgical History History of surgical procedure on thoracic spine (07/10/24) History of back surgery Hx of laminectomy Hx of fusion of cervical spine History of bilateral knee replacement Hx of arthroscopy of right knee History of esophagogastroduodenoscopy (EGD) H/O colonoscopy Hx of heart artery stent Social History Social History Are you a primary career services assistant to a significant other at home: No Do you presently have visiting nurse or other home services: No Alcohol intake: current Alcohol intake frequency: holidays/special occasions only Patient Tobacco Use Status: Never used Tobacco Use of substances other than those prescribed or required for medical reasons: No Have you been hit, kicked, punched, or otherwise hurt by someone within the past year? If so, by whom?: No Are you DNR?: No Advance Directives: No Advance Directives Information Provided: Yes Advance Directives on File: No Poor oral hygiene: No Meds Allergies Allergy/AdvReac Type Severity Reaction Status Date / Time No Known Allergies Allergy Verified 01/20/25 13:18 Home Medications ?Medication ?Instructions ?Recorded ?Confirmed ?Last Taken ?Type aspirin 81 mg tablet,delayed 81 mg PO DAILY 02/15/23 01/20/25 01/16/25 History release Held on 07/10/24. Instructions: Resume on 07/14/24. carbidopa 25 mg-levodopa 100 mg 1 tab PO BID 02/15/23 01/20/25 01/22/25 History tablet hydrocodone 5 mg-acetaminophen 325 0.5 tab PO BID PRN Pain 02/15/23 01/20/25 01/23/25 History mg tablet losartan 25 mg tablet 100 mg PO BEDTIME 02/15/23 01/20/25 01/22/25 History omeprazole 20 mg capsule,delayed 20 mg PO BID 02/15/23 01/20/25 01/23/25 History release atenolol 50 mg tablet 75 mg PO DAILY 06/22/23 01/20/25 01/23/25 History atorvastatin 80 mg tablet 80 mg PO BEDTIME 06/22/23 01/20/25 01/22/25 History gabapentin 600 mg tablet 600 mg PO TID PRN Pain 06/22/23 01/20/25 01/23/25 History nitroglycerin 0.4 mg sublingual 0.4 mg sublingual DAILY PRN Chest 07/09/24 01/20/25 Unknown History tablet Pain Assessment and Plan Final Anesthetic Review NPO: Yes ASA Class: III Final Preanesthetic Review: No Changes in Pt Med Stat, Meds/Allgs Chart Reviewed, Consent Obtained/Reviewed and Anes Risks/Benef Reviewed Patient Risk: Intermediate Procedure Risk: Intermediate Anesthetic Plan Anesthetic Plan: GA and Agree w/ Assess. and Plan Disposition: Standard PACU
[2025-01-23] VITALS (8 sets, daily range): BP systolic 124–171; BP diastolic 55–74; PULSE 52–64; RESP 12–18; TEMP 35.9–36.1; O2SAT 94–97; BMI 29.5
--- NOTE | ~2025-01-23 | FL_ITS ---
EXAMINATION: FL GUIDANCE ONLY HISTORY: L2-3 Decompression Bilateral COMPARISON: Correlation is made with plain films of the lumbar spine dated 06/26/2024. TECHNIQUE: Fluoroscopy time: Less than 1 minute. Cumulative Dose: 7.19 mGy. DAP: 1.50 mGym2 Images: 1. FINDINGS: A single fluoroscopic spot film of the lumbar spine in the lateral projection demonstrates a probe directed toward the L2 vertebral body from a posterior approach. FL/FL guidance in OR IMPRESSION: Fluoroscopy during procedure. Please see procedure report for additional information. Electronically signed by: Tello Phillips MD 01/23/2025 10:03 AM EDT
[2025-01-23] MEDS: Lactated Ringers 1,000 ML 100 ML IVCONT (07:11)
--- NOTE | 2025-01-23 07:15 | MHC.SHP ---
Pre-Procedural Eval Section A - 24 Hr Update-Section A only Date of Service: 01/23/25 The patient is an INPATIENT: No Changes since office visit: No Cold of Flu in the past 2 weeks, No New Medical Problems, No Changes in Medication and No Patient answered all questions The patient has been examined within 24 hours of the surgical procedure. The History & Physical has been completed within 30 days and I have reviewed it.: No Section B - Complete if H&P > 30 days Chief Complaint: Spinal stenosis, lumbar region with neurogenic Allergies: Allergies Allergy/AdvReac Type Severity Reaction Status Date / Time No Known Allergies Allergy Verified 01/20/25 13:18 Review of Systems Sugical H&P ROS: Negative: Constitution, Cardiovascular, Respiratory, Neurological, Psychiatric, Hem-Onc, Allergic/Immunologic, Gastrointestinal, Genitourinary, Musculoskeletal, Integumentary, Endocrine and Eyes/Ears/Nose/Throat Exam Surgical H&P Exam: Normal: HEENT, Normal: Heart, Normal: Lungs, Normal: Extremities, Normal: Abdomen, Normal: Skin and Normal: Neurological (awake, alert,oriented x 3 ) Plan Diagnosis/Plan: Unchanged L2-3 decompression Time Spent With Patient Time: Total time managing care of this patient today __4__ minutes.
--- NOTE | 2025-01-23 09:59 | W.PM.OPN ---
Operative Note Operative Note Date of Service: 01/23/25 Narrative: Preoperative Diagnosis: L2-3 spinal stenosis/lateral recess stenosis/neural foraminal stenosis Operation: Bilateral L2-3 Laminotomy, Partial facetectomy and foraminotomy with use of microscope Consent Informed Consent was obtained for this operation. I have explained the nature, purpose and benefits of the operation. I have discussed the risks and benefit of the operation including possible complications or adverse events with patient/family. Alternative(s) were discussed with the patient with their relative benefits and risks as well as the consequences of not accepting the operation were included in obtaining consent. Surgeon: SALINAS MALLOY MD, PHD Procedure Assisted By: Jann Mark Description of Procedure This patient is suffering from intermittent numbness down his legs. Spinal cord compression was excluded. MRI of the lumbar spine shows lumbar degenerative scoliosis and an L2-3 stenosis. The patient was offered a decompression of this level. The procedure complications were explained. The patient was consented. The patient was brought to the operating room and endotracheally intubated. The patient was turned in prone position on the Gentry frame. Prep and drape was done followed by timeout. The Physician event marketing assistant provided access. A mid lumbar incision was made followed by release of the paravertebral muscle on the left side to expose the L2-3 lamina and facet joints. An intraoperative x-ray was obtained to confirm the correct level. The microscope was brought in. I took over the procedure. The high-speed drill was used to do a left L2-3 laminotomy until flavum ligament was reached. A #2 Kerrison was used to expand the laminotomy near flush to the pedicle and to include a partial facetectomy. The flavum ligament was opened and resected with a #3 Kerrison to decompress the underlying thecal sac. A significant amount of epidural fat was present. The flavum ligament was removed to decompress the lateral recess and the exiting L3 nerve root. A long nerve hook could be easily passed along the medial side of the pedicles as a sign of adequate decompression. The patient was turned contralaterally and this was undercut. In this way I was able to reach contralaterally and by removing more flavum ligament I was able to decompress the contralateral side. The microscope was removed. Hemostasis was done. The physician event marketing assistant close the Incision in 2 layers. Steri-Strips were used to approximate incision. An OpSite with Tegaderm was used to cover the incision. All sponge needle counts were correct. Patient was extubated and transported in stable is to recovery room. Anesthesia: General Estimated Blood Loss (ml): 15 Complications: None Duration of Surgery: Under 60 Minutes Postoperative Plan: Discharge to home
--- NOTE | 2025-01-23 10:05 | P.DS_ITS ---
DS: Providers Provider Date of Service: 01/23/25 Date of discharge: 01/23/25 Primary care physician: JOSE J White Admitting clinician: Hira Maria DS: Diagnosis Discharge Diagnosis (1) Scoliosis of lumbar region due to degenerative disease of spine in adult: Status: Acute DS: Summary Time Attestation Discharge Coordination Time (in mins): 5 Quality: Safe Use of Opioids Does Pt have an Active Cancer Diagnosis on the Problem List?: No Quality: Stroke Does the patient have a stroke diagnosis?: No Physical Exam Vital Signs: Vital Signs: Last Vital Signs Temp 96.7 F L 01/23/25 06:53 Pulse 54 01/23/25 06:53 Resp 18 01/23/25 06:53 BP 136/57 L 01/23/25 07:46 Pulse Ox 96 01/23/25 06:53 O2 Del Method Room Air 01/23/25 06:53 BMI result Body Mass Index 29.5 Discharge Plan Discharge Patient Disposition: Home, Self-Care Referrals: Jann Adams PA [Primary Care Provider, Internal Medicine] - 1 Week Discharge Medications: Continued tamsulosin [Flomax] 0.4 mg capsule 0.4 mg PO BID 90 Days Qty: 180 2RF nitroglycerin 0.4 mg tablet, sublingual 0.4 mg sublingual DAILY PRN (Reason: Chest Pain) Patient Comments: patient states never had to take nitro hydrocodone-acetaminophen 5-325 mg tablet 0.5 tab PO BID PRN (Reason: Pain) losartan 25 mg tablet 100 mg PO BEDTIME carbidopa-levodopa 25-100 mg tablet 1 tab PO BID omeprazole 20 mg capsule,delayed release(DR/EC) 20 mg PO BID atenolol 50 mg tablet 75 mg PO DAILY atorvastatin 80 mg tablet 80 mg PO BEDTIME gabapentin 600 mg tablet 600 mg PO TID PRN (Reason: Pain) Held aspirin 81 mg tablet,delayed release (DR/EC) 81 mg PO DAILY Hold Instructions: Resume on 01/30/25. You may resume aspirin 1 week after surgery Discharge Orders: Discharge Order (Routine); Ordered 01/23/25 Ordered By: Jann Louis Diet: Advance to usual diet Activity on Discharge: As tolerated Activity Restrictions/Additional Instructions: After your spinal surgery we ask you to observe the following restrictions/guidelines: Activity: It is normal to feel some discomfort as you increase your activity, but that will improve with time. We ask you avoid heavy lifting or acitivities that cause pain. As a general rule, 8lbs is a safe limit for lifting right after surgery. Walk as much as you feel comfortable but not to exhaustion. You will feel extra tired the first few days after surgery. Stay well hydrated. It is OK to walk up and down stairs You may return to driving when you are off narcotics (such as vicodin, oxycodone, dilaudid, etc), and you are back to normal functional capacity. If you have any concerns please check with office before driving. Return to work is specific to each patient and each surgery, so please speak with your doctor/PA at first follow up. Please bring paperwork such as FMLA at that time if you need it filled out. Medications: For optimum pain control, it is best to start with a combination of 500 mg of Tylenol every 4 hours with 600 mg of Motrin every 8 hours, and use narcotics as needed in between for breakthrough pain. We will give you a short supply of narcotics after surgery (usually one weeks worth). If you need more please call the office but do not use more than prescribed. You will need to give our office 48 hours notice if you need narcotics refilled and we do not fill narcotics on weekends or evenings. If you are on a narcotic, it is a good idea to take a stool softener such as colace or senna to avoid constipation If you take blood thinner such as aspirin, Plavix, Coumadin, Effient, Eliquis etc for conditions such as Afib, DVT, Pulmonary embolus, coronary disease, stents etc please speak with your surgeon about specific details as to when you can resume these medications. You can resume NSAIDs on post op day 1 (eg: Motrin, Naproxen, etc). Follow up: Please call the office, , after surgery to arrange a 3 week follow up for wound check. Wound Care: You may remove your dressing on the first day after surgery. ?You may ?leave open to air. Please do not remove the steri strips underneath. they will fall off on their own in one week. IT IS NORMAL FOR THE WOUND TO OOZE OR BE BLOODY FOR A FEW DAYS AFTER SURGERY. ?IF THIS HAPPENS JUST PLACE NEW DRESSING OVER IT TO AVOID STAINING CLOTHES. You may shower on post op day # 1 We ask that you do not let the water soak the wound. If it does get wet, just towel dry lightly. Please do not scrub your incision or place any type of chemical/ointment on the wound. No tub baths, pools or jacuzzis for one month. If you have any leaking or redness from your wound, or fevers, please call office Print Language: Maltese
== END 2025-01-23 11:11 | disposition home or self-care (01) ==
PROVIDERS: PCP Physician Assistant Medical; Visit Provider Neurological Surgery
PROC: (CPT 63047; principal; 2025-01-23 09:50)
DX: M48.062 Spinal stenosis, lumbar region with neurogenic claudication (principal); R20.0 Anesthesia of skin; M41.56 Other secondary scoliosis, lumbar region; I10 Essential (primary) hypertension; I25.10 Atherosclerotic heart disease of native coronary artery without angina pectoris; I25.2 Old myocardial infarction; Z95.5 Presence of coronary angioplasty implant and graft; G47.33 Obstructive sleep apnea (adult) (pediatric); Z79.82 Long term (current) use of aspirin; Z79.899 Other long term (current) drug therapy; K21.9 Gastro-esophageal reflux disease without esophagitis
CPT/HCPCS: 63047; J0131; J0690; J1100; J1885; J2003; J2250; J2405; J2704; J3010

== ENCOUNTER → 2025-01-23 06:49 | Outpatient (BNV) | payer MEDICARE, OTHER, SELFPAY | PROVIDERS: PCP Physician Assistant Medical; Visit Provider Neurological Surgery | DX: M48.062 Spinal stenosis, lumbar region with neurogenic claudication (principal); M41.56 Other secondary scoliosis, lumbar region | CPT/HCPCS: 63047; 99499 ==

== ENCOUNTER 2025-02-10 08:16 | Outpatient (AMB) | payer MEDICARE, OTHER, SELFPAY ==
--- NOTE | 2025-02-10 08:39 | A.OFFVIS_ITS ---
Intake Visit Reasons: 1 year PVR/ US Intake Note: Patient presents today for a 1yr/PVR/US * Renal US 01/20 Urology Meds- Tamsulosin Allergies to Antibiotic- No Known Allergies Blood Thinner- Aspirin PVR:360mL Dance Entertainer Required: No Accompanied by: Self / Same As Patient Allergies No Known Allergies Allergy (Verified 02/10/25 08:47) Medication List - Last Reconciled 02/10/25 by Ayleen Christina MD aspirin 81 mg PO DAILY Held on 01/23/25. Instructions: Resume on 01/30/25. You may resume aspirin 1 week after surgery atenolol 75 mg PO DAILY atorvastatin 80 mg PO BEDTIME carbidopa-levodopa 25-100 mg 1 tab PO BID gabapentin 600 mg PO TID PRN hydrocodone-acetaminophen 5-325 mg 0.5 tabs PO BID PRN losartan 100 mg PO BEDTIME nitroglycerin 0.4 mg sublingual DAILY PRN omeprazole 20 mg PO BID tamsulosin (Flomax) 0.4 mg PO BID 90 days HPI Comments Details: 02/10/25--Thierry is a 69-year-old gentleman who is followed for BPH and incomplete bladder emptying. On tamsulosin 0.4 mg b.i.d. urinalysis is negative. Bladder scan PVR today is 360 mL Renal ultrasound- 01/20/25--There are multiple nonobstructing calculi measuring up to 3 mm no hydronephrosis. PSA 01/25/24---0.10ng/mL History of Present Illness The patient is a 69-year-old male presenting with Benign Prostatic Hyperplasia (BPH) and incomplete bladder emptying. He has been followed for these conditions, with a current post-void residual (PVR) bladder scan showing 360 mL. The patient is on tamsulosin 0.4 mg BID to manage his symptoms. The patient also has a history of nonobstructing left renal calculi up to 3 mm, with no hydronephrosis observed on renal ultrasound. Patient states that recently, an adrenal gland abnormality was noted, leading to further investigation with a special blood test and an upcoming CAT scan. The patient was referred to a specialist, who is doing the testing. H/o Back problem, pt had repeat back surgery three weeks ago to address a pinched nerve, resulting in improved sensation and mobility. This condition may likely be contributing to LUTS of incomplete bladder emptying. Results - Bladder scan: Post-void residual (PVR) of 360 mL - Renal ultrasound: Nonobstructing left renal calculi up to 3 mm, no hydronephrosis - Urinalysis: Negative Plan 1. Benign Prostatic Hyperplasia (Bph)/ - Continue tamsulosin 0.4 mg BID for symptom management. - Monitor post-void residual volume and symptoms. Neurogenic Bladder likely contributing to LUTS of FELICE 2. Nonobstructing Left Renal Calculi - Monitor stone size 02/12/24--Thierry is a 68-year-old male who presents today to the office for a follow-up. He is followed for BPH and incomplete bladder emptying. I discussed with him PSA results--01/25/2024-0.10 ng/mL. Reviewed renal ultrasound-01/25/2024 stable left kidney too small stones nonobstructive no hydronephrosis. Will continue tamsulosin b.i.d.. Continue to monitor kidneys follow-up in 1 year. Review of chart: 06/22/23-- Thierry is a 67-year-old male who presents today to the office for a follow-up. Post Void Residual: 393 mL Pt denies dysuria, denies bladder pressure - on review of renal US no hydronephrosis- will cont to monitor pt states scrotal swelling is resolved. Orchitis and scrotal swelling resolved. Incomplete Bladder emptying- Chronic. Cont tamsulosin. Plan monitor post void residual. He was last seen by me on 02/15/2023 for right orchitis and incomplete bladder emptying. The patient was advised to continue Levaquin 21 day course. Retroperitoneum US results from 02/22/2023: No hydronephrosis. Three nonobstructing calculi in the left mid to lower kidney measuring 2-6 mm in size. Distended urinary bladder measuring 676 mL prevoid and postvoid 570 mL. Bilateral ureteral jets are seen. Estimated prostate size 48 mL. Scrotal US results from 02/22/2023: revealed persistent hyperemia of the right testicle and epididymis as well as edema of the right epididymis consistent with epididymoorchitis. Complex loculated right hydrocele. [facility] Medical History History of urinary retention Back pain Bleeding gastric ulcer Numbness HTN (hypertension) Osteoarthrosis Mixed hyperlipidemia Sleep apnea Diverticulitis of colon without hemorrhage Actinic keratosis GERD (gastroesophageal reflux disease) Depression Renal cyst Myocardial infarction CAD (coronary artery disease) Lumbar spinal stenosis Lumbar radiculitis Aortic dilatation Pancolonic diverticulosis Anemia Chronic gastric ulcer without hemorrhage and without perforation Parkinsonian tremor Lung nodule Back pain with history of spinal surgery Surgical History History of surgical procedure on thoracic spine (07/10/24) History of back surgery Hx of laminectomy Hx of fusion of cervical spine History of bilateral knee replacement Hx of arthroscopy of right knee History of esophagogastroduodenoscopy (EGD) H/O colonoscopy Hx of heart artery stent Family History Father Bladder cancer Mother Urologic disorders Brother Kidney stone Social History Are you a primary cattle care worker to a significant other at home: No Do you presently have visiting nurse or other home services: No Alcohol intake: current Alcohol intake frequency: holidays/special occasions only Patient Tobacco Use Status: Never used Tobacco Review of Systems Const All systems reviewed & are unremarkable except as noted in HPI and below Reports no additional complaints Eyes Reports no additional complaints ENT Reports no additional complaints Card Reports no additional complaints Resp Reports no additional complaints GI Reports no additional complaints Reports as per HPI Musc Reports no additional complaints Skin/Breast Reports system reviewed and no additional complaints, except as documented Neuro Reports no additional complaints Psych Reports no additional complaints Endo Reports no additional complaints Wolf/Lymph Reports no additional complaints Aller/Immun Reports no additional complaints Office Procedures Post Void Residual Post Residual Void Post Void Residual (PVR): 360 [id number] Void Residual by ultrasound Results Reviewed Results Reviewed: Date of Service: 01/20/25 EXAMINATION: US KIDNEY BILATERAL HISTORY: N20.0 - Calculus of kidney TECHNIQUE: Real-time grayscale ultrasound imaging of the kidneys was performed and images were reviewed. COMPARISON: Comparison is made with the prior examination dated 01/25/2024. FINDINGS: Right kidney: The right kidney measures 11.6 x 6.0 x 5.5 cm. Renal parenchymal echotexture and thickness are normal. There is a 9 x 8 x 10 mm cyst in the interpolar region. There is no hydronephrosis or renal calculi. Left Kidney: The left kidney measures 11.7 x 5.6 x 5.6 cm. Renal parenchymal echotexture and thickness are normal. Multiple cysts are noted, the largest of which is at the lower pole measuring 2.0 x 2.0 x 1.9 cm. There are multiple nonobstructing calculi measuring up to 3 mm in size. There is no hydronephrosis. IMPRESSION: Left nephrolithiasis without evidence of hydronephrosis. Date of Service: 01/25/24 US RETROPERITONEAL COMPLETE (RENAL) CLINICAL INFORMATION: Benign prostatic hyperplasia with lower urinary tract symptoms. COMPARISON: Ultrasound kidneys and bladder 02/22/2023. TECHNIQUE: Real-time imaging of the kidneys and bladder. FINDINGS: RIGHT KIDNEY: 11.7 x 6.1 x 6.6 cm (SAG x AP x TRV). The kidney is normal in size, contour, and echogenicity. Renal cortical thickness is normal. No renal calculi or hydronephrosis. At the upper pole, 1.0 cm and 0.9 cm benign, simple cysts are seen. These require no imaging follow-up. LEFT KIDNEY: 11.9 x 5.5 x 6.0 cm (SAG x AP x TRV). The kidney is normal in size, contour, and echogenicity. Renal cortical thickness is normal. At the interpolar aspect, a 4 mm nonobstructing calculus is seen. At the lower pole, a 5 mm nonobstructing calculus is seen. There is no hydronephrosis. There are benign, simple cysts, the largest at the lower pole measuring 2.1 cm. These require no imaging follow-up. BLADDER: Well distended. Bilateral ureteral jets are demonstrated. Prevoid bladder volume is 576 mL. Postvoid bladder volume is 420 mL. OTHER: Prostate dimensions are 2.8 x 3.0 x 3.4 cm, volume 15.2 mL. IMPRESSION: 1. There are nonobstructing left renal calculi. No radiopaque calculus is seen. No hydronephrosis is noted bilaterally. 2. There is a markedly increased post void residual volume. Date of Service: 02/22/23 EXAMINATION: US SCROTUM CLINICAL INFORMATION:? Orchitis. COMPARISON:? Ultrasound scrotum 02/09/2023. FINDINGS: RIGHT: Right testicle measures 4.22 x 2.83 x 2.39 cm, volume 15.0 mL. No focal testicular parenchymal lesions are visualized. Spectral Doppler analysis of the arterial and venous flow is increased in the right testis.? Right epididymal head is enlarged and edematous compared to the left side. No right varicocele is seen. There is moderate complex loculated hydrocele. Right epididymal Doppler flow is increased.? LEFT: Left testicle measures 4.38 x 1.76 x 3.88 cm, volume 15.6 mL. There are scrotal pearls. Spectral Doppler analysis of the arterial and venous flow is normal in the left testis.? Left epididymal head is normal in size. No left varicocele is seen. There is a mild simple hydrocele. Left epididymal Doppler flow is normal. IMPRESSION: Persistent hyperemia of the right testicle and epididymis as well as edema of the right epididymis consistent with epididymoorchitis. Complex loculated right hydrocele. No imaging improvement compared to the prior examination. Date of Service: 02/22/23 EXAMINATION:? US RETROPERITONEAL COMPLETE (RENAL) CLINICAL INFORMATION: Retention of urine, incomplete emptying of bladder. COMPARISON:? None available. FINDINGS: RIGHT KIDNEY: 10.5 x 4.4 x 7.0 cm (SAG x AP x TRV). The kidney is normal in size, contour, and echogenicity. Renal cortical thickness is normal. No renal calculi or hydronephrosis. 0.8 cm benign cyst in the mid kidney. No follow-up imaging is recommended.? LEFT KIDNEY: 11.7 x 4.9 x 6.4 cm (SAG x AP x TRV). The kidney is normal in size, contour, and echogenicity. Renal cortical thickness is normal. No hydronephrosis. Multiple benign cysts measuring up to 1.9 cm. No follow-up imaging is recommended. Three nonobstructing calculi in the left mid to lower kidney measuring 2-6 mm in size. BLADDER: Distended urinary bladder measuring 676 mL prevoid and postvoid 570 mL. Bilateral ureteral jets are seen. ADDITIONAL FINDINGS: The prostate is enlarged measuring 48 mL. IMPRESSION:? Nonobstructing left renal calculi. Enlarged prostate with distended urinary bladder and large post void residual. No hydronephrosis. Assessment & Plan Assessment & Plan (1) Incomplete bladder emptying: Code(s): R33.9 - Retention of urine, unspecified Category: Medical (2) BPH with obstruction/lower urinary tract symptoms: Code(s): N40.1 - Benign prostatic hyperplasia with lower urinary tract symptoms; N13.8 - Other obstructive and reflux uropathy Category: Medical (3) Kidney stone on left side: Code(s): N20.0 - Calculus of kidney Category: Medical (4) Hx of orchitis: Code(s): Z87.438 - Personal history of other diseases of male genital organs Category: Medical (5) Screening PSA (prostate specific antigen): Code(s): Z12.5 - Encounter for screening for malignant neoplasm of prostate Category: Medical Plan Plan 1. Benign Prostatic Hyperplasia (Bph)/ - Continue tamsulosin 0.4 mg BID for symptom management. - Monitor post-void residual volume and symptoms. Neurogenic Bladder likely contributing to LUTS of FELICE 2. Nonobstructing Left Renal Calculi - Monitor stone size 3- FU one year renal US and PSA prior Orders: Orders AMB Post Void Residual by ultrasound Today R33.9 - Retention of urine, unspecified US renal BI 11 Months N20.0 - Calculus of kidney, R33.9 - Retention of urine, unspecified AMB Urinalysis Automated Today Z13.9 - Encounter for screening, unspecified PSA,Total (Free>4and<10) 11 Months Z12.5 - Encounter for screening for malignant neoplasm of prostate Medications: Refilled tamsulosin (Flomax) 0.4 mg PO BID 180 caps 3RF 90 days Patient Instructions: The patient had an opportunity to ask questions regarding treatment plan. The patient expressed understanding and agreement with the above treatment plan. The patient is aware they should contact our office by phone for worsening of their current condition or the appearance of new symptoms. Compliance is encouraged with any medications and followup testing that is ordered. It is a privilege to be allowed the opportunity to participate in the urologic care of your patient. If you have any questions or concerns regarding treatment for the above conditions please do not hesitate to contact me. The office telephone contact is [phone]. This note is constructed in part using voice recognition software. While every effort has been made to ensure accuracy electronic page makeup system operator errors may have been included. Yours sincerely, Ayleen Christina MD Scribe Plan - Not visible on output: Patient was informed and verbally consented to the use of an ambient scribe for clinic note documentation during this visit. Coding Level of Care Code Est Pt Level 4 (36985) Complex EM visit Add On G2211 Diagnoses Incomplete bladder emptying R33.9 BPH with obstruction/lower urinary tract symptoms N40.1; N13.8 Kidney stone on left side N20.0 Hx of orchitis Z87.438 Screening PSA (prostate specific antigen) Z12.5 CPT Codes Post Residual Void - PVR CPT Code: 16056-[id number] Void Residual by ultrasound ([id number])
--- OUTSIDE RECORDS SUMMARY | 2025-02-10 09:11 | XMS_ITS | Clinical Summary ---
Author Organization [address] [place] [address] [place] [phone] Phone Care Team Providers Care Copy Director Name Role Phone Jann Adams Primary Care Provider [phone] Allergies No known active allergies Medications carbidopa-levod [...] or questions. Coronary artery disease invo lving ewiiaapaayp coronary artery of ewiiaapaayp heart without angina pectoris 06/15/2016 Overview (05/10/2024): - Status post non-ST elevation ID in January 2015 with cardiac cath at [...] (NITROSTAT) SL tablet 0.4 mg Non-ST elevation ID (NSTEMI) (CMS/HCC V24, CMS/H CC V28) 02/26/2015 [...] Description 12/16/2024 1:30 PM EDT Office Visit [facility] Hematology Oncology [address] [place] [address] Unique Kolb MD Adenoma of right adrenal gland 11/26/2024 10:30 AM EDT Lab Draw Station - [address] [facility] [address] [place] [address] Coronary artery disease involving ewiiaapaayp coronary artery of ewiiaapaayp heart without angina pectoris; Aortic dilatation (CMS/HCC V24); Other depression; Essential hypertension, benign; Gastroesophageal reflux disease without esophagitis; Hx of non-ST elevation myocardial infarction (NSTEMI); Spinal stenosis of lumbar region with neurogenic claudication; Non-ST elevation ID (NSTEMI) (CMS/HCC V24, CMS/HCC V28); Mixed hyperlipidemia; Adenoma of right adrenal gland 11/25/2024 8:00 AM EDT Office Visit [address] [phone] Jann Adams PA Coronary artery disease involving ewiiaapaayp coronary artery of ewiiaapaayp heart without angina pectoris (Primary Dx); Aortic dilatation (CMS/HCC V24); Other depression; Essential hypertension, benign; Gastroesophageal reflux disease without esophagitis; Hx of non-ST elevation myocardial infarction (NSTEMI); Spinal stenosis of lumbar region with neurogenic claudication; Non-ST elevation ID (NSTEMI) (CMS/HCC V24, CMS/HCC V28); Mixed hyperlipidemia; [...] knee arthroscopic surgery 2006 ESOPHAGOGASTRODUODENOSCOPY 10/13/2008 PROCEDURE: IA ESOPHAGOGASTRODUODENOSCOPY TRANSORAL DIAGNOSTIC; COMMENT: mild gastritis, H. [...] for your loved ones. For example, children's court magistrate or elderly care for an older adult? [...] Info) Description 02/20/2025 9:00 AM EDT Appointment [facility] CT Scan [address] [place] [address] 02/25/2025 7:30 AM EDT Office Visit Adult Medicine [address] [phone] Carmela Maguire PA [address], [place] 03/05/2025 3:15 PM EDT Office Visit [facility] Hematology Oncology [address] [place] [address] Unique Kolb MD [address] [place] [address] 03/31/2025 9:00 AM EST Ancillary Procedure [facility] [address] [place] [address] [place] [phone] 05/27/2025 8:15 AM EST Office Visit Adult Medicine [address] [phone] Jann Adams PA [address] [place] [phone] Health Maintenance Due Date Last Done Comments Medicare Annual Wellness Visit 11/19/2024 11/20/2023 COVID-19 Vaccine ( season) 2025 05/18/2022, 03/20/2021, 08/22/2020, Additional history exists Influenza Vaccine (#1) 2025 , 04/28/2023, 04/15/2022, [...] 02/26, 08/15/2014 Depression Screening Completed 10/11/2024, 11/20/19 HIB Vaccines Aged Out No longer eligi [...] Procedure Name Priority Date/Time Associated Diagnosis Comments EXTERNAL XRAY REPORT 01/23/2025 EXTERNAL XRAY REPORT 01/23/2025 EXTERNAL ULTRASOUND REPORT 01/20/2025 DEHYDROEPIANDROSTERONE SULFATE Routine 11/26/2024 10:32 AM EDT Coronary artery disease involving ewiiaapaayp coronary artery of ewiiaapaayp heart without angina pectoris Aortic dilatation (CMS/HCC V24) Other depression Essential hypertension, benign Gastroesophageal reflux disease without esophagitis Hx of non-ST elevation myocardial infarction (NSTEMI) Spinal stenosis of lumbar region with neurogenic claudication Non-ST elevation ID (NSTEMI) (CMS/HCC V24, CMS/HCC V28) Mixed hyperlipidemia Adenoma of right adrenal gland CORTISOL Routine 11/26/2024 10:32 AM EDT Coronary artery disease involving ewiiaapaayp coronary artery of ewiiaapaayp heart without angina pectoris Aortic dilatation (CMS/HCC V24) Other depression Essential hypertension, benign Gastroesophageal reflux disease without esophagitis Hx of non-ST elevation myocardial infarction (NSTEMI) Spinal stenosis of lumbar region with neurogenic claudication Non-ST elevation ID (NSTEMI) (CMS/HCC V24, CMS/HCC V28) Mixed hyperlipidemia Adenoma of right adrenal gland CATECHOLAMINES, FRACTIONATED, PLASMA Routine 11/26/2024 10:32 AM EDT Coronary artery disease involving ewiiaapaayp coronary artery of ewiiaapaayp heart without angina pectoris Aortic dilatation (CMS/HCC V24) Other depression Essential hypertension, benign Gastroesophageal reflux disease without esophagitis Hx of non-ST elevation myocardial infarction (NSTEMI) Spinal stenosis of lumbar region with neurogenic claudication Non-ST elevation ID (NSTEMI) (CMS/HCC V24, CMS/HCC V28) Mixed hyperlipidemia Adenoma of right adrenal gland ALDOSTERONE Routine 11/26/2024 10:32 AM EDT Coronary artery disease involving ewiiaapaayp coronary artery of ewiiaapaayp heart without angina pectoris Aortic dilatation (CMS/HCC V24) Other depression Essential hypertension, benign Gastroesophageal reflux disease without esophagitis Hx of non-ST elevation myocardial infarction (NSTEMI) Spinal stenosis of lumbar region with neurogenic claudication Non-ST elevation ID (NSTEMI) (CMS/HCC V24, CMS/HCC V28) Mixed hyperlipidemia Adenoma of right adrenal gland METANEPHRINES, PLASMA FREE Routine 11/26 10:32 AM EDT Coronary artery disease involving ewiiaapaayp coronary artery of ewiiaapaayp heart without angina pectoris Aortic dilatation (CMS/HCC V24) Other depression Essential hypertension, benign Gastroesophageal reflux disease without esophagitis Hx of non-ST elevation myocardial infarction (NSTEMI) Spinal stenosis of lumbar region with neurogenic claudication Non-ST elevation ID (NSTEMI) (CMS/HCC V24, CMS/HCC V28) Mixed hyperlipidemia [...] Recently Relevant to Health Maintenance Results * External Xray Report (01/23/2025) Only the most recent of2 resultswithin the time period is included. Anatomical Region Laterality Modality Radiographic Faviola ging us Provider [facility] XR PROCEDURES Final Result * External Ultrasound Report (01/20/2025) Anatomical Region Laterality Modality Ultrasound us Provider [facility] US PROCEDURES Final Result * Metanephrines, plasma free (11/26/2024 10:32 AM EDT) Metanephrines Free 27 < OR = 57 pg/mL 12/06/2024 7:40 PM EDT [facility] Comment: This test was developed and its analytical performance characteristics have been determined by [facility]. It has not been cleared or approved by the FDA. This assay has been validated pursuant to the CLIA regulations and is used for clinical purposes. Normetanephrine Free 48 < OR = 148 pg/mL 12/06/2024 7:40 PM EDT [facility] Comment: This test was developed and its analytical performance characteristics have been determined by [facility]. It has not been cleared or approved [...] 2008. For additional information, please refer to http://education.Libox.brotips/faq/MetFractFree (This link is being provided for informational/educational purposes only.) This test was developed and its analytical performance characteristics have been determined by [facility]. It has not been cleared or approved by the FDA. This assay has been validated pursuant to the CLIA regulations and is used for clinical purposes. Test Performed at: [facility] [address] [address] Sahra Houston MD, PhD, CLAUDE Blood Venous blood specimen / Unknown Venipuncture / Unknown 11/26/2024 10:32 AM EDT 11/26/2024 11:03 AM EDT Jann LUX LAB BLOOD ORDERABLES Elle l Result [facility] [address] [place] [address] * (ABNORMAL) Catecholamines, fractionated, plasma (11/26/2024 10:32 AM EDT) [facility] Epinephrine 15 pg/mL 12/04/2024 4:39 PM EDT [...] analytical performance characteristics have been determined by [facility]. It has not been cleared or approved by the FDA. This assay has been validated pursuant to the CLIA regulations and is used for clinical purposes. Test Performed at: [facility] [address] [address] Sahra Houston MD, PhD, CLAUDE Blood Venous blood specimen / Unknown Venipuncture / Unknown 11/26/2024 10:32 AM EDT 11/26/2024 11:03 AM EDT Jann LUX LAB BLOOD ORDERABLES Elle l Result [facility] [address] [place] [address] * Aldosterone (11/26/2024 10:32 AM EDT) Pathologist [facility] Aldosterone 6.5 ng/dL 11/28/2024 7:38 PM EDT [facility] Comment: REFERENCE RANGE: Upright <= 39.2 ng/dL Supine <= 23.2 ng/dL Test performed at [facility], [address] , [place] [address] Kenna Larios MD, PhD - [employer] Blood Venous blood specimen / Unknown Venipuncture / Unknown 11/26/2024 10:32 AM EDT 11/26/2024 11:04 AM EDT Jann LUX LAB BLOOD ORDERABLES Elle l Result Performing Organization Address City/[facility]/ZIP Co de Phone Number [facility] [address] [place] [address] * (ABNORMAL) Dehydroepiandrosterone Sulfate (11/26/2024 10:32 AM EDT) [facility] DHEA Sulfate 12.3(L) 25.0 - 131.2 mcg/dL LAB CHEMISTRY METHOD 11/26/2024 1:47 PM EDT [facility] Blood Venous blood specimen / Unknown Venipuncture / Unknown 11/26/2024 10:32 AM EDT 11/26/2024 11:04 AM EDT Narrative [facility] - 11/26/2024 1:47 PM EDT Over the counter supplements containing high doses of biotin may interfere with this assay. If interference is suspected, patients shoud be retested after refraining from biotin supplements for 72 hours. Jann LUX LAB BLOOD ORDERABLES Elle l Result [facility] [address] [place] [address], * Cortisol (11/26/2024 10:32 AM EDT) Cortisol 6.7 mcg/dL LAB CHEMISTRY METHOD 11/26/2024 2:11 PM EDT [facility] Blood Venous blood specimen / Unknown Venipuncture / Unknown 11/26/2024 10:32 AM EDT 11/26/2024 11:04 AM EDT Narrative [facility] - 11/26/2024 2:11 PM EDT CORTISOL REFERENCE RANGE 8 AM SPEC: 5.0-23.0 mcg/dL 4 PM SPEC: 3.0-16.0 mcg/dL 8 PM SPEC: <5.0 mcg/dL Jann LUX LAB BLOOD ORDERABLES Elle palm Result [facility] [address] [place] [address], [place] [phone] * External MRI Report (11/20/2024) Only the [...] LAB CHEMISTRY METHOD 10/15/2024 7:03 AM T [facility] Glucose 97 70 - [...] Olea MD LAB BLOOD ORDERABLES Final Result [facility] [address] [place] [address], * (ABNORMAL) Lipid panel with reflex to direct LDL (08/22/2024 1:46 PM EDT) Cholesterol 98 0 - 200 mg/dL LAB CHEMISTRY METHOD 08/22/2024 5:34 PM EDT [facility] Triglycerides 298(H) 0 - 150 mg/dL LAB CHEMISTRY METHOD 08/22/2024 5:34 PM [facility] HDL 29(L) >=40 mg/dL LAB CHEMISTRY METHOD 08/22/2024 5:34 PM EDT [facility] LDL Calculated 9 0 - 100 mg/dL LAB CHEMISTRY METHOD 08/22/2024 5:34 PM EDT [facility] VLDL Cholesterol Lito 59.6 mg/dL LAB CHEMISTRY METHOD 08/22/2024 5:34 PM EDT [facility] Non HDL Chol. (LDL+VLDL) 69 <145 mg/dL LAB CHEMISTRY METHOD 08/22/2024 5:34 PM EDT [facility] Chol/HDL Ratio 3.4 0.0 - 4.4 LAB CHEMISTRY METHOD 08/22/2024 5:34 PM EDT [facility] Blood Venous blood specimen / Unknown Venipuncture / Unknown 08/22/2024 1:46 PM EDT 08/22/2024 1:46 PM EDT Carmela Maguire PA LAB BLOOD ORDERABLES Final Resul t [facility] [address] [place] [address], * Falls Risk Assessment (02/20/2024) [facility] Falls Risk Assessment Abstracted [facility] Provider HEALTH MAINTENANCE Final Result * Depression Screening (11/20/2023) [facility] Depression Screening Abstracted [facility] Provider HEALTH MAINTENANCE Final Result * Colonoscopy (07/28/2022) [facility] Colonoscopy No interpreta tion,abstr acted Anatomical Region Laterality Modality Other [facility] Provider HEALTH MAINTENANCE Final Result * Hepatitis C Screening (04/28/2017) [facility] Hepatitis C Screening Abstracted [facility] Provider HEALTH MAINTENANCE Final Result from Last 3 Months or Most Recently Relevant to Health Maintenance Insurance MEDICARE [facility] Advance Directives * Full Code - Confirmed [...] Relationship Healthcare Agent Relationshi p Communication Jacklyn Edgar Spouse Health Care Agent Care Teams Copy Director Relationship Specialty Start Date End Date Jann Adams PA [address] [place] [address] PCP - General Internal Medicine 05/19/20
== END 2025-02-10 09:25 | disposition home or self-care (01) ==
LOC: HO.HUSH 08:17
PROVIDERS: PCP Physician Assistant Medical; Visit Provider Urology
DX: R33.9 Retention of urine, unspecified (principal); N40.1 Benign prostatic hyperplasia with lower urinary tract symptoms; N13.8 Other obstructive and reflux uropathy; N20.0 Calculus of kidney; Z87.438 Personal history of other diseases of male genital organs; Z12.5 Encounter for screening for malignant neoplasm of prostate; Z13.9 Encounter for screening, unspecified
CPT/HCPCS: 99214; G2211

== ENCOUNTER → 2025-02-10 08:16 | Outpatient (BNVA) | payer MEDICARE, OTHER, SELFPAY | PROVIDERS: PCP Physician Assistant Medical; Visit Provider Urology | DX: N40.1 Benign prostatic hyperplasia with lower urinary tract symptoms (principal); N13.8 Other obstructive and reflux uropathy; R33.9 Retention of urine, unspecified; N20.0 Calculus of kidney; Z87.438 Personal history of other diseases of male genital organs | CPT/HCPCS: 51798; 81003; 99212 ==

== ENCOUNTER 2025-02-13 08:46 | Outpatient (AMB) | payer MEDICARE, OTHER, SELFPAY ==
--- NOTE | 2025-02-13 08:54 | HO.SPINEOV ---
Intake Visit Reasons: 1st post op Intake Note: Mr. Edgar is here today for his 1st post op. 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 Maria. He reports that overall he has done well since his surgery, and states that he essentially has no pain. His numbness in his bilateral lower extremity has also resolved. He has been completing his activities of daily living without much issue. He is not taking any pain medications at this time. He was accompanied by his significant other and they asked several questions regarding the postoperative healing course, all of which I answered to the best of my ability. No new neurological deficits. The patient ambulates well and rises from a seated position without difficulty. His posterior incision site is closed and well healing. I would like to follow up with Thierry again in 6 weeks for his 2nd postoperative visit. I will obtain a set of x-rays at that visit. Hany Maria MD,PhD [facility] Coding Level of Care Code Global (77451) Diagnoses S/P spinal surgery Z98.890
--- OUTSIDE RECORDS SUMMARY | 2025-02-13 10:05 | XMS_ITS | Clinical Summary ---
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 Coronary artery disease invo lving [place] coronary artery of [place] heart without angina pectoris 06/15/2016 Overview (05/10/2024): - Status post non-ST elevation MN in January 2015 with cardiac cath at [...] (NITROSTAT) SL tablet 0.4 mg Non-ST elevation MN (NSTEMI) (CMS/HCC V24, CMS/H CC V28) 02/26/2015 [...] Description 12/16/2024 1:30 PM EDT Office Visit [facility] Hematology Oncology [address] [place] [phone] Unique Kolb MD Adenoma of right adrenal gland 11/26/2024 10:30 AM EDT Lab Draw Station - [facility] [address] [place] [phone] Coronary artery disease involving [place] coronary artery of [place] heart without angina pectoris; Aortic dilatation (CMS/HCC V24); Other depression; Essential hypertension, benign; Gastroesophageal reflux disease without esophagitis; Hx of non-ST elevation myocardial infarction (NSTEMI); Spinal stenosis of lumbar region with neurogenic claudication; Non-ST elevation MN (NSTEMI) (CMS/HCC V24, CMS/HCC V28); Mixed hyperlipidemia; Adenoma of right adrenal gland 11/25/2024 8:00 AM EDT Office Visit [address] [phone] Jann Adams PA Coronary artery disease involving [place] coronary artery of [place] heart without angina pectoris (Primary Dx); Aortic dilatation (CMS/HCC V24); Other depression; Essential hypertension, benign; Gastroesophageal reflux disease without esophagitis; Hx of non-ST elevation myocardial infarction (NSTEMI); Spinal stenosis of lumbar region with neurogenic claudication; Non-ST elevation MN (NSTEMI) (CMS/HCC V24, CMS/HCC V28); Mixed hyperlipidemia; [...] knee arthroscopic surgery 2006 ESOPHAGOGASTRODUODENOSCOPY 10/13/2008 PROCEDURE: CO ESOPHAGOGASTRODUODENOSCOPY TRANSORAL DIAGNOSTIC; COMMENT: mild gastritis, H. [...] care for your loved ones. For example, director child abuse therapy or elderly care for an older adult? [...] Info) Description 02/20/2025 9:00 AM EDT Appointment [facility] CT Scan [address] [place] [phone] 02/25/2025 7:30 AM EDT Office Visit Adult Medicine [address] [phone] Carmela Maguire PA [address] [place], [place] 03/05/2025 3:15 PM EDT Office Visit [facility] Hematology Oncology [address] [place] [phone] Unique Kolb MD [address] [place] [phone] 03/31/2025 9:00 AM EST Ancillary Procedure [facility] [address] [place] [address] [place] [phone] 05/27/2025 8:15 AM EST Office Visit Adult Medicine [address] [phone] Jann Adams PA [address] [place] [phone] Health Maintenance Due Date Last Done Comments [...] 10:32 AM EDT Coronary artery disease involving [place] coronary artery of [place] heart without angina pectoris Aortic dilatation (CMS/HCC V24) Other depression Essential hypertension, benign Gastroesophageal reflux disease without esophagitis Hx of non-ST elevation myocardial infarction (NSTEMI) Spinal stenosis of lumbar region with neurogenic claudication Non-ST elevation MN (NSTEMI) (CMS/HCC V24, CMS/HCC V28) Mixed hyperlipidemia Adenoma of right adrenal gland CORTISOL Routine 11/26/2024 10:32 AM EDT Coronary artery disease involving [place] coronary artery of [place] heart without angina pectoris Aortic dilatation (CMS/HCC V24) Other depression Essential hypertension, benign Gastroesophageal reflux disease without esophagitis Hx of non-ST elevation myocardial infarction (NSTEMI) Spinal stenosis of lumbar region with neurogenic claudication Non-ST elevation MN (NSTEMI) (CMS/HCC V24, CMS/HCC V28) Mixed hyperlipidemia Adenoma of right adrenal gland CATECHOLAMINES, FRACTIONATED, PLASMA Routine 11/26/2024 10:32 AM EDT Coronary artery disease involving [place] coronary artery of [place] heart without angina pectoris Aortic dilatation (CMS/HCC V24) Other depression Essential hypertension, benign Gastroesophageal reflux disease without esophagitis Hx of non-ST elevation myocardial infarction (NSTEMI) Spinal stenosis of lumbar region with neurogenic claudication Non-ST elevation MN (NSTEMI) (CMS/HCC V24, CMS/HCC V28) Mixed hyperlipidemia Adenoma of right adrenal gland ALDOSTERONE Routine 11/26/2024 10:32 AM EDT Coronary artery disease involving [place] coronary artery of [place] heart without angina pectoris Aortic dilatation (CMS/HCC V24) Other depression Essential hypertension, benign Gastroesophageal reflux disease without esophagitis Hx of non-ST elevation myocardial infarction (NSTEMI) Spinal stenosis of lumbar region with neurogenic claudication Non-ST elevation MN (NSTEMI) (CMS/HCC V24, CMS/HCC V28) Mixed hyperlipidemia Adenoma of right adrenal gland METANEPHRINES, PLASMA FREE Routine 11/26 10:32 AM EDT Coronary artery disease involving [place] coronary artery of [place] heart without angina pectoris Aortic dilatation (CMS/HCC V24) Other depression Essential hypertension, benign Gastroesophageal reflux disease without esophagitis Hx of non-ST elevation myocardial infarction (NSTEMI) Spinal stenosis of lumbar region with neurogenic claudication Non-ST elevation MN (NSTEMI) (CMS/HCC V24, CMS/HCC V28) Mixed hyperlipidemia [...] analytical performance characteristics have been determined by [facility] [facility]. It has not been cleared or approved by the FDA. This assay has been validated pursuant to the CLIA regulations and is used for clinical purposes. Normetanephrine Free 48 < OR = 148 pg/mL 12/06/2024 7:40 PM EDT [facility] Comment: This test was developed and its analytical performance characteristics have been determined by [employer] [facility]. It has not been cleared or approved [...] 2008. For additional information, please refer to http://education.MotorExchange.Optisort/faq/MetFractFree (This link is being provided for informational/educational purposes only.) This test was developed and its analytical performance characteristics have been determined by [employer] [facility]. It has not been cleared or approved by the FDA. This assay has been validated pursuant to the CLIA regulations and is used for clinical purposes. Test Performed at: [facility] [address] [address] Sahra Houston MD, PhD, CLAUDE Blood Venous blood specimen / Unknown Venipuncture / Unknown 11/26/2024 10:32 AM EDT 11/26/2024 11:03 AM EDT Jann LUX LAB BLOOD ORDERABLES Elle l Result [facility] [address] [place] [address] * (ABNORMAL) Catecholamines, fractionated, plasma (11/26/2024 10:32 AM EDT) [facility] Epinephrine 15 pg/mL 12/04/2024 4:39 PM EDT [...] analytical performance characteristics have been determined by [employer] [facility]. It has not been cleared or approved by the FDA. This assay has been validated pursuant to the CLIA regulations and is used for clinical purposes. Test Performed at: [facility] [address] [address] Sahra Huoston MD, PhD, CLAUDE Blood Venous blood specimen / Unknown Venipuncture / Unknown 11/26/2024 10:32 AM EDT 11/26/2024 11:03 AM EDT Jann LUX LAB BLOOD ORDERABLES Elle l Result [facility] [address] [place] [address] * Aldosterone (11/26/2024 10:32 AM EDT) Pathologist [facility] Aldosterone 6.5 ng/dL 11/28/2024 7:38 PM EDT [facility] Comment: REFERENCE RANGE: Upright <= 39.2 ng/dL Supine <= 23.2 ng/dL Test performed at [facility], [address] , [place] [address] Kenna Larios MD, PhD - Virologist Blood Venous blood specimen / Unknown Venipuncture / Unknown 11/26/2024 10:32 AM EDT 11/26/2024 11:04 AM EDT Jann LXU LAB BLOOD ORDERABLES Elle l Result Performing Organization Address City/[facility]/ZIP Co de Phone Number [facility] [address] [place] [address] * (ABNORMAL) Dehydroepiandrosterone Sulfate (11/26/2024 10:32 AM EDT) [facility] DHEA Sulfate 12.3(L) 25.0 - 131.2 mcg/dL LAB CHEMISTRY METHOD 11/26/2024 1:47 PM EDT [facility] Blood Venous blood specimen / Unknown Venipuncture / Unknown 11/26/2024 10:32 AM EDT 11/26/2024 11:04 AM EDT Narrative [facility] - 11/26/2024 1:47 PM EDT Over the counter supplements containing high doses of biotin may interfere with this assay. If interference is suspected, patients shoud be retested after refraining from biotin supplements for 72 hours. Jann LUX LAB BLOOD ORDERABLES Elle l Result [facility] [address] [place] [address], * Cortisol (11/26/2024 10:32 AM EDT) Cortisol 6.7 mcg/dL LAB CHEMISTRY METHOD 11/26/2024 2:11 PM EDT [facility] Blood Venous blood specimen / Unknown Venipuncture / Unknown 11/26/2024 10:32 AM EDT 11/26/2024 11:04 AM EDT Narrative [facility] - 11/26/2024 2:11 PM EDT CORTISOL REFERENCE RANGE 8 AM SPEC: 5.0-23.0 mcg/dL 4 PM SPEC: 3.0-16.0 mcg/dL 8 PM SPEC: <5.0 mcg/dL Jann LUX LAB BLOOD ORDERABLES Elle palm Result [facility] [address] [place] [address], [place] [phone] * External MRI Report (11/20/2024) Only the most recent of2 resultswithin the time period is included. Anatomical Region Laterality Modality Magnetic Resonan ce us Provider [facility] MRI PROCEDURES Final Result * Basic metabolic panel (10/15/2024 5:51 AM EDT) Sodium 139 133 - 145 mmol/L LAB CHEMISTRY METHOD 10/15/2024 7:03 AM [facility] Potassium 3.9 3.5 - 5.5 mmol/L LAB CHEMISTRY METHOD 10/15/2024 7:03 AM [facility] Chloride 108 96 - 110 mmol/L LAB CHEMISTRY METHOD 10/15/2024 7:03 AM [facility] CO2 24 21 - 32 mmol/L LAB CHEMISTRY METHOD 10/15/2024 7:03 AM [facility] Anion Gap 7 3 - 11 LAB CHEMISTRY METHOD 10/15/2024 7:03 AM T [facility] Glucose 97 70 - 100 mg/dL LAB CHEMISTRY METHOD 10/15/2024 7:03 AM [facility] BUN 12 5 - 25 mg/dL LAB CHEMISTRY METHOD 10/15/2024 7:03 AM [facility] Creatinine 0.83 0.70 - 1.30 mg/dL LAB CHEMISTRY METHOD 10/15/2024 7:03 AM [facility] eGFR 94 >=60 mL/min/1. 73m2 LAB CHEMISTRY METHOD 10/15/2024 7:03 AM [facility] Comment:Calculation based on the Chronic Kidney Disease Epidemiology Collaboration (CKD-EPI) equation refit without adjustment for race. BUN/Creatinine Ratio 14.5 LAB CHEMISTRY METHOD 10/15/2024 7:03 AM [facility] Calcium 9.0 8.5 - 10.5 mg/dL LAB CHEMISTRY METHOD 10/15/2024 7:03 AM [facility] Blood Venous blood specimen / Unknown Venipuncture / Unknown 10/15/2024 5:51 AM EDT 10/15/2024 6:26 AM EDT us Alon Olea MD LAB BLOOD ORDERABLES Final Result [facility] [address] [place] [address], * (ABNORMAL) Lipid panel with reflex to direct LDL (08/22/2024 1:46 PM EDT) Cholesterol 98 0 - 200 mg/dL LAB CHEMISTRY METHOD 08/22/2024 5:34 PM EDT [facility] Triglycerides 298(H) 0 - 150 mg/dL LAB CHEMISTRY METHOD 08/22/2024 5:34 PM [facility] HDL 29(L) >=40 mg/dL LAB CHEMISTRY METHOD 08/22/2024 5:34 PM EDT [facility] LDL Calculated 9 0 - 100 mg/dL LAB CHEMISTRY METHOD 08/22/2024 5:34 PM EDT [facility] VLDL Cholesterol Lito 59.6 mg/dL LAB CHEMISTRY METHOD 08/22/2024 5:34 PM EDT [facility] Non HDL Chol. (LDL+VLDL) 69 <145 mg/dL LAB CHEMISTRY METHOD 08/22/2024 5:34 PM EDT [facility] Chol/HDL Ratio 3.4 0.0 - 4.4 LAB CHEMISTRY METHOD 08/22/2024 5:34 PM EDT [facility] Blood Venous blood specimen / Unknown Venipuncture / Unknown 08/22/2024 1:46 PM EDT 08/22/2024 1:46 PM EDT Carmela Maguire PA LAB BLOOD ORDERABLES Final Resul t [facility] [address] [place] [address], * Falls Risk Assessment (02/20/2024) [facility] Falls Risk Assessment Abstracted [facility] Provider HEALTH MAINTENANCE Final Result * Depression Screening (11/20/2023) Health system Depression Screening Abstracted [facility] Provider HEALTH MAINTENANCE Final Result * Colonoscopy (07/28/2022) Health system Colonoscopy No interpreta tion,abstr acted Anatomical Region Laterality Modality Other [facility] Provider HEALTH MAINTENANCE Final Result * Hepatitis C Screening (04/28/2017) Health system Hepatitis C Screening Abstracted [facility] Provider HEALTH MAINTENANCE Final Result from Last 3 Months or Most Recently Relevant to Health Maintenance Insurance MEDICARE [facility] Advance Directives * Full Code - Confirmed [...] Edgar Spouse 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
== END 2025-02-13 09:33 | disposition home or self-care (01) ==
LOC: HO.HNS 08:47
PROVIDERS: PCP Physician Assistant Medical; Visit Provider Physician Assistant
DX: Z98.890 Other specified postprocedural states (principal)
CPT/HCPCS: 99024

== ENCOUNTER → 2025-02-13 08:46 | Outpatient (BNVA) | payer MEDICARE, OTHER, SELFPAY | PROVIDERS: PCP Physician Assistant Medical; Visit Provider Physician Assistant | DX: Z47.89 Encounter for other orthopedic aftercare (principal); Z98.890 Other specified postprocedural states | CPT/HCPCS: 99212 ==

== ENCOUNTER 2025-03-27 08:52 | Outpatient (REF) | payer MEDICARE, OTHER, SELFPAY ==
--- NOTE | ~2025-03-27 | XR_ITS ---
EXAMINATION: XR LUMBOSACRAL SPINE CLINICAL INFORMATION: Z98.890 - Other specified postprocedural states COMPARISON: June 26, 2024. TECHNIQUE: Lateral views in neutral, flexion and extension position. AP view FINDINGS: Levoconvex rotoscoliosis apex at T12-L1 and dextroconvex rotoscoliosis apex at L3-4. Multilevel endplate sclerosis marginal osteophyte formation and decreased intervertebral disc height throughout the axial skeleton. Vacuum phenomenon at L4-5 and L5-S1. Grade 1 anterolisthesis L4-5 in neutral position which remains in flexion and extension position. Vascular calcifications, aorta. No lytic or blastic lesions. No acute cortical disruption. XR/XR lumbar spine 4V min IMPRESSION: No gross instability. Multilevel thoracolumbar spondylosis and scoliosis with a grade 1 anterolisthesis L4-5. Atherosclerosis disease. Electronically signed by: Que Marcelo MD 03/27/2025 12:38 PM EDT
== END 2025-03-27 08:53 | disposition home or self-care (01) ==
LOC: HO.HOSX 08:52
PROVIDERS: Visit Provider Physician Assistant
DX: Z47.89 Encounter for other orthopedic aftercare (principal); M48.062 Spinal stenosis, lumbar region with neurogenic claudication; Z98.890 Other specified postprocedural states
CPT/HCPCS: 72110; 99212

== ENCOUNTER 2025-03-27 11:10 | Outpatient (AMB) | payer MEDICARE, OTHER, SELFPAY ==
--- NOTE | 2025-03-27 11:27 | A.SPINEOV_ITS ---
Intake Visit Reasons: 2nd post op with Xrays Intake Note: Mr. Edgar is here today for his 2nd post op visit with x-rays. Relationship Assoc Required: No Allergies No Known Allergies Allergy (Verified 03/27/25 11:28) Assessment & Plan Assessment & Plan (1) Lumbar stenosis with neurogenic claudication: Code(s): M48.062 - Spinal stenosis, lumbar region with neurogenic claudication Category: Medical Plan Procedure: L2-3 Laminotomy, Partial facetectomy and foraminotomy Thierry is a pleasant 69-year-old male who comes in today for his 2nd postoperative visit after having a L2-[address] Maria. He continues to report very good improvement of his pain since surgery. He is very satisfied with his operation. He asked several questions regarding returning to activity such as going to the gym and lifting weights. I answered all of his questions to the best of my ability. I encouraged him to return to gym related activity in his stepwise approach, and to be very mindful of heavy lifting. No new neurological deficits. The patient ambulates well and rises from a seated position without difficulty. There is no need for continued routine follow up with Thierry, he may follow up on an as needed basis. Hany Maria MD,PhD [facility] Orders: Orders XR lumbar spine 4V min Today Z98.890 - Other specified postprocedural states Coding Level of Care Code Global (98741) Diagnoses Lumbar stenosis with neurogenic claudication M48.062
--- OUTSIDE RECORDS SUMMARY | 2025-03-27 14:00 | XMS_ITS | Clinical Summary ---
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 03/27/20 24 Active biotin 10 mg tablet Take by [...] 9-1-1. 25 tablet 1 10/17/19 25 Active atenoloL (TENORMIN) 50 mg tablet TAKE 1 AND 1/2 TABLETS BY MOUTH DAILY 135 tablet 1 10/29/19 25 Active losartan (COZAAR) 100 mg tablet Take 1 tablet (100 mg total) by mouth 1 (one) time each day. Take 1 Tablet by mouth daily. - Oral 90 each 3 11/26/19 25 Active gabapentin (NEURONTIN) 600 mg tablet Take 1 tablet (600 mg total) by mouth 3 (three) times a day. 270 tablet 3 11/26/19 25 Active atorvastatin (LIPITOR) 80 mg tablet TAKE 1 TABLET BY MOUTH EVERY DAY 90 tablet 1 12/17/19 25 Active HYDROcodone-ac etaminophen (NORCO) 5-325 mg per tablet Take 1 tablet by mouth every 12 (twelve) hours if needed for severe pain. Max Daily Amount: 2 tablets 56 tablet 03/19/20 25 Active carbidopa-levo dopa (SINEMET) 25-100 mg per tablet TAKE 1 TABLET BY MOUTH IN THE MORNING, AND 1 TABLET AT NOON 10/14/19 23 025 Discontinued HYDROcodone-ac etaminophen (NORCO) 5-325 mg per tablet Take 1 tablet by mouth every 12 (twelve) hours if needed for severe pain. Max Daily Amount: 2 tablets 56 tablet 02/19/20 25 025 Discontinued(Re order) Active Problems Problem [...] could not get a follow-up appointment with [facility] urology until this which is almost [...] or questions. Coronary artery disease invo lving resighini coronary artery of resighini heart without angina pectoris 06/15/2016 Overview (05/10/2024): - Status post non-ST elevation [place] in January 2015 with cardiac cath at [...] (NITROSTAT) SL tablet 0.4 mg Non-ST elevation OH (NSTEMI) (CMS/HCC V24, CMS/H CC V28) 02/26/2015 [...] Encounters Date Type Department Care Team Description 03/21/2025 Results Follow-Up Adult Medicine [address] [phone] Carmela Maguire PA 03/13/2025 Results Follow-Up [facility] Hematology Oncology [address] [place] [phone] Becky Simons MA 03/05/2025 3:15 PM EDT Office Visit [facility] Hematology Oncology [address] [place] [address] Unique Mcdonald MD Adenoma of right adrenal gland (Primary Dx) 02/25/2025 7:30 AM EDT Office Visit Adult Medicine [address] [phone] Carmela Maguire PA Essential hypertension, benign (Primary Dx); Mixed hyperlipidemia; Coronary artery disease involving resighini coronary artery of resighini heart without angina pectoris; Aortic dilatation (CMS/HCC V24); Gastroesophageal reflux disease without esophagitis; Lumbar radiculitis; Encounter for long-term (current) use of high-risk medication; Parkinsonian tremor (CMS/HCC V24, CMS/HCC V28); Iron deficiency anemia due to chronic blood loss; Need for prophylactic vaccination and inoculation against influenza 02/20/2025 8:33 AM EDT - 02/20/2025 11:59 PM EDT Hospital Encounter [facility] CT Scan [address] [place] [phone] Adenoma of right adrenal gland Discharge Disposition: Home or Self Care from Last 3 Months Immunizations Immunization Administration Dates Next Due DTaP, Unspecified 12/08/2003 Influenza Quadravalent, 0.5m l (Fluzone High-dose) 65yo and older 03/13/2021 Influenza Quadravalent, MDCK , 0.5ml, preservative free (Flucelvax) 6mo and older 02/02/2018 Influenza Quadravalent, MDCK , 0.5ml, with preservative (Flucelvax) 6mo and older 04/28/2017 Influenza trivalent, 0.5mL ( Fluad) 65yo and older 02/25/2025,02/20/2024,04/28/2023,04/15,03/22/2020,05/09/2019 Influenza, Unspecified 02/24/2021 Pneumococcal conjugate 13 va [...] knee arthroscopic surgery 2006 ESOPHAGOGASTRODUODENOSCOPY 10/13/2008 PROCEDURE: [place] ESOPHAGOGASTRODUODENOSCOPY TRANSORAL DIAGNOSTIC; COMMENT: mild gastritis, H. [...] for your loved ones. For example, child care giver or elderly care for an older adult? [...] Date Recorded What is your living situation? Unrecognized valu e 08/16/2024 Interpersonal Safety Answer Date Record ed Physical Abuse Unrecognized value 10/15/2024 Verbal Abuse Unrecognized value 10/15/2024 Sex and Gender Information Value Date Recorded Sex Assigned at Not on file Legal Sex Male 1:08 PM EST Gender Identity Not on file Sexual Orientation Not on file Obstetrics History Last Filed Vital Signs Vital Sign Reading Time Taken Comments Blood Pressure 167/65 03/05/2025 3:12 PM EDT Pulse 53 03/05/2025 3:12 PM EDT Temperature 36.4 C (97.6 F) 03/05/2025 3:12 PM EDT Respiratory Rate 13 02/25/2025 7:31 AM EDT Oxygen Saturation 98% 03/05/2025 3:12 PM EDT Inhaled Oxygen Concentration - - Weight 96.2 kg (212 lb) 03/05/2025 3:12 PM EDT Height 180.3 cm (5' 11 ) 03/05/2025 3:12 PM EDT Body Mass Index 29.57 03/05/2025 3:12 PM EDT Plan of Treatment Upcoming Encounters Date Type Department Care Team (Late st Contact Info) Description 03/31/2025 9:00 AM EST Ancillary Procedure [facility] [address] [place] [phone] 05/26/2025 7:30 AM EST Office Visit Adult Medicine [address] [phone] Jann Adams, JOSE J [address] [place] [phone] Health Maintenance Due Date Last Done Comments Medicare Annual Wellness Visit 11/19/2024 11/20/2023 COVID-19 Vaccine ( season) 2025 05/18/2022, 03/20/2021, 08/22/2020, Additional history exists Social Influencers of Health Screening 08/16/2025 08/16/2024 Falls Risk Assessment 10/15/2025 10/15/2024, 024 Hypertension/CHF/CAD Annual BMP Blood Test 03/21/2026 03/21/2025, 02/19/2025, 10/15/2024, Additional history exists RSV Immunization Adult Patients (1 - 1-dose 75+ series) 2028 Cholesterol Screening (Lipid Panel) 03/21/2030 03/21/2025, 08/22/2024, 07/31/2023 Colorectal Cancer Screening: Colonoscopy 07/28/2032 07/28/2022 DTaP,Tdap,and Td Vaccines (5 - Td or Tdap) 02/19/2034 02/20/2024, 01/31/2014, 12/08/2003, Additional history exists Hepatitis C Screening Completed 04/28/2017 Pneumococcal Vaccine: 50+ Years Completed 02/18/2020, 11/07/2018 Zoster Vaccines Completed 06/12/2021, 02/26, 08/15/2014 Depression Screening Completed 10/11/2024, 11/20/19 Influenza Vaccine Completed 02/25/2025, , 04/28/2023, Additional history exists HIB Vaccines Aged Out [...] Procedure Name Priority Date/Time Associated Diagnosis Comments IRON AND TIBC Routine 03/21/2025 9:26 AM EDT Mixed hyperlipidemia Iron deficiency anemia due to chronic blood loss FERRITIN Routine 03/21/2025 9:26 AM EDT Mixed hyperlipidemia Iron deficiency anemia due to chronic blood loss CBC WITH AUTO DIFFERENTIAL Routine 03/21/2025 9:26 AM EDT Iron deficiency anemia due to chronic blood loss CBC AND DIFFERENTIAL Routine 03/21/2025 9:26 AM EDT Iron deficiency anemia due to chronic blood loss LIPID PANEL WITH REFLEX TO DIRECT LDL Routine 03/21/2025 9:26 AM EDT Mixed hyperlipidemia COMPREHENSIVE METABOLIC PANEL Routine 03/21/2025 9:26 AM EDT Mixed hyperlipidemia CATECHOLAMINES, FRACTIONATED WITH CREATININE URINE 24H Routine 03/10/2025 10:26 AM EDT Adenoma of right adrenal gland CATECHOLAMINES, FRACTIONATED, PLASMA Routine 03/05/2025 3:33 PM EDT Adenoma of right adrenal gland CT ABDOMEN WO AND W CONTRAST Routine 02/20/2025 9:03 AM EDT Adenoma of right adrenal gland BASIC METABOLIC PANEL Routine 02/19/2025 2:22 PM EDT Essential hypertension, benign EXTERNAL XRAY REPORT 01/23/2025 EXTERNAL XRAY REPORT 01/23/2025 EXTERNAL ULTRASOUND REPORT 01/20/2025 HM FALLS RISK ASSESSMENT Routine 02/20/2024 HM DEPRESSION SCREENING Routine 11/20/2023 COLONOSCOPY Routine 07/28/2022 HEPATITIS C SCREENING Routine 04/28/2017 from Last 3 Months or Most Recently Relevant to Health Maintenance Results * (ABNORMAL) Lipid panel with reflex to direct LDL (03/21/2025 9:26 AM EDT) Cholesterol 109 0 - 200 mg/dL LAB CHEMISTRY METHOD 03/21/2025 12:56 PM EDT [facility] Triglycerides 97 0 - 150 mg/dL LAB CHEMISTRY METHOD 03/21/2025 12:56 PM EDT [facility] HDL 33(L) >=40 mg/dL LAB CHEMISTRY METHOD 03/21/2025 12:56 PM EDT [facility] LDL Calculated 57 0 - 100 mg/dL LAB CHEMISTRY METHOD 03/21/2025 12:56 PM EDT [facility] Comment:Estimated LDL Calcul ated using equation: Total cholesterol - HDL cholesterol - (Triglycerides/5) VLDL Cholesterol Lito 19.4 mg/dL LAB CHEMISTRY METHOD 03/21/2025 12:56 PM EDT [facility] Non HDL Chol. (LDL+VLDL) 76 <145 mg/dL LAB CHEMISTRY METHOD 03/21/2025 12:56 PM EDT [facility] Chol/HDL Ratio 3.3 0.0 - 4.4 LAB CHEMISTRY METHOD 03/21/2025 12:56 PM EDT [facility] Blood Venous blood specimen / Unknown Venipuncture / Unknown 03/21/2025 9:26 AM EDT 03/21/2025 9:26 AM EDT us Carmela Andrez LUX LAB BLOOD ORDERABLES Final Resul t [facility] [address] [place] [address], [place] [phone] * (ABNORMAL) CBC auto differential (03/21/2025 9:26 AM EDT) WBC 4.9 4.8 - 10.8 K/[facility] LAB HEMETOLOGY METHOD 03/21/2025 12:10 PM EDT [facility] RBC 4.00(L) 4.50 - 5.50 M/[facility] LAB HEMETOLOGY METHOD 03/21/2025 12:10 PM EDT [facility] Hemoglobin 11.7(L) 13.5 - 17.5 g/dL LAB HEMETOLOGY METHOD 03/21/2025 12:10 PM EDT [facility] Hematocrit 36.3(L) 42.0 - 54.0 % LAB HEMETOLOGY METHOD 03/21/2025 12:10 PM EDT [facility] MCV 91.2 79.0 - 98.0 FL LAB HEMETOLOGY METHOD 03/21/2025 12:10 PM EDT [facility] MCH 29.4 27.0 - 32.0 pcg LAB HEMETOLOGY METHOD 03/21/2025 12:10 PM EDT [facility] MCHC 32.2 32.0 - 37.0 g/dL LAB HEMETOLOGY METHOD 03/21/2025 12:10 PM EDT [facility] RDW 13.3 11.0 - 15.0 % LAB HEMETOLOGY METHOD 03/21/2025 12:[facility] Platelets 150 130 - 400 K/mcL LAB HEMETOLOGY METHOD 03/21/2025 12:10 [facility] MPV 11.9(H) 7.0 - 11.0 FL LAB HEMETOLOGY METHOD 03/21/2025 12:10 PM EDT [facility] NRBC 0.0 <1.0 % LAB HEMETOLOGY METHOD 03/21/2025 12:10 [facility] NRBC Absolute 0.00 <0.10 K/mcL LAB HEMETOLOGY METHOD 03/21/2025 12:10 PM EDT [facility] Neutrophils Relative 44.1 % LAB HEMETOLOGY METHOD 03/21/2025 12:10 PM EDT [facility] Lymphocytes Relative 25.6 % LAB HEMETOLOGY METHOD 03/21/2025 12:10 PM EDT [facility] Monocytes Relative 9.9 % LAB HEMETOLOGY METHOD 03/21/2025 12:10 [facility] Eosinophils Relative 19.0 % LAB HEMETOLOGY METHOD 03/21/2025 12:10 PM EDT [facility] Basophils Relative 1.2 % LAB HEMETOLOGY METHOD 03/21/2025 12:10 PM EDT [facility] Immature Granulocytes Relative 0.2 % LAB HEMETOLOGY METHOD 03/21/2025 12:10 PM EDT [facility] Neutrophils Absolute 2.14 1.50 - 7.00 K/mcL LAB HEMETOLOGY METHOD 03/21/2025 12:10 PM EDT [facility] Lymphocytes Absolute 1.24 1.00 - 5.00 K/mcL LAB HEMETOLOGY METHOD 03/21/2025 12:10 PM EDT [facility] Monocytes Absolute 0.48 0.20 - 1.00 K/mcL LAB HEMETOLOGY METHOD 03/21/2025 12:10 PM EDT [facility] Eosinophils Absolute 0.92(H) 0.00 - 0.50 K/mcL LAB HEMETOLOGY METHOD 03/21/2025 12:10 PM EDT [facility] Basophils Absolute 0.06 0.00 - 0.20 K/mcL LAB HEMETOLOGY METHOD 03/21/2025 12:10 PM EDT [facility] Immature Granulocytes Absolute 0.01 0.00 - 0.03 K/mcL LAB HEMETOLOGY METHOD 03/21/2025 12:10 PM EDT [facility] Blood Venous blood specimen / Unknown Venipuncture / Unknown 03/21/2025 9:26 AM EDT 03/21/2025 9:26 AM EDT us Carmela Andrez LUX LAB BLOOD ORDERABLES Final Resul t [facility] [address] [place] [address], * Iron and TIBC (03/21/2025 9:26 AM EDT) [facility] Signature Iron 69 50 - 160 mcg/dL LAB CHEMISTRY METHOD 03/21/2025 10:36 PM EDT [facility] TIBC 342 250 - 450 mcg/dL LAB CHEMISTRY METHOD 03/21/2025 10:36 PM EDT [facility] Iron Saturation 20 20 - 50 % LAB CHEMISTRY METHOD 03/21/2025 10:36 PM EDT [facility] Blood Venous blood specimen / Unknown Venipuncture / Unknown 03/21/2025 9:26 AM EDT 03/21/2025 9:26 AM EDT us Carmela Andrez LUX LAB BLOOD ORDERABLES Final Resul t Performing Organization Address City/[facility]/ZIP Co de Phone Number [facility] [address] [place] [address], [place] [phone] * (ABNORMAL) Ferritin (03/21/2025 9:26 AM EDT) Pathologist [facility] Ferritin 18(L) 26 - 388 ng/mL LAB CHEMISTRY METHOD 03/21/2025 10:36 PM EDT [facility] Blood Venous blood specimen / Unknown Venipuncture / Unknown 03/21/2025 9:26 AM EDT 03/21/2025 9:26 AM EDT us Carmela LUX LAB BLOOD ORDERABLES Final Resul t [facility] [address] [place] [address], [place] [phone] * Comprehensive metabolic panel (03/21/2025 9:26 AM EDT) Sodium 140 133 - 145 mmol/L LAB CHEMISTRY METHOD 03/21/2025 12:56 PM EDT [facility] Potassium 4.1 3.5 - 5.5 mmol/L LAB CHEMISTRY METHOD 03/21/2025 12:56 PM EDT [facility] Chloride 108 96 - 110 mmol/L LAB CHEMISTRY METHOD 03/21/2025 12:56 PM [facility] CO2 25 21 - 32 mmol/L LAB CHEMISTRY METHOD 03/21/2025 12:56 PM [facility] Anion Gap 7 3 - 11 LAB CHEMISTRY METHOD 03/21/2025 12:56 PM [facility] Glucose 93 70 - 100 mg/dL LAB CHEMISTRY METHOD 03/21/2025 12:56 PM [facility] BUN 16 5 - 25 mg/dL LAB CHEMISTRY METHOD 03/21/2025 12:56 PM [facility] Creatinine 0.89 0.70 - 1.30 mg/dL LAB CHEMISTRY METHOD 03/21/2025 12:56 PM [facility] eGFR 92 >=60 mL/min/1. 73m2 LAB CHEMISTRY METHOD 03/21/2025 12:56 PM [facility] Comment:Calculation based on the Chronic Kidney Disease Epidemiology Collaboration (CKD-EPI) equation refit without adjustment for race. BUN/Creatinine Ratio 18.0 LAB CHEMISTRY METHOD 03/21/2025 12:56 PM [facility] Calcium 9.0 8.5 - 10.5 mg/dL LAB CHEMISTRY METHOD 03/21/2025 12:56 PM [facility] AST (SGOT) 35 10 - 42 unit/L LAB CHEMISTRY METHOD 03/21/2025 12:56 PM [facility] ALT (SGPT) 36 10 - 60 unit/L LAB CHEMISTRY METHOD 03/21/2025 12:56 PM [facility] Alkaline Phosphatase 65 42 - 121 unit/L LAB CHEMISTRY METHOD 03/21/2025 12:56 PM [facility] Total Protein 6.3 6.0 - 8.0 g/dL LAB CHEMISTRY METHOD 03/21/2025 12:56 PM [facility] Albumin 3.9 3.2 - 5.0 g/dL LAB CHEMISTRY METHOD 03/21/2025 12:56 PM EDT [facility] Total Bilirubin 0.6 0.0 - 1.4 mg/dL LAB CHEMISTRY METHOD 03/21/2025 12:56 PM EDT [facility] Blood Venous blood specimen / Unknown Venipuncture / Unknown 03/21/2025 9:26 AM EDT 03/21/2025 9:26 AM EDT us Carmela Andrez PA LAB BLOOD ORDERABLES Final Resul t [facility] [address] [place] [address], [place] [phone] * Catecholamines fractionated with creatinine, urine 24h (03/10/2025 10:26 AM EDT) Urine Volume 2,500 600 - 2000 mL 03/13/2025 11:35 AM EDT [facility] Creatinine 24 Hr Urine 1.9 1.0 - 2.0 gm/24h 03/13/2025 11:35 AM EDT [facility] Norepinephrine 24 Hr Urine 38 15 - 80 ug/day 03/13/2025 11:35 AM EDT [facility] Epinephrine 24 hour Urine <2 0 - 20 ug/day 03/13/2025 11:35 AM EDT [facility] Dopamine 24 hour Urine 203 65 - 400 ug/day 03/13/2025 11:35 AM EDT [facility] Catecholamine Total 38 15 - 100 ug/day 03/13/2025 11:35 AM EDT [facility] Comment: This test was developed and the performance characteristics determined by [facility]. It has not been cleared or approved by the FDA. The laboratory is regulated under CLIA as qualified to perform high-complexity testing. This test is used for patient testing purposes. It should not be regarded as investigational or for research. Test performed at [facility], [address] , [place] [address] Kenna Larios MD, PhD - Transfer Operator Urine Urine specimen from urethra / Unknown Non-blood Collection / Unknown 03/10/2025 10:26 AM EDT 03/10/2025 11:37 AM EDT Unique Kolb MD LAB URINE ORDERABLE S Final Result Performing Organization Address City/[facility]/ZIP Co de Phone Number [facility] [address] [place] [address] * Catecholamines, fractionated, plasma (03/05/2025 3:33 PM EDT) [facility] Epinephrine 18 pg/mL 03/16/2025 7:37 PM EDT [facility] Comment: Reference Range: SUPINE: <58 UPRIGHT: <82 Norepinephrine 351 pg/mL 03/16/2025 7:37 PM EDT [facility] Comment: Reference Range: SUPINE: 149-564 UPRIGHT: 199-937 Dopamine 15 pg/mL 03/16/2025 7:37 PM EDT [facility] Comment: Reference Range: SUPINE: <16 UPRIGHT: <27 Catecholamine Plasma 384 pg/mL 02/26 7:37 PM EDT [facility] Comment: Reference Range: SUPINE: <632 UPRIGHT: <1046 Due to stress, plasma catecholamine levels are generally unreliable in infants and small children. Urinary catecholamine assays are more reliable. This test was developed and its analytical performance characteristics have been determined by [facility]. It has not been cleared or approved by the FDA. This assay has been validated pursuant to the CLIA regulations and is used for clinical purposes. Test Performed at: [facility] [address] [address] Sahra Houston MD, PhD, CLAUDE Blood Venous blood specimen / Unknown Venipuncture / Unknown 03/05/2025 3:33 PM EDT 03/05/2025 4:34 PM EDT Unique Kolb MD LAB BLOOD ORDERABLE S Final Result Performing Organization Address [facility]/ZIP Co de Phone Number [facility] [address] [place] [address] * CT Abdomen wo and w Contrast (02/20/2025 9:03 AM EDT) Anatomical Region Laterality Modality Body Computed Tomogra phy 02/27/2025 10:0 2 AM EDT Impressions 02/27/2025 10:39 AM EDT There is a smooth low attenuating 2.3 cm right adrenal mass. The morphology, attenuation and enhancement features are essentially diagnostic of lipid rich adenoma. CT cannot determine if the adrenal nodule is hyper secreting hormones. -------- FINAL REPORT -------- Dictated By: Moris Sales Dictated Date: 02/27/2025 10:02 ET Assigned Physician: Moris Sales Reviewed and Electronically Signed By: Moris Sales Signed Date: 02/27/2025 10:39 ET Workstation ID: [id number] Transcribed By: Self Edit Transcribed Date: 02/27/2025 10:19 ET Narrative 02/27/2025 10:39 AM EDT EXAMINATION: CT ABDOMEN WITHOUT AND WITH CONTRAST CLINICAL INFORMATION: Adrenal mass. Right adrenal mass. Hypertension. Abnormal serum testing. COMPARISON: Portions of CT angiography of the chest 10/14/24, portions of CT 01/31/23 TECHNIQUE: Multidetector CT. Helical examination of the abdomen CONTRAST: The exam was performed before and after the IV administration of contrast DLP: 2148 mGy-cm Imaging before and after the IV administration of contrast. Dose optimization was performed including the use of low-dose iterative reconstruction technique with automatic exposure control based on patient size. Amount of contrast: 90 mL Type of contrast: Isovue-370 Volume of contrast discarded: 0 mL FINDINGS: KIDNEYS: There is no dilation of the urinary collecting system on either side. There are at least 2 punctate nonobstructing right renal calculi. There are at least 3 punctate nonobstructing left renal calculi. The kidneys enhance symmetrically. There is some contour abnormality involving the upper lateral aspect of the right kidney. There are multiple circumscribed low attenuating renal masses which have typically benign features of a cyst (Bosniak one). There is no suspicious renal mass. There is bilateral excretion. ADRENAL GLANDS: There is a smooth oval low-density right adrenal mass. This measures 4 Hounsfield units prior to contrast. This measures 14 Hounsfield units during the early arterial phase. This measures 12 Hounsfield units on 15 minute delay imaging. 02/20/25-2.3 cm 10/14/24-2.3 cm 01/31/23-2.2 cm This area was not included on lumbar CT 2021. No new adrenal abnormality. LIVER: The liver contour is smooth. No suspicious focal liver lesion. BILIARY TRACT: There is at least one small gallstone. There is no biliary dilation. SPLEEN: The spleen measures 12.5 cm. No suspicious abnormality. PANCREAS: No suspicious abnormality. GASTROINTESTINAL TRACT: No bowel wall thickening. No localized fat stranding. ABDOMINAL WALL: No significant hernia is appreciated. LYMPHOVASCULAR STRUCTURES AND FLUID: There is no abdominal aortic aneurysm. There are no enlarged lymph nodes. There is no free intraperitoneal fluid demonstrated. There is atherosclerotic plaque. There is calcification of the renal artery on each side but no suspicion of significant luminal stenosis in the central portion of either renal artery. The central aspect of the renal vein enhances on each side. VISUALIZED LOWER CHEST: There is marked coronary calcification. There is reflux into the IVC and hepatic veins. Relatively minor fibrotic changes in the visualized lung bases. MUSCULOSKELETAL: No acute or suspicious osseous abnormality. There is been left hemilaminectomy in the region of the mid lumbar spine. There is severe facet disease in the lumbar spine. There is central canal lateral recess and foraminal narrowing. There is severe narrowing of the lower thoracic and lumbar discs and there appears to be near ankylosis or fusion at L3/L4. There is a dorsal soft tissue fluid collection adjacent to the spinous processes in the L2 and L3 levels. There is convex left lumbar scoliosis. Procedure Note Moris Sales MD - 02/27/2025 EXAMINATION: CT ABDOMEN WITHOUT AND WITH CONTRAST CLINICAL INFORMATION: Adrenal mass. Right adrenal mass. Hypertension. Abnormal serumtesting. COMPARISON: Portions of CT angiography of the chest 10/14/24, portions of CT 01/31/23 TECHNIQUE: Multidetector CT. Helical examination of the abdomen CONTRAST: The exam was performed before and after the IV administrationof contrast DLP: 2148 mGy-cm Imaging before and after the IV administration of contrast. Dose optimization was performed including the use of low-dose iterativereconstruction technique with automatic exposure control based on patientsize. Amount of contrast: 90 mL Type of contrast: Isovue-370 Volume of contrast discarded: 0 mL FINDINGS: KIDNEYS: There is no dilation of the urinary collecting system on either side.There are at least 2 punctate nonobstructing right renal calculi. Thereare at least 3 punctate nonobstructing left renal calculi. The kidneys enhance symmetrically. There is some contour abnormalityinvolving the upper lateral aspect of the right kidney. There aremultiple circumscribed low attenuating renal masses which have typicallybenign features of a cyst (Bosniak one). There is no suspicious renalmass. There is bilateral excretion. ADRENAL GLANDS: There is a smooth oval low-density right adrenal mass.This measures 4 Hounsfield units prior to contrast. This measures 14Hounsfield units during the early arterial phase. This measures 12Hounsfield units on 15 minute delay imaging. 02/20/-2.3 cm 10/14/24-2.3 cm 9/10/18-2.2 cm This area was not included on lumbar CT 2021. No new adrenal abnormality. LIVER: The liver contour is smooth. No suspicious focal liver lesion. BILIARY TRACT: There is at least one small gallstone. There is nobiliary dilation. SPLEEN: The spleen measures 12.5 cm. No suspicious abnormality. PANCREAS: No suspicious abnormality. GASTROINTESTINAL TRACT: No bowel wall thickening. No localized fatstranding. ABDOMINAL WALL: No significant hernia is appreciated. LYMPHOVASCULAR STRUCTURES AND FLUID: There is no abdominal aorticaneurysm. There are no enlarged lymph nodes. There is no freeintraperitoneal fluid demonstrated. There is atherosclerotic plaque. There is calcification of the renalartery on each side but no suspicion of significant luminal stenosis inthe central portion of either renal artery. The central aspect of therenal vein enhances on each side. VISUALIZED LOWER CHEST: There is marked coronary calcification. There isreflux into the IVC and hepatic veins. Relatively minor fibrotic changesin the visualized lung bases. MUSCULOSKELETAL: No acute or suspicious osseous abnormality. There is been left hemilaminectomy in the region of the mid lumbar spine.There is severe facet disease in the lumbar spine. There is central canallateral recess and foraminal narrowing. There is severe narrowing of thelower thoracic and lumbar discs and there appears to be near ankylosis orfusion at L3/L4. There is a dorsal soft tissue fluid collection adjacentto the spinous processes in the L2 and L3 levels. There is convex leftlumbar scoliosis. IMPRESSION: There is a smooth low attenuating 2.3 cm right adrenal mass. Themorphology, attenuation and enhancement features are essentiallydiagnostic of lipid rich adenoma. CT cannot determine if the adrenal nodule is hyper secreting hormones. -------- FINAL REPORT -------- Dictated By: Moris Sales Dictated Date: 02/27/2025 10:02 ET Assigned Physician: Moris Sales Reviewed and Electronically Signed By: Moris Sales Signed Date: 02/27/2025 10:39 ET Workstation ID: [id number] Transcribed By: Self Edit Transcribed Date: 02/27/2025 10:19 ET Subramjaneth Kolb MD IM CT PROCEDURES F inal Result * (ABNORMAL) Basic metabolic panel (02/19/2025 2:22 PM EDT) Sodium 141 133 - 145 mmol/L LAB CHEMISTRY METHOD 02/19/2025 4:46 PM [facility] Potassium 4.1 3.5 - 5.5 mmol/L LAB CHEMISTRY METHOD 02/19/2025 4:46 PM [facility] Chloride 108 96 - 110 mmol/L LAB CHEMISTRY METHOD 02/19/2025 4:46 PM [facility] CO2 27 21 - 32 mmol/L LAB CHEMISTRY METHOD 02/19/2025 4:46 PM [facility] Anion Gap 6 3 - 11 LAB CHEMISTRY METHOD 02/19/2025 4:46 PM [facility] Glucose 106(H) 70 - 100 mg/dL LAB CHEMISTRY METHOD 02/19/2025 4:46 PM [facility] BUN 18 5 - 25 mg/dL LAB CHEMISTRY METHOD 02/19/2025 4:46 PM [facility] Creatinine 1.06 0.70 - 1.30 mg/dL LAB CHEMISTRY METHOD 02/19/2025 4:46 PM EDT [facility] eGFR 75 >=60 mL/min/1. 73m2 LAB CHEMISTRY METHOD 02/19/2025 4:46 PM EDT [facility] Comment:Calculation based on the Chronic Kidney Disease Epidemiology Collaboration (CKD-EPI) equation refit without adjustment for race. BUN/Creatinine Ratio 17.0 LAB CHEMISTRY METHOD 02/19/2025 4:46 PM EDT [facility] Calcium 9.2 8.5 - 10.5 mg/dL LAB CHEMISTRY METHOD 02/19/2025 4:46 PM EDT [facility] Blood Venous blood specimen / Unknown Venipuncture / Unknown 02/19/2025 2:22 PM EDT 02/19/2025 4:31 PM EDT us Unique Kolb MD LAB BLOOD ORDERABLE S Final Result [facility] [address] [place] [address], [place] [phone] * External Xray Report (01/23/2025) Only the most recent of2 resultswithin the time period is included. Anatomical Region Laterality Modality Radiographic Faviola ging us Provider [facility] XR PROCEDURES Final Result * External Ultrasound Report (01/20/2025) Anatomical Region Laterality Modality Ultrasound us Provider [facility] US PROCEDURES Final Result * Falls Risk Assessment (02/20/2024) Falls Risk Assessment Abstracted Historical Provider HEALTH MAINTENANCE Final Result * Depression Screening (11/20/2023) Pathologist [facility] Depression Screening Abstracted Historical Provider HEALTH MAINTENANCE Final Result * Colonoscopy (07/28/2022) Pathologist [facility] Colonoscopy No interpreta tion,abstr acted Anatomical Region Laterality Modality Other us Historical Provider HEALTH MAINTENANCE Final Result * Hepatitis C Screening (04/28/2017) Hepatitis C Screening Abstracted Historical Provider HEALTH MAINTENANCE Final Result from Last 3 Months or Most Recently Relevant to Health Maintenance Insurance MEDICARE [facility] Advance Directives * Full Code - [...] Curry Spouse Health Care Agent Care Teams Ironing Machine Operator Relationship Specialty Start Date End Date Jann Adams PA [address] [place] [address] PCP - General Internal Medicine 05/19/20
--- OUTSIDE RECORDS SUMMARY | 2025-03-27 14:00 | XMS_ITS | Encounter Summary ---
Author Organization [facility] Address [address] [place] [address] Care Team Providers Care Compounding Scaler Name Role Phone Jann Adams Primary Care Provider [phone] Encounter Details Date Type Department Care Team (Late st Contact Info) Description 03/13/2025 Results Follow-Up [facility] Hematology Oncology [address] [place] [address] [place] Social History Tobacco Use Types Packs/Day Years [...] for your loved ones. For example, child protection specialist or elderly care for an older adult? [...] as of this encounter Plan of Treatment Upcoming Encounters Date Type Department Care Team (Late st Contact Info) Description 03/31/2025 9:00 AM EST Ancillary Procedure [facility] - [address] [place] [address] 05/26/2025 7:30 AM EST Office Visit Adult Medicine [address] [address] Jann Adams, JOSE J [address] [place] [phone] documented as of this encounter Visit Diagnoses Not on filedocumented in this encounter Additional Health Concerns Assessment Noted Time PHQ-9 Depression Total Score: 0 08/17/19 25 6:34 PM EDT documented as of this encounter Care Teams Compounding Scaler Relationship Specialty Start Date End Date Jann Adams PA [address] [place] [address] PCP - General Internal Medicine 05/19/20 documented as of this encounter
--- OUTSIDE RECORDS SUMMARY | 2025-03-27 14:00 | XMS_ITS | Encounter Summary ---
Author Organization [facility] Address [address] [place] [address] Care Team Providers Care Assembler Clip On Sunglasses Name Role Phone Jann Adams Primary Care Provider [phone] Encounter Details Date Type Department Care Team (Late st Contact Info) Description 03/21/2025 Results Follow-Up Adult Medicine [facility] [address] [place], [place] [phone] Carmela Maguire PA [address] [place] [phone] Social History Tobacco Use Types Packs/Day Years [...] for your loved ones. For example, child development consultant or elderly care for an older adult? [...] Description 03/31/2025 9:00 AM EST Ancillary Procedure [facility] [address] [facility] [address] [place] [address] 05/26/2025 7:30 AM EST Office Visit Adult Medicine [address] [place] [address] Jann Adams PA [address] [place] [address] Scheduled Orders Name Type Priority Associated Diagnoses Orde r Schedule Iron and TIBC Lab Routine Iron deficiency anemia due to chronic blood loss 1 Occurrences starting 03/21/2025 until 03/21/2026 Ferritin Lab Routine Iron deficiency anemia due to chronic blood loss Expected: 03/21/2025, Expires: 03/21/2026 documented as of this encounter Visit Diagnoses Diagnosis Iron deficiency anemia due to chronic blood loss- Primary Iron deficiency anemia secondary to blood loss (chronic) documented in this encounter Additional Health Concerns Assessment Noted Time PHQ-9 Depression Total Score: 0 08/17/19 25 6:34 PM EDT documented as of this encounter Care Teams Assembler Clip On Sunglasses Relationship Specialty Start Date End Date Jann Adams PA [address] [place] [address] PCP - General Internal Medicine 05/19/20 documented as of this encounter
== END 2025-03-27 11:52 | disposition home or self-care (01) ==
LOC: HO.HNS 11:11
PROVIDERS: PCP Physician Assistant Medical; Visit Provider Physician Assistant
DX: M48.062 Spinal stenosis, lumbar region with neurogenic claudication (principal)
CPT/HCPCS: 99024

== ENCOUNTER → 2025-03-27 11:16 | Outpatient (BNV) | payer MEDICARE, OTHER, SELFPAY | PROVIDERS: Visit Provider Radiology Diagnostic Radiology | DX: M48.062 Spinal stenosis, lumbar region with neurogenic claudication (principal); Z98.890 Other specified postprocedural states | CPT/HCPCS: 72110 ==

== ENCOUNTER 2025-05-12 14:34 | Outpatient (AMB) | payer MEDICARE, OTHER, SELFPAY ==
--- NOTE | 2025-05-12 14:35 | A.OFFVIS_ITS ---
Intake Visit Reasons: 6M PD Allergies No Known Allergies Allergy (Verified 05/12/25 14:39) Medication List - Last Reconciled 05/12/25 by Ghislaine Zhao CNP aspirin 81 mg PO DAILY Held on 01/23/25. Instructions: Resume on 01/30/25. You may resume aspirin 1 week after surgery atenolol 75 mg PO DAILY atorvastatin 80 mg PO BEDTIME carbidopa-levodopa 25-100 mg 1 tab PO BID 90 days gabapentin 600 mg PO TID PRN hydrocodone-acetaminophen 5-325 mg 0.5 tabs PO BID PRN losartan 100 mg PO BEDTIME nitroglycerin 0.4 mg sublingual DAILY PRN omeprazole 20 mg PO BID tamsulosin (Flomax) 0.4 mg PO BID 90 days HPI Comments Details: 69 yo RH man with h/o cervical spine fusion resulting in permanent right index finger numbness, s/p T10-11, T11-12 bilateral laminotomy, partial facetectomy and foraminotomy on 07/10/[address] Maria, s/p L2-3 laminotomy, partial facetectomy and foraminotomy on 01/23/[address] Maria, and mild parkinson disease presenting in 2022 with right hand tremor and mild bradykinesia. He was subsequently treated with carbidopa-levodopa and symptoms resolved. He was referred to [facility] hematology/oncology (Dr. Unique Asif) for adrenal adenoma and abnormal labs, including elevated dopamine and catecholamine levels. He was taking carbidopa-levodopa 25-100mg 1 tablet twice a day, and it was questioned if medication could be contributing to elevated dopamine levels and if medication could be stopped. He was advised that it was unlikely medication was causing high level, but was okay to stop. He stopped medication around end of 11/2024 or 12/2024. He apparently had repeat labs recently, and levels were okay, report not available at this time. He was not having any symptoms at this time. No tremor, stiffness, or rigidity. No mobility issues. No difficulty turning in bed or getting up from chair. Sleep was okay. [facility] Medical History (Updated 05/12/25 @ 14:39 by Ghislaine Zhao CNP) Parkinson disease History of urinary retention Back pain Bleeding gastric ulcer Numbness HTN (hypertension) Osteoarthrosis Mixed hyperlipidemia Sleep apnea Diverticulitis of colon without hemorrhage Actinic keratosis GERD (gastroesophageal reflux disease) Depression Renal cyst Myocardial infarction CAD (coronary artery disease) Lumbar spinal stenosis Lumbar radiculitis Aortic dilatation Pancolonic diverticulosis Anemia Chronic gastric ulcer without hemorrhage and without perforation Parkinsonian tremor Lung nodule Back pain with history of spinal surgery Surgical History History of surgical procedure on thoracic spine (07/10/24) History of back surgery Hx of laminectomy Hx of fusion of cervical spine History of bilateral knee replacement Hx of arthroscopy of right knee History of esophagogastroduodenoscopy (EGD) H/O colonoscopy Hx of heart artery stent Family History Father Bladder cancer Mother Urologic disorders Brother Kidney stone Social History Are you a primary property caretaker to a significant other at home: No Do you presently have visiting nurse or other home services: No Alcohol intake: current Alcohol intake frequency: holidays/special occasions only Patient Tobacco Use Status: Never used Tobacco Review of Systems Const Denies chills, Denies daytime sleepiness, Denies difficulty sleeping, Denies fatigue, Denies fever(s), Denies frequent falls, Denies headache(s), Denies in creased appetite, Denies poor appetite, Denies snoring, Denies weakness, Denies weight gain and Denies weight loss Eyes Denies loss of vision ENT Denies vertigo, Denies dizziness and Denies headache(s) Card Denies chest pain at rest, Denies chest pain with activity, Denies syncope, Denies leg edema and Denies palpitations Resp Denies snoring GI Denies constipation, Denies heartburn, Denies diarrhea and Denies nausea Denies urinary frequency, Denies urinary incontinence and Denies urinary urgency Musc Denies abnormal gait, Denies numbness and Denies tingling Skin/Breast Denies dry skin and Denies rash Neuro Denies abnormal gait, Denies vertigo, Denies dizziness, Denies syncope, Denies frequent falls, Denies headache(s), Denies lack of coordination, Denies loss of vision, Denies memory loss, Denies numbness, Denies restless legs, Denies seizure-like activity, Denies tingling, Denies paresthesias, Denies tremor(s) and Denies weakness Psych Denies anxiety, Denies depression, Denies auditory hallucinations, Denies memory loss, Denies visual hallucinations and Denies suicidal ideation Endo Denies fatigue and Denies palpitations Physical Exam Const Other: General Appearance:? normal, in no acute distress. Skin:? no rashes, no significant birthmarks. Heart:? S1, S2 normal, no murmurs. Lungs:? clear anteriorly and posteriorly. Extremities:? no edema. Psych:? alert, oriented, cognitive function intact, cooperative with exam. Neuro Other: Mental Status:?Normal attention, orientation, memory and affect.? Cranial Nerves:?Pupils are equal, round and reactive to light. External occular muscles are intact. Visual brock are full. Face is symmetrical. Facial sensations are normal. Tongue is midline. Palate elevates symmetrically. Shoulder shrugging is normal. Hearing to bedside conversation is normal. Sensory Exam:?....? Coordination:?No ataxia,?no titubation.? Gait Exam: Within normal limits, arm swing was okay. Cerebellar Signs:?[id number] is okay. Extrapyramidal System:?No significant right hand cogwheeling rigidity, even upon reinforcement. ANIL were okay. No significant bradykinesia. Pronator Drift:?Not present.? Involuntary Movements:?No tremors seen.? Speech:?Normal.? Results Reviewed Results Reviewed: MRI brain WO at [facility] in Aug 2022: mild MVD (reported) Assessment & Plan Assessment & Plan (1) Parkinson disease: Code(s): G20.A1 - Parkinson's disease without dyskinesia, without mention of fluctuations Category: Medical Qualifiers: Dyskinesia presence: unspecified whether dyskinesia Fluctuating manifestations: with fluctuating manifestations Qualified Code(s): G20.A2 - Par kinson's disease without dyskinesia, with fluctuations Plan: He has not taken carbidopa-levodopa 25-100mg since late 11/2024 or early 12/2024. He was not having any significant symptoms at this time, and will hold off on restarting medication at this time. Follow up in 6 months or sooner as needed, signs/symptoms reviewed. Will request copy of labs from [facility]. Coding Level of Care Code Est Pt Level 3 (93794) Diagnoses Parkinson's disease with fluctuating manifestations, unspecified whether dyskinesia present G20.A2 Dyskinesia presence: unspecified whether dyskinesia Fluctuating manifestations: with fluctuating manifestations
--- OUTSIDE RECORDS SUMMARY | 2025-05-12 21:03 | XMS_ITS | Encounter Summary ---
Author Organization [facility] Prior to 03/29/2024 Address [address] [place] [address] Care Team Providers Care Software Build Engineer Name Role Phone Alvarez Silverio MD Primary Care Provider + [phone] Jann Adams PA-C Primary Care Provider [phone] Hira Maria MD, PHD Unavailable Unava ilable Radha Rios MD Unavailable [phone] Carolyn Spencer PA-C Unavailable [phone] Encounter Details Date Type Department Care Team Description 12/16/2016 Chamfering Machine Operator Report Medical Records [address] [place], [place] [id number] Abstract, Provider Social History Tobacco Use Types [...] on filedocumented in this encounter Care Teams Software Build Engineer Relationship Specialty Start Date End Date Alvarez Silverio MD [address] [place] [address] [phone] PCP - General 03/28/1999 05/18/20 Jann Adams PA-C [address] [place] [address] [phone] PCP - General Internal Medicine 05/19/20 Hira Maria MD, PHD [address] [place] [address] Surgeon Neurosurgery 10/26/21 Radha Rios MD [address] [place] [address] Specialist Cardiology 02/09/22 Carolyn Spencer PA-C [address] [place] [address] Neurosurgery 03/14/22 documented as of this encounter
--- OUTSIDE RECORDS SUMMARY | 2025-05-12 21:03 | XMS_ITS | Encounter Summary ---
Author Organization [facility] Prior to 03/29/2024 Address [address] [place] [address] Care Team Providers Care Dealer Analyst Name Role Phone Alvarez Silverio MD Primary Care Provider + [phone] Jann Adams PA-C Primary Care Provider [phone] Hira Maria MD, PHD Unavailable Unava ilable Radha Rios MD Unavailable [phone] Carolyn Spencer PA-C Unavailable [phone] Encounter Details Date Type Department Care Team Description 04/13/2012 Head Teller Report Medical Records [address] [place] [id number] Tello Silva Social History Tobacco Use Types [...] on filedocumented in this encounter Care Teams Dealer Analyst Relationship Specialty Start Date End Date Alvarez Silverio MD [address] [place] [address] [phone] PCP - General 03/28/1999 05/18/20 Jann Adams PA-C [address] [place] [address] [phone] PCP - General Internal Medicine 05/19/20 Hira Maria MD, PHD [address] [place] [address] Surgeon Neurosurgery 10/26/21 Radha Rios MD [address] [place] [address] Specialist Cardiology 02/09/22 Carolyn Spencer PA-C [address] [place] [address] Neurosurgery 03/14/22 documented as of this encounter
--- OUTSIDE RECORDS SUMMARY | 2025-05-12 21:03 | XMS_ITS | Encounter Summary ---
Author Organization [facility] Prior to 03/29/2024 Address [address] [place] [address] Care Team Providers Care Cloth Cutter Name Role Phone Alvarez Silverio MD Primary Care Provider + [phone] Jann Adams PA-C Primary Care Provider [phone] Hira Maria MD, PHD Unavailable Unava ilable Radha Rios MD Unavailable [phone] Carolyn Spencer PA-C Unavailable [phone] Reason for Visit * Reason Comments E-prescribe Rx Request Encounter Details Date Type Department Care Team Description 07/05/2011 Refill Adult Medicine [address] [phone] Stefany Srinivasan PA-C E-prescribe Rx Request Social [...] Notes * Telephone Encounter - Evelyne Vasquez L.P.NSandhya - 07/06/2011 9:12 AM EST Component Value [...] NO Patients current insurance carrier is: Payor: [facility] Plan: HMO $25 [place] [id number] Product Type: HMO [id number] documented in this encounter Plan of Treatment Not on file documented as of this encounter Visit Diagnoses Not on filedocumented in this encounter Care Teams Cloth Cutter Relationship Specialty Start Date End Date Alvarez Silverio MD [address] [place] [id number] PCP - General 03/28/1999 05/18/20 Jann Adams PA-C [address] [place] [address] PCP - General Internal Medicine 05/19/20 Hira Maria MD, PHD [address] [place] [address] Surgeon Neurosurgery 10/26/21 Radha Rios MD [address] [place], [place] [phone] Specialist Cardiology 02/09/22 Carolyn Spencer PA-C [address] [place] [address] Neurosurgery 03/14/22 documented as of this encounter
--- OUTSIDE RECORDS SUMMARY | 2025-05-12 21:03 | XMS_ITS | Encounter Summary ---
Author Organization [facility] Prior to 03/29/2024 Address [address] [place] [address] Care Team Providers Care Soccer Coach Name Role Phone Alvarez Silverio MD Primary Care Provider + [phone] Jann Adams PA-C Primary Care Provider [phone] Hira Maria MD, PHD Unavailable Unava ilable Radha Rios MD Unavailable [phone] Caorlyn Spencer PA-C Unavailable [phone] Encounter Details Date Type Department Care Team Description 02/10/2015 Hospital Medical Records [address] [place] [address] Torito Grant MD Social History Tobacco Use [...] on filedocumented in this encounter Care Teams Soccer Coach Relationship Specialty Start Date End Date Alvarez Silverio MD [address] [place] [phone] PCP - General 03/28/1999 05/18/20 Jann Adams PA-C [address] [place] [address] [phone] PCP - General Internal Medicine 05/19/20 Hira Maria MD, PHD [address] [place] [address] Surgeon Neurosurgery 10/26/21 Radha Rios MD [address] [place] [address] [phone] Specialist Cardiology 02/09/22 Carolyn Spencer PA-C [address] [place] [address] Neurosurgery 03/14/22 documented as of this encounter
--- OUTSIDE RECORDS SUMMARY | 2025-05-12 21:03 | XMS_ITS | Encounter Summary ---
Author Organization [facility] Prior to 03/29/2024 Address [address] [place] [address] Care Team Providers Care Hotel Custodian Name Role Phone Alvarez Silverio MD Primary Care Provider + [phone] Jann Adams PA-C Primary Care Provider [phone] Hira Maria MD, PHD Unavailable Unava ilable Radha Rios MD Unavailable [phone] Carolyn Spencer PA-C Unavailable [phone] Encounter Details Date Type Department Care Team Description 02/23/2010 Hospital Medical Records [address] [place] [address] Delonte Ervin MD Social History Tobacco Use [...] on filedocumented in this encounter Care Teams Hotel Custodian Relationship Specialty Start Date End Date Alvarez Silverio MD [address] [place] [address] [phone] PCP - General 03/28/1999 05/18/20 Jann Adams PA-C [address] [place] [address] [phone] PCP - General Internal Medicine 05/19/20 Hira Maria MD, PHD [address] [place] [address] Surgeon Neurosurgery 10/26/21 Radha Rios MD [address] [place] [address] Specialist Cardiology 02/09/22 Carolyn Spencer PA-C [address] [place] [address] Neurosurgery 03/14/22 documented as of this encounter
--- OUTSIDE RECORDS SUMMARY | 2025-05-12 21:03 | XMS_ITS | Encounter Summary ---
Author Organization [facility] Prior to 03/29/2024 Address [address] [place] [address] Care Team Providers Care Loan Secretary Name Role Phone Alvarez Silverio MD Primary Care Provider + [phone] Jann Adams PA-C Primary Care Provider [phone] Hira Maria MD, PHD Unavailable Unava ilable Radha Rios MD Unavailable [phone] Carolyn Spencer PA-C Unavailable [phone] Encounter Details Date Type Department Care Team Description 10/16/2018 [facility] Medical Records [address] [place] [phone] Abstract, Provider Social History Tobacco Use Types [...] on filedocumented in this encounter Care Teams Loan Secretary Relationship Specialty Start Date End Date Alvarez Silverio MD [address] [place] [address] [phone] PCP - General 03/28/1999 05/18/20 Jann Adams PA-C [address] [place] [address] [phone] PCP - General Internal Medicine 05/19/20 Hira Maria MD, PHD [address] [place] [address] Surgeon Neurosurgery 10/26/21 Radha Rios MD [address] [place] [address] Specialist Cardiology 02/09/22 Carolyn Spencer PA-C [address] [place] [address] Neurosurgery 03/14/22 documented as of this encounter
--- OUTSIDE RECORDS SUMMARY | 2025-05-12 21:03 | XMS_ITS | Encounter Summary ---
Author Organization [facility] [employer] [facility] Prior to 03/29/2024 Address [address] [place] [address] Care Team Providers Care Shipboard Intelligence Analyst Name Role Phone Alvarez Silverio MD Primary Care Provider +[phone] Jann Adams PA-C Primary Care Provider +[phone] Hira Maria MD, PHD Unavailable Unava ilable Radha Rios MD Unavailable [phone] Carolyn Spencer PA-C Unavailable [phone] Encounter Details Date Type Department Care Team Description 03/29/2004 Orders Only Medical [address] [place], [place] [phone] Vega Ballesteros [address] [place], [place] [phone] Social History Tobacco Use Types Packs/Day Years Used Date Smoking Tobacco: Never Assessed Sex Assigned at Date Recorded Not on file Job Start Date Occupation Industry Not on file Not on file Not on file documented as of this encounter Plan of Treatment Not on file documented as of this encounter Visit Diagnoses Not on filedocumented in this encounter Care Teams Shipboard Intelligence Analyst Relationship Specialty Start Date End Date Alvarez Silverio MD [address] [place] [address] [phone] PCP - General 03/28/1999 05/18/20 Jann Adams PA-C [address] [place] [address] [phone] PCP - General Internal Medicine 05/19/20 Hira Maria MD, PHD [address] [place] [address] Surgeon Neurosurgery 10/26/21 Radha Rios MD [address] [place] [address] Specialist Cardiology 02/09/22 Carolyn Spencer PA-C [address] [place] [address] Neurosurgery 03/14/22 documented as of this encounter
--- OUTSIDE RECORDS SUMMARY | 2025-05-12 21:03 | XMS_ITS | Encounter Summary ---
Author Organization [facility] Prior to 03/29/2024 Address [address] [place] [address] Care Team Providers Care Receiver Dispatcher Name Role Phone Alvarez Silverio MD Primary Care Provider +[phone] Jann Adams PA-C Primary Care Provider +[phone] Hira Maria MD, PHD Unavailable Unava ilable Radha Rios MD Unavailable [phone] Carolyn Spencer PA-C Unavailable [phone] Reason for Visit * Reason Onset Date Comments refill request 04/24/2017 Encounter Details Date Type Department Care Team Description 04/24/2017 Refill Adult Medicine [address] [phone] Alvarez Silverio MD [address] [place] [address] [phone] refill request Social History Tobacco Use Types [...] Miscellaneous Notes * Telephone Encounter - Carolyn Scruggsen - 04/24/2017 8:48 AM EST Patient would [...] NO Patients current insurance carrier is: Payor: [employer] [facility] [place]/[employer] FFS / Plan: [employer] $25 [id number] / ProductType: [employer] [id number] documented in this encounter Plan of Treatment Not on file documented as of this encounter Visit Diagnoses Not on filedocumented in this encounter Care Teams Receiver Dispatcher Relationship Specialty Start Date End Date Alvarez Silverio MD [address] [place] [address] PCP - General 03/28/1999 05/18/20 Jann Adams PA-C [address] [place] [address] PCP - General Internal Medicine 05/19/20 Hira Maria MD, PHD [address] [place] [address] Surgeon Neurosurgery 10/26/21 Radha Rios MD [address] [place], [place] [phone] Specialist Cardiology 02/09/22 Carolyn Spencer PA-C [address] [place] [address] Neurosurgery 03/14/22 documented as of this encounter
--- OUTSIDE RECORDS SUMMARY | 2025-05-12 21:03 | XMS_ITS | Encounter Summary ---
Author Organization [facility] Prior to 03/29/2024 Address [address] [place] [address] Care Team Providers Care 3Rd Mate Name Role Phone Alvarez Silverio MD Primary Care Provider + [phone] Jann Adams PA-C Primary Care Provider +[phone] Hira Marai MD, PHD Unavailable Unava ilable Radha Rios MD Unavailable [phone] Carolyn Spencer PA-C Unavailable [phone] Encounter Details Date Type Department Care Team Description 03/31/2015 Workers' Compensation Claims Examiner Report Medical Records [address] [place] [address] Armin Moe MD Social History Tobacco Use [...] on filedocumented in this encounter Care Teams 3Rd Mate Relationship Specialty Start Date End Date Alvarez Silverio MD [address] [place] [address] PCP - General 03/28/1999 05/18/20 Jann Adams PA-C [address] [place] [address] [phone] PCP - General Internal Medicine 05/19/20 Hira Maria MD, PHD [address] [place] [address] Surgeon Neurosurgery 10/26/21 Radha Rios MD [address] [place] [address] Specialist Cardiology 02/09/22 Carolyn Spencer PA-C [address] [place] [address] Neurosurgery 03/14/22 documented as of this encounter
--- OUTSIDE RECORDS SUMMARY | 2025-05-12 21:03 | XMS_ITS | Encounter Summary ---
Author Organization [employer] [facility] Prior to 03/29/2024 Address [address] [place] [address] Care Team Providers Care Die Storage Worker Name Role Phone Alvarez Silverio MD Primary Care Provider + [phone] Jann Adams PA-C Primary Care Provider +[phone] Hira Maria MD, PHD Unavailable Unava ilable Radha Rios MD Unavailable [phone] Carolyn Spencer PA-C Unavailable [phone] Encounter Details Date Type Department Care Team Description 08/25/2016 [facility] Medical Records [address] [place] [address] Abstract, Provider Social History Tobacco Use Types [...] on filedocumented in this encounter Care Teams Die Storage Worker Relationship Specialty Start Date End Date Alvarez Silverio MD [address] [place] [address] [phone] PCP - General 03/28/1999 05/18/20 Jann Adams PA-C [address] [place] [address] [phone] PCP - General Internal Medicine 05/19/20 Hira Maria MD, PHD [address] [place] [address] Surgeon Neurosurgery 10/26/21 Radha Rios MD [address] [place] [address] Specialist Cardiology 02/09/22 Carolyn Spencer PA-C [address] [place] [address] Neurosurgery 03/14/22 documented as of this encounter
--- OUTSIDE RECORDS SUMMARY | 2025-05-12 21:03 | XMS_ITS | Encounter Summary ---
Author Organization [facility] Prior to 03/29/2024 Address [address] [place] [address] Care Team Providers Care Bi Solutions Architect Name Role Phone Alvarez Silverio MD Primary Care Provider + [phone] Jann Adams PA-C Primary Care Provider +[phone] Hira Maria MD, PHD Unavailable Unava ilable Radha Rios MD Unavailable [phone] Carolyn Spencer PA-C Unavailable [phone] Encounter Details Date Type Department Care Team Description 04/09/2018 [facility] Medical Records [address] [place] [address] Abstract, Provider Social History Tobacco Use Types [...] on filedocumented in this encounter Care Teams Bi Solutions Architect Relationship Specialty Start Date End Date Alvarez Silverio MD [address] [place] [address] [phone] PCP - General 03/28/1999 05/18/20 Jann Adams PA-C [address] [place] [address] [phone] PCP - General Internal Medicine 05/19/20 Hira Maria MD, PHD [address] [place] [address] Surgeon Neurosurgery 10/26/21 Radha Rios MD [address] [place] [address] Specialist Cardiology 02/09/22 Carolyn Spencer PA-C [address] [place] [address] Neurosurgery 03/14/22 documented as of this encounter
--- OUTSIDE RECORDS SUMMARY | 2025-05-12 21:03 | XMS_ITS | Encounter Summary ---
Author Organization [facility] Prior to 03/29/2024 Address [address] [place] [address] Care Team Providers Care Advance Agent Name Role Phone Alvarez Silverio MD Primary Care Provider + [phone] Jann Adams PA-C Primary Care Provider +[phone] Hira Maria MD, PHD Unavailable Unava ilable Radha Rios MD Unavailable [phone] Carolyn Spencer PA-C Unavailable [phone] Encounter Details Date Type Department Care Team Description 08/03/2017 [facility] Medical Records [address] [place] [address] Abstract, Provider Social History Tobacco Use Types [...] on filedocumented in this encounter Care Teams Advance Agent Relationship Specialty Start Date End Date Alvarez Silverio MD [address] [place] [address] [phone] PCP - General 03/28/1999 05/18/20 Jann Adams PA-C [address] [place] [address] [phone] PCP - General Internal Medicine 05/19/20 Hira Maria MD, PHD [address] [place] [address] Surgeon Neurosurgery 10/26/21 Radha Rios MD [address] [place] [address] Specialist Cardiology 02/09/22 Carolyn Spencer PA-C [address] [place] [address] Neurosurgery 03/14/22 documented as of this encounter
--- OUTSIDE RECORDS SUMMARY | 2025-05-12 21:03 | XMS_ITS | Encounter Summary ---
Author Organization [facility] [employer] [facility] Prior to 03/29/2024 Address [address] [place] [address] Care Team Providers Care Grazing Aide Name Role Phone Alvarez Silverio MD Primary Care Provider + [phone] Jann Adams PA-C Primary Care Provider +[phone] Hira Maria MD, PHD Unavailable Unava ilable Radha Rios MD Unavailable [phone] Carolyn Spencer PA-C Unavailable [phone] Encounter Details Date Type Department Care Team Description 10/12/2018 Orders Only Adult Medicine [address] [phone] Juaquin Gooden NP Social History Tobacco Use [...] on filedocumented in this encounter Care Teams Grazing Aide Relationship Specialty Start Date End Date Alvarez Silverio MD [address] [place] [address] [phone] PCP - General 03/28/1999 05/18/20 Jann Adams PA-C [address] [place], [place] [phone] PCP - General Internal Medicine 05/19/20 Hira Maria MD, PHD [address] [place] [address] Surgeon Neurosurgery 10/26/21 Radha Rios MD [address] [place] [address] Specialist Cardiology 02/09/22 Carolyn Spencer PA-C [address] [place] [address] Neurosurgery 03/14/22 documented as of this encounter
--- OUTSIDE RECORDS SUMMARY | 2025-05-12 21:03 | XMS_ITS | Encounter Summary ---
Author Organization [facility] Prior to 03/29/2024 Address [address] [place] [address] Care Team Providers Care Jogger Operator Name Role Phone Alvarez Silverio MD Primary Care Provider + [phone] Jann Adams PA-C Primary Care Provider +[phone] Hira Maria MD, PHD Unavailable Unava ilable Radha Rios MD Unavailable [phone] Carolyn Spencer PA-C Unavailable [phone] Encounter Details Date Type Department Care Team Description 02/10/2015 Hospital Medical Records [address] [place] [address] Tello Arevalo MD Social History Tobacco Use [...] on filedocumented in this encounter Care Teams Jogger Operator Relationship Specialty Start Date End Date Alvarez Silverio MD [address] [place] [address] [phone] PCP - General 03/28/1999 05/18/20 Jann Adams PA-C [address] [place] [address] [phone] PCP - General Internal Medicine 05/19/20 Hira Maria MD, PHD [address] [place] [address] Surgeon Neurosurgery 10/26/21 Radha Rios MD [address] [place] [address] Specialist Cardiology 02/09/22 Carolyn Spencer PA-C [address] [place] [address] Neurosurgery 03/14/22 documented as of this encounter
--- OUTSIDE RECORDS SUMMARY | 2025-05-12 21:03 | XMS_ITS | Encounter Summary ---
Author Organization [facility] Prior to 03/29/2024 Address [address] [place] [address] Care Team Providers Care It Support Manager Name Role Phone Alvarez Silverio MD Primary Care Provider + [phone] Jann Adams PA-C Primary Care Provider +[phone] Hira Maria MD, PHD Unavailable Unava ilable Radha Rios MD Unavailable [phone] Carolyn Spencer PA-C Unavailable [phone] Encounter Details Date Type Department Care Team Description 02/12/2015 Hospital Medical Records [address] [place], [place] [phone] Social History Tobacco Use Types Packs/Day Years [...] on filedocumented in this encounter Care Teams It Support Manager Relationship Specialty Start Date End Date Alvarez Silverio MD [address] [place] [address] [phone] PCP - General 03/28/1999 05/18/20 Jann Adams PA-C [address] [place] [address] [phone] PCP - General Internal Medicine 05/19/20 Hira Maria MD, PHD [address] [place] [address] Surgeon Neurosurgery 10/26/21 Radha Rios MD [address] [place] [address] Specialist Cardiology 02/09/22 Carolyn Spencer PA-C [address] [place] [address] Neurosurgery 03/14/22 documented as of this encounter
--- OUTSIDE RECORDS SUMMARY | 2025-05-12 21:04 | XMS_ITS | Encounter Summary ---
Author Organization [facility] [employer] [facility] Prior to 03/29/2024 Address [address] [place] [address] Care Team Providers Care Needle Grinder Name Role Phone Alvarez Silverio MD Primary Care Provider + [phone] Jann Adams PA-C Primary Care Provider +[phone] Hira Maria MD, PHD Unavailable Unava ilable Radha Rios MD Unavailable [phone] Carolyn Spencer PA-C Unavailable [phone] Encounter Details Date Type Department Care Team Description 03/21/2016 [facility] Medical Records [address] [place] [address] Abstract, Provider Social History Tobacco Use Types [...] on filedocumented in this encounter Care Teams Needle Grinder Relationship Specialty Start Date End Date Alvarez Silverio MD [address] [place] [address] [phone] PCP - General 03/28/1999 05/18/20 Jann Adams PA-C [address] [place] [address] [phone] PCP - General Internal Medicine 05/19/20 Hira Maria MD, PHD [address] [place] [address] Surgeon Neurosurgery 10/26/21 Radha Rios MD [address] [place] [address] Specialist Cardiology 02/09/22 Carolyn Spencer PA-C [address] [place] [address] Neurosurgery 03/14/22 documented as of this encounter
--- OUTSIDE RECORDS SUMMARY | 2025-05-12 21:04 | XMS_ITS | Encounter Summary ---
Author Organization [facility] [employer] [facility] Prior to 03/29/2024 Address [address] [place] [address] Care Team Providers Care Laborer Filter Plant Name Role Phone Alvarez Silverio MD Primary Care Provider +[phone] Jann Adams PA-C Primary Care Provider +[phone] Hira Maria MD, PHD Unavailable Unava ilable Radha Rios MD Unavailable [phone] Carolyn Spencer PA-C Unavailable [phone] Encounter Details Date Type Department Care Team Description 10/14/2019 Pt. Non Urgent Medical Question Adult Medicine [address] [address] Alvarez Silverio MD [address] [place] [address] Social History Tobacco Use Types Packs/Day Years [...] on filedocumented in this encounter Care Teams Laborer Filter Plant Relationship Specialty Start Date End Date Alvarez Silverio MD [address] [place] [address] PCP - General 03/28/1999 05/18/20 Jann Adams PA-C [address] [place] [address] PCP - General Internal Medicine 05/19/20 Hira Maria MD, PHD [address] [place], [place] [phone] Surgeon Neurosurgery 10/26/21 Radha Rios MD [address] [place] [address] Specialist Cardiology 02/09/22 Carolyn Spencer PA-C [address] [place] [address] Neurosurgery 03/14/22 documented as of this encounter
--- OUTSIDE RECORDS SUMMARY | 2025-05-12 21:04 | XMS_ITS | Encounter Summary ---
Author Organization [facility] Prior to 03/29/2024 Address [address] [place] [address] Care Team Providers Care Electrician Substation Name Role Phone Jann Adams PA-C Primary Care Provider +[phone] Hira Maria MD, PHD Unavailable Unava ilable Radha Rios MD Unavailable [phone] Carolyn Spencer PA-C Unavailable [phone] Encounter Details Date Type Department Care Team Description 05/18/2023 [facility] Medical Records [address] [place] [address] Abstract, Provider Social History Tobacco Use Types [...] on filedocumented in this encounter Care Teams Electrician Substation Relationship Specialty Start Date End Date Jann Adams PA-C [address] [place], [place] [phone] PCP - General Internal Medicine 05/19/20 Hira Maria MD, PHD [address] [place], [place] [phone] Surgeon Neurosurgery 10/26/21 Radha Rios MD [address] [place], [place] 3567196 Specialist Cardiology 02/09/22 Carolyn Spencer PA-C [address] [facility] [address] [place] [address] Neurosurgery 03/14/22 documented as of this encounter
--- OUTSIDE RECORDS SUMMARY | 2025-05-12 21:04 | XMS_ITS | Encounter Summary ---
Author Organization [facility] Prior to 03/29/2024 Address [address] [place] [address] Care Team Providers Care Instrumental Teacher Name Role Phone Alvarez Silverio MD Primary Care Provider + [phone] Jann Adams PA-C Primary Care Provider +[phone] Hira Maria MD, PHD Unavailable Unava ilable Radha Rios MD Unavailable [phone] Carolyn Spencer PA-C Unavailable [phone] Encounter Details Date Type Department Care Team Description 12/02/2019 [facility] Medical Records [address] [place] [address] Abstract, Provider Social History Tobacco Use Types [...] on filedocumented in this encounter Care Teams Instrumental Teacher Relationship Specialty Start Date End Date Alvarez Silverio MD [address] [place] [address] [phone] PCP - General 03/28/1999 05/18/20 Jann Adams PA-C [address] [place] [address] [phone] PCP - General Internal Medicine 05/19/20 Hira Maria MD, PHD [address] [place] [address] Surgeon Neurosurgery 10/26/21 Radha Rios MD [address] [place] [address] Specialist Cardiology 02/09/22 Carolyn Spencer PA-C [address] [place] [address] Neurosurgery 03/14/22 documented as of this encounter
--- OUTSIDE RECORDS SUMMARY | 2025-05-12 21:04 | XMS_ITS | Encounter Summary ---
Author Organization [facility] Prior to 03/29/2024 Address [address] [place] [address] Care Team Providers Care Saw Setter Name Role Phone Alvarez Silverio MD Primary Care Provider + [phone] Jann Adams PA-C Primary Care Provider +[phone] Hira Maria MD, PHD Unavailable Unava ilable Radha Rios MD Unavailable [phone] Carolyn Spencer PA-C Unavailable [phone] Encounter Details Date Type Department Care Team Description 04/12/2019 Warehouse Technician Report Medical Records [address] [place] [address] Radha Rios MD [address] [place], [place] [phone] Social History Tobacco Use Types Packs/Day Years [...] on filedocumented in this encounter Care Teams Saw Setter Relationship Specialty Start Date End Date Alvarez Silverio MD [address] [place], [place] [phone] PCP - General 03/28/1999 05/18/20 Jann Adams PA-C [address] [place] [address] PCP - General Internal Medicine 05/19/20 Hira Maria MD, PHD [address] [place] [address] Surgeon Neurosurgery 10/26/21 Radha Rios MD [address] [place] [address] Specialist Cardiology 02/09/22 Carolyn Spencer PA-C [address] [address] Neurosurgery 03/14/22 documented as of this encounter
--- OUTSIDE RECORDS SUMMARY | 2025-05-12 21:04 | XMS_ITS | Encounter Summary ---
Author Organization [employer] [employer] [facility] Prior to 03/29/2024 Address [address] [place] [address] Care Team Providers Care Cnc Operator Programmer Name Role Phone Alvarez Silverio MD Primary Care Provider + [phone] Jann Adams PA-C Primary Care Provider +[phone] Hira Maria MD, PHD Unavailable Unava ilable Radha Rios MD Unavailable [phone] Carolyn Spencer PA-C Unavailable [phone] Encounter Details Date Type Department Care Team Description 04/20/2016 Academic Director Report Medical Records [address] [place] [address] Marlys Ruelas Social History Tobacco Use Types [...] on filedocumented in this encounter Care Teams Cnc Operator Programmer Relationship Specialty Start Date End Date Alvarez Silverio MD [address] [place] [address] [phone] PCP - General 03/28/1999 05/18/20 Jann Adams PA-C [address] [place] [address] [phone] PCP - General Internal Medicine 05/19/20 Hira Maria MD, PHD [address] [place] [address] Surgeon Neurosurgery 10/26/21 Radha Rios MD [address] [place] [address] Specialist Cardiology 02/09/22 Carolyn Spencer PA-C [address] [place] [address] Neurosurgery 03/14/22 documented as of this encounter
--- OUTSIDE RECORDS SUMMARY | 2025-05-12 21:04 | XMS_ITS | Encounter Summary ---
Author Organization [facility] Prior to 03/29/2024 Address [address] [place] [address] Care Team Providers Care Cargo Worker Name Role Phone Alvarez Silverio MD Primary Care Provider + [phone] Jann Adams PA-C Primary Care Provider +[phone] Hira Maria MD, PHD Unavailable Unava ilable Radha Rios MD Unavailable [phone] Carolyn Spencer PA-C Unavailable [phone] Encounter Details Date Type Department Care Team Description 08/16/2016 Radio Program Director Report Medical Records [address] [place] [address] Jann Rojas MD Social History Tobacco Use [...] on filedocumented in this encounter Care Teams Cargo Worker Relationship Specialty Start Date End Date Alvarez Silverio MD [address] [place] [address] PCP - General 03/28/1999 05/18/20 Jann Adams PA-C [address] [place] [address] [phone] PCP - General Internal Medicine 05/19/20 Hira Maria MD, PHD [address] [place] [address] Surgeon Neurosurgery 10/26/21 Radha Rios MD [address] [place] [address] Specialist Cardiology 02/09/22 Carolyn Spencer PA-C [address] [place] [address] Neurosurgery 03/14/22 documented as of this encounter
--- OUTSIDE RECORDS SUMMARY | 2025-05-12 21:04 | XMS_ITS | Encounter Summary ---
Author Organization [facility] Prior to 03/29/2024 Address [address] [place] [address] Care Team Providers Care Order Entry Name Role Phone Jann Adams PA-C Primary Care Provider +[phone] Hira Maria MD, PHD Unavailable Unava ilable Radha Rios MD Unavailable [phone] Carolyn Spencer PA-C Unavailable [phone] Encounter Details Date Type Department Care Team Description 11/16/2022 [facility] Medical Records [address] [place] [address] Abstract, Provider Social History Tobacco Use Types [...] on filedocumented in this encounter Care Teams Order Entry Relationship Specialty Start Date End Date Jann Adams PA-C [address] [place], [place] [phone] PCP - General Internal Medicine 05/19/20 Hira Maria MD, PHD [address] [place] [address] Surgeon Neurosurgery 10/26/21 Radha Rios MD [address] [place] [address] Specialist Cardiology 02/09/22 Carolyn Spencer PA-C [address] [place] [address] Neurosurgery 03/14/22 documented as of this encounter
--- OUTSIDE RECORDS SUMMARY | 2025-05-12 21:04 | XMS_ITS | Encounter Summary ---
Author Organization [facility] Prior to 03/29/2024 Address [address] [place] [address] Care Team Providers Care Barytes Grinder Name Role Phone Jann Adams PA-C Primary Care Provider +[phone] Hira Maria MD, PHD Unavailable Unava ilable Radha Rios MD Unavailable [phone] Carolyn Spencer PA-C Unavailable Reason for Visit * Reason Comments E-prescribe Rx Request Encounter Details Date Type Department Care Team Description 09/30/2021 Refill Adult Medicine [address] [phone] Carmela Maguire PA-C [address] [place] [address] [phone] E-prescribe Rx Request Social History Tobacco Use [...] / Plan: [place] / Product Type: MEDICARE [id number] documented in this encounter Plan of Treatment Not on file documented as of this encounter Visit Diagnoses Not on filedocumented in this encounter Care Teams Barytes Grinder Relationship Specialty Start Date End Date Jann Adams PA-C [address] [place] [address] PCP - General Internal Medicine 05/19/20 Hira Maria MD, PHD [address] [place] [address] Surgeon Neurosurgery 10/26/21 Radha Rios MD [address] [place] [address] [phone] Specialist Cardiology 02/09/22 Carolyn Spencer PA-C [address] [place] [address] Neurosurgery 03/14/22 documented as of this encounter
--- OUTSIDE RECORDS SUMMARY | 2025-05-12 21:04 | XMS_ITS | Encounter Summary ---
Author Organization [facility] Prior to 03/29/2024 Address [address] [place] [address] Care Team Providers Care Volunteer Recruiter Name Role Phone Alvarez Silverio MD Primary Care Provider + [phone] Jann Adams PA-C Primary Care Provider +[phone] Hira Maria MD, PHD Unavailable Unava ilable Radha Rios MD Unavailable [phone] Carolyn Spencer PA-C Unavailable [phone] Encounter Details Date Type Department Care Team Description 05/10/2016 Speck Dyer Report Medical Records [address] [place] [address] Armin Moe MD Social History Tobacco Use [...] on filedocumented in this encounter Care Teams Volunteer Recruiter Relationship Specialty Start Date End Date Alvarez Silverio MD [address] [place] [address] PCP - General 03/28/1999 05/18/20 Jann Adams PA-C [address] [place] [address] [phone] PCP - General Internal Medicine 05/19/20 Hira Maria MD, PHD [address] [place] [address] Surgeon Neurosurgery 10/26/21 Radha Rios MD [address] [place] [address] Specialist Cardiology 02/09/22 Carolyn Spencer PA-C [address] [place] [address] Neurosurgery 03/14/22 documented as of this encounter
--- OUTSIDE RECORDS SUMMARY | 2025-05-12 21:04 | XMS_ITS | Encounter Summary ---
Author Organization [facility] Prior to 03/29/2024 Address [address] [facility] [place] [address] Care Team Providers Care Refractive Surgeon Name Role Phone Jann Adams PA-C Primary Care Provider [phone] Hira Maria MD, PHD Unavailable Unava ilable Radha Rios MD Unavailable [phone] Carolyn Spencer PA-C Unavailable [phone] Encounter Details Date Type Department Care Team Description 01/31/2023 SCAN Medical Records [address] [place] [address] Abstract, Provider Social History Tobacco Use Types [...] on filedocumented in this encounter Care Teams Refractive Surgeon Relationship Specialty Start Date End Date Jann Adams PA-C [address] [place] [address] PCP - General Internal Medicine 05/19/20 Hira Maria MD, PHD [address] [place] [address] Surgeon Neurosurgery 10/26/21 Radha Rios MD [address] [place] [address] Specialist Cardiology 02/09/22 Carolyn Spencer PA-C [address] [place] [address] Neurosurgery 03/14/22 documented as of this encounter
--- OUTSIDE RECORDS SUMMARY | 2025-05-12 21:04 | XMS_ITS | Encounter Summary ---
Author Organization [facility] Prior to 03/29/2024 Address [address] [place] [address] Care Team Providers Care Leaf Tinner Name Role Phone Jann Adams PA-C Primary Care Provider [phone] Hira Maria MD, PHD Unavailable Unava ilable Radha Rios MD Unavailable [phone] Carolyn Spencer PA-C Unavailable [phone] Reason for Visit * Reason Onset Date Comments Prior Authorization 05/15/2023 CT scan ches t Encounter Details Date Type Department Care Team Description 05/15/2023 Telephone Adult Medicine [address] [phone] Jann Adams PA-C [address] [place] [address] [phone] Prior Authorization (CT scan chest) Social History [...] Miscellaneous Notes * Telephone Encounter - Sury Rodriguez Hilario - 05/15/2023 2:21 PM EST Medicare no auth required Order faxed to [facility] dept at [facility]. They will contact patient and schedule appt. Notification letter sent documented in this encounter Plan of Treatment Not on file documented as of this encounter Visit Diagnoses Not on filedocumented in this encounter Care Teams Leaf Tinner Relationship Specialty Start Date End Date Jann Adams PA-C [address] [place] [address] PCP - General Internal Medicine 05/19/20 Hira Maria MD, PHD [address] [place] [address] Surgeon Neurosurgery 10/26/21 Radha Rios MD [address] [place] [address] Specialist Cardiology 02/09/22 Carolyn Spencer PA-C [address] [place] [address] Neurosurgery 03/14/22 documented as of this encounter
--- OUTSIDE RECORDS SUMMARY | 2025-05-12 21:04 | XMS_ITS | Encounter Summary ---
Author Organization [facility] Address [address] [place] [address] Care Team Providers Care Rip/Mould Operator Name Role Phone Jann Adams Primary Care Provider [phone] Encounter Details Date Type Department Care Team ([facility] st Contact Info) Description 04/11/2025 Results Follow-Up [facility] [address] [facility] 154 [place] [phone] Radha Rios MD [address] [place] [address] [place] [phone] Social History Tobacco Use Types Packs/Day Years [...] your loved ones. For example, child care lead teacher or elderly care for an older adult? [...] as of this encounter Progress Notes * Radha Rios MD - 04/11/2025 5:35 PM EST [employer] message sent to the patient regarding result. See below. documented in this encounter Plan of Treatment Upcoming Encounters Date Type Department Care Team (Late st Contact Info) Description 05/26/2025 7:30 AM EST Office Visit Adult Medicine [facility] [address] [place] [address] Jann Adams PA [address] [place] [phone] documented as of this encounter Visit Diagnoses Not on filedocumented in this encounter Additional Health Concerns Assessment Noted Time PHQ-9 Depression Total Score: 0 08/17/19 25 6:34 PM EDT documented as of this encounter Care Teams Rip/Mould Operator Relationship Specialty Start Date End Date Jann Adams PA [address] [place] [address] PCP - General Internal Medicine 05/19/20 documented as of this encounter
--- OUTSIDE RECORDS SUMMARY | 2025-05-12 21:04 | XMS_ITS | Encounter Summary ---
Author Organization [facility] Prior to 03/29/2024 Address [address] [place] [address] Care Team Providers Care Button Machine Operator Name Role Phone Jann Adams PA-C Primary Care Provider [phone] Hira Maria MD, PHD Unavailable Unava ilable Radha Rios MD Unavailable [phone] Carolyn Spencer PA-C Unavailable [phone] Encounter Details Date Type Department Care Team Description 11/05/2021 Release of Information Medical Records [address] [place], [place] [phone] Abstract, Provider Social History Tobacco Use Types [...] on filedocumented in this encounter Care Teams Button Machine Operator Relationship Specialty Start Date End Date Jann Adams PA-C [address] [place], [place] [phone] PCP - General Internal Medicine 05/19/20 Hira Maria MD, PHD [address] [place], [place] [address] Surgeon Neurosurgery 10/26/21 Radha Rios MD [address] [place], [place] 45[address]50 Specialist Cardiology 02/09/22 Carolyn Spencer PA-C 175 [facility] [address] [place] [address] Neurosurgery 03/14/22 documented as of this encounter
--- OUTSIDE RECORDS SUMMARY | 2025-05-12 21:04 | XMS_ITS | Encounter Summary ---
Author Organization [facility] Prior to 03/29/2024 Address [address] [place] [address] Care Team Providers Care Office Rental Clerk Name Role Phone Jann Adams PA-C Primary Care Provider [phone] Hira Maria MD, PHD Unavailable Unava ilable Radha Rios MD Unavailable Carolyn Spencer PA-C Unavailable Encounter Details Date Type Department Care Team Description 03/24/2023 Moisture Machine Tender Report Medical Records [address] [place] [address] Abstract, Provider Social History Tobacco Use Types [...] on filedocumented in this encounter Care Teams Office Rental Clerk Relationship Specialty Start Date End Date Jann Adams PA-C [address] [place], [place] [phone] PCP - General Internal Medicine 05/19/20 Hira Maria MD, PHD [address] [place], [place] 245[address]20 Surgeon Neurosurgery 10/26/21 Radha Rios MD [address] [place], [place] 2459320 Specialist Cardiology 02/09/22 Carolyn Spencer PA-C [address] [place] [address] Neurosurgery 03/14/22 documented as of this encounter
--- OUTSIDE RECORDS SUMMARY | 2025-05-12 21:04 | XMS_ITS | Encounter Summary ---
Author Organization [facility] Prior to 03/29/2024 Address [address] [place] [address] Care Team Providers Care Sample Tester Name Role Phone Alvarez Silverio MD Primary Care Provider + [phone] Jann Adams PA-C Primary Care Provider [phone] Hira Maria MD, PHD Unavailable Unava ilable Radha Rios MD Unavailable [phone] Carolyn Spencer PA-C Unavailable [phone] Encounter Details Date Type Department Care Team Description 04/18/2019 [facility] Medical Records [address] [place] [address] Abstract, Provider Social History Tobacco Use Types [...] on filedocumented in this encounter Care Teams Sample Tester Relationship Specialty Start Date End Date Alvarez Silverio MD [address] [place] [address] [phone] PCP - General 03/28/1999 05/18/20 Jann Adams PA-C [address] [place] [address] [phone] PCP - General Internal Medicine 05/19/20 Hira Maria MD, PHD [address] [place] [address] Surgeon Neurosurgery 10/26/21 Radha Rios MD [address] [place] [address] Specialist Cardiology 02/09/22 Carolyn Spencer PA-C [address] [place] [address] Neurosurgery 03/14/22 documented as of this encounter
--- OUTSIDE RECORDS SUMMARY | 2025-05-12 21:04 | XMS_ITS | Encounter Summary ---
Author Organization [facility] Prior to 03/29/2024 Address [address] [place] [address] Care Team Providers Care Medical Editor Name Role Phone Alvarez Silverio MD Primary Care Provider + [phone] Jann Adams PA-C Primary Care Provider [phone] Hira Maria MD, PHD Unavailable Unava ilable Radha Rios MD Unavailable [phone] Carolyn Spencer PA-C Unavailable [phone] Encounter Details Date Type Department Care Team Description 04/11/2016 Senior Asic Engineer Report Medical Records [address] [place] [address] Social History Tobacco Use Types Packs/Day Years [...] filedocumented in this encounter Care Teams Medical Editor Relationship Specialty Start Date End Date Alvarez Silverio MD [address] [place] [address] [phone] PCP - General 03/28/1999 05/18/20 Jann Adams PA-C [address] [place] [address] [phone] PCP - General Internal Medicine 05/19/20 Hira Maria MD, PHD [address] [place] [address] Surgeon Neurosurgery 10/26/21 Radha Rios MD [address] [place] [address] Specialist Cardiology 02/09/22 Carolyn Spencer PA-C [address] [place] [address] Neurosurgery 03/14/22 documented as of this encounter
--- OUTSIDE RECORDS SUMMARY | 2025-05-12 21:04 | XMS_ITS | Encounter Summary ---
Author Organization [facility] Prior to 03/29/2024 Address [address] [facility] [address] Care Team Providers Care Park Superintendent Name Role Phone Jann Adams PA-C Primary Care Provider [phone] Hira Maria MD, PHD Unavailable Unava ilable Radha Rios MD Unavailable [phone] Carolyn Spencer PA-C Unavailable [phone] Encounter Details Date Type Department Care Team Description 02/20/2023 Orders Only Medical Records [address] [place] [address] Abstract, Provider Social History Tobacco Use Types [...] on filedocumented in this encounter Care Teams Park Superintendent Relationship Specialty Start Date End Date Jann Adams PA-C [address] [place] [address] PCP - General Internal Medicine 05/19/20 Hira Maria MD, PHD [address] [place] [address] Surgeon Neurosurgery 10/26/21 Radha Rios MD [address] [place] [address] Specialist Cardiology 02/09/22 Carolyn Spencer PA-C [address] [place] [address] Neurosurgery 03/14/22 documented as of this encounter
--- OUTSIDE RECORDS SUMMARY | 2025-05-12 21:04 | XMS_ITS | Encounter Summary ---
Author Organization [facility] Prior to 03/29/2024 Address [address] [place] [address] Care Team Providers Care Supervisor Cell Room Name Role Phone Jann Adams PA-C Primary Care Provider [phone] Hira Maria MD, PHD Unavailable Unava ilable Radha Rios MD Unavailable [phone] Carolyn Spencer PA-C Unavailable [phone] Encounter Details Date Type Department Care Team Description 12/17/2021 Controlled Substance Plan Medical Records [address] [place] [address] Abstract, Provider Social History Tobacco Use Types [...] filedocumented in this encounter Care Teams Supervisor Cell Room Relationship Specialty Start Date End Date Jann Adams PA-C [address] [place], [place] [phone] PCP - General Internal Medicine 05/19/20 Hira Maria MD, PHD [address] [place] [address] Surgeon Neurosurgery 10/26/21 Radha Rios MD [address] [place] [address] Specialist Cardiology 02/09/22 Carolyn Spnecer PA-C [address] [place] [address] Neurosurgery 03/14/22 documented as of this encounter
--- OUTSIDE RECORDS SUMMARY | 2025-05-12 21:04 | XMS_ITS | Encounter Summary ---
Author Organization [facility] Address [address] [place] [address] Care Team Providers Care Toys Inspector Name Role Phone Jann Adams Primary Care Provider [phone] Encounter Details Date Type Department Care Team (Late st Contact Info) Description 03/13/2025 Results Follow-Up [facility] Hematology Oncology [address] [place] [address] [place] Social History Tobacco Use Types Packs/Day [...] care for your loved ones. For example, childbirth educator or elderly care for an older adult? [...] 7:30 AM EST Office Visit Adult Medicine [address] [phone] Jann Adams PA [address] [place] [address] documented as of this encounter Visit Diagnoses Not on filedocumented in this encounter Additional Health Concerns Assessment Noted Time PHQ-9 Depression Total Score: 0 08/17/19 25 6:34 PM EDT documented as of this encounter Care Teams Toys Inspector Relationship Specialty Start Date End Date Jann Adams PA [address] [place] [address] PCP - General Internal Medicine 05/19/20 documented as of this encounter
--- OUTSIDE RECORDS SUMMARY | 2025-05-12 21:04 | XMS_ITS | Encounter Summary ---
Author Organization [facility] Prior to 03/29/2024 Address [address] [place] [address] Care Team Providers Care Facilities Planner Name Role Phone Alvarez Silverio MD Primary Care Provider + [phone] Jann Adams PA-C Primary Care Provider [phone] Hira Maria MD, PHD Unavailable Unava ilable Radha Rios MD Unavailable [phone] Carolyn Spencer PA-C Unavailable [phone] Encounter Details Date Type Department Care Team Description 04/18/2016 Rigger Supervisor Report Medical Records [address] [place] [address] Fide Childs PA-C Social History Tobacco Use [...] on filedocumented in this encounter Care Teams Facilities Planner Relationship Specialty Start Date End Date Alvarez Silverio MD [address] [place] [address] PCP - General 03/28/1999 05/18/20 Jann Adams PA-C [address] [place] [address] [phone] PCP - General Internal Medicine 05/19/20 Hira Maria MD, PHD [address] [place] [address] Surgeon Neurosurgery 10/26/21 Radha Rios MD [address] [place] [address] [phone] Specialist Cardiology 02/09/22 Carolyn Spencer PA-C [address] [place] [address] Neurosurgery 03/14/22 documented as of this encounter
--- OUTSIDE RECORDS SUMMARY | 2025-05-12 21:04 | XMS_ITS | Encounter Summary ---
Author Organization [facility] Prior to 03/29/2024 Address [address] [place] [address] Care Team Providers Care Photo Technologist Name Role Phone Jann Adams PA-C Primary Care Provider [phone] Hira Maria MD, PHD Unavailable Unava ilable Radha Rios MD Unavailable [phone] Carolyn Spencer PA-C Unavailable [phone] Reason for Visit * Reason Onset Date Comments APPOINTMENT 03/08/2022 Vee Removal at 11:00am [facility] Urology Encounter Details Date Type Department Care Team Description 03/08/2022 Telephone [facility] Neurosurgery [address] [address] Carolyn Spencer PA-C [address] [place] [address] APPOINTMENT (Vee Removal 03/17/22 at 11:00am [facility] Urology) Social History Tobacco Use Types Packs/Day Years [...] on filedocumented in this encounter Care Teams Photo Technologist Relationship Specialty Start Date End Date Jann Adams PA-C [address] [place] [address] PCP - General Internal Medicine 05/19/20 Hira Maria MD, PHD [address] [place] [address] Surgeon Neurosurgery 10/26/21 Radha Rios MD [address] [place] [address] Specialist Cardiology 02/09/22 Carolyn Spencer PA-C [address] [address] Neurosurgery 03/14/22 documented as of this encounter
--- OUTSIDE RECORDS SUMMARY | 2025-05-12 21:04 | XMS_ITS | Encounter Summary ---
Author Organization [facility] Prior to 03/29/2024 Address [address] [facility] [place] [address] Care Team Providers Care Messenger Copy Name Role Phone Jann Adams PA-C Primary Care Provider [phone] Hira Maria MD, PHD Unavailable Unava ilable Radha Rios MD Unavailable [phone] Carolyn Spencer PA-C Unavailable [phone] Reason for Visit * Reason Comments E-prescribe Rx Request Encounter Details Date Type Department Care Team Description 10/05/2022 Refill Gastroenterology - [address] [address] Izaiah Steven PA-C E-prescribe Rx Request [...] on filedocumented in this encounter Care Teams Messenger Copy Relationship Specialty Start Date End Date Jann Adams PA-C [address] [place] [address] PCP - General Internal Medicine 05/19/20 Hira Maria MD, PHD [address] [place] [address] Surgeon Neurosurgery 10/26/21 Radha Rios MD [address] [place] [address] Specialist Cardiology 02/09/22 Carolyn Spencer PA-C [address] [place] [address] Neurosurgery 03/14/22 documented as of this encounter
--- OUTSIDE RECORDS SUMMARY | 2025-05-12 21:04 | XMS_ITS | Encounter Summary ---
Author Organization [facility] Address [address] [place] [address] Care Team Providers Care Plastic Parts Fabricator Name Role Phone Jann Adams Primary Care Provider [phone] Encounter Details Date Type Department Care Team (Late st Contact Info) Description 03/21/2025 Results Follow-Up Adult Medicine [facility] [address] [place], [place] [phone] Carmela Maguire PA [address] [place] [phone] Social History Tobacco Use Types Packs/Day Years [...] care for your loved ones. For example, childcare director or elderly care for an older adult? [...] 7:30 AM EST Office Visit Adult Medicine [address] [address] Jann Adams, JOSE J [address] [place] [phone] Scheduled Orders Name Type Priority Associated Diagnoses [...] documented as of this encounter Care Teams Plastic Parts Fabricator Relationship Specialty Start Date End Date Jann Adams PA [address] [place] [address] PCP - General Internal Medicine 05/19/20 documented as of this encounter
--- OUTSIDE RECORDS SUMMARY | 2025-05-12 21:04 | XMS_ITS | Encounter Summary ---
Author Organization [facility] Prior to 03/29/2024 Address [address] [place] [address] Care Team Providers Care Auto Refinisher Name Role Phone Alvarez Silverio MD Primary Care Provider + [phone] Jann Adams PA-C Primary Care Provider [phone] Hira Maria MD, PHD Unavailable Unava ilable Radha Rios MD Unavailable [phone] Carolyn Spencer PA-C Unavailable [phone] Reason for Visit * Reason Onset Date Comments Abnormal Ekg-cardiology Overread 12/02/2019 [facility] EKG Overread Encounter Details Date Type Department Care Team Description 12/02/2019 Telephone Radiology - [address] [phone] Jann Adams PA-C [address] [place] [address] [phone] Abnormal Ekg-cardiology Overread ([facility] EKG Overread) Social [...] Ok noted * Telephone Encounter - Kadie Peter - 12/02/2019 3:28 PM EDT ??Tiffanie??overread an EKG that was sent over with the date of 11/26/19. He crossed off the 3rd line and added the following notation: borderline criteria for inferior infarct. This EKG is being sent back to the [facility] dept to be scanned as??the Final Read. Thank you, Deanna documented in this encounter Plan of Treatment Not on file documented as of this encounter Visit Diagnoses Not on filedocumented in this encounter Care Teams Auto Refinisher Relationship Specialty Start Date End Date Alvarez Silverio MD [address] [place] [address] PCP - General 03/28/1999 05/18/20 Jann Adams PA-C [address] [place] [address] PCP - General Internal Medicine 05/19/20 Hira Maria MD, PHD [address] [place] [address] Surgeon Neurosurgery 10/26/21 Radha Rios MD [address] [place] [address] Specialist Cardiology 02/09/22 Carolyn Spencer PA-C [address] [place] [address] Neurosurgery 03/14/22 documented as of this encounter
--- OUTSIDE RECORDS SUMMARY | 2025-05-12 21:04 | XMS_ITS | Encounter Summary ---
Author Organization [facility] Prior to 03/29/2024 Address [address] [place] [address] Care Team Providers Care Milliner Helper Name Role Phone Alvarez Silverio MD Primary Care Provider + [phone] Jann Adams PA-C Primary Care Provider [phone] Hira Maria MD, PHD Unavailable Unava ilable Radha Rios MD Unavailable [phone] Carolyn Spencer PA-C Unavailable [phone] Encounter Details Date Type Department Care Team Description 10/22/2009 Director Card Report Medical Records [address] [place] [address] Delonte Ervin MD Social History Tobacco Use [...] on filedocumented in this encounter Care Teams Milliner Helper Relationship Specialty Start Date End Date Alvarez Silverio MD [address] [place] [address] [phone] PCP - General 03/28/1999 05/18/20 Jann Adams PA-C [address] [place] [address] [phone] PCP - General Internal Medicine 05/19/20 Hira Maria MD, PHD [address] [place] [address] Surgeon Neurosurgery 10/26/21 Radha Rios MD [address] [place] [address] Specialist Cardiology 02/09/22 Carolyn Spencer PA-C [address] [place] [address] Neurosurgery 03/14/22 documented as of this encounter
--- OUTSIDE RECORDS SUMMARY | 2025-05-12 21:05 | XMS_ITS | Encounter Summary ---
Author Organization [facility] Prior to 03/29/2024 Address [address] [place] [address] Care Team Providers Care Employment Supervisor Name Role Phone Jann Adams PA-C Primary Care Provider [phone] Hira Maria MD, PHD Unavailable Unava ilable Radha Rios MD Unavailable [phone] Carolyn Spencer PA-C Unavailable [phone] Encounter Details Date Type Department Care Team Description 02/08/2021 Telephone Adult Medicine [address] [phone] Jann Adams PA-C [address] [place] [address] [phone] Social History Tobacco Use Types Packs/Day Years [...] on filedocumented in this encounter Care Teams Employment Supervisor Relationship Specialty Start Date End Date Jann Adams PA-C [address] [place] [address] PCP - General Internal Medicine 05/19/20 Hira Maria MD, PHD [address] [place] [address] Surgeon Neurosurgery 10/26/21 Radha Rios MD [address] [place] [address] Specialist Cardiology 02/09/22 Carolyn Spencer PA-C [address] [place] [address] Neurosurgery 03/14/22 documented as of this encounter
--- OUTSIDE RECORDS SUMMARY | 2025-05-12 21:05 | XMS_ITS | Encounter Summary ---
Author Organization [facility] Prior to 03/29/2024 Address [address] [place] [address] Care Team Providers Care Fabrication Machine Operator Name Role Phone Jann Adams PA-C Primary Care Provider [phone] Hira Maria MD, PHD Unavailable Unava ilable Radha Rios MD Unavailable [phone] Carolyn Spencer PA-C Unavailable [phone] Encounter Details Date Type Department Care Team Description 01/15/2021 [facility] Medical Records [address] [place] [address] Abstract, Provider Social History Tobacco Use Types [...] on filedocumented in this encounter Care Teams Fabrication Machine Operator Relationship Specialty Start Date End Date Jann Adams PA-C [address] [place], [place] [phone] PCP - General Internal Medicine 05/19/20 Hira Maria MD, PHD [address] [place], [place] [phone] Surgeon Neurosurgery 10/26/21 Radha Rios MD [address] [place], [place] [phone] Specialist Cardiology 02/09/22 Carolyn Spencer PA-C [address] [place] [address] Neurosurgery 03/14/22 documented as of this encounter
--- OUTSIDE RECORDS SUMMARY | 2025-05-12 21:05 | XMS_ITS | Encounter Summary ---
Author Organization [facility] Prior to 03/29/2024 Address [address] [place] [address] Care Team Providers Care Lead Javascript Engineer Name Role Phone Jann Adams PA-C Primary Care Provider [phone] Hira Maria MD, PHD Unavailable Unava ilable Radha Rios MD Unavailable [phone] Carolyn Spencer PA-C Unavailable [phone] Encounter Details Date Type Department Care Team Description 12/19/2023 [facility] Medical Records [address] [place] [address] Abstract, Provider Social History Tobacco Use Types [...] on filedocumented in this encounter Care Teams Lead Javascript Engineer Relationship Specialty Start Date End Date Jann Adams PA-C [address] [place], [place] [phone] PCP - General Internal Medicine 05/19/20 Hira Maria MD, PHD [address] [place], [place] [phone] Surgeon Neurosurgery 10/26/21 Radha Rios MD [address] [place], [place] [phone] Specialist Cardiology 02/09/22 Carolyn Spencer PA-C [address] [facility] [address] [place] [address] Neurosurgery 03/14/22 documented as of this encounter
--- OUTSIDE RECORDS SUMMARY | 2025-05-12 21:05 | XMS_ITS | Encounter Summary ---
Author Organization [facility] Prior to 03/29/2024 Address [address] [place] [address] Care Team Providers Care Rig Hand Name Role Phone Jann Adams PA-C Primary Care Provider [phone] Hira Maria MD, PHD Unavailable Unava ilable Radha Rios MD Unavailable [phone] Carolyn Spencer PA-C Unavailable [phone] Encounter Details Date Type Department Care Team Description 08/03/2022 [facility] Only Medical Records [address] [place] [address] Guicho Wright MD [address] [place] [address] [place] [address] Social History Tobacco Use Types Packs/Day Years [...] on filedocumented in this encounter Care Teams Rig Hand Relationship Specialty Start Date End Date Jann Adams PA-C [address] [place] [address] PCP - General Internal Medicine 05/19/20 Hira Maria MD, PHD [address] [place] [address] Surgeon Neurosurgery 10/26/21 Radha Rios MD [address] [place] [address] Specialist Cardiology 02/09/22 Carolyn Spencer PA-C [address] [address] Neurosurgery 03/14/22 documented as of this encounter
--- OUTSIDE RECORDS SUMMARY | 2025-05-12 21:05 | XMS_ITS | Encounter Summary ---
Author Organization [facility] Prior to 03/29/2024 Address [address] [place] [address] Care Team Providers Care Piece Goods Packer Name Role Phone Jann Adams PA-C Primary Care Provider +1 -[phone] Hira Maria MD, PHD Unavailable Unava ilable Radha Rios MD Unavailable [phone] Carolyn Spencer PA-C Unavailable [phone] Encounter Details Date Type Department Care Team Description 03/01/2022 [facility] Medical [facility] Neurosurgery [facility] [address] [place] [address] Hira Maria MD, PHD Social [...] on filedocumented in this encounter Care Teams Piece Goods Packer Relationship Specialty Start Date End Date Jann Adams PA-C [address] [place] [address] [phone] PCP - General Internal Medicine 05/19/20 Hira Maria MD, PHD [address] [place] [address] Surgeon Neurosurgery 10/26/21 Radha Rios MD [address] [place] [address] Specialist Cardiology 02/09/22 Carolyn Spencer PA-C [address] [place] [address] Neurosurgery 03/14/22 documented as of this encounter
--- OUTSIDE RECORDS SUMMARY | 2025-05-12 21:05 | XMS_ITS | Encounter Summary ---
Author Organization [facility] Prior to 03/29/2024 Address [address] [place] [address] Care Team Providers Care Pressure Control Supervisor Name Role Phone Jann Adams PA-C Primary Care Provider [phone] -[phone] Hira Maria MD, PHD Unavailable Unava ilable Radha Rios MD Unavailable [phone] Carolyn Spencer PA-C Unavailable [phone] Encounter Details Date Type Department Care Team Description 03/14/2022 [facility] Neurosurgery [address] [address] Hira Maria MD, PHD Social History [...] on filedocumented in this encounter Care Teams Pressure Control Supervisor Relationship Specialty Start Date End Date Jann Adams PA-C [address] [place] [address] [phone] PCP - General Internal Medicine 05/19/20 Hira Maria MD, PHD [address] [place], [place] [phone] Surgeon Neurosurgery 10/26/21 Radha Rios MD [address] [place] [address] Specialist Cardiology 02/09/22 Carolyn Spencer PA-C [address] [place] [address] Neurosurgery 03/14/22 documented as of this encounter
--- OUTSIDE RECORDS SUMMARY | 2025-05-12 21:05 | XMS_ITS | Encounter Summary ---
Author Organization [facility] Prior to 03/29/2024 Address [address] [place] [address] Care Team Providers Care Blindstitch Lining Feller Name Role Phone Jann Adams PA-C Primary Care Provider [phone] -[phone] Hira Maria MD, PHD Unavailable Unava ilable Radha Rios MD Unavailable [phone] Carolyn Spencer PA-C Unavailable [phone] Reason for Visit * Reason Comments E-prescribe Rx Request Encounter Details Date Type Department Care Team Description 06/30/2020 Refill Adult Medicine [address] [phone] Alvarez Silverio MD [address] [place] [address] [phone] E-prescribe Rx Request Social History Tobacco Use [...] / Plan: [place] / Product Type: MEDICARE [id number] documented in this encounter Plan of Treatment Not on file documented as of this encounter Visit Diagnoses Not on filedocumented in this encounter Care Teams Blindstitch Lining Feller Relationship Specialty Start Date End Date Jann Adams PA-C [address] [place] [address] PCP - General Internal Medicine 05/19/20 Hira Maria MD, PHD [address] [place] [address] Surgeon Neurosurgery 10/26/21 Radha Rios MD [address] [place], [place] [phone] Specialist Cardiology 02/09/22 Carolyn Spencer PA-C [address] [place] [address] Neurosurgery 03/14/22 documented as of this encounter
--- OUTSIDE RECORDS SUMMARY | 2025-05-12 21:05 | XMS_ITS | Encounter Summary ---
Author Organization [facility] Prior to 03/29/2024 Address [address] [place] [address] Care Team Providers Care Liquor Runner Name Role Phone Jann Adasm PA-C Primary Care Provider [phone] -[phone] Hria Maria MD, PHD Unavailable Unava ilable Radha Rios MD Unavailable [phone] Carolyn Spencer PA-C Unavailable [phone] Encounter Details Date Type Department Care Team Description 01/15/2021 [facility] Medical Records [address] [place] [address] Abstract, Provider Social History Tobacco Use Types [...] on filedocumented in this encounter Care Teams Liquor Runner Relationship Specialty Start Date End Date Jann Adams PA-C [address] [place], [place] [phone] PCP - General Internal Medicine 05/19/20 Hira Maria MD, PHD [address] [place], [place] [phone] Surgeon Neurosurgery 10/26/21 Radha Rios MD [address] [place], [place] [phone] Specialist Cardiology 02/09/22 Carolyn Spencer PA-C [address] [place] [address] Neurosurgery 03/14/22 documented as of this encounter
--- OUTSIDE RECORDS SUMMARY | 2025-05-12 21:05 | XMS_ITS | Encounter Summary ---
Author Organization [facility] Prior to 03/29/2024 Address [address] [place] [id number] Care Team Providers Care Medical Receptionist Assistant Name Role Phone Jann Adams PA-C Primary Care Provider [phone] -[phone] Hira Maria MD, PHD Unavailable Unava ilable Radha Rios MD Unavailable [phone] Carolyn Spencer PA-C Unavailable [phone] Reason for Visit * Reason Onset Date Comments Medication 07/26/2022 Encounter Details Date Type Department Care Team Description 07/26/2022 Refill Gastroenterology - [place] [address] [facility] [address] [place] [address] Guicho Wright MD [address] [facility] [address] [place], [place] [phone] Medication Social History Tobacco Use Types Packs/Day [...] filedocumented in this encounter Care Teams Medical Receptionist Assistant Relationship Specialty Start Date End Date Jann Adams PA-C [address] [place] [address] PCP - General Internal Medicine 05/19/20 Hira Maria MD, PHD [address] [place] [address] Surgeon Neurosurgery 10/26/21 Radha Rios MD [address] [place] [address] Specialist Cardiology 02/09/22 Carolyn Spencer PA-C [address] [place] [address] Neurosurgery 03/14/22 documented as of this encounter
--- OUTSIDE RECORDS SUMMARY | 2025-05-12 21:05 | XMS_ITS | Encounter Summary ---
Author Organization [facility] Prior to 03/29/2024 Address [address] [place] [address] Care Team Providers Care Billiard Table Mechanic Name Role Phone Jann Adams PA-C Primary Care Provider [phone] Hira Maria MD, PHD Unavailable Unava ilable Radha Rios MD Unavailable [phone] Carolyn Spencer PA-C Unavailable [phone] Encounter Details Date Type Department Care Team Description 09/13/2023 Pt. Non Urgent Medical Question Adult Medicine [address] [phone] Jann Adams PA-C [address] [place] [address] [phone] Social History Tobacco Use Types Packs/Day Years [...] on filedocumented in this encounter Care Teams Billiard Table Mechanic Relationship Specialty Start Date End Date Jann Adams PA-C [address] [place] [address] PCP - General Internal Medicine 05/19/20 Hira Maria MD, PHD [address] [place] [address] Surgeon Neurosurgery 10/26/21 Radha Rios MD [address] [place] [address] Specialist Cardiology 02/09/22 Carolyn Spencer PA-C [address] [place] [address] Neurosurgery 03/14/22 documented as of this encounter
--- OUTSIDE RECORDS SUMMARY | 2025-05-12 21:05 | XMS_ITS | Encounter Summary ---
Author Organization [facility] Prior to 03/29/2024 Address [address] [place] [address] Care Team Providers Care Alcoholism Worker Name Role Phone Jann Adams PA-C Primary Care Provider [phone] Hira Maria MD, PHD Unavailable Unava ilable Radha Rios MD Unavailable [phone] Carolyn Spencer PA-C Unavailable [phone] Encounter Details Date Type Department Care Team Description 11/19/2020 Telephone Adult Medicine [address] [phone] Jann Adams PA-C [address] [place] [address] [phone] Social History Tobacco Use Types Packs/Day Years [...] on filedocumented in this encounter Care Teams Alcoholism Worker Relationship Specialty Start Date End Date Jann Adams PA-C [address] [place] [address] PCP - General Internal Medicine 05/19/20 Hira Maria MD, PHD [address] [place] [address] Surgeon Neurosurgery 10/26/21 Radha Rios MD [address] [place] [address] Specialist Cardiology 02/09/22 Carolyn Spencer PA-C [address] [place] [address] Neurosurgery 03/14/22 documented as of this encounter
--- OUTSIDE RECORDS SUMMARY | 2025-05-12 21:05 | XMS_ITS | Encounter Summary ---
Author Organization [facility] Prior to 03/29/2024 Address [address] [place] [address] Care Team Providers Care Channel Rebuilder Name Role Phone Jann Adams PA-C Primary Care Provider [phone] -[phone] Hira Maria MD, PHD Unavailable Unava ilable Radha Rios MD Unavailable [phone] Carolyn Spencer PA-C Unavailable [phone] Reason for Visit * Reason Comments E-prescribe Rx Request Encounter Details Date Type Department Care Team Description 03/29/2022 Refill Adult Medicine [address] [phone] Annika Burks PA-C [address] [place] [address] [phone] E-prescribe Rx Request Social History Tobacco Use [...] / Plan: [place] / Product Type: MEDICARE [id number] ? documented in this encounter Plan of Treatment Not on file documented as of this encounter Visit Diagnoses Not on filedocumented in this encounter Care Teams Channel Rebuilder Relationship Specialty Start Date End Date Jann Adams PA-C [address] [place] [address] PCP - General Internal Medicine 05/19/20 Hira Maria MD, PHD [address] [place] [address] Surgeon Neurosurgery 10/26/21 Radha Rios MD [address] [place] [address] [phone] Specialist Cardiology 02/09/22 Carolyn Spencer PA-C [address] [place] [address] Neurosurgery 03/14/22 documented as of this encounter
--- OUTSIDE RECORDS SUMMARY | 2025-05-12 21:05 | XMS_ITS | Encounter Summary ---
Author Organization [facility] Prior to 03/29/2024 Address [address] [place] [address] Care Team Providers Care Corporate Health Consultant Name Role Phone Jann Adams PA-C Primary Care Provider [phone] Hira Maria MD, PHD Unavailable Unava ilable Radha Rios MD Unavailable [phone] Carolyn Spencer PA-C Unavailable [phone] Encounter Details Date Type Department Care Team Description 02/13/2024 Pt. Non Urgent Medical Question Adult Medicine [address] [address] Jann Adams PA-C [address] [place] [address] [phone] Social History Tobacco Use Types Packs/Day Years [...] on filedocumented in this encounter Care Teams Corporate Health Consultant Relationship Specialty Start Date End Date Jann Adams PA-C [address] [place] [address] PCP - General Internal Medicine 05/19/20 Hira Maria MD, PHD [address] [place] [address] Surgeon Neurosurgery 10/26/21 Radha Rios MD [address] [place], [place] [phone] Specialist Cardiology 02/09/22 Carolyn Spencer PA-C [address] [place] [address] Neurosurgery 03/14/22 documented as of this encounter
--- OUTSIDE RECORDS SUMMARY | 2025-05-12 21:05 | XMS_ITS | Encounter Summary ---
Author Organization [facility] Prior to 03/29/2024 Address [address] [place] [address] Care Team Providers Care Named Account Executive Name Role Phone Jann Adams PA-C Primary Care Provider +1 -[phone] Hira Maria MD, PHD Unavailable Unava ilable Radha Rios MD Unavailable [phone] Carolyn Spencer PA-C Unavailable [phone] Encounter Details Date Type Department Care Team Description 06/18/2020 [facility] Medical Records [address] [place] [address] Abstract, Provider Social History Tobacco Use Types [...] on filedocumented in this encounter Care Teams Named Account Executive Relationship Specialty Start Date End Date Jann Adams PA-C [address] [place], [place] [phone] PCP - General Internal Medicine 05/19/20 Hira Maria MD, PHD [address] [place] [address] Surgeon Neurosurgery 10/26/21 Radha Rios MD [address] [place] [address] Specialist Cardiology 02/09/22 Carolyn Spencer PA-C [address] [place] [address] Neurosurgery 03/14/22 documented as of this encounter
--- OUTSIDE RECORDS SUMMARY | 2025-05-12 21:05 | XMS_ITS | Encounter Summary ---
Author Organization [facility] Prior to 03/29/2024 Address [address] [facility] [place] [facility] [place] [address] Care Team Providers Care Professor Of Environmental Science Name Role Phone Jann Adams PA-C Primary Care Provider +1 -[phone] Hira Maria MD, PHD Unavailable Unava ilable Radha Rios MD Unavailable [phone] Carolyn Spencer PA-C Unavailable [phone] Reason for Visit * Reason Comments E-prescribe Rx Request Encounter Details Date Type Department Care Team Description 09/07/2022 Refill Gastroenterology - [address] [place] [phone] Izaiah Steven PA-C E-prescribe Rx Request [...] Monahan - 09/07/2022 12:38 PM EDT Kris- 3/21/23 documented in this encounter Plan of Treatment Not on file documented as of this encounter Visit Diagnoses Not on filedocumented in this encounter Care Teams Professor Of Environmental Science Relationship Specialty Start Date End Date Jann Adams PA-C [address] [place] [address] PCP - General Internal Medicine 05/19/20 Hira Maria MD, PHD [address] [place] [address] Surgeon Neurosurgery 10/26/21 Radha Rios MD [address] [place] [address] Specialist Cardiology 02/09/22 Carolyn Spencer PA-C [address] [address] Neurosurgery 03/14/22 documented as of this encounter
--- OUTSIDE RECORDS SUMMARY | 2025-05-12 21:05 | XMS_ITS | Clinical Summary ---
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 - Oral 90 each 3 06/30/20 25 Active gabapentin (NEURONTIN) 600 mg tablet [...] Max Daily Amount: 2 tablets 56 tablet 04/18/20 25 Active atenoloL (TENORMIN) 50 mg tablet TAKE 1 AND 1/2 TABLETS BY MOUTH DAILY 135 tablet 1 04/30/20 25 Active atenoloL (TENORMIN) 50 mg tablet TAKE 1 AND 1/2 TABLETS BY MOUTH DAILY 135 tablet 1 10/29/19 25 025 Discontinued HYDROcodone-ac etaminophen (NORCO) 5-325 mg per tablet Take 1 tablet by mouth every 12 (twelve) hours if needed for severe pain. Max Daily Amount: 2 tablets 56 tablet 03/19/20 25 025 Discontinued(Re order) Active Problems Problem Noted Date Diagnosed Date Dyspnea, unspecified type 10/15/2024 Chest pain 10/14/2024 Lung nodule 07/31/2023 Parkinsonian tremor 09/06/2022 Chronic [...] could not get a follow-up appointment with [facility] until this Thursday which is almost 2 weeks postop. He [...] or questions. Coronary artery disease invo lving quechan coronary artery of quechan heart without angina pectoris 06/15/2016 Overview (05/10/2024): - Status post non-ST elevation MS in January 2015 with cardiac cath at [...] (NITROSTAT) SL tablet 0.4 mg Non-ST elevation MS (NSTEMI) 02/26/2015 Hx of non-ST elevation myocardial [...] Encounters Date Type Department Care Team Description 04/11/2025 Results Follow-Up [facility] [address] [place] [address] Radha Rios MD 03/31/2025 9:00 AM EST Ancillary Procedure [facility] [address] [place] [address] Aneurysm of ascending aorta without rupture ([facility]/HCC V24) 03/21/2025 Results Follow-Up Adult Medicine [address] [phone] Carmela Maguire PA 03/13/2025 Results Follow-Up [facility] Hematology Oncology [address] [place] [phone] Ronak Leonard, [place] 03/05/2025 3:15 PM EDT Office Visit [facility] Hematology Oncology [address] [place] [address] Unique Mcdonald MD Adenoma of right adrenal gland (Primary Dx) 02/25/2025 7:30 AM EDT Office Visit Adult Medicine [address] [phone] Carmela Maguire PA Essential hypertension, benign (Primary Dx); Mixed hyperlipidemia; Coronary artery disease involving quechan coronary artery of quechan heart without angina pectoris; Aortic dilatation (CMS/HCC V24); Gastroesophageal reflux disease without esophagitis; Lumbar radiculitis; Encounter for long-term (current) use of high-risk medication; Parkinsonian tremor (CMS/HCC V24, CMS/HCC V28); Iron deficiency anemia due to chronic blood loss; Need for prophylactic vaccination and inoculation against influenza 02/20/2025 8:33 AM EDT - 02/20/2025 11:59 PM EDT Hospital Encounter [facility] CT Scan [address] [place] [address] Adenoma of right adrenal gland Discharge Disposition: [...] knee arthroscopic surgery 2006 ESOPHAGOGASTRODUODENOSCOPY 10/13/2008 PROCEDURE: MD ESOPHAGOGASTRODUODENOSCOPY TRANSORAL DIAGNOSTIC; COMMENT: mild gastritis, H. [...] for your loved ones. For example, child center assistant or elderly care for an older adult? [...] on file Sexual Orientation Not on file Last Filed Vital Signs Vital Sign Reading Time Taken Comments Blood Pressure 163/91 03/31/2025 9:04 AM EST Pulse 53 03/05/2025 3:12 PM EDT Temperature 36.4 C (97.6 F) 03/05/2025 3:12 PM EDT Respiratory Rate 13 02/25/2025 7:31 AM EDT Oxygen Saturation 98% 03/05/2025 3:12 PM EDT Inhaled Oxygen Concentration - - Weight 96.2 kg (212 lb) 03/31/2025 9:04 AM EST Height 180.3 cm (5' 11 ) 03/31/2025 9:04 AM EST Body Mass Index 29.57 03/31/2025 9:04 AM EST Plan of Treatment Upcoming Encounters Date Type Department Care Team (Late st Contact Info) Description 05/26/2025 7:30 AM EST Office Visit Adult Medicine [address] [phone] Jann Adams, JOSE J [address] [place] [phone] Health Maintenance Due Date Last Done Comments Naloxone Order 1955 Pain Assessment 1955 Medicare Annual Wellness Visit 11/19/2024 11/20/2023 COVID-19 Vaccine ( season) 2025 05/18/2022, 03/20/2021, 08/22/2020, Additional history exists Opioid Substance Agreement 04/28/2025 04/27/2025 Social Influencers of Health Screening 08/16/2025 08/16/2024 Drug Screen 08/22/2025 08/22/2024, 08/22/2024 Falls Risk Assessment 10/15/2025 10/15/2024, 024 Hypertension/CHF/CAD [...] Procedure Name Priority Date/Time Associated Diagnosis Comments TRANSTHORACIC ECHOCARDIOGRAM (TTE) LIMITED COLOR FLOW & DOPPLER Routine 03/31/2025 9:05 AM EST Aneurysm of ascending aorta without rupture (CMS/HCC V24) IRON AND TIBC Routine 03/21/2025 9:26 AM [...] 02/19/2025 2:22 PM EDT Essential hypertension, benign DRUG ABUSE SCREEN EXPANDED WITH REFLEX CONFIRMATION, URINE Routine 08/22/2024 1:46 PM EDT Encounter for long-term (current) use of high-risk medication FALLS RISK ASSESSMENT Routine 02/20/2024 HM DEPRESSION SCREENING Routine 11/20/2023 HM COLONOSCOPY Routine 07/28/2022 HEPATITIS C SCREENING Routine 04/28/2017 from Last 3 Months or Most Recently Relevant to Health Maintenance Results * (ABNORMAL) TRANSTHORACIC ECHOCARDIOGRAM (TTE) LIMITED COLOR FLOW & DOPPLER (03/31/2025 9:05 AM EST) BSA 2.19 m2 CV PACS LV EDV (A2C) 136 mL CV PACS LV EDV (A4C) 169 mL CV PACS LV Diastolic Volume (BP) 157(A) 62 - 150 mL CV PACS LV ESV (A2C) 71 mL CV PACS LV ESV (A4C) 80 mL CV PACS LV Systolic Volume (BP) 75(A) 21 - 61 mL CV PACS LVOT Diameter 2.3 cm CV PACS Ejection Fraction (A2C) 48 % CV PACS Ejection Fraction (A4C) 52 % CV PACS Ejection Fraction (BP) 52 % CV PACS LVOT Area 4.2 cm2 CV PACS Aortic Root 3.6 cm CV PACS Ascending Aorta 3.8 cm CV PACS IVC Proximal 2.0 cm CV PACS LV ESV Index (A4C) 37 mL/m2 CV PACS LV EDV Index (A4C) 78 mL/m2 CV PACS Ascending Aorta Index 1.76 cm/m2 CV PACS Aortic Root Index 1.67 cm/m2 CV PACS LV Systolic Volume Index (BP) 0(A) 11 - 31 mL/m2 CV PACS LV Diastolic Volume Index (BP) 0(A) 34 - 74 mL/m2 CV PACS LV EDV Index (A2C) 63 mL/m2 CV PACS LV ESV Index (A2C) 33 mL/m2 CV PACS Est. RA Pressure 3 mmHg CV PACS LA Volume (A-L) 81 mL CV PACS LA Volume Index (A-L) 38 mL/m2 CV PACS LVIDD 5.2 4.2 - 5.8 cm CV PACS LVIDD Index 2.41 cm/m2 CV PACS LVPWD 1.0 0.6 - 1.0 cm CV PACS IVSD 1.3(A) 0.6 - 1.0 cm CV PACS LV Mass 2D 235(A) 96 - 200 g CV PACS LV Mass Index 2D 109(A) 50 - 102 g/m2 CV PACS Relative Wall Thickness ratio 0.38 0.24 - 0.42 CV PACS TR Peak Velocity 1.30 m/s CV PACS Right Ventricular Peak Systolic Pressure 10 mmHg CV PACS Inferior Vena Cava Diameter At Expiration 2.0 cm CV PACS IVC Expiration Index 0.93 cm/m2 CV PACS TR Peak Gradient 6 mmHg CV PACS LV EF MOD 2C 48 % CV PACS LV EF 4C A-L 53 % CV PACS LV EDV 4C A-L 173 mL CV PACS LV Length Sys (A4C) 7.8 cm CV PACS LV Length Daley (A4C) 9.9 cm CV PACS Aortic Root Dimension Index 1.7 cm/m2 CV PACS Left Ventricular Stroke Volume by 2-D Biplane-MOD 82 mL CV PACS LVIDS 3.2 2.5 - 4.0 cm CV PACS LVIDS Index 1.48 cm/m2 CV PACS FS 38 % CV PACS Anatomical Region Laterality Modality Ultrasound Narrative 04/11/2025 5:13 PM EST Limited echocardiogram performed to assess the ascending aorta and aortic root. 1. Ascending aorta appears to be upper normal for age and body surface area at 3.8 cm. Aortic root is normal in size at 3.6 cm. 2. There is mild concentric left ventricular hypertrophy with low normal LV systolic function. Normal regional wall motion with an ejection fraction of 50 to 55%. 3. Normal right ventricular size and systolic function 4. Trileaflet aortic valve with only trace to mild aortic insufficiency. Compared with prior echocardiogram from 10/15/2024, aortic measurements are stable. EF has dropped slightly from normal to low normal. Left Ventricle Left ventricle cavity size is normal. There is mild concentric hypertrophy. Systolic function is low normal with an ejection fraction of 50-55%. There are no regional LV wall motion abnormalities. Unable to assess diastolic function. Right Ventricle Right ventricle cavity appears normal. Systolic function is normal. Left Atrium Left atrium was not assessed. Left atrium cavity size is normal. Right Atrium Right atrium was not assessed. IVC/SVC Inferior vena cava structure is normal. RA pressures is estimated to be 3 mmHg (IVC diameter <21 mm and decreases >50% during inspiration). Mitral Valve Mitral valve structure is normal. There is trace regurgitation. There is no evidence of mitral valve stenosis. Tricuspid Valve Tricuspid valve structure is normal. There is trace regurgitation. There is no evidence of tricuspid valve stenosis. Cannot assess RVSP. Aortic Valve The aortic valve is trileaflet. There is sclerosis. There is trace to mild regurgitation. There is no evidence of aortic valve stenosis. Pulmonic Valve Visualized portions of the pulmonic valve appear normal. There is trace pulmonic valve regurgitation. There is no evidence of pulmonic valve stenosis. Ascending Aorta The aorta appears normal in size. Pericardium Pericardium appears normal. There is no pericardial effusion. Study Details Overall the study quality was adequate. Wall Scoring Baseline Score Index: 1.00 The left ventricular wall motion is normal. Radha Rios MD CV ECHO PROCEDURES Final Result * (ABNORMAL) Lipid panel with reflex to direct LDL (03/21/2025 9:26 AM EDT) Cholesterol 109 0 - 200 mg/dL LAB CHEMISTRY METHOD 03/21/2025 12:56 PM [facility] Triglycerides 97 0 - 150 mg/dL LAB CHEMISTRY METHOD 03/21/2025 12:56 PM [facility] HDL 33(L) >=40 mg/dL LAB CHEMISTRY METHOD 03/21/2025 12:56 PM [facility] LDL Calculated 57 0 - 100 mg/dL LAB CHEMISTRY METHOD 03/21/2025 12:56 PM [facility] Comment:Estimated LDL Calcul ated using equation: Total cholesterol - HDL cholesterol - (Triglycerides/5) VLDL Cholesterol Lito 19.4 mg/dL LAB CHEMISTRY METHOD 03/21/2025 12:56 PM [facility] Non HDL Chol. (LDL+VLDL) 76 <145 mg/dL LAB CHEMISTRY METHOD 03/21/2025 12:56 PM [facility] Chol/HDL Ratio 3.3 0.0 - 4.4 LAB CHEMISTRY METHOD 03/21/2025 12:56 PM [facility] Blood Venous blood specimen / Unknown Venipuncture / Unknown 03/21/2025 9:26 AM EDT 03/21/2025 9:26 AM EDT us Carmela Andrez LUX LAB BLOOD ORDERABLES Final Resul t [facility] [address] [place] [address], * (ABNORMAL) CBC auto differential (03/21/2025 9:26 AM EDT) WBC 4.9 4.8 - 10.8 K/mcL LAB HEMETOLOGY METHOD 03/21/2025 12:10 PM EDT [facility] RBC 4.00(L) 4.50 - 5.50 M/mcL LAB HEMETOLOGY METHOD 03/21/2025 12:10 PM EDT [facility] Hemoglobin 11.7(L) 13.5 - 17.5 g/dL LAB HEMETOLOGY METHOD 03/21/2025 12:10 PM EDT [facility] Hematocrit 36.3(L) 42.0 - 54.0 % LAB HEMETOLOGY METHOD 03/21/2025 12:10 PM [facility] MCV 91.2 79.0 - 98.0 FL LAB HEMETOLOGY METHOD 03/21/2025 12:10 PM EDT [facility] MCH 29.4 27.0 - 32.0 pcg LAB HEMETOLOGY METHOD 03/21/2025 12:10 PM T [facility] MCHC 32.2 32.0 - 37.0 g/dL LAB HEMETOLOGY METHOD 03/21/2025 12:10 PM [facility] RDW 13.3 11.0 - 15.0 % LAB HEMETOLOGY METHOD 03/21/2025 12:10 PM EDT [facility] Platelets 150 130 - 400 K/mcL LAB HEMETOLOGY METHOD 03/21/2025 12:10 PM EDT [facility] MPV 11.9(H) 7.0 - 11.0 FL LAB [facility]OLOGY [facility] NRBC 0.0 <1.0 % LAB HEMETOLOGY METHOD 03/21/2025 12:10 PM EDT [facility] NRBC Absolute 0.00 <0.10 K/mcL LAB HEMETOLOGY METHOD 03/21/2025 12:10 PM [facility] Neutrophils Relative 44.1 % LAB HEMETOLOGY METHOD 03/21/2025 12:10 PM [facility] Lymphocytes Relative 25.6 % LAB HEMETOLOGY METHOD 03/21/2025 12:10 PM [facility] Monocytes Relative 9.9 % LAB HEMETOLOGY METHOD 03/21/2025 12:10 PM [facility] Eosinophils Relative 19.0 % LAB HEMETOLOGY METHOD 03/21/2025 12:10 PM [facility] Basophils Relative 1.2 % LAB HEMETOLOGY METHOD 03/21/2025 12:10 PM [facility] Immature Granulocytes Relative 0.2 % LAB HEMETOLOGY METHOD 03/21/2025 12:10 PM [facility] Neutrophils Absolute 2.14 1.50 - 7.00 K/mcL LAB HEMETOLOGY METHOD [facility] Lymphocytes Absolute 1.24 1.00 - 5.00 K/mcL LAB HEMETOLOGY METHOD 03/21/2025 12:10 PM [facility] Monocytes Absolute 0.48 0.20 - 1.00 K/mcL LAB HEMETOLOGY METHOD 03/21/2025 [facility] Eosinophils Absolute 0.92(H) 0.00 - 0.50 K/mcL LAB HEMETOLOGY METHOD 03/21/2025 12:10 PM EDT [facility] Basophils Absolute 0.06 0.00 - 0.20 K/mcL LAB HEMETOLOGY METHOD 03/21/2025 12:10 PM EDT [facility] Immature Granulocytes Absolute 0.01 0.00 - 0.03 K/mcL LAB HEMETOLOGY METHOD 03/21/2025 12:10 PM EDT [facility] Blood Venous blood specimen / Unknown Venipuncture / Unknown 03/21/2025 9:26 AM EDT 03/21/2025 9:26 AM EDT us Carmela Maguire PA LAB BLOOD ORDERABLES Final Resul t Performing Organization Address City/[facility]/ZIP Co de Phone Number [facility] [address] [place] [address], [place] [phone] * Iron and TIBC (03/21/2025 9:26 AM EDT) Iron 69 50 - 160 mcg/dL LAB CHEMISTRY METHOD 03/21/2025 10:36 PM EDT [facility] TIBC 342 250 - 450 mcg/dL LAB CHEMISTRY METHOD 03/21/2025 10:36 PM EDT [facility] Iron Saturation 20 20 - 50 % LAB CHEMISTRY METHOD 03/21/2025 10:36 PM EDT [facility] Blood Venous blood specimen / Unknown Venipuncture / Unknown 03/21/2025 9:26 AM EDT 03/21/2025 9:26 AM EDT us Carmela Maguire PA LAB BLOOD ORDERABLES Final Resul t Performing Organization Address [facility]/ZIP Co de Phone Number [facility] [address] [place] [address], [place] [phone] * (ABNORMAL) Ferritin (03/21/2025 9:26 AM EDT) Ferritin 18(L) 26 - 388 ng/mL LAB CHEMISTRY METHOD 03/21/2025 10:36 PM [facility] Blood Venous blood specimen / Unknown Venipuncture / Unknown 03/21/2025 9:26 AM EDT 03/21/2025 9:26 AM EDT us Carmela Andrez LUX LAB BLOOD ORDERABLES Final Resul t [facility] [address] [place] [address], [place] [phone] * Comprehensive metabolic panel (03/21/2025 9:26 AM EDT) Pathologist [facility] Sodium 140 133 - 145 mmol/L LAB CHEMISTRY METHOD 03/21/2025 12:56 PM [facility] Potassium 4.1 3.5 - 5.5 mmol/L LAB CHEMISTRY METHOD 03/21/2025 12:56 PM [facility] Chloride 108 96 - 110 mmol/L LAB CHEMISTRY METHOD 03/21/2025 12:56 PM [facility] CO2 25 21 - 32 mmol/L LAB CHEMISTRY METHOD 03/21/2025 12:56 PM [facility] Anion Gap 7 3 - 11 LAB CHEMISTRY METHOD 03/21/2025 12:56 PM [facility] Glucose 93 70 - 100 mg/dL LAB CHEMISTRY METHOD 03/21/2025 12:56 PM [facility] BUN 16 5 - 25 mg/dL LAB CHEMISTRY METHOD 03/21/2025 12:56 PM [facility] Creatinine 0.89 0.70 - 1.30 mg/dL LAB CHEMISTRY METHOD 03/21/2025 12:56 PM [facility] eGFR 92 >=60 mL/min/1. 73m2 LAB CHEMISTRY METHOD 03/21/2025 12:56 PM T [facility] Comment:Calculation based on the Chronic Kidney Disease Epidemiology Collaboration (CKD-EPI) equation refit without adjustment for race. BUN/Creatinine Ratio 18.0 LAB CHEMISTRY METHOD 03/21/2025 12:56 PM T [facility] Calcium 9.0 8.5 - 10.5 mg/dL LAB CHEMISTRY METHOD 03/21/2025 12:56 PM [facility] AST (SGOT) 35 10 - 42 unit/L LAB CHEMISTRY METHOD 03/21/2025 12:56 PM [facility] ALT (SGPT) 36 10 - 60 unit/L LAB CHEMISTRY METHOD 03/21/2025 12:56 PM [facility] Alkaline Phosphatase 65 42 - 121 unit/L LAB CHEMISTRY METHOD 03/21/2025 12:56 PM [facility] Total Protein 6.3 6.0 - 8.0 g/dL LAB CHEMISTRY METHOD 03/21/2025 12:56 PM [facility] Albumin 3.9 3.2 - 5.0 g/dL LAB CHEMISTRY METHOD 03/21/2025 12:56 PM [facility] Total Bilirubin 0.6 0.0 - 1.4 mg/dL LAB CHEMISTRY METHOD 03/21/2025 12:56 PM [facility] Blood Venous blood specimen / Unknown Venipuncture / Unknown 03/21/2025 9:26 AM EDT 03/21/2025 9:26 AM EDT us Carmela Andrez LUX LAB BLOOD ORDERABLES Final Resul t [facility] [address] [place] [address], [place] [phone] * Catecholamines fractionated with creatinine, urine 24h [...] - 100 ug/day 03/13/2025 11:35 AM EDT [facility] Comment: This test was developed and the performance characteristics determined by [facility]. It has not been cleared or approved by the FDA. The laboratory is regulated under CLIA as qualified to perform high-complexity testing. This test is used for patient testing purposes. It should not be regarded as investigational or for research. Test performed at [facility], [address] , [place] [address] Kenna Larios MD, PhD - Tourist Information Officer Urine Urine specimen from urethra / Unknown Non-blood Collection / Unknown 03/10/2025 10:26 AM EDT 03/10/2025 11:37 AM EDT Unique Kolb MD LAB URINE ORDERABLE S Final Result [facility] [address] [place] [address] * Catecholamines, fractionated, plasma (03/05/2025 3:33 PM EDT) Epinephrine 18 pg/mL 03/16/2025 7:37 PM EDT [...] analytical performance characteristics have been determined by [facility]. It has not been cleared or approved by the FDA. This assay has been validated pursuant to the CLIA regulations and is used for clinical purposes. Test Performed at: [facility] [address] [place] [phone] Sahra Houston MD, PhD, CLAUDE Blood Venous blood specimen / Unknown Venipuncture / Unknown 03/05/2025 3:33 PM EDT 03/05/2025 4:34 PM EDT us Subramony Kennedi RODRIGUEZ LAB BLOOD ORDERABLE S Final Result [facility] [address] [place] [address] * CT Abdomen wo and w Contrast [...] Signed Date: 02/27/2025 10:39 ET Workstation ID: [id number] Transcribed By: Self Edit Transcribed Date: 02/27/2025 [...] 12Hounsfield units on 15 minute delay imaging. 02/20/25-2.3 cm 10/14/24-2.3 cm 9/5/23-2.2 cm This area was not included on [...] Signed Date: 02/27/2025 10:39 ET Workstation ID: [id number] Transcribed By: Self Edit Transcribed Date: 02/27/2025 10:19 ET us Subramony Subramonia-Laya RODRIGUEZ IMG CT PROCEDURES F inal Result * (ABNORMAL) Basic metabolic panel (02/19/2025 2:22 PM EDT) Sodium 141 133 - 145 mmol/L LAB CHEMISTRY METHOD 02/19/2025 4:46 PM [facility] Potassium 4.1 3.5 - 5.5 mmol/L LAB CHEMISTRY METHOD 02/19/2025 4:46 PM [facility] Chloride 108 96 - 110 mmol/L LAB CHEMISTRY METHOD 02/19/2025 4:46 PM [facility] CO2 27 21 - 32 mmol/L LAB CHEMISTRY METHOD 02/19/2025 4:46 PM [facility] Anion Gap 6 3 - 11 LAB CHEMISTRY METHOD 02/19/2025 4:46 PM [facility] Glucose 106(H) 70 - 100 mg/dL LAB CHEMISTRY METHOD 02/19/2025 4:46 PM [facility] BUN 18 5 - 25 mg/dL LAB CHEMISTRY METHOD 02/19/2025 4:46 PM [facility] Creatinine 1.06 0.70 - 1.30 mg/dL LAB CHEMISTRY METHOD 02/19/2025 4:46 PM [facility] eGFR 75 >=60 mL/min/1. 73m2 LAB CHEMISTRY METHOD 02/19/2025 4:46 PM [facility] Comment:Calculation based on the Chronic Kidney Disease Epidemiology Collaboration (CKD-EPI) equation refit without adjustment for race. BUN/Creatinine Ratio 17.0 LAB CHEMISTRY METHOD 02/19/2025 4:46 PM [facility] Calcium 9.2 8.5 - 10.5 mg/dL LAB CHEMISTRY METHOD 02/19/2025 4:46 PM [facility] Blood Venous blood specimen / Unknown Venipuncture / Unknown 02/19/2025 2:22 PM EDT 02/19/2025 4:31 PM EDT us Subramony Subramonia-Laya MD LAB BLOOD ORDERABLE S Final Result [facility] [address] [place] [address], * (ABNORMAL) Drug abuse screen expanded with reflex confirmation, urine (08/22/2024 1:46 PM EDT) Amphetamine Screen, Ur Negative Negative LAB CHEMISTRY METHOD 5 6:44 PM EDT [facility] Comment:Certain OTC medicati ons containing ephedrine, phenylephrine, pseudoephedrine and phenylpropanolamine can cause false positive results. Barbiturate Screen, Ur Negative Negative LAB CHEMISTRY METHOD 5 6:44 PM EDT [facility] Benzodiazepine Screen, Ur Negative Negative LAB CHEMISTRY METHOD 5 6:44 PM EDT [facility] Cocaine Screen, Ur Negative Negative LAB CHEMISTRY METHOD 5 6:44 PM EDT [facility] Opiate Screen, Ur Positive(A ) Negative LAB CHEMISTRY METHOD 5 6:44 PM EDT [facility] Cannabinoid (THC) Screen, Ur Negative Negative LAB CHEMISTRY METHOD 5 6:44 PM EDT [facility] Comment:Specimens from patie nts taking pantoprazole sodium (Protonix) have been shown to produce false positive results. Fentanyl, Ur Negative Negative LAB CHEMISTRY METHOD 5 6:44 PM EDT [facility] Oxycodone Screen, Ur Negative Negative LAB CHEMISTRY METHOD 5 6:44 PM EDT [facility] Urine Urine specimen obtained by clean catch procedure / Unknown Non-blood Collection / Unknown 08/22/2024 1:46 PM EDT 08/22/2024 1:46 PM EDT Narrative [facility] - 08/22/2024 6:44 PM EDT Assay cutoffs: Amphetamines 1000 ng/mL Barbiturates 200 ng/mL Benzodiazepines 200 ng/mL Cocaine 300 ng/mL Fentanyl 1 ng/mL Opiates 300 ng/mL Oxycodone 100 ng/mL THC 50 ng/mL Semi-quantitative assay for screening purposes only. Unconfirmed screening result should not be used for non-medical purposes. *POSITIVE RESULTS ARE AUTOMATICALLY SENT FOR ALTERNATE METHOD CONFIRMATION* Carmela Anrdez LUX LAB URINE ORDERABLES Final Resul t [facility] [address] [place] [address], [place] [phone] * Falls Risk Assessment (02/20/2024) Pathologist [facility] Falls Risk Assessment Abstracted Historical Provider MD HEALTH MAINTENANCE Final Result * Depression Screening (11/20/2023) Pathologist [facility] Depression Screening Abstracted Historical Provider MD HEALTH MAINTENANCE Final Result * Colonoscopy (07/28/2022) Pathologist [facility] Colonoscopy No interpreta tion,abstr acted Anatomical Region Laterality Modality Other Historical Provider HEALTH MAINTENANCE Final Result * Hepatitis C Screening (04/28/2017) Pathologist [facility] Hepatitis C Screening Abstracted Historical Provider HEALTH MAINTENANCE Final Result from Last 3 Months or Most Recently Relevant to Health Maintenance Insurance MEDICARE [facility] Advance Directives * Full Code - Confirmed [...] Agents on File Name Relationship Healthcare Agent [facility] Communication Jacklyn Curry Spouse Health Care Agent Care Teams 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
== END 2025-05-12 14:52 | disposition home or self-care (01) ==
LOC: HO.HSM 14:34
PROVIDERS: PCP Physician Assistant Medical; Referring Provider Physician Assistant Medical; Visit Provider Registered Nurse
DX: G20.A2 Parkinson's disease without dyskinesia, with fluctuations (principal)
CPT/HCPCS: 99213

== ENCOUNTER → 2025-05-12 14:34 | Outpatient (BNVA) | payer MEDICARE, OTHER, SELFPAY | PROVIDERS: PCP Physician Assistant Medical; Referring Provider Physician Assistant Medical; Visit Provider Registered Nurse | DX: G20.A2 Parkinson's disease without dyskinesia, with fluctuations (principal) | CPT/HCPCS: 99212 ==